=== PATIENT | male | born 1960 | race Caucasian/White ===

== ENCOUNTER 2020-05-20 05:29 | Emergency (ER) | payer BC ==
--- OUTSIDE RECORDS SUMMARY | 2020-05-20 05:31 | XMS REPORT | Continuity of Care Document ---
:1960 Author Organization [facility] t Address [address] [place] [address] Care Team Providers Name Role Phone Rolando HIGH Attending Clinician Fredy Nunez MD Attending Clinician Doctor Unassigned, Name Attending Clinician Unavailable Problems This patient has no known problems. Allergies, Adverse Reactions, Alerts This patient has no known allergies or adverse reactions. Medications This patient has no known medications. Procedures This patient has no known procedures. Encounters Start End Encounter Admission Attending Care Care Encounter Source Date/Time Date/Time Type Type Clinicians Facility Department ID 2020-05-04 2020-05-04 Refill MALIHA Marshall [id number] 00:00:00 00:00:00 Shauna Brunson [id number] [place] [id number] [place] [phone] nal 059 [facility] 2019-11-30 2019-11-30 Telephone MALIHA Nunez [id number] 00:00:00 00:00:00 Dharmesh Brunson [id number] [place] [id number] [place] [phone] nal 044 [facility] 2019-11-25 2019-11-25 Orders Doctor GUY [id number] 00:00:00 00:00:00 Only Unassigned, CHELLY [id number] [place] [address]686 [id number] 009 2019-11-03 2019-11-03 [facility] [id number] 00:00:00 00:00:00 Shauna Brunson [id number] [place] [id number] [place] [phone] [address] 2019-09-22 2019-09-22 [facility] [id number] 00:00:00 00:00:00 Shauna Brunson [id number] [place] [id number] [facility] [phone] [address] 2019-09-02 2019-09-[address] [facility] [id number] 00:00:00 00:00:00 Shauna Brunson [id number] [place] [id number] [facility] [phone] [address] 2019-08-25 2019-08-[address] [facility] [id number] 08:57:19 09:17:19 ne Visit Shauna Brunson [id number] [place] [id number] [facility] [phone] [address] 2019-08-12 2019-08-12 [facility] [id number] 00:00:00 00:00:00 [facility] [id number] [place] [id number] Profess[facility] [phone] [place] [address] [address] One Results This patient has no known results.
--- OUTSIDE RECORDS SUMMARY | 2020-05-20 05:31 | XMS REPORT | Summary of Care ---
:1960 Author Organization [facility] Address [address] [place] [id number] Care Team Providers Name Role Phone Fredy Nunez MD Primary Care Provider Reason for Visit Reason Comments Refill Request Encounter Details Date Type Department Care Team Description 05/04/2020 Refill [facility]- Abilio Marshall MD Refill Request [address] [facility], [address] [place] [address] [place] [address] [phone] Allergies Active Allergy Reactions Severity Noted Date Comments Codeine Nausea and/or Vomiting 04/11/2016 Liraglutide Nausea and/or Vomiting 07/11/2017 documented as of this encounter (statuses as of 05/04/2020) Medications Medication Sig Dispensed Refills Start End Date Status Date aspirin 81 mg Take 81 mg 0 Activ e chewable tablet by mouth daily. MULTIVITAMIN ORAL Take by 0 Ac tive mouth daily. CALCIUM Take by 0 Active CARBONATE/VITAMIN D3 mouth daily. (VITAMIN D-3 ORAL) FLAXSEED ORAL Take by 0 Active mouth daily. econazole nitrate 1 % Apply to 45 g 0 Active creamIndications: area(s) 9 Atypical rash daily. insulin degludec inject 15 15 mL 5 Act darshan (TRESIBA FLEXTOUCH Units under 0 U-100) 100 unit/mL (3 the skin mL) InPnIndications: daily. Type 2 diabetes mellitus without complication, with long-term current use of insulin SITagliptin 100 mg Take 1 30 tablet 11 A ctive tabletIndications: tablet by 0 Type 2 diabetes mouth daily. mellitus without complication, with long-term current use of insulin pantoprazole 40 mg EC Take 1 30 tablet Active tabletIndications: tablet by 0 Gastroesophageal mouth daily. reflux disease, esophagitis presence not specified metFORMIN 1,000 mg TAKE ONE 60 tablet 11 A ctive tabletIndications: TABLET BY 0 Type 2 diabetes MOUTH TWICE mellitus without A DAY WITYH complication, with MEALS long-term current use of insulin empagliflozin Take 1 30 tablet 11 Active (JARDIANCE) 10 mg tablet by 0 TabIndications: Type mouth daily. 2 diabetes mellitus without complication, with long-term current use of insulin Insulin [place], Inject 100 Each 3 Act dasrhan Disposable, (CECILIA PEN Tresiba 0 NEEDLE) 32 gauge x daily as " directed NdleIndications: Type 2 diabetes mellitus without complication, with long-term current use of insulin lisinopril-hydrochlor Take 2 180 tablet 3 Active othiazide 20-12.5 mg tablets by 0 per tablet mouth daily. rosuvastatin Take 1 90 tablet 3 Active (CRESTOR) 40 mg tablet by 0 tablet mouth daily. clopidogreL 75 mg Take 1 90 tablet 3 Ac tive tablet tablet by 0 mouth daily. metoprolol succinate Take 1 90 tablet 1 Active XL 50 mg 24 hr tablet tablet by 0 mouth daily. metoprolol succinate Take 1 90 tablet 1 05/04/20 Discontinued XL 50 mg 24 hr tablet tablet by 0 20 (Reorder) mouth daily. documented as of this encounter (statuses as of 05/04/2020) Active Problems Problem Noted Date Screening for colorectal cancer 08/07/2017 Overview: Added automatically from request for devin jyoti [id number] Umbilical hernia without obstruction and without gangr abigail 08/07/2017 Overview: Added automatically from request for devin jyoti [id number] Fatty liver 07/26/2017 Ingrown toenail without infection 07/07/2017 HTN (hypertension) DM (diabetes mellitus) Overview: diagnosed around age 34yo CAD (coronary artery disease) HLD (hyperlipidemia) Umbilical hernia documented as of this encounter (statuses as of 05/04/2020) Immunizations Name Administration Dates Next Due Influenza Virus Vaccine Quad IM 3+ YRS 02/11/2018 Pneumococcal Polysaccharide, PPSV23 (PNEUMOVAX) 06/28/2017 documented as of this encounter Social History Tobacco Use Types Packs/Day Years Used Date Never Smoker Smokeless Tobacco: Current User Chew Alcohol Use Drinks/Week oz/Week Comments No occasional Sex Assigned at Date Recorded Not on file documented as of this encounter Last Filed Vital Signs Not on filedocumented in this encounter Plan of Treatment Date Type Specialty Care Team Description 08/29/2020 Office Visit Cardiology Shauna Marshall M D [address] [facility] [address] [place] [address] 15 [phone] Health Maintenance Due Date Last Done Comments DTaP,Tdap,and Td Vaccines (1 1981 - Tdap) COLON CANCER SCREENING 2012 ANNUAL FIT/FOBT COLON CANCER SCREENING FIT 2012 DNA EVERY 3 YEARS COLON CANCER SCREENING 2012 SIGMOIDOSCOPY EVERY 5 YEARS COLONOSCOPY 2012 Colorectal Cancer Screening 2012 Zoster Recombinant Vaccine 2012 (SHINGRIX) (1 of 2) FOOT EXAM 06/28/2018 06/28/2017, 06/28/2017, 11/02/2016, Additional history exists HgA1C 02/18/2019 08/19/2018, 02/11/2018, 06/28/2017 CREATININE (SERUM) 08/20/2019 08/19/2018, 02/11/2018, 06/28/2017 LDL-C 08/20/2019 08/19/2018, 02/11/2018, 06/28/2017 URINE MICROALBUMIN 08/20/2019 08/19/2018, 06/28/2017 INFLUENZA VACCINE (#1) 2020 02/11/2018 EYE EXAM 03/13/2020 03/13/2019, 01/04/2017 Depression Screening 07/12/2020 07/13/2019 HEPATITIS C (HCV) SCREEN Completed 06/28/2017 PNEUMOCOCCAL 0-64 YEARS Aged Out 06/28/2017 No longe r eligible COMBINED SERIES based on patient 's age to complete this topic documented as of this encounter Results Not on filedocumented in this encounter Insurance Payer Benefit Plan Subscriber ID Effective Dates Phone Address Type / Group [facility] [id number] 2016-Yuliet [phone] [address] [place] PPO/POS [place] - OUT OF t 7 [id number] [place] [address] documented as of this encounter
[2020-05-20 06:09] LABS: Absolute Lymphocytes (CBC) 1.8 K/uL (0.7-4.9); Basophils % 0.6 % (0-1.3); Hematocrit 42.9 % (39.6-49.0); Lymphocytes % 38.8 % (15.3-44.8); MPV 8.3 fL (7.6-11.3)
--- NOTE | 2020-05-20 06:09 | ER ---
Nurse's Notes [facility] Name: Brice Noe Age: 59 yrs Sex: Male : 1960 Arrival Date: 05/20/2020 Time: 05:35 Bed 2 Private MD: Diagnosis: Cerebral infarction-left sided weakness, dense;Hypokalemia Presentation: 05/20 05:50 Risk Assessment: Do you want to hurt yourself or someone else? Patient reports no ea desire to harm self or others. Onset of symptoms was May 20, 2020 at 05:00. 05:50 Acuity: TARA 3 ea 05:50 Chief complaint: Patient states: I woke up around 0445 and felt fine, I brushed my sg teeth and got dressed for work. Then I started having my left arm go numb and not feeling normal, then I could barely walk. Onset of symptoms is 0500 per the pt and pt family. Coronavirus screen: Client denies travel out of the [place] in the last 14 days. At this time, the client does not indicate any symptoms associated with coronavirus-19. Ebola Screen: Patient negative for fever greater than or equal to 101.5 degrees Fahrenheit, and additional compatible Ebola Virus Disease symptoms Patient denies exposure to infectious person. Patient denies travel to an Ebola-affected area in the 21 days before illness onset. No symptoms or risks identified at this time. An acute neurological deficit is present. The patient has been moved to a treatment area. The patients blood glucose was checked prior to arriving to the hospital and was found to be hyperglycemic. The patient has been moved to a treatment room. Initial Sepsis Screen: Does the patient meet any 2 criteria? No. Patient's initial sepsis screen is negative. Does the patient have a suspected source of infection? No. Patient's initial sepsis screen is negative. Risk Assessment: Do you want to hurt yourself or someone else? Patient reports no desire to harm self or others. Onset of symptoms was May 20, 2020 at 05:00. Care prior to arrival: None. Transition of care: patient was not received from another setting of care. 05:50 Acuity: TARA 2 sg 05:50 Method Of Arrival: Wheelchair sg 05:51 Ebola Screen: No symptoms or risks identified at this time. ea 05:51 An acute neurological deficit is present. Pre-hospital glucose is not applicable to ea this patient. 05:54 Note pt reports had a fall x1 week ago, with LOC per the pt and pt family. sg Triage Assessment: 05:50 General: Appears in no apparent distress. Behavior is cooperative. ea 07:03 The onset of the patients symptoms was May 20, 2020 at 05:00. sv Stroke Activation: Symptom onset < 3 hours Physician: Stroke Attending; Name: ; Notified At: ; Arrived At: Physician: Chief Stroke Resident; Name: ; Notified At: ; Arrived At: Physician: Stroke Resident; Name: ; Notified At: ; Arrived At: Physician: ED Attending; Name: ; Notified At: ; Arrived At: Physician: ED Resident; Name: ; Notified At: ; Arrived At: Stroke Activation: Symptom onset < 3 hours Physician: Stroke Attending; Name: ; Notified At: ; Arrived At: Physician: Chief Stroke Resident; Name: ; Notified At: ; Arrived At: Physician: Stroke Resident; Name: ; Notified At: ; Arrived At: Physician: ED Attending; Name: ; Notified At: ; Arrived At: Physician: ED Resident; Name: ; Notified At: ; Arrived At: Historical: - Allergies: 05:54 Codeine; sg 05:55 Codeine; ea - Home Meds: 05:55 pantoprazole 40 mg Oral TbEC 1 tab once daily [Active]; metoprolol tartrate 50 mg Oral ea tab 1 tab 2 times per day [Active]; metformin 1,000 mg Oral tab 1 tab 2 times per day [Active]; lisinopril 2.5 mg Oral tab 1 tab once daily [Active]; Jardiance 10 mg Oral tab 1 tab once daily [Active]; Effient 10 mg Oral tab 1 tab once daily [Active]; Crestor 40 mg Oral tab 1 tab once daily [Active]; - PMHx: 05:54 Diabetes - NIDDM; GERD; High Cholesterol; Hypertension; Myocardial infarction; sg 05:55 Myocardial infarction; Hypertension; High Cholesterol; Diabetes - NIDDM; GERD; ea - PSHx: 05:54 Knee surgery; sg 05:55 Knee surgery; ea - Immunization history:: Adult Immunizations up to date, Adult Immunizations up to date. - Social history:: Smoking status: Patient denies any tobacco usage or history of. Smoking status: Patient denies any tobacco usage or history of. - Family history:: not pertinent. Screenin:50 Abuse screen: Denies threats or abuse. Nutritional screening: No deficits noted. ea Tuberculosis screening: No symptoms or risk factors identified. Fall Risk IV access (20 points). Assessment: 05:49 The patient has not been NPO before screening. The patient is alert, and able to follow ea commands. The patient does not exhibit slurred or garbled speech. The patient is not exhibiting difficulty speaking. The patient does not exhibit difficulty understanding words. The patient is able to swallow own secretions with no drooling or need for suction. Patient tolerated one teaspoon of water. No drooling, immediate coughing, gurgling, or clearing of the throat was noted. The patient tolerated 90mL of water. No drooling, immediate coughing, gurgling, or clearing of the throat was noted. The patient passed the bedside swallow screening. Oral medications may be given as ordered. Contact Physician for further diet orders. Provider notified of bedside swallow screening results: Roberto Carlos Garg MD. Pain: Denies pain. Neuro: Level of Consciousness is awake, alert, obeys commands, Oriented to person, place, time, situation, Dip Tanker are weak on left in left hand(s) leg(s) Facial droop on left. Respiratory: Airway is patent Respiratory effort is even, unlabored, Respiratory pattern is regular, symmetrical. Derm: Skin is pink, warm \T\ dry. 06:14 T-PA (Activase) Screening: Indications: Definite evidence of stroke, ischemic, embolic, ea or hypertensive: Yes. Treatment will start within 4.5 hours onset of symptoms: Yes. No evidence of intracranial hemorrhage or CT of head and no evidence of peripheral hemorrhage or recent CVA: Yes. Consent for thrombolytic therapy: Yes. 06:48 Reassessment: Patient and/or family updated on plan of care and expected duration. Pain ea level reassessed. Patient is alert, oriented x 3, equal unlabored respirations, skin warm/dry/pink. Pt taken to CT accompanied by wood technologist and ED nurse. 07:01 Reassessment: Patient and/or family updated on plan of care and expected duration. Pain ea level reassessed. Patient is alert, oriented x 3, equal unlabored respirations, skin warm/dry/pink. Returned from CT. 07:03 VAN Scoring: Arm Drift: Flaccid/no antigravity Visual Disturbance: No visual sv disturbance noted. Aphasia: No aphasia noted. Neglect: No neglect noted. 07:03 General: Appears in no apparent distress. comfortable, well groomed, well developed, sv Behavior is calm, cooperative, appropriate for age. Pain: Denies pain. Neuro: Level of Consciousness is awake, alert, obeys commands, Oriented to person, place, time, situation, Dip Tanker are weak on left Weakness in left hand(s) arm(s) leg(s) Speech is normal, Facial symmetry appears normal, Facial symmetry: tongue is midline, Reports numbness in left hand and left leg weakness in left arm and left leg. Cardiovascular: Patient's skin is warm and dry. Pulses are palpable in right radial artery and left radial artery. Respiratory: Airway is patent Respiratory effort is even, unlabored, Respiratory pattern is regular, symmetrical. Derm: Skin is pink, warm \T\ dry. 08:30 Reassessment: Patient appears in no apparent distress at this time. No changes from sv previously documented assessment. Patient and/or family updated on plan of care and expected duration. Pain level reassessed. Patient is alert, oriented x 3, equal unlabored respirations, skin warm/dry/pink. 10:00 Reassessment: Patient appears in no apparent distress at this time. No changes from sv previously documented assessment. Patient and/or family updated on plan of care and expected duration. Pain level reassessed. Patient is alert, oriented x 3, equal unlabored respirations, skin warm/dry/pink. 11:59 Reassessment: Patient appears in no apparent distress at this time. No changes from sv previously documented assessment. Patient and/or family updated on plan of care and expected duration. Pain level reassessed. Patient is alert, oriented x 3, equal unlabored respirations, skin warm/dry/pink. 12:44 Reassessment: Patient appears in no apparent distress at this time. No changes from sv previously documented assessment. Patient and/or family updated on plan of care and expected duration. Pain level reassessed. Patient is alert, oriented x 3, equal unlabored respirations, skin warm/dry/pink. 13:47 Reassessment: Bedside report given to Boris from [facility]. Vital Signs: 05:50 BP 150 / 77; Pulse 88; Resp 18; Temp 97.7; Pulse Ox 100% on R/A; Pain 3/10; sg 06:30 BP 128 / 70; Pulse 59; Resp 19; Pulse Ox 97% on R/A; ea 07:03 BP 138 / 71; Pulse 68; Resp 16; Temp 98; Pulse Ox 99% ; sv 07:48 BP 134 / 81; Pulse 67; Resp 14; Pulse Ox 100% ; sv 08:03 BP 152 / 82; Pulse 64; Resp 16; Pulse Ox 97% on R/A; sv 08:48 BP 146 / 83; Pulse 67; Resp 14; Pulse Ox 99% ; sv 09:48 BP 123 / 73; Pulse 64; Resp 14; Pulse Ox 100% ; sv 10:55 BP 128 / 84; Pulse 62; Resp 20; Temp 97.8(O); Pulse Ox 94% on R/A; mh5 11:48 BP 126 / 79; Pulse 58; Resp 16; Pulse Ox 99% ; sv 12:30 BP 132 / 79; Pulse 58; Resp 16; Temp 97.6(O); Pulse Ox 96% on R/A; mh5 13:30 BP 129 / 88; Pulse 59; Resp 16; Pulse Ox 99% ; sv NIH Stroke Scale Scores: 05:52 NIHSS Score: 6 ea 05:55 NIHSS Score: 10 daron 07:03 NIHSS Score: 10 sv ED Course: 05:35 Patient arrived in ED. ea 05:37 Roberto Carlos Garg MD is Attending Physician. daron 05:49 Inserted saline lock: 20 gauge in right antecubital area, using aseptic technique. ea Blood collected. 05:51 Triage completed. ea 05:51 CT Stroke Brain w/o Contrast In Process Unspecified. EDMS 05:51 Patient has correct armband on for positive identification. Placed in gown. Bed in low ea position. Call light in reach. Side rails up X2. Adult w/ patient. library monitor on. Pulse ox on. NIBP on. 05:52 Arm band placed on right wrist. Patient placed in an exam room, on a stretcher, on ea compliance monitor, on pulse oximetry. EKG completed in triage. Results shown to . 06:04 XRAY Chest (1 view) In Process Unspecified. EDMS 06:05 Dr. Garg initiated transfer at [facility] with Xuan Tellez. tt3 06:10 Dr. Garg was connected with Dr. Kuhn. tt3 06:[address] Garg with Adia Matute from the [facility] Transfer Center. eb 06:40 Benoit Calix, RN is Primary Nurse. sg 06:46 No provider procedures requiring assistance completed. Patient transferred, IV remains ea in place. 06:57 Sparkle Marks from the [facility] Transfer Center connected Dr. Garg with the neurologist ryley convenience recycle center tech Dr. Rodriguez from [facility]. 07:02 CT Head Angio In Process Unspecified. EDMS 07:02 Neck Angio In Process Unspecified. EDMS 07:35 called and spoke with Leticia from the [facility] Transfer Center to get Dr. Rodriguez for Dr. ryley Garg for CT Angio update. 07:50 Primary Nurse role handed off by Benoit Calix, RN sv 07:50 Laura Faulkner, EVELINA is Primary Nurse. sv 07:51 LFT's Sent. sv 07:51 CBC with Diff Sent. sv 07:51 Basic Metabolic Panel Sent. sv 10:03 transfer Awaiting: bed assignment from [facility]. sv 13:00 administrative approval given by Leticia Romo from the [facility] Transfer center. patient eb has been accepted to [facility] Shakira He [phone]/ Dr. Rose has accepted the patient in transfer/ report to be called to [phone]. Administered Medications: 06:03 Drug: foLIC Acid 1 mg Route: IVPB; Site: right antecubital; ea 06:03 Drug: NS 0.9% 1000 ml Route: IV; Rate: 1 bolus; Site: right antecubital; ea 06:18 Drug: ACTIvase {Co-Signature: misty (Urvashi Domínguez RN).} Route: IV Thrombolytics; Rate: sg calculated rate; Infused Over: 60 mins; 07:18 Follow up: Response: No adverse reaction sv 13:49 Follow up: Response: No adverse reaction sv 07:15 Drug: Potassium Effervescent Tablet 25 mEq Route: PO; ea 07:50 Follow up: Response: No adverse reaction sv 09:00 Drug: NS 0.9% 500 ml Route: IV; Rate: bolus; Site: right antecubital; sv 09:40 Follow up: Response: No adverse reaction; IV Status: Completed infusion; IV Intake: sv 500ml Point of Care Testing: Blood Glucose: 05:55 Blood Glucose: 296 mg/dL; ea Ranges: Intake: 09:40 IV: 500ml; Total: 500ml. sv Outcome: 06:08 ER care complete, transfer ordered by MD. neri 06:48 Instructed on the need for transfer. ea 13:13 [facility] Transfer form sv completed. X-rays sent w/ patient. Note: Report given to Nia HOYT 13:13 Condition: stable 13:48 Patient left the ED. sv NIH Stroke Scale - NIH Stroke Score Date: 05/20/2020 Time: 05:52 Total Score = 6 1a. Level of Consciousness (LOC) - 0(Alert) 1b. Level of Consciousness (LOC) (Year \T\ Age) - 0(Both) 1c. LOC Commands (Open \T\ Closes Eyes/Showroom Salesperson) - 0(Both) 2. Best Gaze (Lateral Gaze Paresis) - 0(Normal) 3. Visual Field Loss - 0(No visual loss) 4. Facial Palsy - 1(Minor Paralysis) 5a. Left Arm: Motor (10-second hold) - 2(Drift, some effort against gravity) 5b. Right Arm: Motor (10-second hold) - 0(No drift) 6a. Left Leg: Motor (5-second hold - always test supine) - 3(No effort against gravity) 6b. Right Leg: Motor (5-second hold - always test supine) - 0(No drift) 7. Limb Ataxia (finger/nose \T\ heel/izquierdo - test with eyes open) - 0(Absent) 8. Sensory Loss (pinprick arms/legs/face) - 0(Normal) 9. Best Language: Aphasia (description/naming/reading) - 0(No aphasia) 10. Dysarthria (speech clarity - read or repeat words) - 0(Normal) 11. Extinction and Inattention (visual/tactile/auditory/spatial/personal) - 0(No abnormality) Initials: misty NIH Stroke Scale - NIH Stroke Score Date: 05/20/2020 Time: 05:55 Total Score = 10 1a. Level of Consciousness (LOC) - 0(Alert) 1b. Level of Consciousness (LOC) (Year \T\ Age) - 0(Both) 1c. LOC Commands (Open \T\ Closes Eyes/Showroom Salesperson) - 0(Both) 2. Best Gaze (Lateral Gaze Paresis) - 0(Normal) 3. Visual Field Loss - 0(No visual loss) 4. Facial Palsy - 0(Normal) 5a. Left Arm: Motor (10-second hold) - 3(No effort against gravity) 5b. Right Arm: Motor (10-second hold) - 0(No drift) 6a. Left Leg: Motor (5-second hold - always test supine) - 2(Drift, some effort against gravity) 6b. Right Leg: Motor (5-second hold - always test supine) - 0(No drift) 7. Limb Ataxia (finger/nose \T\ heel/izquierdo - test with eyes open) - 2(Present in two limbs) 8. Sensory Loss (pinprick arms/legs/face) - 1(Mild to moderate loss) 9. Best Language: Aphasia (description/naming/reading) - 1(Mild to moderate aphasia) 10. Dysarthria (speech clarity - read or repeat words) - 1(Mild to Moderate) 11. Extinction and Inattention (visual/tactile/auditory/spatial/personal) - 0(No abnormality) Initials: [facility] NIH Stroke Scale - NIH Stroke Score Date: 05/20/2020 Time: 07:03 Total Score = 10 1a. Level of Consciousness (LOC) - 0(Alert) 1b. Level of Consciousness (LOC) (Year \T\ Age) - 0(Both) 1c. LOC Commands (Open \T\ Closes Eyes/Showroom Salesperson) - 0(Both) 2. Best Gaze (Lateral Gaze Paresis) - 0(Normal) 3. Visual Field Loss - 0(No visual loss) 4. Facial Palsy - 0(Normal) 5a. Left Arm: Motor (10-second hold) - 4(No movement) 5b. Right Arm: Motor (10-second hold) - 0(No drift) 6a. Left Leg: Motor (5-second hold - always test supine) - 4(No movement) 6b. Right Leg: Motor (5-second hold - always test supine) - 0(No drift) 7. Limb Ataxia (finger/nose \T\ heel/izquierdo - test with eyes open) - 2(Present in two limbs) 8. Sensory Loss (pinprick arms/legs/face) - 0(Normal) 9. Best Language: Aphasia (description/naming/reading) - 0(No aphasia) 10. Dysarthria (speech clarity - read or repeat words) - 0(Normal) 11. Extinction and Inattention (visual/tactile/auditory/spatial/personal) - 0(No abnormality) Initials: sv Signatures: Dispatcher [employer] Laura Craven RN RN sv Gay, Steven, RN RN sg Anderson, Corey, MD MD cha Martinez, Maria [facility] Urvashi Domínguez RN RN ea Botello, Elizabeth eb Trim, Tyler 3 Urvashi Domínguez RN, ea Corrections: (The following items were deleted from the chart) 12:59 12:30 BP 132 / 79; Pulse 58bpm; Resp 16bpm; Pulse Ox 96% RA; sv 5 13:49 07:18 Response: No adverse reaction sv sv
--- NOTE | 2020-05-20 06:09 | EDPHYS ---
Physician Documentation [facility] Name: Brice Noe Age: 59 yrs Sex: Male : 1960 Arrival Date: 05/20/2020 Time: 05:35 Bed 2 Private MD: ED Physician Roberto Carlos Garg HPI: 05/20 05:50 This 59 yrs old Male presents to ER via Unassigned with complaints of S/S of daron Possible Stroke. 05:50 The patient's problem is reported as paresthesias, in left upper extremity, in left daron lower extremity, weakness, in the left upper extremity, in the left lower extremity. Onset: The symptoms/episode began/occurred 1 hour(s) ago. Duration: The episode is continuous. Context: the episode(s) was witnessed, by family, . The symptoms are alleviated by nothing. The symptoms are aggravated by nothing. Associated signs and symptoms: Pertinent positives: gait abnormality, numbness, weakness. Severity of symptoms: At their worst the symptoms were moderate in the emergency department the symptoms are worse mildly. Patient's baseline: Neuro: alert and fully oriented. The patient has not experienced similar symptoms in the past. Historical: - Allergies: 05:54 Codeine; sg 05:55 Codeine; ea - Home Meds: 05:55 pantoprazole 40 mg Oral TbEC 1 tab once daily [Active]; metoprolol tartrate 50 mg Oral ea tab 1 tab 2 times per day [Active]; metformin 1,000 mg Oral tab 1 tab 2 times per day [Active]; lisinopril 2.5 mg Oral tab 1 tab once daily [Active]; Jardiance 10 mg Oral tab 1 tab once daily [Active]; Effient 10 mg Oral tab 1 tab once daily [Active]; Crestor 40 mg Oral tab 1 tab once daily [Active]; - PMHx: 05:54 Diabetes - NIDDM; GERD; High Cholesterol; Hypertension; Myocardial infarction; sg 05:55 Myocardial infarction; Hypertension; High Cholesterol; Diabetes - NIDDM; GERD; ea - PSHx: 05:54 Knee surgery; sg 05:55 Knee surgery; ea - Immunization history:: Adult Immunizations up to date, Adult Immunizations up to date. - Social history:: Smoking status: Patient denies any tobacco usage or history of. Smoking status: Patient denies any tobacco usage or history of. - Family history:: not pertinent. ROS: 05:50 Constitutional: Negative for fever, chills, and weight loss, Eyes: Negative for injury, daron pain, redness, and discharge, ENT: Negative for injury, pain, and discharge, Neck: Negative for injury, pain, and swelling, Cardiovascular: Negative for chest pain, palpitations, and edema, Respiratory: Negative for shortness of breath, cough, wheezing, and pleuritic chest pain, Abdomen/GI: Negative for abdominal pain, nausea, vomiting, diarrhea, and constipation, Back: Negative for injury and pain, : Negative for injury, bleeding, discharge, and swelling, Skin: Negative for injury, rash, and discoloration, Psych: Negative for depression, anxiety, suicide ideation, homicidal ideation, and hallucinations, Allergy/Immunology: Negative for hives, rash, and allergies, Endocrine: Negative for neck swelling, polydipsia, polyuria, polyphagia, and marked weight changes, Hematologic/Lymphatic: Negative for swollen nodes, abnormal bleeding, and unusual bruising. 05:50 MS/extremity: Positive for decreased range of motion, paresthesias, of the left arm and left leg. Exam: 05:50 Constitutional: This is a well developed, well nourished patient who is awake, alert, daron and in no acute distress. Head/Face: Normocephalic, atraumatic. Eyes: Pupils equal round and reactive to light, extra-ocular motions intact. Lids and lashes normal. Conjunctiva and sclera are non-icteric and not injected. Cornea within normal limits. Periorbital areas with no swelling, redness, or edema. ENT: Nares patent. No nasal discharge, no septal abnormalities noted. Tympanic membranes are normal and external auditory canals are clear. Oropharynx with no redness, swelling, or masses, exudates, or evidence of obstruction, uvula midline. Mucous membranes moist. Neck: Trachea midline, no thyromegaly or masses palpated, and no cervical lymphadenopathy. Supple, full range of motion without nuchal rigidity, or vertebral point tenderness. No Meningismus. Chest/axilla: Normal chest wall appearance and motion. Nontender with no deformity. No lesions are appreciated. Cardiovascular: Regular rate and rhythm with a normal S1 and S2. No gallops, murmurs, or rubs. Normal PMI, no JVD. No pulse deficits. Respiratory: Lungs have equal breath sounds bilaterally, clear to auscultation and percussion. No rales, rhonchi or wheezes noted. No increased work of breathing, no retractions or nasal flaring. Abdomen/GI: Soft, non-tender, with normal bowel sounds. No distension or tympany. No guarding or rebound. No evidence of tenderness throughout. Back: No spinal tenderness. No costovertebral tenderness. Full range of motion. Male : Normal genitalia with no discharge or lesions. Skin: Warm, dry with normal turgor. Normal color with no rashes, no lesions, and no evidence of cellulitis. Psych: Awake, alert, with orientation to person, place and time. Behavior, mood, and affect are within normal limits. 05:50 Musculoskeletal/extremity: ROM: full passive range of motion, limited active range of motion, in the left arm and left leg, Circulation is intact in all extremities. Sensation intact. Compartment Syndrome exam of affected extremity: is normal. DVT Exam: No signs of deep vein thrombosis. no pain, no swelling, no tenderness, negative Homans' sign noted on exam, no appreciated bluish discoloration, no erythema, no increased warmth. 05:50 Neuro: Orientation: is normal, appropriate for stated age, no acute changes, Mentation: is normal, appropriate for stated age, no acute changes, Memory: is normal, appropriate for stated age, no acute changes, Cranial nerves: grossly normal, is grossly normal based on the patient's age, no acute changes, Cerebellar function: unable to test, Motor: Strength is 2/5 in the left arm and left leg, Sensation: no obvious gross deficits, appropriate no acute changes, numbness, that is mild, of the left arm and left leg, Gait: not tested. Babinski testing is normal, seizure activity, is not displayed by the patient. 06:02 ECG was reviewed by the Attending Physician. daron 06:08 Radiologist reports: nad,no blood daron Vital Signs: 05:50 BP 150 / 77; Pulse 88; Resp 18; Temp 97.7; Pulse Ox 100% on R/A; Pain 3/10; sg 06:30 BP 128 / 70; Pulse 59; Resp 19; Pulse Ox 97% on R/A; ea 07:03 BP 138 / 71; Pulse 68; Resp 16; Temp 98; Pulse Ox 99% ; sv 07:48 BP 134 / 81; Pulse 67; Resp 14; Pulse Ox 100% ; sv 08:03 BP 152 / 82; Pulse 64; Resp 16; Pulse Ox 97% on R/A; sv 08:48 BP 146 / 83; Pulse 67; Resp 14; Pulse Ox 99% ; sv 09:48 BP 123 / 73; Pulse 64; Resp 14; Pulse Ox 100% ; sv 10:55 BP 128 / 84; Pulse 62; Resp 20; Temp 97.8(O); Pulse Ox 94% on R/A; mh5 11:48 BP 126 / 79; Pulse 58; Resp 16; Pulse Ox 99% ; sv 12:30 BP 132 / 79; Pulse 58; Resp 16; Temp 97.6(O); Pulse Ox 96% on R/A; mh5 13:30 BP 129 / 88; Pulse 59; Resp 16; Pulse Ox 99% ; sv NIH Stroke Scale Scores: 05:52 NIHSS Score: 6 ea 05:55 NIHSS Score: 10 daron 07:03 NIHSS Score: 10 sv MDM: 05:37 Patient medically screened. daron 06:09 Differential diagnosis: CVA, paralysis, metabolic disorder, drug effects. Data daron reviewed: vital signs, nurses notes, lab test result(s), EKG, radiologic studies, CT scan, plain films. Data interpreted: lunchroom monitor: rate is 88 beats/min, rhythm is regular. Test interpretation: by ED physician or midlevel provider: ECG, plain radiologic studies. Counseling: I had a detailed discussion with the patient and/or guardian regarding: the historical points, exam findings, and any diagnostic results supporting the discharge/admit diagnosis, lab results. 07:41 Other consultation: dr lyles explained ct angio findings, slow to little flow in right daron vertebral artery, give 500 cc ns bolus , no meds to drop blood pressure. ED course: . 05/20 05:38 Order name: Basic Metabolic Panel [facility] 05/20 05:38 Order name: CBC with Diff daron 05/20 05:38 Order name: LFT's [facility] 05/20 05:38 Order name: Magnesium; Complete Time: 06:57 daron 05/20 05:38 Order name: NT PRO-BNP; Complete Time: 06:57 [facility] 05/20 05:38 Order name: PT-INR 05/20 05:36 Order name: CT Stroke Brain w/o Contrast 05/20 05:38 Order name: Troponin (emerg Dept Use Only); Complete Time: 06:57 [facility] 05/20 05:39 Order name: Basic Metabolic Panel; Complete Time: 06:57 EDMS 05/20 05:39 Order name: CBC with Automated Diff; Complete Time: 06:36 EDMS 05/20 05:39 Order name: Liver (Hepatic) Function; Complete Time: 06:57 EDMS 05/20 06:00 Order name: Glucose, Ancillary Testing; Complete Time: 06:10 EDMS 05/20 08:33 Order name: SARS-COV-2 RT PCR EDKS 05/20 05:38 Order name: XRAY Chest (1 view) [facility] 05/20 05:38 Order name: EKG; Complete Time: 05:39 [facility] 05/20 05:38 Order name: Cardiac monitoring; Complete Time: 05:49 [facility] 05/20 05:38 Order name: EKG - Nurse/Tech; Complete Time: 05:48 [facility] 05/20 05:38 Order name: IV Saline Lock; Complete Time: 05:49 [facility] 05/20 05:38 Order name: Labs collected and sent; Complete Time: 05:49 daron 05/20 05:38 Order name: O2 Per Protocol; Complete Time: 06:02 [facility] 05/20 05:38 Order name: O2 Sat Monitoring; Complete Time: 05:49 [facility] 05/20 05:38 Order name: CT Head Angio [facility] 05/20 05:41 Order name: Neck Angio EDMS EC:02 Rate is 65 beats/min. Rhythm is regular. QRS [place] is Normal. TN interval is normal. QRS daron interval is normal. QT interval is normal. No Q waves. T waves are Normal. No ST changes noted. Clinical impression: Normal ECG and No evidence of ischemia. Interpreted by me. Reviewed by me. Administered Medications: 06:03 Drug: foLIC Acid 1 mg Route: IVPB; Site: right antecubital; ea 06:03 Drug: NS 0.9% 1000 ml Route: IV; Rate: 1 bolus; Site: right antecubital; ea 06:18 Drug: ACTIvase {Co-Signature: misty (Urvashi Domínguez RN).} Route: IV Thrombolytics; Rate: sg calculated rate; Infused Over: 60 mins; 07:18 Follow up: Response: No adverse reaction sv 13:49 Follow up: Response: No adverse reaction sv 07:15 Drug: Potassium Effervescent Tablet 25 mEq Route: PO; ea 07:50 Follow up: Response: No adverse reaction sv 09:00 Drug: NS 0.9% 500 ml Route: IV; Rate: bolus; Site: right antecubital; sv 09:40 Follow up: Response: No adverse reaction; IV Status: Completed infusion; IV Intake: sv 500ml Point of Care Testing: Blood Glucose: 05:55 Blood Glucose: 296 mg/dL; ea Ranges: Critical Glucose Levels:Adult <50 mg/dl or >400 mg/dl <40 mg/dl or >180 mg/dl Disposition: 05/20/20 06:08 Transfer ordered to [facility]. Diagnosis are Cerebral infarction - left sided weakness, dense, Hypokalemia. - Reason for transfer: Higher level of care. - Accepting physician is to [facility] stroke center. - Condition is Serious. - Problem is new. - Symptoms are unchanged. NIH Stroke Scale - NIH Stroke Score Date: 05/20/2020 Time: 05:52 Total Score = 6 1a. Level of Consciousness (LOC) - 0(Alert) 1b. Level of Consciousness (LOC) (Year \T\ Age) - 0(Both) 1c. LOC Commands (Open \T\ Closes Eyes/Orange Picking Supervisor) - 0(Both) 2. Best Gaze (Lateral Gaze Paresis) - 0(Normal) 3. Visual Field Loss - 0(No visual loss) 4. Facial Palsy - 1(Minor Paralysis) 5a. Left Arm: Motor (10-second hold) - 2(Drift, some effort against gravity) 5b. Right Arm: Motor (10-second hold) - 0(No drift) 6a. Left Leg: Motor (5-second hold - always test supine) - 3(No effort against gravity) 6b. Right Leg: Motor (5-second hold - always test supine) - 0(No drift) 7. Limb Ataxia (finger/nose \T\ heel/izquierdo - test with eyes open) - 0(Absent) 8. Sensory Loss (pinprick arms/legs/face) - 0(Normal) 9. Best Language: Aphasia (description/naming/reading) - 0(No aphasia) 10. Dysarthria (speech clarity - read or repeat words) - 0(Normal) 11. Extinction and Inattention (visual/tactile/auditory/spatial/personal) - 0(No abnormality) Initials: misty NIH Stroke Scale - NIH Stroke Score Date: 05/20/2020 Time: 05:55 Total Score = 10 1a. Level of Consciousness (LOC) - 0(Alert) 1b. Level of Consciousness (LOC) (Year \T\ Age) - 0(Both) 1c. LOC Commands (Open \T\ Closes Eyes/Orange Picking Supervisor) - 0(Both) 2. Best Gaze (Lateral Gaze Paresis) - 0(Normal) 3. Visual Field Loss - 0(No visual loss) 4. Facial Palsy - 0(Normal) 5a. Left Arm: Motor (10-second hold) - 3(No effort against gravity) 5b. Right Arm: Motor (10-second hold) - 0(No drift) 6a. Left Leg: Motor (5-second hold - always test supine) - 2(Drift, some effort against gravity) 6b. Right Leg: Motor (5-second hold - always test supine) - 0(No drift) 7. Limb Ataxia (finger/nose \T\ heel/izquierdo - test with eyes open) - 2(Present in two limbs) 8. Sensory Loss (pinprick arms/legs/face) - 1(Mild to moderate loss) 9. Best Language: Aphasia (description/naming/reading) - 1(Mild to moderate aphasia) 10. Dysarthria (speech clarity - read or repeat words) - 1(Mild to Moderate) 11. Extinction and Inattention (visual/tactile/auditory/spatial/personal) - 0(No abnormality) Initials: [facility] NIH Stroke Scale - NIH Stroke Score Date: 05/20/2020 Time: 07:03 Total Score = 10 1a. Level of Consciousness (LOC) - 0(Alert) 1b. Level of Consciousness (LOC) (Year \T\ Age) - 0(Both) 1c. LOC Commands (Open \T\ Closes Eyes/Orange Picking Supervisor) - 0(Both) 2. Best Gaze (Lateral Gaze Paresis) - 0(Normal) 3. Visual Field Loss - 0(No visual loss) 4. Facial Palsy - 0(Normal) 5a. Left Arm: Motor (10-second hold) - 4(No movement) 5b. Right Arm: Motor (10-second hold) - 0(No drift) 6a. Left Leg: Motor (5-second hold - always test supine) - 4(No movement) 6b. Right Leg: Motor (5-second hold - always test supine) - 0(No drift) 7. Limb Ataxia (finger/nose \T\ heel/izquierdo - test with eyes open) - 2(Present in two limbs) 8. Sensory Loss (pinprick arms/legs/face) - 0(Normal) 9. Best Language: Aphasia (description/naming/reading) - 0(No aphasia) 10. Dysarthria (speech clarity - read or repeat words) - 0(Normal) 11. Extinction and Inattention (visual/tactile/auditory/spatial/personal) - 0(No abnormality) Initials: sv Signatures: Dispatcher [employer] EDLaura Beyer RN Benoit Cortés RN RN sg Anderson, Corey, MD MD cha Antunez, Elena, RN RN ea Elena Antunez RN ea Corrections: (The following items were deleted from the chart) 07:01 06:08 05/20/2020 06:[address] [facility]. Diagnosis is Cerebral infarction - left sided weakness, dense. Reason for transfer: Higher level of care. Accepting physician is to [facility] stroke [place]. Condition is Serious. Problem is new. Symptoms are unchanged. daron 07:04 07:01 05/20/2020 06:08 Transfer ordered to [facility]. Diagnosis is Cerebral daron infarction - left sided weakness, dense. Reason for transfer: Higher level of care. Accepting physician is to [facility] stroke [place]. Condition is Serious. Problem is new. Symptoms are unchanged. daron 07:41 06:10 CORONAVIRUS+MR.LAB.BRZ ordered. EDKS EDMS 13:48 07:04 05/20/2020 06:08 Transfer ordered to [facility]. Diagnosis is Cerebral sv infarction - left sided weakness, dense; Hypokalemia. Reason for transfer: Higher level of care. Accepting physician is to [facility] stroke [place]. Condition is Serious. Problem is new. Symptoms are unchanged. daron
[2020-05-20] MEDS ORDERED: NA CHLORIDE 0.9% 1,000 ML ONE (06:15)
[2020-05-20] MEDS ORDERED: ALTEPLASE 100 ML IV ONE (06:20)
[2020-05-20 06:36] LABS: ALT/SGPT 42 U/L (12-78); AST/SGOT 19 U/L (15-37); Alkaline Phosphatase 77 U/L (45-117); BUN Blood Urea Nitrogen 19 mg/dL (7-18); Bicarbonate 27 mmol/L (21-32); Bilirubin Direct 0.1 mg/dL (0-0.2); Bilirubin Total 0.5 mg/dL (0.2-1.0); Glucose Level 284 mg/dL (74-106); Magnesium 2.1 mg/dL (1.8-2.4); NT PRO-BNP 21 pg/mL (<125); Potassium 3.4 mmol/L (3.5-5.1); Protein, Total 7.5 g/dL (6.4-8.2); Sodium Level 138 mmol/L (136-145); Troponin (Emerg Dept Use Only) < 0.02 ng/mL (0.0-0.045)
[2020-05-20 06:38] LABS: Protime INR 0.92
[2020-05-20] MEDS ORDERED: POTASSIUM 25 MEQ EFFERV TAB ONE (07:26)
--- NOTE | 2020-05-20 07:39 | RAD REPORT ---
EXAM DESCRIPTION: Luias Angio05/20/2020 7:02 am CLINICAL HISTORY: Numbness COMPARISON: None TECHNIQUE: 50 cc Isovue 370 was administered intravenously. 3D MIP reconstruction performed All CT scans are performed using dose optimization technique as appropriate and may include automated exposure control or mA/KV adjustment according to patient size. FINDINGS: There is very little flow throughout the right vertebral artery. Intimal calcifications a re seen. The left vertebral artery appears normal. Mild calcified plaque within the right and left common, carotid internal carotid and external carotid arteries. IMPRESSION: Little flow throughout the right vertebral artery. Most likely this is secondary to a di ssection. This could be acute or chronic. Mild plaque within the carotid arteries Exam was discussed with Doctor Garg Emergency Room NASCET criteria used. Mild 0-49% stenosis Moderate 50-69% stenosis Severe 70-99% stenosis
--- NOTE | 2020-05-20 07:43 | RAD REPORT ---
EXAM DESCRIPTION: CTHead angio05/20/2020 7:02 am CLINICAL HISTORY: Numbness COMPARISON: None TECHNIQUE: CT angiogram of the head was obtained. 3D MIPS reconstruction performed. All CT scans are performed using dose optimization technique as appropriate and may include automated exposure control or mA/KV adjustment according to patient size. FINDINGS: The basilar, anterior cerebral, middle cerebral and posterior cerebral arteries are normal caliber. An aneurysm is not seen. Mild to moderate calcified plaque within the internal carotid belia arnulfo. A significant stenosis is not noted. IMPRESSION: No acute abnormality is displayed
--- NOTE | 2020-05-20 07:44 | RAD REPORT ---
EXAM DESCRIPTION: Alexandra Single View05/20/2020 6:04 am CLINICAL HISTORY: Cough COMPARISON: 2015 FINDINGS: The lungs appear clear of acute infiltrate. The heart is normal size IMPRESSION: No acute abnormalities displayed
[2020-05-20 14:28] VITALS: TEMP 97.6
[2020-05-20 14:29] VITALS: BP 129/88; O2SAT 99
--- NOTE | 2020-05-20 18:41 | RAD REPORT ---
EXAM DESCRIPTION: CT - Ct Stroke Brain Wo Cont - 05/20/2020 7:07 am CLINICAL HISTORY: The patient is 59 years old and is Male; NUMBNESS TECHNIQUE: Axial computed tomography images of the head/brain without intravenous contrast. Sagitt al and coronal reformatted images were created and reviewed. This CT exam was performed using one o r more of the following dose reduction techniques: automated exposure control, adjustment of the mA and/or kV according to patient size, and/or use of iterative reconstruction technique. COMPARISON: No relevant prior studies available. FINDINGS: BRAIN: Unremarkable. The ahn-white matter differentiation is preserved . No hemorrhag e. No significant white matter disease. No edema. No extra-axial fluid collections. VENTRICLES: Unremarkable. No ventriculomegaly. BONES/JOINTS: No acute fracture. SOFT TISSUES: Unremarkable. SINUSES: Unremarkable as visualized. No acute sinusitis. MASTOID AIR CELLS: Unremarkable as visualized. No mastoid effusion. ORBITS: Unremarkable as visualized. IMPRESSION: No acute intracranial findings. 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 The interpreting radiologist is fully responsible for the content of the report.
--- NOTE | 2020-05-21 13:31 | EKG ---
Test Date: 2020-05-20 Test Time: 05:47:01 Produce Assistant: JUAN JOSE MEASUREMENT RESULTS: Intervals: Rate: 65 WA: 168 QRSD: 88 QT: 410 QTc: 426 [place]: P: 36 WA: 168 QRS: 60 T: 3 INTERPRETIVE STATEMENTS: Normal sinus rhythm Normal ECG Compared to ECG 03/22/2016 01:42:17 No significant changes Electronically Signed On 05-21-20 13:28:27 GAS PIT WORKER by Ilya Mills
== END 2020-05-20 13:48 | disposition short-term general hospital (02) ==
LOC: ER 05:29
DX: I63.9 Cerebral infarction, unspecified (principal); G81.94 Hemiplegia, unspecified affecting left nondominant side; R29.710 NIHSS score 10; I10 Essential (primary) hypertension; E87.6 Hypokalemia; Z20.822 Contact with and (suspected) exposure to COVID-19; E11.9 Type 2 diabetes mellitus without complications; E78.00 Pure hypercholesterolemia, unspecified; I25.2 Old myocardial infarction; Z88.5 Allergy status to narcotic agent
CPT/HCPCS: 96361; 92977; 93005; 85025; 80048; 36415; 83735; 85610; 82947; 80076; 84484; 83880; 70496; 70498; 70450; 71045; 96374; 99285; U0003; Q9967; J2997; J7030

== ENCOUNTER 2020-05-26 10:04 | Inpatient (IN) | payer BC ==
--- NOTE | 2020-05-26 12:29 | R.PREADM ---
PRE-ADMISSION SCREENING FORM SCREENING DATE AND TIME 05/24/2020 14:07 (BASEBALL PLAYER) ANTICIPATED REHAB ADMISSION DATE 05/26/2020 REFERRING FACILITY [facility] REFERRAL DATE AND TIME 05/24/2020 14:07 (BASEBALL PLAYER) REFERRAL ROOM# [id number] ACUTE ADMIT DATE 05/26/2020 Previous Rehabilitation(s): No. ACUTE GOVERNMENT MINISTER/DC HAT SIZER ZAHEER HUNG ATTENDING PHYSICIAN MP CEDENO MD REFERRING PHYSICIAN MP CEDENO MD REHAB FACILITY [facility] CLINICAL LIAISON Eric Zavala PHYSICIAN REVIEWER Dr. Cortez Berkowitz M.D. MR# [id number] NAME LAMBERT MARQUIS ADDRESS [address] [place] [address] PHONE [facility] [id number] DATE OF 1960 AGE 59 SSN# [id number] GENDER male MARITAL STATUS RACE unknown race PREF. LANGUAGE (IF NON-GUAMANIAN) Uzbek ADMIT FROM 02 - [facility] PRE-HOSPITAL LIVING SETTING 01 - Home (private home/apt. board/care, assisted living, correction, transitional living) HOME TYPE AND DETAILS Type of home: single family house # of levels in the residence: 1 # of steps within the residence: 0 PRE-HOSPITAL LIVING WITH Family/Relatives FAMILY SUPPORT Yes PRIMARY FAMILY CONTACT NAME VIVIAN CHAUDHRY PRIMARY FAMILY CONTACT PHONE PRIMARY FAMILY CONTACT RELATIONSHIP Girlfriend PHONE PRIMARY FAMILY CONTACT ON ADM.? no IS PRIMARY FAMILY CONTACT AUTH. REP.? no 1ST EMERGENCY CONTACT VIVIAN CHAUDHRY 1ST CONTACT PHONE 1ST CONTACT RELATIONSHIP Girlfriend PHONE 1ST CONTACT ON ADM. no IS 1ST CONTACT AUTH. REP.? no PHONE 2ND CONTACT ON ADM.? 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 No ANOTHER CONSTITUTION PARTY RESPONSIBLE? No PRIMARY REHAB/ACUTE DIAGNOSIS: ACUTE STROKE ONSET DATE 05/20/2020 REHAB IMPAIRMENT CATEGORY (PASTORA): 01 Stroke (STR) MEETS 60% rule AFFECTED EXTREMITIES: LLE, and LUE PRIMARY DIAGNOSIS-RELATED SURGERIES: N/A SUMMARY OF ACUTE HOSPITALIZATION: Pt. is a 59 yo Right-handed male of unknown race. On 05/20/2020 Pt. presented to [facility] with sudden onset of left-side weakness. On 05/20/2020 he was admitted to [facility] with diagnosis ACUTE STROKE. His impairment category is Stroke 01 - Left Body (Right Brain) (01.1). Pre-morbidly, Pt. was independent/mod-I in Locomotion, Balance, Transfers Control, Endurance, Self-Ca re, and Sphincter Control; and he had good Communication. Currently, he has deficits of Safety Awareness, Balance, Endurance, Sphincter Control, and Locomotion . Pt. is now referred to [facility] for acute in-patient rehabilitation in order to maximize patient's functional independence in activities of daily living, strength, ROM, and mobi lity. Patient has realistic goal of being discharged at assistance level 7-Ind to reside at Home with Fami ly/Relatives. PAST MEDICAL HISTORY CAD DM DX AT AGE 34 FATTY LIVER H/O HAND SURGERY HYPERLIPIDEMIA HYPERTENSION UMBILICAL HERNIA OBESITY PAST SURGICAL HISTORY: KNEE ARTHROSCOPY PTCA W / POSSIBLE STENT MEDICATION ALLERGIES: No Known Drug Allergies (NKDA) ENVIRONMENTAL ALLERGIES: - Substance Allergies None Known - Other Allergies None Known CODE STATUS: Full code WEIGHT/HEIGHT/BMI: WEIGHT 241 lbs HEIGHT 5' 10" BMI 34.6 DIET: - Diet Type Regular - Diet - Solid Texture Regular - Diet - Liquid Texture Regular - Tube Feed N/A REVIEW OF SYSTEMS: - Gen Alert and awake Lying in bed No apparent distress Oriented to: person, time, and place - Vital Signs Temperature: 97.9 F SBP/DBP: 136/85 Pulse: 60 Resp: 18 Vital signs stable, afebrile - CVS RRR VITAL SIGNS Temperature: 97.9 F SBP/DBP: 136/85 Pulse: 60 Resp: 18 Vital signs stable, afebrile MEDICATIONS/TREATMENT: Other- See attached MAR (Medication Administration Record). CURRENT SPHINCTER CONTROL: Pre-hospital bladder status: unspecified # of bladder accidents in the last 7 days prior to screenin Pre-hospital bowel status: unspecified # of bowel accidents in the last 7 days prior to screenin Last Bowel Movement Date: 05/24/2020 CURRENT LOCOMOTION STATUS: distance walked 5 steps with rolling walker DETAILED CURRENT FUNCTIONAL STATUS: - Bladder accident frequency: Ind - No accidents in the past 7 days - Bowel accident frequency: Ind - No accidents in the past 7 days - Walking score based on distance walked: 0(N/A) score based on distance walked: 1(<=50ft) - Wheelchair score based on distance traveled: 0(N/A) QI SCORES: - Self-Care A. Eating 03-Partial/moderate assistance B. Oral hygiene 03-Partial/moderate assistance C. Toileting hygiene 03-Partial/moderate assistance E. Shower/bathe self 03-Partial/moderate assistance F. Upper body dressing 03-Partial/moderate assistance G. Lower body dressing 03-Partial/moderate assistance H. Putting on/taking off footwear 88-Not attempted due to medical condition or safety concerns - Mobility A. Roll left and right 03-Partial/moderate assistance B. Sit to lying 03-Partial/moderate assistance C. Lying to sitting on side of bed 03-Partial/moderate assistance D. Sit to stand 03-Partial/moderate assistance E. Chair/rzq-jd-[id number] transfer 03-Partial/moderate assistance F. Toilet transfer 03-Partial/moderate assistance G. Car transfer 88-Not attempted due to medical condition or safety concerns I. Walk 10 feet 88-Not attempted due to medical condition or safety concerns J. Walk 50 feet with two turns 88-Not attempted due to medical condition or safety concerns K. Walk 150 feet 88-Not attempted due to medical condition or safety concerns L. Walking 10 feet on uneven surfaces 88-Not attempted due to medical condition or safety concerns M. 1 step (curb) 88-Not attempted due to medical condition or safety concerns N. 4 steps 88-Not attempted due to medical condition or safety concerns O. 12 steps 88-Not attempted due to medical condition or safety concerns P. Picking up object 88-Not attempted due to medical condition or safety concerns R. Wheel 50 feet with two turns 88-Not attempted due to medical condition or safety concerns S. Wheel 150 feet 88-Not attempted due to medical condition or safety concerns - Bladder and Bowel Bladder continence Bowel continence - Endurance Poor - Balance Poor - Safety Awareness Poor CURRENT FUNC. DEFICITS: Self-Care, Mobility, Endurance, Balance, and Safety Awareness CURRENT / PREVIOUS ASSISTIVE DEVICES: Rolling Walker HISTORY OF FALLS. HAS THE PATIENT HAD TWO OR MORE FALLS IN THE PAST YEAR OR ANY FALL WITH INJURY IN T HE PAST YEAR?: Yes PRIOR SURGERY. DID THE PATIENT HAVE MAJOR SURGERY DURING THE 100 DAYS PRIOR TO ADMISSION?: Yes THERAPY NOTES FROM ACUTE CARE: Attached. SPECIAL NEEDS: - Safety Concerns Skin breakdown precautions needed due to skin breakdown risk PRECAUTIONS: - Weight Bearing Precaution WBAT left LE PATIENT NEEDS ACTIVE AND ONGOING THERAPEUTIC INTERVENTION OF MULTIPLE THERAPY DISCIPLINES, INCLUDING: - Occupational Therapy Cognitive Retraining. Visual Perceptual Training. - Dietary and Nutrition Adequate Nutrition. Nutritional Education. Nutritional Supplements. - Speech Therapy Cognitive Training. Expressive Language Skills. Memory Strategies. Receptive Language Skills. Speech Intelligibility Training. PATIENT NEEDS CLOSE MEDICAL SUPERVISION BY A REHABILITATION PHYSICIAN FOR: Coordination of Treatment Team PATIENT REQUIRES 24X7 REHAB NURSING FOR MEDICAL AND FUNCTIONAL MGT. OF THE FOLLOWING DEFICITS: Disease Management Medication Management Patient/Family Education Providing Safe Environment PATIENT REQUIRES INTENSIVE, COORDINATED INTERDISCIPLINARY APPROACH TO REHAB: Arranging Home Equipment/Services Discharge Planning Family Intervention/Training Sand Mill Operator Core Sand/Case Management PATIENT REHAB POTENTIAL: Cheng MARQUIS is able and expected to receive 3 hours of individualized therapy daily on at least 5 of ev drew 7 days Cheng MARQUIS's prognosis for significant practical improvement within a reasonable period of time appear s Good Expected level of measurable improvement will be of a practical value to Cheng MARQUIS's functional capac ity or adaptations to impairments Has a viable Discharge Plan Medically appropriate; condition is sufficiently stable to participate in intensive rehab program DISCHARGE PLAN: - Estimated Length of Stay (days) 17. - Consensus on plan Discharge plan has been discussed with primary caregiver. Patient/Family is in agreement with the lele n. Primary caregiver is in agreement with the plan. - Patient/Family Goals Return home independently. - Planned Living Setting Upon Discharge Home, to live with Family/Relatives. Transitional Living. RECOMMENDED CARE LEVEL: IRF RECOMMENDATION DETAILS: Recommended Admission to Comprehensive Rehabilitation Program to Increase Functional [place] SCREENER'S COMPLETENESS CONFIRMATION: - Screening Confirmation The patient data collection on this preadmission screening form is finished PHYSICIANS REVIEW AND ADMISSION DETERMINATION Admit - Based on my review of the Pre-Admission Screening results, in my medical judgment and experie nce, I concur with the findings and recommend admission to [facility], as this patient requires an IRF level of care. SIGNATURE PANEL: Circuit Board Assembler - [electronically] signed by Eric Zavala on 05/26/2020 at 10:51 (BASEBALL PLAYER) Circuit Board Assembler - [electronically] signed by Bhanu Arora PT on 05/26/2020 at 11:03 (BASEBALL PLAYER) Physician Reviewer - [electronically] signed by Dr. Cortez Berkowitz M.D. on 05/26/2020 at 12:28 (BASEBALL PLAYER )
--- OUTSIDE RECORDS SUMMARY | 2020-05-26 17:58 | XMS REPORT | Continuity of Care Document ---
:1960 Author Organization [facility] t Address [address] [place] [address] Care Team Providers Name Role Phone Milton HIGH Attending Clinician Rolando HIGH Attending Clinician Fredy Nunez MD Attending Clinician Doctor Unassigned, Name Attending Clinician Unavailable Milton HIGH Admitting Clinician Problems This patient has no known problems. Allergies, Adverse Reactions, Alerts This patient has no known allergies or adverse reactions. Medications This patient has no known medications. Procedures This patient has no known procedures. Encounters Start End Encounter Admission Attending Care Care Encounter Source Date/Time Date/Time Type Type Clinicians Facility Department ID 2020-05-20 2020-05-26 [facility] Miguel Rose [id number] 15:00:00 15:40:00 Encounter Chelly [id number] [facility] 4.2.7.2.686 [id number] 2020-05-04 2020-05-04 Refill MALIHA Marshall [id number] 00:00:00 00:00:00 Shauna Brunson [id number] [place] 4.2.7.2.686 [place] [id number] [address] 2019-11-30 2019-11-30 Telephone MALIHA Nunez [id number] 00:00:00 00:00:00 [facility] [employer] [id number] [place] 4.2.7.2.686 [facility] [id number] nal 044 [facility] 2019-11-25 2019-11-25 Orders Doctor BROOKS 1.2.840.114 [id number] 00:00:00 00:00:00 Only Unassigned, CHELLY [id number] [facility] 4.2.7.2.686 [id number] 2019-11-03 2019-11-03 Refill [facility] [place] [id number] 00:00:00 00:00:00 Shauna Brunson [id number] [place] 4.2.7.2.686 [facility] [id number] [address] 2019-09-22 2019-09-22 Refill [facility] [place] [id number] 00:00:00 00:00:00 Shauna Brunson [id number] [place] 4.2.7.2.686 [facility] [id number] [address] 2019-09-02 2019-09-02 Telephone [facility] [place] [id number] 00:00:00 00:00:00 Shauna Brunson [id number] [place] 4.2.7.2.686 [facility] [id number] [address] 2019-08-25 2019-08-25 [facility] 1.2.840.114 [id number] 08:57:19 09:17:19 ne Visit Shauna Brunson 350.1.13.10 [place] 4.2.7.2.686 [facility] [id number] [address] 2019-08-12 2019-08-12 [facility] 1.2.840.114 [id number] 00:00:00 00:00:00 [facility] [id number] [employer] 4.2.7.2.686 [facility] [phone] nal 0[address] One Results This patient has no known results.
--- OUTSIDE RECORDS SUMMARY | 2020-05-26 18:00 | XMS REPORT | Summary of Care ---
:1960 Author Organization [facility] Address [address] [place] [id number] Care Team Providers Name Role Phone Fredy Rosario MD Primary Care Provider Reason for Referral (Routine) Status Reason Specialty Diagnoses / Referred By Referred To Procedures Contact Contact New Request IM-ENDOCRINOLOGY,D Diagnoses Left-sided weakness BAL Frazier & Procedures Discharge Follow-Up: Specialty Service IM-ENDOCRINOLOGY,DIABETES & METABOLISM; 4-6 Weeks Discharge Follow-Up: Specialty Service IM-ENDOCRINOLOGY,DIABETES & METABOLISM; 4-6 Weeks MD Rudy METABOLISM [address] [place] [address] Other (Routine) Status Reason Specialty Diagnoses / Referred By Referred To Procedures Contact Contact New Request Family Medicine Diagnoses Left-sided weakness Karin Frazier, Procedures Discharge Follow-up: Specialty Provider RUDY FRAZIER; 2 Weeks MD Rudy Grant MD [address] [place] [id number] Phone: Fax: (Routine) Status Reason Specialty Diagnoses / Referred By Referred To Procedures Contact Contact New Request Family Medicine Diagnoses Left-sided weakness Enrique Frazier, Procedures Discharge Follow-up: PCP ZULMA ROSARIO; 3-5 Days MD Zulma Grant MD [address] [place], [place] [phone] Phone: Fax: (Routine) Status Reason Specialty Diagnoses / Referred By Referred To Procedures Contact Contact New Request Physical Therapy Diagnoses Left-sided weakness Karin, Procedures CONSULT/REFERRAL PHYSICAL THERAPY MD Rudy [address] [place] [address] (Routine) Status Reason Specialty Diagnoses / Referred By Referred To Procedures Contact Contact New Request Occupational Diagnoses Left-sided weakness Karin, Therapy Procedures CONSULT/REFERRAL OCCUPATIONAL THERAPY MD Rudy [address] [place] [address] MRI/CAT Scan (Routine) Status Reason Specialty Diagnoses / Referred By Referred To Procedures Contact Contact New Request Diagnostic Diagnoses Left-sided weakness Mp Rose MD Radiology Procedures MR STROKE BRAIN WO CONTRAST [address] [place] [address] (Routine) Status Reason Specialty Diagnoses / Procedures Referred By Ventura schroeder To Contact Contact New Request Cardiology Diagnoses Left-sided weakness Mp Rose MD Procedures STROKE Protocol - Echocardiogram Routine with Doppler Color [address] [place] [address] Reason for Visit Auth/Cert Status Reason Specialty Diagnoses / Referred By Referred To Procedures Contact Contact Neurological Surgery Diagnoses ACUTE STROKE [address] [place] [address] Encounter Details Date Type Department Care Team Description 05/20/2020 - Hospital Encounter Neurology/Neurologi Mp Rose Le ft-sided weakness 05/26/2020 s[facility] Surgery (NIDA HIGH 11B) [address] [phone] Allergies Active Allergy Reactions Severity Noted Date Comments Codeine Nausea and/or Vomiting 04/11/2016 Liraglutide Nausea and/or Vomiting 07/11/2017 documented as of this encounter (statuses as of 05/26/2020) Medications Medication Sig Dispensed Refills Start Date End Date Status aspirin 81 mg Take 81 mg by 0 Ac tive chewable tablet mouth daily. MULTIVITAMIN ORAL Take by 0 Ac tive mouth daily. CALCIUM Take by 0 Active CARBONATE/VITAMIN D3 mouth daily. (VITAMIN D-3 ORAL) FLAXSEED ORAL Take by 0 Active mouth daily. econazole nitrate 1 % Apply to 45 g 0 12/02/2018 Active creamIndications: area(s) Atypical rash daily. SITagliptin 100 mg Take 1 tablet 30 tablet 11 08/06/2019 Active tabletIndications: by mouth Type 2 diabetes daily. mellitus without complication, with long-term current use of insulin pantoprazole 40 mg EC Take 1 tablet 30 tablet 11 08/06/2019 Active tabletIndications: by mouth Gastroesophageal daily. reflux disease, esophagitis presence not specified empagliflozin Take 1 tablet 30 tablet 11 08/06/2019 A ctive (JARDIANCE) 10 mg by mouth TabIndications: Type daily. 2 diabetes mellitus without complication, with long-term current use of insulin Insulin [place], Inject 100 Each 3 08/12/2019 Ac tive Disposable, (CECILIA PEN Tresiba daily NEEDLE) 32 gauge x as directed " NdleIndications: Type 2 diabetes mellitus without complication, with long-term current use of insulin rosuvastatin Take 1 tablet 90 tablet 3 09/22/2019 Ac tive (CRESTOR) 40 mg by mouth tablet daily. metoprolol succinate Take 1 tablet 90 tablet 1 05/04/2020 Active XL 50 mg 24 hr tablet by mouth daily. ticagrelor 90 mg Take 1 tablet 60 tablet 1 05/26/2020 07/26/19 2 Active tabletIndications: by mouth 2 1 Left-sided weakness (two) times daily for 60 days. lisinopriL 20 mg Take 1 tablet 30 tablet 1 05/27/2020 07/27/19 2 Active tabletIndications: by mouth 1 Left-sided weakness daily for 60 days. metFORMIN 500 mg Take 2 60 tablet 1 05/26/2020 Ac tive tabletIndications: tablets by Left-sided weakness mouth daily. insulin degludec inject 25 60 Syringe 3 05/26/2020 A ctive (TRESIBA FLEXTOUCH Units under U-100) 100 unit/mL (3 the skin mL) InPnIndications: daily. Left-sided weakness insulin degludec inject 15 15 mL 5 08/06/2019 Di scontinued (TRESIBA FLEXTOUCH Units under 1 U-100) 100 unit/mL (3 the skin mL) InPnIndications: daily. Type 2 diabetes mellitus without complication, with long-term current use of insulin metFORMIN 1,000 mg TAKE ONE 60 tablet 11 08/06/2019 Discontinued tabletIndications: TABLET BY 1 Type 2 diabetes MOUTH TWICE A mellitus without DAY WITYH complication, with MEALS long-term current use of insulin lisinopril-hydrochlor Take 2 180 tablet 3 09/02/2019 Discontinued othiazide 20-12.5 mg tablets by 1 per tablet mouth daily. clopidogreL 75 mg Take 1 tablet 90 tablet 3 10/23/2019 02 Discontinued tablet by mouth 1 daily. metFORMIN 500 mg Take 1 tablet 60 tablet 1 05/26/2020 05/26/19 2 Discontinued tabletIndications: by mouth 2 1 Left-sided weakness (two) times daily with meals for 60 days. insulin glargine 100 inject 19 5.7 mL 0 05/27/2020 05/26/19 2 Discontinued unit/mL Units under 1 injectionIndications: the skin Left-sided weakness daily for 30 days. 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 Screening for colorectal cancer 08/07/2017 Overview: Added automatically from request for devin jyoti [id number] Umbilical hernia without obstruction and without gangr abigail 08/07/2017 Overview: Added automatically from request for devin jyoti [id number] Fatty liver 07/26/2017 Ingrown toenail without infection 07/07/2017 HTN (hypertension) Type 2 diabetes mellitus with complications Overview: diagnosed around age 34yo CAD (coronary artery disease) HLD (hyperlipidemia) Umbilical hernia documented as of this encounter (statuses as of 05/26/2020) Immunizations Name Administration Dates Next Due Influenza Virus Vaccine Quad IM 3+ YRS 02/11/2018 Pneumococcal Polysaccharide, PPSV23 (PNEUMOVAX) 06/28/2017 documented as of this encounter Social History Tobacco Use Types Packs/Day Years Used Date Never Smoker Smokeless Tobacco: Current User Chew Comments: 5 cans in 1 week Alcohol Use Drinks/Week oz/Week Comments Yes occasional Alcohol Habits Answer Date Recorded How often do you have a drink containing alcohol? Monthly or less 05/23/2020 How many drinks containing alcohol do you have on a Not aske d 05/23/2020 typical day when you are drinking? How often do you have six or more drinks on one Not asked 05/23/2020 occasion? Sex Assigned at Date Recorded Not on file COVID-19 Exposure Response Date Recorded In the last month, have you been in contact with No / Unsure 05/20/2020 1:23 PM INDUSTRIAL SALES REPRESENTATIVE someone who was confirmed or suspected to have Coronavirus / COVID-19? documented as of this encounter Last Filed Vital Signs Vital Sign Reading Time Taken Comments Blood Pressure 129/81 05/26/2020 11:09 AM INDUSTRIAL SALES REPRESENTATIVE Pulse 72 05/26/2020 11:09 AM INDUSTRIAL SALES REPRESENTATIVE Temperature 36.5 C (97.7 F) 05/26/2020 11:09 AM INDUSTRIAL SALES REPRESENTATIVE Respiratory Rate 18 05/26/2020 11:09 AM INDUSTRIAL SALES REPRESENTATIVE Oxygen Saturation 99% 05/26/2020 11:09 AM INDUSTRIAL SALES REPRESENTATIVE Inhaled Oxygen Concentration - - Weight 109.5 kg (241 lb 6.5 oz) 05/20/2020 3:06 PM INDUSTRIAL SALES REPRESENTATIVE Height 177.8 cm (5' 10") 05/20/2020 3:06 PM INDUSTRIAL SALES REPRESENTATIVE Body Mass Index 34.64 05/20/2020 3:06 PM INDUSTRIAL SALES REPRESENTATIVE documented in this encounter Discharge Instructions AttachmentsThe following attachments cannot be sent through Care Everywhere. Blood Sugar Log, Using a (Turkmen)Blood Sugar, Exercise to Manage Your (Turkmen) Brain, Anatomy of the (Turkmen)Good Positioning After a Stroke (Turkmen)High Blood Pressure and Diabetes (Turkmen)Smoking and Diabetes (Turkmen)Stroke and Heart Disease (Turkmen)Stroke and High Blood Pressure, Understanding the Link Between (Turkmen)Stroke, Completed (Turkmen)Stroke, Discharge Instructions for (Turkmen)Stroke, Effects on the Brain and Body (Turkmen)Stroke, Risk Factors for (Turkmen)Stroke, Self-Care After: For Caregivers (Turkmen)Stroke, Symptoms (Turkmen)Stroke, What is Ischemic (Turkmen)Stroke: Taking Medicines (Turkmen) Treatment of Diabetes (Turkmen)documented in this encounter Progress Notes Edna Corrales, HIGH SCHOOL MUSIC DIRECTOR - 05/26/2020 2:34 PM INDUSTRIAL SALES REPRESENTATIVE Physical Therapy Progress Note: Discharge Recommendations: Therapy Needs and Potential: Patient would benefit from continued physical therapy services to address: decline in bed mobility decline in transfers decline in gait and/or balance decreased strength decreased range of motion decreased motor planning Patient demonstrates good potential to improve and meet therapy goals with further physical therapy services. Patient appears motivated to improve their functional mobility and return to their previous levelof function. Patient demonstrates ability to tolerate atleast 30-60 minutes of physical therapy with active participation. Challenges to Home Transition: increased risk of falls decreased caregiver availability decreased safety awareness environmental barriers Equipment recommendations: rolling walker PAIN: denies pain PRECAUTIONS: Weight Bearing Precaution: WBAT General Precautions: PPE used:Gloves and Surgical mask, Fall Bracing/Cast present or required:N/A S: Patient agreeable to working with PT. O: Patient met Sitting edge of bed. Patient seen for the following: Bed mobility: Rolling: SBA/Setup Bridging: CGA, for LLE only Sitting balance Good Supine to sit: SBA/Setup Scooting to edge of bed: Modified independent Sit to supine: SBA/Setup Repositioned patient to head of bed: Modified independent analyzed pt to roll onto side and push with UE to right trunk to midline Transfers: Sit to stand: SBA/Setup using Rolling Walker Stand to sit: SBA/Setup using Rolling Walker Stand pivot transfer: SBA/Setup Static/dynamic standing balance: Fair+ Verbal cueing provided for correct hand placement and correct use of AD analyzed L knee flexion, forward flexed trunk cued pt on L TKE however intermittent hyperextension Gait: Assisted patient with ambulation as follows: 75 feet using Rolling Walker and SBA/Setup Patient presenting with uneven step through gait pattern. analyzed intermittent L foot drag cued pt on body mechanics Therapeutic exercise: patient educated in Adaptive equipment , Compensatory techniques/adaptive strategies, Deep breathing, Energy conservation, Fall prevention, General strengthening, Positioning, Relaxation/breathing techniques and Safety awareness., instructed patient in the following: ankle pumps, quad sets, glut sets, heel slides, hip abduction/adduction, hip internal/external rotation, straight leg raises, bilateral LE bridging, long arc quads, seated marching analyzed pt with slight active L DF compensatory training via use of towel for L AP and L calf stretch educated pt on the importance of compliance with BLE exercises and preventing heel cord tightness incorporated assistance as needed After session, patient Sitting edge of bed and call centeno provided. A: Patient tolerated session well. Patient progressing toward goals #1, #2, #3. P: PT will - progress functional mobility, strength and endurance. Total Timed Tx Codes in Minutes: 45 Min Total Treatment Time in Minutes: 45 Min Edna Corrales PTA Supervising PT Bernabe Restrepo STRIAL SALES REPRESENTATIVE Laury Kulkarni MD - 05/26/2020 2:13 PM CSTInsulin Instructions - After leaving the hospital (A) GENERAL INSTRUCTIONS Your glucose (sugar) goals are:120-150 mg/dL range for now Check blood sugar twice daily (fasting and and bedtime) OR if you have symptoms of low sugar (weakness, fatigue, sweats, dizziness) - please write these down to show your Computer Systems Engineer and bring your glucometer with you to your visit Please take: 1) Tresiba 25 units once daily If not eating or if blood sugar is between 80 and 120 give HALF the dose. If blood sugar less than 80: Eat a meal and recheck. Give half dose of insulin once blood sugar [id number]. 2) Oral medications: Restart your Jardiance 10 mg once daily, Januvia 100 mg once daily, and your metformin 1000 mg once daily. 3) Please follow up with Endocrinology in [place] in 4 weeks. CALL the access center at ([phone]) if you have any urgent questions regarding your insulin instructions. If you are vomiting and your sugar is in 300s, go to the ER. STRIAL SALES REPRESENTATIVE Yusuf Greenwood RN - 05/26/2020 9:48 AM INDUSTRIAL SALES REPRESENTATIVE Care Management Discharge Disposition Note (DCDN) 5-2-1 Interventions: Disease specific education;Intensive medication reconciliation/management;Teachback;Clear discharge plan;Follow-up appointments;Follow-up phone calls Providers: Physician;Groutman/Technical Applications Scientist;Nurse Patient Capacity Improvements: Avoidance of adverse events/readmission Discharge Plan for ongoing care and services: Rehabilitation Patient Choice completed for referred services: Yes Discussed with patient/patients family involved in decision making: Patient or family caregiver understands, and agrees with discharge plan Patient's family or support contact: Joaquina Marquez S/O [phone] Discharge Plan: Rehabilitation Receiving facility was provided the following clinical documentation at discharge- CM Facesheet, Consult notes, Labs, Progress Notes, MAR: Yes Discharge location(s): Rehabilitation location: [facility], [facility] [address], [place], [place] () [phone] (F) [phone] Community resources/referrals made or provided to patient: No Mental Status: Alert & Oriented to Person,Place & Time Psychosocial issues and/or concerns resulting in patient being a high risk for re-admission: Manage ADL indepentdly: Yes Living Arrangement: Home Other living arrangement: Address of living arrangement: [address] [place] [address] Funding Resources: Commercial Has patient been referred to RAYMOND/Dariana? Nursing informed of discharge plan: No CHP referral sent? No CM medication request completed (if appropriate): N/A PCP: Yes Zulma Rosario Transportation: Wheelchair Van- [facility] transport Discharge Medications Will the patient be able to obtain his medications? Yes Does the patient have transportation to to obtain the prescription medications? Yes CM Medication Request completed (if appropriate): Yes Expected discharge date: 05/26/20 Time: 1500 Name of RN informed: EVELINA Reis Additional Information: DC packet with signed PAC and MOT form given to Smiley HOYT. [facility] Wheel[facility] Van [phone] is scheduled to pick patient up at [phone]. Please contact CC/SW or designated mode of transportation if arrival time is delayed greater than 1 hour of the scheduled orange picker time. CM/SW Name & Contact number: Yusuf Greenwood RN Ph. [phone] The following information has been provided to the facility noted above: reason for the patient discharge or transfer; patients physical and psychosocial status; summary of care, treatment, servicesprovided to patient; and the patient progress toward goals. Yusuf Norton RN - 05/26/2020 8:40 AM CSTCare Management Note: 9:50 AM Patient has been accepted and insurance auth has been obtained. Pending MOT at this time. 0622 MAC [place] [address] , who stated patient is pending insurance. PT/OT notes refaxed. CM will follow up Patient pending auth at this time. Bennett Greenwood Jr., RN, BSN. Groutman [phone] [email or web address] STRIAL SALES REPRESENTATIVE Azalea Bashir MD - 05/25/2020 4:53 PM CST Endocrinology - Progress Note Hospital Day: 5 Reason for consult: BG mgmt Date of Service: 05/25/2020 Subjective/24 hours: The patient reports feeling well today. No n/v. Eating well. Objective: BP (!) 141/91 (BP Location: Right arm, Patient Position: Supine) | Pulse 68 | Temp 37 C (98.6 F) (Oral) | Resp 17 | Ht 1.778 m (5' 10") | Wt 109.5 kg (241 lb 6.5 oz) | SpO2 98% | BMI 34.64 kg/m Physical Examination: Vitals: 05/25/20 0418 05/25/20 0731 05/25/20 1127 05/25/20 1544 BP: (!) 141/81 (!) 145/82 (!) 137/92 (!) 141/91 BP Location: Right arm Right arm Right arm Patient Position: Supine Supine Supine Pulse: 58 61 66 68 Resp: 16 18 18 17 Temp: 36.3 C (97.3 F) 36.5 C (97.7 F) 36.3 C (97.4 F) 37 C (98.6 F) TempSrc: Oral Oral Oral Oral SpO2: 94% 94% 97% 98% Weight: Height: General: Patient appears in no apparent distress HEENT: moist mucosa Lungs: clear to auscultation, no accessory muscle use Cardiovascular: RRR Abdomen: soft, nontender Musculoskeletal: no tenderness or deformities Integumentary: warm, dry, (-) cervical acanthosis Neuro: AAOx4, no tremors, LUE weakness and LLE weakness, tongue deviates to the right Psych: Cooperative Current Hospital Medications: Scheduled meds:aspirin, 81 mg, DAILY [START ON 05/26/2020] insulin glargine, 19 Units, DAILY insulin lispro (human), 4 Units, TID MEALS lisinopriL, 10 mg, DAILY metFORMIN, 500 mg, BID MEALS [START ON 05/26/2020] SITagliptin, 100 mg, DAILY Sodium Chloride 0.9 % Injection (Bubble Study), 6 mL, SEE-INSTRUCTIONS Sodium Chloride 0.9 % Injection (Bubble Study), 6 mL, SEE-INSTRUCTIONS heparin (porcine) 5,000 units subcutaneous injection, 5,000 Units, BID ticagrelor, 90 mg, BID famotidine, 20 mg, BID rosuvastatin, 40 mg, DAILY insulin lispro (human), , TID MEALS+HS IV meds:Na CL 0.9% + KCL 20 mEq RTU, Last Rate: 100 mL/hr at 05/21/20 0724 niCARdipine infusion PRN meds:acetaminophen, 325 mg, Q6HPRN dextrose 50 % in water (D50W), 25 mL, PRN glucagon, 1 mg, PRN niCARdipine infusion, 2.5-15 mg/hr, TITRATE ondansetron, 4 mg, Q6HPRN Pertinent Labs: Recent Labs 05/22/20 0319 HGBA1C 10.9* CREATININE (mg/dL) Date Value 05/25/2020 0.89 05/24/2020 0.79 05/23/2020 0.91 05/22/2020 0.86 05/21/2020 0.78 BMP: Results for LAMBERT MARQUIS ( ) as of 05/25/2020 17:36 Ref. Range 05/25/2020 04:29 NA Latest Ref Range: 135 - 145 mmol/L 135 K Latest Ref Range: 3.5 - 5.0 mmol/L 4.0 CL Latest Ref Range: 98 - 108 mmol/L 104 CO2 TOTAL Latest Ref Range: 23 - 31 mmol/L 22 (L) AGAP Latest Ref Range: 2 - 16 9 BUN Latest Ref Range: 7 - 23 mg/dL 17 GLUCOSE Latest Ref Range: 70 - 110 mg/dL 231 (H) CREATININE Latest Ref Range: 0.60 - 1.25 mg/dL 0.89 eGFR CALCULATION (non ) Latest Units: mL/min/1.73m2 88.1 eGFR CALCULATION () Latest Units: mL/min/1.73m2 106.8 CALCIUM Latest Ref Range: 8.6 - 10.6 mg/dL 8.9 MAGNESIUM Latest Ref Range: 1.7 - 2.4 mg/dL 2.1 BG Trend: Results for LAMBERT MARQUIS ( ) as of 05/25/2020 17:36 Ref. Range 05/24/2020 08:29 05/24/2020 12:36 05/24/2020 16:11 05/24/2020 19:22 05/24/2020 23:50 05/25/2020 08:40 05/25/2020 11:39 POCT Blood Glucose No Range Found 185 213 219 246 234 195 222 Assessment and Plan: Problem List: T2DM, poorly controlled (HbA1c 10.9%) , on insulin Stress hyperglycemia Non-compliance with low carb diet Acute Infarct of the Right Anterior and Medial Medulla S/p tPA on 05/20/20 Obesity BMI 36 Comments: Lambert Marquis is a 59 year old male w/ a PMH of [place] in 2017, T2DM (A1C 10.9%), HTN, HLD, fatty liver presents with acute stroke. Pt is s/p tPA on 05/20 and is showing improvement in his neurological function. He reports that he hasn't been taking his diabetes seriously and he wishes to make changes now in light of what happened with the stroke. Pt will likely go to rehab first per neuro team. Jniwvcw-[id number]-[id number] BG range: 195-246 TDD = 32 (noon to noon) Diet: PO, diabetic Since all glucose levels above inpatient target range are high but awaiting discharge, we plan to restart oral meds, and match to 32 units today and not increase insulin dose. Will split his basal/prandial 60/40. Recommendations: 1) - 4 units of lantus once now to catch up to this basal regimen 2) Change insulin to (This regimen may be used for discharge tomorrow in the event that we do not have time to review the patient before his departure and BG within range):. - Glargine 19 u QAM - Give half dose if patient NPO or if blood glucose 80 - 120 mg/dL. - Hold dose if blood glucose <80 mg/dL. < Prandial > Lispro 4 units TID meals - Please give half dose if patient eats less than half meal OR if blood glucose 80 - 120 mg/dL. - HOLD DOSE if NPO or BG <80 mg/dL. Please give at end of meal if not sure if patient will eat. < Sliding Scale > Sliding scale SSI 1:40 - Please give lispro sliding scale TID meals + HS; may give even if NPO. BG 160 to 200, give 1 unit. BG 201 to 240, give 2 units. BG 241 to 280, give 3 units. BG 281 to 300, give 4 units. BG > 300, give 5 units, NHO, recheck in 3 hours and cover again with sliding scale. If BG < 80, NHO and use hypoglycemia protocol. - will restart Januvia 100 mg Qdaily - will restart metformin 500 mg BID meals - restart jardiance when outpatient - have patient f/u with Endocrinology in 1-2 weeks post discharge He would like to f/u with [place] [facility]. Anticipated Discharge: 1-2 days pending placement Pt was seen and discussed with Dr. Bashir. Laury Kulkarni MD Endocrinology Fellow, PGY4 --- Endocrinology Faculty Attestation: I personally examined this patient on 05/25 and agree with 's fellow note as written and revised. I actively participated in the decision-making process. Please see the resident's note for additional details. Scar Bashir MD Division of Endocrinology and Metabolism STRIAL SALES REPRESENTATIVE Edna Corrales PTA - 05/25/2020 3:43 PM CSTPTA NOTE: Attempted to see pt in AM. Pt just finishing with OT. Attempted to see pt in PM. Pt speaking with CM. Will check back later for PT session time permitting. Edna Corrales PTA Supervising PT Bernabe Restrepo STRIAL SALES REPRESENTATIVE Yusuf Greenwood RN - 05/25/2020 2:12 PM CSTCare Management Note: CM spoke to raquel with [address], [place] [address] , CM faxed updated clinicals including PT/OT notes. Per Raquel, patient auth at this time. Bennett Greenwood Jr. RN, BSN. Groutman [phone] [email or web address] Flores OT - 05/25/2020 10:42 AM CSTOCCUPATIONAL THERAPY NOTE: Discharge Recommendations: Therapy Needs and Potential:- Patient would benefit from continued skilled occupational therapy services to address:Decline in basic activities of daily living, Decline in instrumental activities of daily living, Decreased strength, Decreased range of motion, Decreased endurance and Decreased coordination - Patient demonstrates good potential to improve and meet therapy goals with further skilled occupational therapy services. - Patient appears motivated to improve their B/IADLs and return to their previous level of function. - Patient demonstrates ability to tolerate at least 30-60 minutes of active participation in occupational therapy. - Patient able to follow commands: 1-stepYes, Multi-stepYes, InconsistenciesNo Challenges to Home Transition:- Requires physical assistance for BADLS - Requires physical assistance for IADLS - Requires supervision or verbal cues for BADLS - Requires supervision or verbal cues for IADLS - Increased risk of falls - Environmental barriers Equipment Recommendations:Bedside commode, Tub transfer bench, Grab bars and Hand held shower Precautions: Weight bearing status: NA General: PPE Utilized: Gloves and Surgical mask, Droplet and Fall Bracing: N/A S: Patient agreeable to participate in occupational therapy. Patient requesting to continue to use the standard commode rather than the BSC with nursing supervision. PAIN Pre-treatment: 0/10 pain. Post-treatment: 0/10 pain. Patient c/o of "soreness" on L lower back. O: Patient found semireclining in bed. Patient seen this date for the following: Therapeutic Exercise/Procedure & Neuromuscular Re-Education HOB elevated, patient sup -> sit EOB with modified independence and extra time. Encouraged WB via L UE during transition of trunk. Patient weight shifts toward EOB with SBA following verbal cues for improved RYAN Patient sustains static and dynamic sitting balance with momdified independence throughout. Educated Patient about scapular stabilization for L UE to improve distal control/coordination: scapular retraction, scapular elevation, and scapular depression. Patient/caregiver instructed to perform HEP 2 times per day, 10 repetitions. Patient/caregiver returns demonstration x 5 repetitions as follows: Tactile and verbal cues provided for correct technique. Assisted with L scapular gliding as noted with weakness at rhomboids. Weakness observed with upper traps as well as lower traps but able to target muscle with scapulardepression following additional cues for body mechanics Provided patient/caregiver with comprehensive HEP along with detailed instructions (visual/verbaldemonstration) on how to correctly perform each exercise. Educated about the importance of complying with all exercises to help increase overall strength, endurance, flexibility, and ROM for self-care independence. Patient/caregiver verbalized understanding to all discussed. Upon return to EOB after ADL training, patient engaged in the following left UE dynamic activities to improve functional performance: Left UE ipsilateral and contralateral reaching, grasp/release x 10 trials, 2 sets from low to high surfaces. Verbal cues provided for correct technique including sequencing for proper motor pattern and quality of movement, variety of grasping patterns, grading of forces, and breathing. Education provided to avoid compensatory strategies with L shoulder. ADL Training Patient sit <->stand with SBA using RW. Educated about L UE WB during transitional movements. Patient amb to/from bathroom using RW. Toilet Transfer: Modified independent for safety considerations Educated about transfer technique, use of grab bar, and safety. Discussed commode options for home including 3 in 1 BSC, installing handicap commode with grab bar, or raised commode seat with rails vs rails alone Grooming: SBA/Setup Patient amb to sink to brush teeth following verbal cues for positioning body at sink for safety,use of L hand to squeeze tooth paste, and WB via L UE while brushing with R hand. Patient returns to EOB using RW as described above. Bathing: NT but educated about seated showers using tub transfer bench vs shower chair. Discussed use and acquisition. Feeding: SBA/Setup. Patient eating breakfast with first attempt; encouraged functional use of L hand during self-caretasks. Patient stabilizing condiment with L hand while opening with R hand Patient left semireclining in bed with call centeno in reach. L UE elevated and SCDs donned and engaged. A: Patient exhibited Good participation in therapy and responded well to treatment this session. Patient is progressing toward goal(s) 5. Patient met goal(s) 1. Patient with greatly improved L UE strength: 2-/5 deltoids and wrist extensors, at least 3/5 biceps and triceps, and at least 3/5 finger flexi on/extensors. Patient demonstrates increasing self-care independence and excellent potential with continue rehab services. P: Daily living activities, Therapeutic exercises vs Neuromuscular Re-Education GLORIA Tanner, LUIS ALBERTO, C/NDT Pager [phone] Total Timed Treatment Codes: 39 Min Total Treatment Time: 39 Min Jaki Sorenson OT - 05/25/2020 8:46 AM CST05/25/2020 0846 OCCUPATIONAL THERAPY NOTE: Attempt follow-up however patient currently eating breakfast. Will follow-up this morning. GLORIA Tanner OTD, Charley/NDTaylor Pager [phone] STRIAL SALES REPRESENTATIVE Azalea Bashir MD - 05/24/2020 3:57 PM CST Endocrinology - Progress Note Hospital Day: 4 Reason for consult: BG mgmt Date of Service: 05/24/2020 Subjective/24 hours: The patient reports feeling well today. He has no complaints. He's eating well and denies n/v. Objective: BP (!) 144/87 (BP Location: Left arm, Patient Position: Supine) | Pulse 71 | Temp 36.3 C (97.4 F) (Oral) | Resp 17 | Ht 1.778 m (5' 10") | Wt 109.5 kg (241 lb 6.5 oz) | SpO2 99% | BMI 34.64 kg/m Physical Examination: Vitals: 05/24/20 0418 05/24/20 0736 05/24/20 1110 05/24/20 1518 BP: 123/85 (!) 136/95 135/85 (!) 144/87 BP Location: Left arm Left arm Left arm Patient Position: Supine Supine Supine Pulse: 60 60 98 71 Resp: 18 17 16 17 Temp: 36.2 C (97.2 F) 36.4 C (97.5 F) 36.4 C (97.5 F) 36.3 C (97.4 F) TempSrc: Oral Oral Oral Oral SpO2: 94% 99% 99% 99% Weight: Height: General: Patient appears well in no apparent distress HEENT: moist mucosa Lungs: clear to auscultation, no accessory muscle use Cardiovascular: RRR Abdomen: soft, nontender Musculoskeletal: no tenderness or deformities Integumentary: warm, dry, (-) cervical acanthosis Neuro: AAOx4, no tremors, LUE weakness and LLE weakness, tongue deviates to the right Psych: Cooperative Current Hospital Medications: Scheduled meds:Sodium Chloride 0.9 % Injection (Bubble Study), 6 mL, SEE-INSTRUCTIONS Sodium Chloride 0.9 % Injection (Bubble Study), 6 mL, SEE-INSTRUCTIONS insulin glargine, 10 Units, DAILY insulin lispro (human), 3 Units, TID MEALS lisinopriL, 5 mg, DAILY aspirin, 325 mg, DAILY heparin (porcine) 5,000 units subcutaneous injection, 5,000 Units, BID ticagrelor, 90 mg, BID famotidine, 20 mg, BID rosuvastatin, 40 mg, DAILY insulin lispro (human), , TID MEALS+HS IV meds:Na CL 0.9% + KCL 20 mEq RTU, Last Rate: 100 mL/hr at 05/21/20 0724 niCARdipine infusion PRN meds:acetaminophen, 325 mg, Q6HPRN dextrose 50 % in water (D50W), 25 mL, PRN glucagon, 1 mg, PRN niCARdipine infusion, 2.5-15 mg/hr, TITRATE ondansetron, 4 mg, Q6HPRN Pertinent Labs: Recent Labs 05/22/20 0319 HGBA1C 10.9* CREATININE (mg/dL) Date Value 05/24/2020 0.79 05/23/2020 0.91 05/22/2020 0.86 05/21/2020 0.78 08/19/2018 1.10 BMP: Results for LAMBERT MARQUIS ( ) as of 05/24/2020 15:58 Ref. Range 05/24/2020 04:26 NA Latest Ref Range: 135 - 145 mmol/L 135 K Latest Ref Range: 3.5 - 5.0 mmol/L 4.3 CL Latest Ref Range: 98 - 108 mmol/L 104 CO2 TOTAL Latest Ref Range: 23 - 31 mmol/L 22 (L) AGAP Latest Ref Range: 2 - 16 9 BUN Latest Ref Range: 7 - 23 mg/dL 16 GLUCOSE Latest Ref Range: 70 - 110 mg/dL 210 (H) CREATININE Latest Ref Range: 0.60 - 1.25 mg/dL 0.79 eGFR CALCULATION (non ) Latest Units: mL/min/1.73m2 101.1 eGFR CALCULATION () Latest Units: mL/min/1.73m2 122.5 CALCIUM Latest Ref Range: 8.6 - 10.6 mg/dL 9.0 MAGNESIUM Latest Ref Range: 1.7 - 2.4 mg/dL 2.1 BG Trend: Results for LAMBERT MARQUIS ( ) as of 05/24/2020 15:58 Ref. Range 05/23/2020 10:20 05/23/2020 15:16 05/23/2020 20:49 05/24/2020 08:29 POCT Blood Glucose No Range Found 184 179 174 185 Assessment and Plan: Problem List: T2DM, poorly controlled, on insulin Stress hyperglycemia Non-compliance with low carb diet Acute Infarct of the Right Anterior and Medial Medulla S/p tPA on 05/20/20 Obesity BMI 36 Comments: Lambert Marquis is a 59 year old male w/ a PMH of [place] in 2017, T2DM (A1C 10.9%), HTN, HLD, fatty liver presents with acute stroke. Pt is s/p tPA on 05/20 and is showing improvement in his neurological function. He reports that he hasn't been taking his diabetes seriously and he wishes to make changes now in light of what happened with the stroke. He would like to f/u with [facility]. Pt will likely go to rehab first per neuro team. BG range: 174-219 TDD = 20 u Scheduled insulin: 19 u Diet: PO, diabetic Patient's 24 hour TDD requirements were 20 units with BG readings remaining above the target range of 140 - 180 mg/dL. We will therefore increase TDD by 20%. New TDD = 24 u Will split his basal/prandial 60/40. Recommendations: Change insulin to: < Basal > - Glargine 14 u Qdaily - Give half dose if patient NPO or if blood glucose 80 - 120 mg/dL. - Hold dose if blood glucose <80 mg/dL. - will give 4 units of lantus once now to catch up to this basal regimen < Prandial > Lispro 3 units TID meals - Please give half dose if patient eats less than half meal OR if blood glucose 80 - 120 mg/dL. - HOLD DOSE if NPO or BG <80 mg/dL. Please give at end of meal if not sure if patient will eat. < Sliding Scale > Sliding scale,SSI 1:50 - Please give lispro sliding scale TID meals + HS; may give even if NPO. BG 170 to 220, give 1 unit. BG 221 to 270, give 2 units. BG 271 to 300, give 3 units. BG > 300, give 4 units, NHO, recheck in 3 hours and cover again with sliding scale. If BG < 80, NHO and use hypoglycemia protocol. - have patient f/u with Endocrinology in 1-2 weeks post discharge Anticipated Discharge: 1-2 days pending placement Pt was seen and discussed with Dr. Bashir. Laury Kulkarni MD Endocrinology Fellow, PGY4 ------ Endocrinology Faculty Attestation: I personally examined this patient on 05/24 and agree with 's fellow note as written and revised. I actively participated in the decision-making process. Please see the resident's note foradditional details. Scar Bashir MD Division of Endocrinology and Metabolism STRIAL SALES REPRESENTATIVE Edna Corrales, HIGH SCHOOL MUSIC DIRECTOR - 05/24/2020 3:12 PM INDUSTRIAL SALES REPRESENTATIVE Physical Therapy Progress Note: Discharge Recommendations: Therapy Needs and Potential: Patient would benefit from continued physical therapy services to address: decline in bed mobility decline in transfers decline in gait and/or balance decreased strength decreased range of motion decreased motor planning Patient demonstrates good potential to improve and meet therapy goals with further physical therapy services. Patient appears motivated to improve their functional mobility and return to their previous levelof function. Patient demonstrates ability to tolerate atleast 30-60 minutes of physical therapy with active participation. Challenges to Home Transition: increased risk of falls decreased caregiver availability decreased safety awareness environmental barriers Equipment recommendations: Patient is not safe to go home at this time due to increased fall risk and inability to ascend/descend stairs into/out of house. If patient had to go home today would recommend rolling walker and wheelchair with / supervision and physical assist PAIN: denies pain PRECAUTIONS: Weight Bearing Precaution: WBAT General Precautions: PPE used:Gloves and Surgical mask, Fall Bracing/Cast present or required:N/A S: Patient agreeable to working with PT. O: Patient met Semi reclined in bed. Patient seen for the following: Bed mobility: Rolling: SBA/Setup Sitting balance Good Supine to sit: SBA/Setup Scooting to edge of bed: SBA/Setup Sit to supine: SBA/Setup Repositioned patient to head of bed: SBA/Setup adjusted bed to flat position to simulate home setting educated pt on logroll technique and pushing with BUE to right trunk to midline incorporated trunk control activities and WB through LUE Transfers: Sit to stand: CGA using Rolling Walker Stand to sit: CGA using Rolling Walker Stand pivot transfer: CGA Static/dynamic standing balance: Fair Verbal cueing provided for correct hand placement and correct use of AD analyzed L knee flexion cued pt on L TKE, pt able to return correct demo however noted hyperextension Educated patient on controlling TKE and strengthening L quad to assist with preventing hyperextension Gait: Assisted patient with ambulation as follows: 15', 15 feet using Rolling Walker and CGA Patient presenting with uneven step through gait pattern. analyzed slight intermittent L foot drag cued pt on body mechanics Therapeutic exercise: patient educated in Adaptive equipment , Compensatory techniques/adaptive strategies, Deep breathing, Energy conservation, Fall prevention, General strengthening, Positioning, Relaxation/breathing techniques and Safety awareness., instructed patient in the following: ankle pumps, quad sets, glut sets, heel slides, hip abduction/adduction, hip internal/external rotation, long arc quads, seated marching analyzed pt with no active L DF, minimal toe flex compensatory training via use of towel for L AP and L calf stretch educated pt on the importance of compliance with BLE exercises and preventing heel cord tightness incorporated assistance as needed After session, patient Semi reclined in bed, SCD sleeves on and machine turned on and call centeno provided. A: Patient tolerated session well. Patient progressing toward goals #1, #2, #3. P: PT will - progress functional mobility, strength and endurance. Total Timed Tx Codes in Minutes: 56 Min Total Treatment Time in Minutes: 56 Min Edna Corrales PTA Supervising PT Bernabe Restrepo STRIAL SALES REPRESENTATIVE Jaik Flores OT - 05/24/2020 11:07 AM CST05/24/2020 1107 OCCUPATIONAL THERAPY NOTE: Attempt to follow-up with patient this am however currently working with PT and requests OT return later. Will return later as time permits. GLORIA Tanner, DEEPAD, C/NDT Pager [phone] Maritza Peters SW - 05/24/2020 8:22 AM CSTSocial Work note: MARY JO faxed patient's updated medical records & today's COVID (-) test result to ([facility] [address] [address] for their review and possible acceptance Josie Anand, [facility] [phone] [address] [id number] Care Mgmt Dept Mike Richardson PTA - 05/23/2020 3:11 PM CSTPhysical Therapy Progress Note Discharge Recommendations: Therapy Needs and Potential: Patient would benefit from continued physical therapy services to address: decline in bed mobility decline in transfers decline in gait and/or balance decreased strength decreased range of motion decreased motor planning Patient demonstrates good potential to improve and meet therapy goals with further physical therapy services. Patient appears motivated to improve their functional mobility and return to their previous levelof function. Patient demonstrates ability to tolerate atleast 30-60 minutes of physical therapy with active participation. Challenges to Home Transition: increased risk of falls decreased caregiver availability decreased safety awareness environmental barriers Equipment recommendations: Patient is not safe to go home at this time due to increased fall risk and inability to ascend/descend stairs into/out of house. If patient had to go home today would recommend rolling walker and wheelchair with / supervision and physical assist PAIN none PRECAUTIONS Weight Bearing Precaution: WBAT General Precautions: Fall, mask Bracing/Cast present or required: none Oxygen: none S: Patient found in bed and agreeable to working with PT. O: Patient seen and instruction provided for correct and safe performance of all the following functional tasks: Bed Mobility supine <-> sit: SBA verbal/visual cueing provided for correct and safe performance patient able to return demo correctly with cueing and time task performed with HOB slightly elevated sitting static/dynamic balance: Fair Patient today able to perform the following sitting Neurodevelopmental treatment (NDT) techniques: LUE ipsilateral/contralateral reaching performed x multiple reps Reciprocal L hand flexion/extension performed x multiple reps using fabricated rolled up wash cloth [place] eliminated L shoulder activities performed x multiple reps in all planes via use of wash cloth and bed tray L [id number] drinking simulation performed x multiple reps with forearm placed in neutral viause of mouth wash bottle Transfers sit <-> stand: CGA using RW patient able to present full LLE WB with slight knee instability as evidenced by slight buckle Min A provided at L knee to help facilitate full knee extension task performed from/onto bed standing static/dynamic balance: Fair Gait RW x 5 steps fwd/bwd performed with Min A for safety patient presenting slow steppage step-to gait pattern with mild instability Min A provided at L knee during midstance of gait to help facilitate full knee extension Therapeutic Exercise supine and sitting LLE AAROM x 10 reps: AP, HS, QS, SLR, ABD/ADD/IR/ER, GS, LAQ, knee raises patient presenting very minimal L ankle DF provided patient with verbal and tactile cueing for correct technique to help focus on displayinggood control per rep provided patient with verbal HEP along with detailed instructions (visual/verbal/tactile) on how to correctly perform all exercise reps stressed the importance of compliance with performance of all exercises throughout day to help with increasing overall strength, endurance, flexibility, and ROM Patient Teaching -- provided to both patient and girlfriend Functional Mobility and the importance/benefits of active and safe performance with OOB activities to help prevent BLE DVT's, PNA, overall decrease in mobility, strength, and endurance BLE Strengthening Exercises -- Verbal and visual comprehensive HEP program(s) provided along withdetailed instructions on how to safely perform all reps stressing the importance of establishing a consistent schedule to help with increasing overall strength and endurance Safety and Transfer training with use of appropriate AD Positive benefits of sitting upright at EOB or recliner throughout the day to help increase sitting tolerance and help reduce negative effects of immobility Functional mobility and rehab related questions answered for both patient and girlfriend Provided patient and girlfriend with preferred teaching of verbal and visual information on above instructions. Patient and girlfriend presenting readiness to learn. Patient and girlfriend verbalizing understanding to all discussed. Patient left in bed and call centeno provided. A: Patient progressing towards goals as expected. P: PT will progress with mobility and gait. Mike Pichardo PTA Supervising PT Gay Dickens, PT, DPT, CWS Total Timed Tx Codes in Minutes: 65 min Total Treatment Time in Minutes: 65 min Yusuf Norton RN - 05/23/2020 11:40 AM CSTCare Management Social Functional Assessment Patient Name: Lambert Marquis Age: [age] year old Sex: male Previous admit date: N/A Current diagnosis and co-morbidities: ACUTE STROKE Readmission Questions: Was patient discharged from any acute care hospital within the last 30 days: No Social Functional Assessment: Primary language spoken/preferred: Turkmen Mental Status: Alert & Oriented to Person,Place & Time Information given by: Self Patient's support system: Other Name and number of support system: Joaquina Marquez S/O [phone] Primary Rn Licensed Practical: Self MPOA: No Living Arrangement: Home Address of living arrangement : [address] [place] [address] Persons living in home: Self Barriers to returning home: Declining function Baseline functional status- ambulation: Independent Functional status-baseline personal care: Independent Baseline functional status- driving: Independent Baseline functional status- grocery shopping: Independent Functional status-baseline housekeeping: Independent Functional status-baseline meal prep: Independent Current functional status same as prior: No Current functional status- ambulation: Requires minimal to moderate assistance Current functional status- personal care: Requires minimal to moderate assistance Current functional status- grocery shopping: Dependent Current functional status-house keeping: Dependent Current functional status- meal preparation: Dependent Do you have a PCP?: Yes Name of PCP: Enrique Barroso MD Home Health Care Agency: No Provider Services: No DME Company: No Equipment: Crutches;Cane Hemodialysis: No Community resources utilized: None Funding Resources: Commercial Prescription coverage plan: [facility] Pharmacy where meds are filled: Other Other pharmacy: [facility] Anticipated services prior to disharge: Continue Medical Eval Expected mode of discharge transportation: Wheelchair van Additional info required for discharge planning: Pending medical evaluation;Pending P/T O/T recommendation Recommended discharge plan: New placement SFA Complete: Social Functional Assessment complete: Yes Alcohol Use Screening (AUDIT-C) How often do you have a drink containing alcohol?: Never SCORE: 0 Did patient elect to have resources provided: No Any issues or concerns with obtaining/affording your medications at home: no. Are you or your support system able to orange picker medications at discharge: yes. Describe: self or Joaquina Marquez S/O [phone] Role of Care Management explained. CM met with patient at bedside. Patient states he lives alone andis independent with all ADLs prior to admission. Patient states he want to go to inpatient rehab once medically cleared. CM/MARY JO will follow up with primary team and PT/OT recs. Bennett Greenwood Jr., RN, BSN. [place] [phone] [email or web address] Juan Antonio Siegel MD - 05/22/2020 6:44 PM CSTNeuro Brief: - HGBA1c 10.9%, will consult endocrinology in the morning. Juan Antonio Valerio MD Neurology, PGY-4 Juan Antonio Siegel MD - 05/22/2020 9:47 AM CST STROKE PROGRESS NOTE DATE OF SERVICE: 05/22/2020 09:47 Day of Hospitalization: 2 CHIEF COMPLAINT: Left arm weakness 24-HOUR EVENTS: - Transferred to the floor - AF, VSS SUBJECTIVE: Reports improving strength. STROKE DOCUMENTATION NIH STROKE SCALE LOC: 0 Alert: Keenly Responsive LOC QUESTIONS: 0 Answers Both Questions Correctly LOC COMMANDS: 0 Performs Both Tasks Correctly BEST GAZE: 0 Normal VISUAL: 0 No Visual Loss FACIAL PALSY: 0 Normal MOTOR ARM-LEFT: 3 No Effort Against [place] MOTOR ARM-RIGHT: 0 No Drift MOTOR LEG-LEFT: 3 No Effort Against [place] MOTOR LEG-RIGHT: 0 No Drift LIMB ATAXIA: 0 Absent SENSORY: 0 Normal BEST LANGUAGE: 0 No Aphasia DYSARTHRIA: 1 [id number] Dysarthria EXTINCTION AND INATTENTION (FORMERLY NEGLECT): 0 No Abnormalty STROKE SCALE INTERVAL: Baseline STROKE SCALE TOTAL SCORE: 7 OBJECTIVE: PHYSICAL EXAM Vitals: 05/21/20 2039 05/21/20 2327 05/22/20 0314 05/22/20 0719 BP: 136/81 (!) 146/87 (!) 145/80 (!) 144/85 BP Location: Left arm Left arm Pulse: 80 57 58 66 Resp: Temp: 36.8 C (98.2 F) 36.6 C (97.9 F) 35.8 C (96.5 F) 36.4 C (97.5 F) TempSrc: Oral Oral Oral Oral SpO2: 99% 96% 96% 96% Weight: Height: General: Alert and oriented x 4 (time, person, place and situation); no apparent distress. Mental Status: Consciousness, attention, concentration: normal, Stays focused and on task while being questioned. Speech/ Language: intact to comprehension, fluency, repetition and naming. Cranial Nerves: I. Not tested. II. PERRL. FOV full to confrontation. III. IV., . Extraocular movements intact with no nystagmus. V. Normal sensation in V1-3 distributions. VII. Right UMN facial droop noted. VIII. Hearing intact. IX., X. Palatal elevation present symmetrically. XI. Normal Strength of sternocleidomastoid and trapezius muscles bilaterally. XII. Tongue deviation to the right. Motor: Tone: decreased in LUE Bulk: normal STRENGTH Right Left Deltoid 5 2 Biceps 5 up to 2 Triceps 5 2 Wrist extensors 5 1 Interossei 5 1 Hip flexors 5 2 Knee flexors (hamstring) 5 up to 3 Knee extensors(quadriceps) 5 up to 3 Ankle dorsiflexors 5 3 Ankle plantarflexors 5 3 DTR's: Right Left Bicep 2 3 Triceps 2 3 Brachioradialis 2 3 Patella 2 1 Achilles 0 0 Pathologic reflexes and signs: [place]: absent Babinski: present on L Cerebellar: Nystagmus: none, FTN: nl, HTS:nl Sensory: LT: intact, no extinction Gait: MANASA MEDICATIONS Current Facility-Administered Medications Medication Dose Route Frequency Last Rate Last Admin aspirin chewable tablet 81 mg 81 mg Oral QAM WITH BREAKFAST 81 mg at 05/22/20 0800 heparin (porcine) injection 5,000 Units 5,000 Units Subcutaneous BID 5,000 Units at 05/22/20 0815 ticagrelor (BRILINTA) tablet 90 mg 90 mg Oral BID 90 mg at 05/22/20 0800 acetaminophen (TYLENOL) tablet 325 mg 325 mg Oral Q6HPRN dextrose 50 % in water (D50W) injection 25 mL 25 mL Slow IV Push PRN famotidine (PEPCID AC) tablet 20 mg 20 mg Oral BID 20 mg at 05/22/20 0814 glucagon (GLUCAGEN DIAGNOSTIC KIT) injection 1 mg 1 mg Intramuscular PRN NaCl 0.9% (NS) 1000 mL + KCL 20 mEq IV Infusion CONTINUOUS 100 mL/hr at 05/21/20 0724 New Bag at 05/21/20 0724 niCARdipine (CARDENE I.V.) 40 mg in 200 mL 0.83% Sodium Chloride (RTU) infusion 2.5-15 mg/hr IVInfusion TITRATE ondansetron (ZOFRAN (PF)) injection 4 mg 4 mg Slow IV Push Q6HPRN 4 mg at 05/20/20 1829 rosuvastatin (CRESTOR) tablet 40 mg 40 mg Oral DAILY 40 mg at 05/22/20 0814 Sliding Scale Insulin - Lispro (HumaLOG) + Fsbg Testing Subcutaneous TID MEALS+HS 1 Units at05/22/20 0800 LABS Recent Results (from the past 24 hour(s)) POCT GLUCOSE (AUTOMATED) Collection Time: 05/21/20 12:17 PM Result Value Ref Range POCT GLU 241 (H) 70 - 110 mg/dL POCT GLUCOSE (AUTOMATED) Collection Time: 05/21/20 5:09 PM Result Value Ref Range POCT GLU 223 (H) 70 - 110 mg/dL POCT GLUCOSE (AUTOMATED) Collection Time: 05/21/20 8:46 PM Result Value Ref Range POCT GLU 196 (H) 70 - 110 mg/dL CBC with Differential Collection Time: 05/22/20 3:19 AM Result Value Ref Range WBC 5.18 4.20 - 10.70 10*3/L RBC 4.41 4.26 - 5.52 10*6/L HGB 13.3 12.2 - 16.4 g/dL HCT 37.6 (L) 38.4 - 49.3 % MCV 85.3 81.7 - 95.6 fL MCH 30.2 26.1 - 32.7 pg MCHC 35.4 (H) 31.2 - 35.0 g/dL RDW-SD 35.0 (L) 38.5 - 51.6 fL RDW-CV 11.4 (L) 12.1 - 15.4 % PLT 228 150 - 328 10*3/L MPV 9.6 (L) 9.8 - 13.0 fL NRBC/100 WBC 0.0 0.0 - 10.0 /100 WBCs NRBC x10^3 <0.01 10*3/L GRAN MAT (NEUT) % 62.0 % IMM GRAN % 0.40 % LYMPH % 27.6 % MONO % 7.7 % EOS % 2.1 % BASO % 0.2 % GRAN MAT x10^3(ANC) 3.21 1.99 - 6.95 10*3/uL IMM GRAN x10^3 <0.03 0.00 - 0.06 10*3/uL LYMPH x10^3 1.43 1.09 - 3.23 10*3/uL MONO x10^3 0.40 0.36 - 1.02 10*3/uL EOS x10^3 0.11 0.06 - 0.53 10*3/uL BASO x10^3 <0.03 0.01 - 0.09 10*3/uL Basic Metabolic Panel (Na, K, Cl, CO2, Glucose, BUN, Creatinine, Ca) Collection Time: 05/22/20 3:19 AM Result Value Ref Range NA 133 (L) 135 - 145 mmol/L K 4.0 3.5 - 5.0 mmol/L CL 103 98 - 108 mmol/L CO2 TOTAL 23 23 - 31 mmol/L AGAP 7 2 - 16 BUN 14 7 - 23 mg/dL GLUCOSE 200 (H) 70 - 110 mg/dL CREATININE 0.86 0.60 - 1.25 mg/dL CALCIUM 8.9 8.6 - 10.6 mg/dL eGFR Calculation (Non-) 91.7 mL/min/1.73m2 eGFR Calculation () 111.1 mL/min/1.73m2 [place], Serum Collection Time: 05/22/20 3:19 AM Result Value Ref Range MAGNESIUM 2.0 1.7 - 2.4 mg/dL STROKE LABS HGB A1C (% NGSP) Date Value 08/19/2018 7.6 (H) LDL CHOL (mg/dL) Date Value 05/20/2020 49 CHOL (mg/dL) Date Value 05/20/2020 114 (L) TSH (mIU/L) Date Value 05/20/2020 0.36 (L) There are no current results on file for these tests and/or test for 1 year. RADIOLOGY Mr Stroke Brain Wo Contrast Result Date: 05/21/2020 Focal restricted diffusion in the right anterior medulla, with accompanying hypointensity on the ADCmap, consistent with a small acute or subacute infarct. Mild atrophy and chronic small vessel ischemic disease of the white matter. RL: [id number] AFC: [id number] SSMENT AND PLAN 59 year old male right handed with PMHX of CAD s/p stenting in 2016, DM, HTN, HLD who presented withCC of L sided weakness and numbness. CTA head and neck chronic looking R vert occlusion. MRI brain wo showed acute R medullary stroke. Acute ischemic stroke in Right anterior medulla L sided hemiplegia s/p tPA 6:30 05/20/20 Hx of CAD s/p stenting in 2016 on DAPT (ASA 81 mg daily and Brilinta) LDL < 70, HGBA1c: pending PLAN: - neurochecks - Telemetry - Increase ASA to 325 mg daily - Check ARU (verify now asprin) - Continue Brilinta 90 mg BID for now (home dose) - TTE with bubble study - Crestor 40 mg Qhs - Recheck HGBa1c - GI Prophylaxis: famotidine - DVT Prophylaxis: heparin - Code status: Full Code The case was discussed with Dr. Leon Neurology Faculty. Juan Antonio Valerio MD Neurology, PGY-4 Pager No. [phone] HOSPITAL COURSE: Lambert Marquis is a 59 year old male right handed with PMHX of CAD s/p stenting in 2016, DM, HTN, HLDwho presented with CC of L sided weakness and numbness. [facility] [place] wo contrast was unremarkable. CTA showed R vert occlusion ( origin not visualized) with distal reconstitution, most likely chronic. Patient transferred to [place] for further care. NIHSS on admission to us was 7. MRI brain showed an acute stroke in R anterior and medial medulla. STRIAL SALES REPRESENTATIVE Associated attestation - Chente Leon MD - 05/26/2020 3:45 PM CSTI saw and evaluated this patient with Dr. Valerio on 05/22/2020. I personally participated in the evaluation of the patient and agree with the plan as written . Please see the Resident's note for additional details. MD Milton Arrington Rai, Alok, MD - 05/21/2020 10:03 AM CST Neurocritical Care Attending Note I have been directly involved in the care of this patient including decision- making with house staffand nursing teams at the bedside. Mr Lambert Marquis is critically ill, 59 year old years old male with a PMH of Past Medical History: Diagnosis Date CAD (coronary artery disease) DM (diabetes mellitus) diagnosed around age 34yo Fatty liver 07/26/2017 H/O hand surgery left Dr. Baez HLD (hyperlipidemia) HTN (hypertension) Umbilical hernia now admitted on 05/20/2020 with history per the Neurology resident admission note as mentioned below- 59 year old male right handed with PMHX of CAD s/p stenting in 2016, DM, HTN, HLD who presented withCC of L sided weakness and numbness. Patient woke up at 400 in his usual state health and started noticing some weakness in his L side around 430. Went to rest in the couch and noted some worsening of his weakness to the point he could not lift his LUE. He was also complaining of numbness of his L hemibody at that time. Patient's called EMS and went to the ER. In [place], he received tPA around 630 on 05/20/2020. CTA showed R vert occlusion ( origin not visualized) with distal reconstitution, most likely chronic. Patient takesoral DM meds, BP meds and DAPT (aspirin and ticagrelor). Patient transferred to for further care. NIHSS on admission to us was 7. Exam on arrival to [facility]U from OSH- Awake, alert, oriented 4, normal language, gixgjt-pjxk-bqvvqwom dysarthria, pupils-3 mm, equal, reactive and symmetric, bilateral gaze evoked nystagmus (left > right), with torsional component andskew deviation (left eye > right eye); left facial UMN pattern weakness; tongue- deviation to right; left shoulder-1/5, left elbow-2/5; left wrist and hand-0/5; left hip & knee-at least 2/5; left ankle- 4-/5; sensory grossly intact to crude touch in all 4 limbs (though patient reported having tingling sensation in left UE and LE); no nuchal rigidity Interval history: Improving neurologically- with absent nystagmus early this AM; no skew deviation present now; Early this AM- Oriented x4; Speech - dysarthria improving; normal language; pupils-3 blueness, equaland reactive; almost normal extraocular movements with minimal nystagmus-delivered, left facial UMN pattern weakness, flmhzo-qvwuh-eyphc deviation-improving, left shoulder-1/5, left elbow-2/5, left wrist and hand highway engineer 0/5; Right UE and LE-5/5; sensation grossly intact to crude touch in all 4 limbs *MRI brain-05/21/2020-focal right anterior medial medullary infarction, mild chronic small vessel ischemic disease Active problem list- 1. Acute posterior circulation ischemic stroke (right medulla) 2. 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 At risk for stroke-due to #1 and #2 4. History multiple medical comorbidities-as mentioned above Temp: [36.3 C (97.3 F)-36.6 C (97.9 F)] Heart Rate (monitor): [52-68] Pulse: [53-67] Resp: [10-15] BP: (119-151)/(72-96) MAP (mmHg): [86-113] ; Lab Results Component Value Date NA 133 (L) 05/21/2020 NA 140 08/19/2018 NA 140 02/11/2018 BUN (mg/dL) Date Value 05/21/2020 14 Recent Labs 05/21/20 0308 WBC 6.05 Intake/Output Summary (Last 24 hours) at 05/20/2020 1633 Last data filed at 05/20/2020 1600 Gross per 24 hour Intake 150 ml Output Net 150 ml Plan: 1) Continue neurochecks; aspirin, Ticagrelor, rosuvastatin; * Complete acute ischemic post alteplase stroke protocol 2) cardiopulmonary monitoring- SBP xppm-761-066 mmHg 3) nothing by mouth except medications - aim for euvolemia; euthermia and euglycemia 4) DVT/GI prophylaxis- SCD's; SC heparin, bowel regimen 5) Out of bed to chair; PT/OT/speech if feasible Disposition: Stable for transfer to floor I have spent a total of 45 min of critical care time at the bedside, formulation and implementation of the management plan. Mp Rose M.D. Neurocritical Care Unit Attending Gene Gregory MD - 05/21/2020 10:01 AM CST NEUROSCIENCES CRITICAL CARE UNIT PROGRESS NOTE DATE OF SERVICE: 05/21/2020 13:01 Day of Hospitalization: 1 CHIEF COMPLAINT: Left arm weakness Code status: addressed: Full 24-HOUR EVENTS: Transferred from outside ED MRI - acute stroke in R anterior and medial medulla. ASA, Brilinta from today SUBJECTIVE: Patient was nauseous once yesterday, did well overnight and slept. STROKE DOCUMENTATION NIH STROKE SCALE NIH STROKE SCALE LOC: 0 Alert: Keenly Responsive LOC QUESTIONS: 0 Answers Both Questions Correctly LOC COMMANDS: 0 Performs Both Tasks Correctly BEST GAZE: 0 Normal VISUAL: 0 No Visual Loss FACIAL PALSY: 0 Normal MOTOR ARM-LEFT: 3 No Effort Against [place] MOTOR ARM-RIGHT: 0 No Drift MOTOR LEG-LEFT: 3 No Effort Against [place] MOTOR LEG-RIGHT: 0 No Drift LIMB ATAXIA: 0 Absent SENSORY: 0 Normal BEST LANGUAGE: 0 No Aphasia DYSARTHRIA: 1 Blvu-hv-Smmpldeg Dysarthria EXTINCTION AND INATTENTION (FORMERLY NEGLECT): 0 No Abnormalty STROKE SCALE INTERVAL: Baseline STROKE SCALE TOTAL SCORE: 7 HOSPITAL MEDICATIONS Current Facility-Administered Medications Medication Dose Route Frequency Last Rate Last Admin aspirin chewable tablet 81 mg 81 mg Oral QAM WITH BREAKFAST 81 mg at 05/21/20 0930 ticagrelor (BRILINTA) tablet 90 mg 90 mg Oral BID 90 mg at 05/21/20 0930 acetaminophen (TYLENOL) tablet 325 mg 325 mg Oral Q6HPRN dextrose 50 % in water (D50W) injection 25 mL 25 mL Slow IV Push PRN famotidine (PEPCID AC) tablet 20 mg 20 mg Oral BID 20 mg at 05/21/20 0759 glucagon (GLUCAGEN DIAGNOSTIC KIT) injection 1 mg 1 mg Intramuscular PRN NaCl 0.9% (NS) 1000 mL + KCL 20 mEq IV Infusion CONTINUOUS 100 mL/hr at 05/21/20 0724 New Bag at 05/21/20 0724 niCARdipine (CARDENE I.V.) 40 mg in 200 mL 0.83% Sodium Chloride (RTU) infusion 2.5-15 mg/hr IVInfusion TITRATE ondansetron (ZOFRAN (PF)) injection 4 mg 4 mg Slow IV Push Q6HPRN 4 mg at 05/20/20 1829 rosuvastatin (CRESTOR) tablet 40 mg 40 mg Oral DAILY 40 mg at 05/21/20 0759 Sliding Scale Insulin - Lispro (HumaLOG) + Fsbg Testing Subcutaneous TID MEALS+HS 1 Units at05/21/20 0800 PHYSICAL EXAM BP: (111-151)/(72-96) Temp: [36.3 C (97.3 F)-36.9 C (98.4 F)] Temp source: Bladder (05/21 08) Pulse: [53-67] Resp: [10-16] SpO2: [92 %-98 %] Height: [177.8 cm (5' 10")] Weight: [109.5 kg (241 lb 6.5 oz)] BMI (calculated): [34.64] Vitals: 05/21/20 0800 05/21/20 0900 05/21/20 1000 05/21/20 1100 BP: 125/78 122/75 117/76 111/81 Pulse: 59 58 58 61 Resp: 14 13 16 15 Temp: 36.6 C (97.9 F) 36.7 C (98.1 F) 36.8 C (98.2 F) 36.9 C (98.4 F) TempSrc: Bladder SpO2: 97% 97% 95% 96% Weight: Height: General: Alert and oriented x 4 (time, person, place and situation); no apparent distress. Mental Status: Consciousness, attention, concentration: normal, Stays focused and on task while being questioned. Speech/ Language: intact to comprehension, fluency, repetition and naming. Cranial Nerves: I. Not tested. II. PERRL. FOV full to confrontation. III. IV., . Extraocular movements intact with no nystagmus. V. Normal sensation in V1-3 distributions. VII. Right UMN facial droop noted. VIII. Hearing intact. IX., X. Palatal elevation present symmetrically. XI. Normal Strength of sternocleidomastoid and trapezius muscles bilaterally. XII. Tongue deviation to the right. Motor: Tone: decreased in LUE Bulk: normal STRENGTH Right Left Deltoid 5 2 Biceps 5 up to 2 Triceps 5 2 Wrist extensors 5 1 Interossei 5 1 Hip flexors 5 2 Knee flexors (hamstring) 5 up to 3 Knee extensors (quadriceps) 5 up to 3 Ankle dorsiflexors 5 3 Ankle plantar flexors 5 3 DTR's: Right Left Bicep 2 3 Triceps 2 3 Brachioradialis 2 3 Patella 2 1 Achilles 0 0 Pathologic reflexes and signs: [place]: absent Babinski: present on L Cerebellar: Nystagmus: none, FTN: nl, HTS:nl Sensory: LT: intact, no extinction Gait: MANASA HEENT: pupils equal, round, reactive to light; extraocular movements intact; oropharynx clear; moistmucous membranes Lungs: clear to auscultation bilaterally Cardio: RRR Extremities:no cyanosis,clubbing or edema Neck:supple,no carotid bruit,no JVD Abdomen: soft; non-tender; non-distended LABS STROKE LABS HGB A1C (% NGSP) Date Value 08/19/2018 7.6 (H) LDL CHOL (mg/dL) Date Value 05/20/2020 49 CHOL (mg/dL) Date Value 05/20/2020 114 (L) TSH (mIU/L) Date Value 05/20/2020 0.36 (L) RADIOLOGY Reviewed personally ASSESSMENT AND PLAN Lambert Marquis is a 59 year old male with PMHx of the following stroke risk factors: CAD, HTN, HLD, DM, who presented with L sided weakness, LSN: 400 on 05/20/2020 , NIHSS 7. CTA head and neck chronic looking R vert occlusion. MRI brain wo showed acute R medullary stroke. 1. Neuro Acute ischemic stroke in Right anterior medulla L sided hemiplegia s/p tPA 6:30 05/20/20 Stroke etiology: Atherosclerosis Plan: Admission to [facility] Neurochecks Q1H Telemetry SBP 140-180 Aspirin 81 daily Resumed Ticagrelor 90mg BID Rosuvastatin 40mg daily Fall precautions Consult PT/OT/ Speech pathology/Primary swallowing screen 2. Cardiac Hx of CAD s/p stenting in 2015 on DAPT SBP goal: 140-180 Pending Echo 3. Pulmonary No acute issues 4. GI No acute issues 5. Renal No issues 6. ID No issues 7. Endo DM Monitor BG Check HbA1C Insulin Sliding Scale - GI Prophylaxis: famotidine - DVT Prophylaxis: annette Sanchez MD PhD Neurocritical care fellow STRIAL SALES REPRESENTATIVE Associated attestation - Mp Rose MD - 05/22/2020 6:28 AM CSTNeurocritical Care Attending Note I have been directly involved in the care of this patient including decision- making with house staffand nursing teams at the bedside. I personally examined this patient named Mr Lambert Marquis with Dr Sanchez on 05/21/2020 and was directly involved in the clinical care of this patient including clinical decision making with the resident,nursing staff and other ancillary teams. I corroborate the attested note with additional informationin my note, written separately. Mp Rose MD Attending Neurocritical Care UnitEdwin Perez MD - 05/21/2020 7:50 AM INDUSTRIAL SALES REPRESENTATIVE NEUROSCIENCES CRITICAL CARE UNIT PROGRESS NOTE DATE OF SERVICE: 05/21/2020 07:50 Day of Hospitalization: 1 CHIEF COMPLAINT: Left arm weakness Code status: addressed: Full 24-HOUR EVENTS: Transferred from outside ED S/p tpa ~6:30am 05/20/20 Resumed on Aspirin 81mg and Ticagrelor 90 BID today MRI - acute stroke in R anterior and medial medulla. SUBJECTIVE: Patient was nauseous once yesterday, did well overnight and slept. No new complaints today. Still has about 1-2/5 LUE strength and 2-3/5 LLE. STROKE DOCUMENTATION NIH STROKE SCALE NIH STROKE SCALE LOC: 0 Alert: Keenly Responsive LOC QUESTIONS: 0 Answers Both Questions Correctly LOC COMMANDS: 0 Performs Both Tasks Correctly BEST GAZE: 0 Normal VISUAL: 0 No Visual Loss FACIAL PALSY: 0 Normal MOTOR ARM-LEFT: 3 No Effort Against [place] MOTOR ARM-RIGHT: 0 No Drift MOTOR LEG-LEFT: 3 No Effort Against [place] MOTOR LEG-RIGHT: 0 No Drift LIMB ATAXIA: 0 Absent SENSORY: 0 Normal BEST LANGUAGE: 0 No Aphasia DYSARTHRIA: 1 [id number]-Ywpzcsvx Dysarthria EXTINCTION AND INATTENTION (FORMERLY NEGLECT): 0 No Abnormalty STROKE SCALE INTERVAL: Baseline STROKE SCALE TOTAL SCORE: 7 HOSPITAL MEDICATIONS Current Facility-Administered Medications Medication Dose Route Frequency Last Rate Last Admin aspirin chewable tablet 81 mg 81 mg Oral QAM WITH BREAKFAST ticagrelor (BRILINTA) tablet 90 mg 90 mg Oral BID acetaminophen (TYLENOL) tablet 325 mg 325 mg Oral Q6HPRN dextrose 50 % in water (D50W) injection 25 mL 25 mL Slow IV Push PRN famotidine (PEPCID AC) tablet 20 mg 20 mg Oral BID 20 mg at 05/20/202013 glucagon (GLUCAGEN DIAGNOSTIC KIT) injection 1 mg 1 mg Intramuscular PRN NaCl 0.9% (NS) 1000 mL + KCL 20 mEq IV Infusion CONTINUOUS 100 mL/hr at 05/21/20 0724 New Bag at 05/21/20 0724 niCARdipine (CARDENE I.V.) 40 mg in 200 mL 0.83% Sodium Chloride (RTU) infusion 2.5-15 mg/hr IVInfusion TITRATE ondansetron (ZOFRAN (PF)) injection 4 mg 4 mg Slow IV Push Q6HPRN 4 mg at 05/20/20 1829 rosuvastatin (CRESTOR) tablet 40 mg 40 mg Oral DAILY Sliding Scale Insulin - Lispro (HumaLOG) + Fsbg Testing Subcutaneous TID MEALS+HS Stopped at05/20/20 1700 PHYSICAL EXAM BP: (119-151)/(72-96) Temp: [36.3 C (97.3 F)-36.6 C (97.9 F)] Temp source: Axillary (05/20 1506) Pulse: [53-67] Resp: [10-15] SpO2: [92 %-98 %] Height: [177.8 cm (5' 10")] Weight: [109.5 kg (241 lb 6.5 oz)] BMI (calculated): [34.64] Vitals: 05/21/20 0300 05/21/20 0400 05/21/20 0500 05/21/20 0600 BP: 127/78 125/75 127/76 123/80 Pulse: 53 65 56 56 Resp: 13 14 15 15 Temp: 36.5 C (97.7 F) 36.6 C (97.9 F) 36.6 C (97.9 F) TempSrc: SpO2: 95% 95% 95% 95% Weight: Height: General: Alert and oriented x 4 (time, person, place and situation); no apparent distress. Mental Status: Consciousness, attention, concentration: normal, Stays focused and on task while being questioned. Speech/ Language: intact to comprehension, fluency, repetition and naming. Cranial Nerves: I. Not tested. II. PERRL. FOV full to confrontation. III. IV., . Extraocular movements intact with no nystagmus. V. Normal sensation in V1-3 distributions. VII. Right UMN facial droop noted. VIII. Hearing intact. IX., X. Palatal elevation present symmetrically. XI. Normal Strength of sternocleidomastoid and trapezius muscles bilaterally. XII. Tongue deviation to the right. Motor: Tone: decreased in LUE Bulk: normal STRENGTH Right Left Deltoid 5 2 Biceps 5 up to 2 Triceps 5 2 Wrist extensors 5 1 Interossei 5 1 Hip flexors 5 2 Knee flexors (hamstring) 5 up to 3 Knee extensors (quadriceps) 5 up to 3 Ankle dorsiflexors 5 3 Ankle plantar flexors 5 3 DTR's: Right Left Bicep 2 3 Triceps 2 3 Brachioradialis 2 3 Patella 2 1 Achilles 0 0 Pathologic reflexes and signs: [place]: absent Babinski: present on L Cerebellar: Nystagmus: none, FTN: nl, HTS:nl Sensory: LT: intact, no extinction Gait: MANASA HEENT: pupils equal, round, reactive to light; extraocular movements intact; oropharynx clear; moistmucous membranes Lungs: clear to auscultation bilaterally Cardio: RRR Extremities:no cyanosis,clubbing or edema Neck:supple,no carotid bruit,no JVD Abdomen: soft; non-tender; non-distended LABS STROKE LABS HGB A1C (% NGSP) Date Value 08/19/2018 7.6 (H) LDL CHOL (mg/dL) Date Value 05/20/2020 49 CHOL (mg/dL) Date Value 05/20/2020 114 (L) TSH (mIU/L) Date Value 05/20/2020 0.36 (L) RADIOLOGY Reviewed personally ASSESSMENT AND PLAN Lambert Marquis is a 59 year old male with PMHx of the following stroke risk factors: CAD, HTN, HLD, DM, who presented with L sided weakness, LSN: 400 on 05/20/2020 , NIHSS 7. CTA head and neck chronic looking R vert occlusion. MRI brain wo showed acute R medullary stroke. 1. Neuro Acute ischemic stroke in Right anterior medulla L sided hemiplegia s/p tPA 6:30 05/20/20 Stroke etiology: Atherosclerosis Plan: Admission to [facility] Neurochecks Q1H Telemetry SBP 140-180 Aspirin 81 daily Resumed Ticagrelor 90mg BID Rosuvastatin 40mg daily Fall precautions Consult PT/OT/ Speech pathology/Primary swallowing screen 2. Cardiac Hx of CAD s/p stenting in 2016 on DAPT SBP goal: 140-180 Pending Echo 3. Pulmonary No acute issues 4. GI No acute issues 5. Renal No issues 6. ID No issues 7. Endo DM Monitor BG Check HbA1C Insulin Sliding Scale - GI Prophylaxis: famotidine - DVT Prophylaxis: scd Edwin Perez MD Neurology PGY-3 Pager [phone] STRIAL SALES REPRESENTATIVE Associated attestation - Mp Rose MD - 05/22/2020 6:29 AM CSTNeurocritical Care Attending Note I have been directly involved in the care of this patient including decision- making with house staffand nursing teams at the bedside. I personally examined this patient named Mr Lambert Marquis with Dr Perez on 05/21/2020 and was directly involved in the clinical care of this patient including clinical decision making with the resident, nursing staff and other ancillary teams. I corroborate the attested note with additional information in my note, written separately. Mp Rose MD Attending Neurocritical Care UnitDaMp downey MD - 05/20/2020 4:33 PM INDUSTRIAL SALES REPRESENTATIVE Neurocritical Care Attending Note I have been directly involved in the care of this patient including decision- making with house staffand nursing teams at the bedside. Mr Lambert Marquis is critically ill, 59 year old years old male with a PMH of Past Medical History: Diagnosis Date CAD (coronary artery disease) DM (diabetes mellitus) diagnosed around age 34yo Fatty liver 07/26/2017 H/O hand surgery left Dr. aBez HLD (hyperlipidemia) HTN (hypertension) Umbilical hernia now admitted on 05/20/2020 with history per the Neurology resident admission note as mentioned below- 59 year old male right handed with PMHX of CAD s/p stenting in 2016, DM, HTN, HLD who presented withCC of L sided weakness and numbness. Patient woke up at 400 in his usual state health and started noticing some weakness in his L side around 430. Went to rest in the couch and noted some worsening of his weakness to the point he could not lift his LUE. He was also complaining of numbness of his L hemibody at that time. Patient's called EMS and went to the ER. In [place], he received tPA around 630 on 05/20/2020. CTA showed R vert occlusion ( origin not visualized) with distal reconstitution, most likely chronic. Patient takesoral DM meds, BP meds and DAPT (aspirin and ticagrelor). Patient transferred to for further care. NIHSS on admission to us was 7. Exam on arrival to [facility] from OSH- Awake, alert, oriented 4, normal language, emnmlu-lyoa-ldgrtail dysarthria, pupils-3 mm, equal, reactive and symmetric, bilateral gaze evoked nystagmus (left > right), with torsional component andskew deviation (left eye > right eye); left facial UMN pattern weakness; tongue- deviation to right; left shoulder-3/5, left elbow-2/5; left wrist and hand-0/5; left hip & knee-at least 3/5; left ankle- 4-/5; sensory grossly intact to crude touch in all 4 limbs (though patient reported having tingling sensation in left UE and LE); no nuchal rigidity Active problem list- 1. Acute posterior circulation ischemic stroke (likely right midbrain-bob) 2. 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 At risk for stroke-due to #1 and #2 4. History multiple medical comorbidities-as mentioned above Temp: [36.5 C (97.7 F)] Heart Rate (monitor): [60-67] Pulse: [60-67] Resp: [14] BP: (129-144)/(85-96) MAP (mmHg): [99-113] ; Lab Results Component Value Date NA 140 08/19/2018 NA 140 02/11/2018 NA 141 06/28/2017 BUN (mg/dL) Date Value 08/19/2018 20 There are no current results on file for these tests and/or test for 1 year. Intake/Output Summary (Last 24 hours) at 05/20/2020 1633 Last data filed at 05/20/2020 1600 Gross per 24 hour Intake 150 ml Output Net 150 ml Plan: 1) Continue neurochecks; aspirin, Ticagrelor, atorvastatin; * Complete acute ischemic post alteplase stroke protocol 2) cardiopulmonary monitoring- SBP [id number] mmHg 3) nothing by mouth except medications - aim for euvolemia; euthermia and euglycemia 4) DVT/GI prophylaxis- SCD's; SC heparin, bowel regimen 5) Out of bed to chair; PT/OT/speech if feasible *Discussed in detail with endovascular faculty-Dr. Frazier, about the imaging, that revealed chronically appearing right vertebral occlusion with patent basilar artery with dominant left vertebral artery. Given the improvement post alteplase, risk of embolic shower on attempted opening of right vertebral occlusion, the patient was continued on medical management with permissive hypertension, dual antiplatelet medications (aspirin and Ticagrelor). Disposition: awaiting stable neurologic, cardiac-pulmonary and hemodynamic status I have spent a total of 45 min of critical care time at the bedside, formulation and implementation of the management plan. Mp Rose M.D. Neurocritical Care Unit Attending avisJaki OT - 05/20/2020 4:13 PM CST OT GENERAL EVALUATION Consult received via [place], EMR reviewed and evaluation completed 05/20/20. Patient referred to occupational therapy for evaluation and treatment per stroke protocol s/p tPA and COVID (-) from OSH per nursing. Patient agreeable to participate in occupational therapy. Discharge Recommendations: Therapy Needs and Potential:- Patient would benefit from continued skilled occupational therapy services to address: Decline in basic activities of daily living, Decline in instrumental activities of daily living, Decreased strength, Decreased range of motion, Decreased endurance and Decreased coordination - Patient demonstrates good potential to improve and meet therapy goals with further skilled occupational therapy services. - Patient appears motivated to improve their B/IADLs and return to their previous level of function. - Patient demonstrates ability to tolerate at least 30-60 minutes of active participation in occupational therapy. - Patient able to follow commands: 1-step Yes, Multi-step Yes, Inconsistencies No Challenges to Home Transition:- Requires physical assistance for BADLS - Requires physical assistance for IADLS - Requires supervision or verbal cues for BADLS - Requires supervision or verbal cues for IADLS - Increased risk of falls - Environmental barriers Equipment Recommendations:Bedside commode, Tub transfer bench, Grab bars and Hand held shower PLAN OF CARE: At least 2x/week Precautions: Weight bearing status: NA General: PPE Utilized: Gloves and Surgical mask and Fall Bracing: N/A Current Occupational Performance and/or Treatment: Feeding: NT due to NPO Grooming: Minimal assist, wipes face with R hand but requires assist to positioning L UE for hand washing at bed level LB Dressing: Maximal assist, elevates ELENITA LE for application of socks at bed level Functional Mobility: HOB elevated, sup -> sit EOB with CGA, sit <-> stand CGA, lateral scoot with CGA. Sit -> sup with min assist for L LE, moves up toward HOB with min assist while bed in trendelenburg. Verbal cues provided throughout for safety. BP monitored: headache unchanged throughout 155/101 (118) at EOB, patient c/o mild dizziness 146/99 (114) Patient/caregiver educated on: Role of OT, Safety awareness and L UE elevation for edema control andsensory stimulation as well as visual feedback when attempting L hand movement Patient left semireclining in bed with call centeno in reach. L UE elevated. SCDs donned and engaged. Please, see full evaluation below for more detail. OT EVALUATION: 59 year old male Admit date: 05/20/2020 Date of onset: 05/20/20 Admit Diagnosis: ACUTE STROKE OT Diagnosis: Impaired BADL independence, Impaired IADL independence, Weakness, Decreased endurance,Impaired self-care mobility, Decreased UE Function Non- Dominant and Limited joint ROM PMH: Past Medical History: Diagnosis Date CAD (coronary artery disease) DM (diabetes mellitus) diagnosed around age 34yo Fatty liver 07/26/2017 H/O hand surgery left Dr. Baez HLD (hyperlipidemia) HTN (hypertension) Umbilical hernia PSH: Past Surgical History: Procedure Laterality Date KNEE ARTHROSCOPY Right for torn meniscus, Dr. Rome PTCA W/POSSIBLE STENT 01/2016 2 stents RCA for [place] PAIN: Before assessment: 07/13 After assessment: 07/13 Location: head, patient reports team aware Pain Management: Repositioning Provided OCCUPATIONAL ROLES/HOME ENVIRONMENT: Home environment: Single story home with son, girlfriend and her daughter. 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 [employer] Function prior to admission: Household ambulation, Community ambulation, Independent with BADLs and Independent with IADLs Equipment prior to admission: SPC, Crutches, hand held shower head PERFORMANCE SKILLS/FACTORS: UE Muscle Tone: right WNL and left Hypotonicity UE ROM: right AROM WFL and left PROM WFL although shoulder flexion NT beyond 90 degrees due to weakness UE Strength: R UE 5/5 and L UE 0/5 Hand dominance: right Dexterity/Coordination: left Impaired and right Intact Endurance - Sitting: Fair Standing: Poor Sitting Balance - Static: Good Dynamic: Fair Standing: Balance - Static Fair Dynamic: NT Dizziness: Yes Skin Integrity: No breakdown noted and High risk for breakdown Sensation: ELENITA Intact to light touch, patient c/o "prickly" feeling over L UE Oral Motor: WFL Communication: Able to verbalize needs Yes Other: N/A Vision: WFL Yes Other: glasses or contacts Hearing: good; no issues reported COGNITION: Orientation: NT Follows Commands: 1-step Yes Multi-step Yes Inconsistencies No Safety Awareness/Judgment: Good PROBLEM LIST: Decreased independence with ADL, Impaired postural control, Decreased functional ROM and Decreased strength/endurance for functional activity REHAB POTENTIAL/PROGNOSIS: good PATIENT/FAMILY GOALS: to improve L side TREATMENT/INTERVENTION PLAN: Functional motor treatment, Patient/Caregivier Education, Equipment recommendations, Daily living activities, Therapeutic exercises and Neuromuscular Re-Education GOAL(S): By discharge, patient will increase independence in daily living skills as follows: 1 Patient will perform 3 in 1 BSC transfer with minimal assistance. 2 Patient will don pullover shirt with moderate assistance. 3 Patient will don/doff pants with moderate assistance. 4 Patient will complete toileting hygiene, including clothing management, with moderate assistance. 5 Patient/caregiver will verbalize/demonstrate understanding/proficiency in the following home programs: Adaptive equipment , 6. Fall prevention and 7. L UE self-ROM PATIENT-FAMILY TEACHING Patient provided with preferred teaching of verbal information on Role of OT, Safety awareness and LUE elevation for edema control and sensory stimulation as well as visual feedback when attempting L hand movement. Shows readiness to learn. Verbal instruction teaching provided. Individual is able to read and verbalizes understanding of teaching provided and needs reinforcement of teaching. Lexx Flores OTR, OTD, C/NDT Pager [phone] Total Timed Treatment Codes: 6 Min Total Treatment Time: 30 Min Patient Complexity Level Moderate - An occupational therapy evaluation of moderate complexity was completed using the above tests and measures. The following information was obtained: An occupational profile and medical and therapy history, including an expanded review of medical and/or therapy records and additional review of physical, cognitive, or psychosocial history related to current functional performance, Various standardized and non-standardized assessments were used to identify at least 3-5 performance deficits related to physical, cognitive, or psychosocial skills that result in activity limitations and/or participation restrictions and Clinical decision making of moderate analytic complexity, which includes an analysis of the occupational profile, analysis of data from detailed assessment(s), and consideration of several treatment options. Patient may present with comorbidities thataffect occupational performance. Minimal to moderate modification of tasks or assistance (e.g., physical or verbal) with assessment(s) is necessary to enable patient to complete evaluation component. STRIAL SALES REPRESENTATIVE documented in this encounter H&P Notes Gene Sanchez MD - 05/20/2020 3:49 PM CST [facility]UROSCIENCES CRITICAL CARE UNIT PROGRESS NOTE DATE OF SERVICE: 05/20/2020 16:50 Day of Hospitalization: 0 CHIEF COMPLAINT: Left arm weakness Code status: addressed: Full 24-HOUR EVENTS: Transferred from outside ED Received tpa CTA reviewed SUBJECTIVE: Lambert Marquis is a 59 year old male right handed with PMHX of CAD s/p stenting in 2016, DM, HTN, HLDwho presented with CC of L sided weakness and numbness. Patient woke up at 400 in his usual state health and started noticing some weakness in his L side around 430. Went to rest in the couch and noted some worsening of his weakness to the point he could not lift his LUE. He was also complaining of numbness of his L hemibody at that time. Patient's called EMS and went to the ER. In [place], he received tPA around 630 on 05/20/2020. CTA showed R vert occlusion ( origin not visualized) with distal reconstitution, most likely chronic. Patient transferred to for further care. NIHSS on admission to us was 7. Patient takes oral DM meds, BP meds and DAPT. STROKE DOCUMENTATION NIH STROKE SCALE NIH STROKE SCALE LOC: 0 Alert: Keenly Responsive LOC QUESTIONS: 0 Answers Both Questions Correctly LOC COMMANDS: 0 Performs Both Tasks Correctly BEST GAZE: 0 Normal VISUAL: 0 No Visual Loss FACIAL PALSY: 0 Normal MOTOR ARM-LEFT: 3 No Effort Against [place] MOTOR ARM-RIGHT: 0 No Drift MOTOR LEG-LEFT: 3 No Effort Against [place] MOTOR LEG-RIGHT: 0 No Drift LIMB ATAXIA: 0 Absent SENSORY: 0 Normal BEST LANGUAGE: 0 No Aphasia DYSARTHRIA: 1 [id number] Dysarthria EXTINCTION AND INATTENTION (FORMERLY NEGLECT): 0 No Abnormalty STROKE SCALE INTERVAL: Baseline STROKE SCALE TOTAL SCORE: 7 HOSPITAL MEDICATIONS Current Facility-Administered Medications Medication Dose Route Frequency Last Rate Last Admin acetaminophen (TYLENOL) tablet 325 mg 325 mg Oral Q6HPRN dextrose 50 % in water (D50W) injection 25 mL 25 mL Slow IV Push PRN famotidine (PEPCID AC) tablet 20 mg 20 mg Oral BID glucagon (GLUCAGEN DIAGNOSTIC KIT) injection 1 mg 1 mg Intramuscular PRN NaCl 0.9% (NS) 1000 mL + KCL 20 mEq IV Infusion CONTINUOUS niCARdipine (CARDENE I.V.) 40 mg in 200 mL 0.83% Sodium Chloride (RTU) infusion 2.5-15 mg/hr IVInfusion TITRATE [START ON 05/21/2020] rosuvastatin (CRESTOR) tablet 40 mg 40 mg Oral DAILY Sliding Scale Insulin - Lispro (HumaLOG) + Fsbg Testing Subcutaneous TID MEALS+HS PHYSICAL EXAM BP: (129-144)/(85-96) Temp: [36.5 C (97.7 F)] Temp source: Axillary (05/20 1506) Pulse: [60-67] Resp: [14] SpO2: [94 %-96 %] Height: [177.8 cm (5' 10")] Weight: [109.5 kg (241 lb 6.5 oz)] BMI (calculated): [34.64] Vitals: 05/20/20 1515 05/20/20 1530 05/20/20 1545 01/15/21 1600 BP: (!) 144/91 135/88 (!) 144/96 136/85 BP Location: Pulse: 65 67 64 60 Resp: Temp: TempSrc: SpO2: 96% 94% 94% 94% Weight: Height: General: Alert and oriented x 4 (time, person, place and situation); no apparent distress. Mental Status: Consciousness, attention, concentration: normal, Stays focused and on task while being questioned. Speech/ Language: intact to comprehension, fluency, repetition and naming. Fund of knowledge: is congruent with level of education. Remote and recent memory: normal, can recall recent and distant memories Cranial Nerves: I. Not tested. II. PERRL. FOV full to confrontation. Reports blurry vision III. IV., . Extraocular movements intact with torsional nystagmus worse on L gaze. V. Normal sensation in V1-3 distributions. VII. No facial droop noted. VIII. Hearing intact. IX., X. Palatal elevation and gag response present symmetrically. XI. Normal Strength of sternocleidomastoid and trapezius muscles bilaterally. XII. Tongue in midline. Motor: Tone: normal Bulk: normal STRENGTH Right Left Deltoid 5 2 Biceps 5 2 Triceps 5 2 Wrist extensors 5 2 Interossei 5 2 Hip flexors 5 2 Knee flexors (hamstring) 5 2 Knee extensors (quadriceps) 5 2 Ankle dorsiflexors 5 2 Ankle plantar flexors 5 2 DTR's: Right Left Bicep 1+ 3+ Triceps 1+ 3+ Brachioradialis 1+ 3+ Patella 1+ 1+ Achilles 1+ 1+ Pathologic reflexes and signs: [place]: absent Babinski: present on L Cerebellar: Nystagmus: torsional as above, FTN: nl, HTS:nl, Tremors: neg Sensory: LT: intact, no extinction Gait: MANASA HEENT: pupils equal, round, reactive to light; extraocular movements intact; oropharynx clear; moistmucous membranes Lungs: clear to auscultation bilaterally Cardio: S1, S2 normal Extremities:no cyanosis,clubbing or edema Neck:supple,no carotid bruit,no JVD Abdomen: soft; non-tender; non-distended; normoactive bowel sounds heard LABS No results found for this or any previous visit (from the past 24 hour(s)). STROKE LABS HGB A1C (% NGSP) Date Value 08/19/2018 7.6 (H) LDL CHOL (mg/dL) Date Value 08/19/2018 52 CHOL (mg/dL) Date Value 08/19/2018 129 TSH (mIU/L) Date Value 08/19/2018 0.60 RADIOLOGY Reviewed personally ASSESSMENT AND PLAN Lambert Marquis is a 59 year old male with PMHx of the following stroke risk factors: CAD, HTN, HLD, DM, who presented with L sided weakness, LSN: 400 on 05/20/2020 , NIHSS 7. CTA head and neck chronic looking R vert occlusion. Pending MRI brain wo 1. Neuro L sided hemiplegia s/p tPA Stroke etiology: Atherosclerosis Plan: Admission to [facility] Neurochecks Q1H Telemetry SBP 140-180 Check CBC, BMP, Pt, PTT, cardiac enzymes x 1, EKG Avoid hyperthermia, pain and constipation Aspirin 81 daily from tomorrow Statin 20mg daily if LDL>70, will adjust according to fasting lipid panel Fall precautions Consult PT/OT/ Speech pathology/Primary swallowing screen 2. Cardiac Hx of CAD s/p stenting in 2016 on DAPT SBP goal: 140 180 Pending Echo 3. Pulmonary No acute issues 4. GI No acute issues 5. Renal No issues 6. ID No issues 7. Endo DM Monitor BG Check HbA1C Insulin Sliding Scale - GI Prophylaxis: famotidine - DVT Prophylaxis: annette Sanchez MD PhD Neurocritical Care Fellow STRIAL SALES REPRESENTATIVE Associated attestation - Mp Rose MD - 05/21/2020 9:18 AM CSTNeurocritical Care Attending Note I have been directly involved in the care of this patient including decision- making with house staffand nursing teams at the bedside. I personally examined this patient named Mr Lambert Marquis with Dr Sanchez on 05/20/2020 and was directly involved in the clinical care of this patient including clinical decision making with the resident,nursing staff and other ancillary teams. I corroborate the attested note with additional informationin my note, written separately. Mp Rose MD Attending Neurocritical Care Unit Carlos Suazo MD - 05/20/2020 3:26 PM CST [facility]ES [facility]ARE UN[facility] HISTORY AND PHYSICAL DATE OF SERVICE: 05/20/2020 15:26 CHIEF COMPLAINT: L sided weakness Code status: addressed: Full HISTORY OF PRESENT ILLNESS Lambert Marquis is a 59 year old male right handed with PMHX of CAD s/p stenting in 2016, DM, HTN, HLDwho presented with CC of L sided weakness and numbness. Patient woke up at 400 in his usual state health and started noticing some weakness in his L side around 430. Went to rest in the couch and noted some worsening of his weakness to the point he could not lift his LUE. He was also complaining of numbness of his L hemibody at that time. Patient's called EMS and went to the ER. In [place], he received tPA around 630 on 05/20/2020. CTA showed R vert occlusion ( origin not visualized) with distal reconstitution, most likely chronic. Patient transferred to for further care. NIHSS on admission to us was 7. Patient takes oral DM meds, BP meds and DAPT. Body mass index is 34.64 kg/m. STROKE DOCUMENTATION Stroke Activation - Date: (not recorded) Stroke Activation - Time: (not recorded) Physician arrival at bedside - Date: (not recorded) Physician arrival at bedside - Time: (not recorded) CT-Head without contrast read by Neurology: (not recorded) Last seen normal: Last known well - Date: 05/20/19 Last known well - Time: (not recorded) Wake up stroke: No NIH STROKE SCALE NIHSS TOTAL: 7 NIHSS Interval: Baseline LOC: 0 Alert: Keenly Responsive LOC QUESTIONS: 0 Answers Both Questions Correctly LOC COMMANDS: 0 Performs Both Tasks Correctly BEST GAZE: 0 Normal VISUAL: 0 No Visual Loss FACIAL PALSY: 0 Normal MOTOR ARM-LEFT: 3 No Effort Against [place] MOTOR ARM-RIGHT: 0 No Drift MOTOR LEG-LEFT: 3 No Effort Against [place] MOTOR LEG-RIGHT: 0 No Drift LIMB ATAXIA: 0 Absent SENSORY: 0 Normal BEST LANGUAGE: 0 No Aphasia DYSARTHRIA: 1 [id number] Dysarthria EXTINCTION AND INATTENTION (FORMERLY NEGLECT): 0 No Abnormalty Dysphagia Screen: IV Alteplase: Was Alteplase/IV thrombolytic therapy given?: Yes Did patient and/or family agree to IV Alteplase? Yes If IV Alteplase therapy was indicated and given as a standard of care was the patient/family informed of benefits of treatment and risk such as hemorrhage and/or angioedema?: Yes Was there a delay greater than 45 minutes: No Reason (s): (not recorded) ICH/SAH ICH/SAH: No Endovascular Intervention: Was Endovascular Intervention Performed?: No Reason patient is not a candidate for endovascular intervention: Clinical history, past imaging, or clinical judgement suggests acutely discovered intracranial occlusion is chronic PRE- ADMISSION MODIFIED [place] SCORE 4 - Moderately severe disability; unable to walk without assistance and unable to attend to own bodily needs without assistance PAST MEDICAL HISTORY Past Medical History: Diagnosis Date CAD (coronary artery disease) DM (diabetes mellitus) diagnosed around age 34yo Fatty liver 07/26/2017 H/O hand surgery left Dr. Baez HLBilly (hyperlipidemia) HTN (hypertension) Umbilical hernia PAST SURGICAL HISTORY Past Surgical History: Procedure Laterality Date KNEE ARTHROSCOPY Right for torn meniscus, Dr. Rome PTCA W/POSSIBLE STENT 01/2016 2 stents RCA for [place] FAMILY HISTORY Family History Problem Relation Age of Onset Hypertension Father Diabetes Mother SOCIAL HISTORY Social History Socioeconomic History Marital status: Spouse name: Not on file Number of children: Not on file Years of education: Not on file Highest education level: Not on file Occupational History Not on file Social Needs Financial resource strain: Not on file Food insecurity Worry: Not on file Inability: Not on file Transportation needs Medical: Not on file Non-medical: Not on file Tobacco Use Smoking status: Never Smoker Smokeless tobacco: Current User Types: Chew Substance and Sexual Activity Alcohol use: No Comment: occasional Drug use: Not on file Sexual activity: Not on file Lifestyle Physical activity Days per week: Not on file Minutes per session: Not on file Stress: Not on file Relationships Social connections Talks on phone: Not on file Gets together: Not on file Attends tenriism service: Not on file Active member of club or organization: Not on file Attends meetings of clubs or organizations: Not on file Relationship status: Not on file Intimate partner violence Fear of current or ex partner: Not on file Emotionally abused: Not on file Physically abused: Not on file Forced sexual activity: Not on file Other Topics Concern Not on file Social History Narrative Not on file Reviewed patient's family, surgical and social hx. HOME MEDICATIONS Medications Prior to Admission Medication Sig Dispense Refill Last Dose metoprolol succinate XL 50 mg 24 hr tablet Take 1 tablet by mouth daily. 90 tablet 1 clopidogreL 75 mg tablet Take 1 tablet by mouth daily. 90 tablet 3 rosuvastatin (CRESTOR) 40 mg tablet Take 1 tablet by mouth daily. 90 tablet 3 lisinopril-hydrochlorothiazide 20-12.5 mg per tablet Take 2 tablets by mouth daily. 180 tablet 3 Insulin [place], Disposable, (CECILIA PEN NEEDLE) 32 gauge x 5/32" Ndle Inject Tresiba daily as directed 100 Each 3 empagliflozin (JARDIANCE) 10 mg Tab Take 1 tablet by mouth daily. 30 tablet 11 insulin degludec (TRESIBA FLEXTOUCH U-100) 100 unit/mL (3 mL) InPn inject 15 Units under the skin daily. 15 mL 5 metFORMIN 1,000 mg tablet TAKE ONE TABLET BY MOUTH TWICE A DAY WITYH MEALS 60 tablet 11 pantoprazole 40 mg EC tablet Take 1 tablet by mouth daily. 30 tablet 11 SITagliptin 100 mg tablet Take 1 tablet by mouth daily. 30 tablet 11 econazole nitrate 1 % cream Apply to area(s) daily. 45 g 0 Taking aspirin 81 mg chewable tablet Take 81 mg by mouth daily. Taking CALCIUM CARBONATE/VITAMIN D3 (VITAMIN D-3 ORAL) Take by mouth daily. Taking FLAXSEED ORAL Take by mouth daily. Taking MULTIVITAMIN ORAL Take by mouth daily. Taking HOSPITAL MEDICATIONS Current Facility-Administered Medications Medication Dose Route Frequency Last Rate Last Admin acetaminophen (TYLENOL) tablet 325 mg 325 mg Oral Q6HPRN famotidine (PEPCID AC) tablet 20 mg 20 mg Oral BID NaCl 0.9% (NS) 1000 mL + KCL 20 mEq IV Infusion CONTINUOUS niCARdipine (CARDENE I.V.) 40 mg in 200 mL 0.83% Sodium Chloride (RTU) infusion 2.5-15 mg/hr IVInfusion TITRATE [START ON 05/21/2020] rosuvastatin (CRESTOR) tablet 40 mg 40 mg Oral DAILY ALLERGY Allergies Allergen Reactions Codeine Nausea and/or Vomiting Victoza [Liraglutide] Nausea and/or Vomiting REVIEW OF SYSTEMS See HPI PHYSICAL EXAM BP: (131)/(89) Temp: -- Temp source: -- Pulse: [67] Resp: [14] SpO2: [96 %] Height: [177.8 cm (5' 10")] Weight: [109.5 kg (241 lb 6.5 oz)] BMI (calculated): [34.64] Vitals: 05/20/20 1506 BP: 131/89 BP Location: Left arm Pulse: 67 Resp: 14 SpO2: 96% Weight: 109.5 kg (241 lb 6.5 oz) Height: 1.778 m (5' 10") General: Alert and oriented x 4 (time, person, place and situation); no apparent distress. Mental Status: Consciousness, attention, concentration: normal, Stays focused and on task while being questioned. Speech/ Language: intact to comprehension, fluency, repetition and naming. Fund of knowledge: is congruent with level of education. Remote and recent memory: normal, can recall recent and distant memories Cranial Nerves: I. Not tested. II. PERRL. FOV full to confrontation. Reports blurry vision III. IV., . Extraocular movements intact with torsional nystagmus worse on L gaze. V. Normal sensation in V1-3 distributions. VII. No facial droop noted. VIII. Hearing intact. IX., X. Palatal elevation and gag response present symmetrically. XI. Normal Strength of sternocleidomastoid and trapezius muscles bilaterally. XII. Tongue in midline. Motor: Tone: normal Bulk: normal STRENGTH Right Left Deltoid 5 2 Biceps 5 2 Triceps 5 2 Wrist extensors 5 2 Interossei 5 2 Hip flexors 5 2 Knee flexors (hamstring) 5 2 Knee extensors (quadriceps) 5 2 Ankle dorsiflexors 5 2 Ankle plantar flexors 5 2 DTR's: Right Left Bicep 1+ 3+ Triceps 1+ 3+ Brachioradialis 1+ 3+ Patella 1+ 1+ Achilles 1+ 1+ Pathologic reflexes and signs: [place]: absent Babinski: present on L Cerebellar: Nystagmus: torsional as above, FTN: nl, HTS:nl, Tremors: neg Sensory: LT: intact, no extinction Gait: MANASA HEENT: pupils equal, round, reactive to light; extraocular movements intact; oropharynx clear; moistmucous membranes Lungs: clear to auscultation bilaterally Cardio: S1, S2 normal Extremities:no cyanosis,clubbing or edema Neck:supple,no carotid bruit,no JVD Abdomen: soft; non-tender; non-distended; normoactive bowel sounds heard LABS No results found for this or any previous visit (from the past 24 hour(s)). STROKE LABS HGB A1C (% NGSP) Date Value 08/19/2018 7.6 (H) LDL CHOL (mg/dL) Date Value 08/19/2018 52 CHOL (mg/dL) Date Value 08/19/2018 129 TSH (mIU/L) Date Value 08/19/2018 0.60 There are no current results on file for these tests and/or test for 1 year. RADIOLOGY No final results containing an impression from the past 48 hours were found. ASSESSMENT AND PLAN Lambert Marquis is a 59 year old male with PMHx of the following stroke risk factors: CAD, HTN, HLD, DM, who presented with L sided weakness, LSN: 400 on 05/20/2020 , NIHSS 7. CTA head and neck chronic looking R vert occlusion. Pending MRI brain wo 1. Neuro L sided weakness s/p tPA Stroke etiology: Lipohyalinosis Plan: Admission to [facility] Neurochecks Q1H Telemetry SBP 140-180 Check CBC, BMP, Pt, PTT, cardiac enzymes x 1, EKG Avoid hyperthermia, pain and constipation Aspirin 325 mg now and Aspirin 81 daily from tomorrow Statin 20mg daily if LDL>70, will adjust according to fasting lipid panel Fall precautions Consult PT/OT/ Speech pathology/Primary swallowing screen 2. Cardiac Hx of CAD s/p stenting in 2016 on DAPT SBP goal: 140 180 Pending Echo 3. Pulmonary No acute issues 4. GI No acute issues 5. Renal No issues 6. ID No issues 7. Endo DM Monitor BG Check HbA1C Insulin Sliding Scale - GI Prophylaxis: famotidine - DVT Prophylaxis: scd Discussed with Dr. Rose, neurology faculty. Carlos Suazo MD PGY-2 Neurology Pager number [phone] [employer]IAL SALES REPRESENTATIVE Associated attestation - Mp Rose MD - 05/20/2020 4:49 PM CSTNeurocritical Care Attending Note I have been directly involved in the care of this patient including decision- making with house staffand nursing teams at the bedside. I personally examined this patient named Mr Lambert Marquis with Dr Suazo on 05/20/2020 and was directly involved in the clinical care of this patient including clinical decision making with the resident, nursing staff and other ancillary teams. Mp Rose MD Attending Neurocritical Care Unit documented in this encounter Consult Notes Laury Kulkarni MD - 05/23/2020 8:51 AM CSTAssociated Order(s): CONSULT ENDOCRINOLOGY Endocrinology Consult Note Consultation requested by: Service: neuro Reason for Consultation: Lambert Marquis is a 59 year old male with history of HTN, DMII, CAD admittedfor left sided weakness and numbness. Received IV tPA, Mri brain showed acute infarct in right anterior and medial medulla. A1c : 10.9%, please assist with DM management Date of Service: 05/23/2020 HPI Patient is a 59 year old /White male with a PMH of CAD, HTN, HLD, fatty liver, and R7PLesk initially presented on 05/20/2020 with cc of L sided weakness and numbness. The patient went to the ED in [place], received tPA and was transferred to [facility]. His MRI found acute strokeof R anterior and medial medulla. Pt went to neuro ICU for monitoring but was transferred to the floor on 05/22. Today we're being consulted for finding of A1C being 10.9%. Today patient is feeling well and is happy he's made progress with his neurologic deficits. He can now lift up his left leg and can use his left hand more. Diabetes Hx: T2DM, diagnosed around age 37 Diabetes complications: CVA this admission, [place] in 2017 Hx of DM regimen: Tresiba 18u Qdaily, Jardiance 10 mg Qdaily, Metformin 1000 mg once daily, Januvia 100 mg Qdaily. Good compliance w/ meds. No dieting or carb counting. Pt and girlfriend eat out a lot. They eat sweets. Hypoglycemia hx: denies Hypoglycemia unawareness? denies Symptoms of hyperglycemia: denies BG monitoring? Doesn't check it ever. Says he's interested in CGM. 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 Rosario in [place] PCP, no Endo doctor. Family hx of diabetes: mom T1DM HX of glucocorticoid use: denies HX of transfusions or EPO in last 6 months: denies PAST MEDICAL HISTORY Past Medical History: Diagnosis Date CAD (coronary artery disease) DM (diabetes mellitus) diagnosed around age 34yo Fatty liver 07/26/2017 H/O hand surgery left Dr. Baez HLD (hyperlipidemia) HTN (hypertension) Umbilical hernia Past Surgical History: Procedure Laterality Date KNEE ARTHROSCOPY Right for torn meniscus, Dr. Rome PTCA W/POSSIBLE STENT 01/2016 2 stents RCA for [place] Family History Problem Relation Age of Onset Hypertension Father Diabetes Mother Social History Tobacco Use Smoking status: Never Smoker Smokeless tobacco: Current User Types: Chew Substance Use Topics Alcohol use: No Comment: occasional Drug use: Not on file ALLERGIES Codeine and Victoza [liraglutide] REVIEW OF SYSTEMS Constitutional: Negative for appetite change, fatigue and unexpected weight change. HENT: Negative for trouble swallowing. Eyes: Negative for visual disturbance. Respiratory: Negative for chest tightness and shortness of breath. Cardiovascular: Negative for CP, palpitations and leg swelling. Gastrointestinal: Negative for abd pain, constipation, diarrhea, nausea and vomiting. Genitourinary: Negative for difficulty urinating. Musculoskeletal: Negative. Skin: Negative for rash. Neurological: Negative for tremors. + numbness tingling in his LUE and LLE, improving s/p tPA. Psychiatric/Behavioral: Negative for sleep disturbance. Endocrine: Negative for polydipsia, polyphagia and polyuria. Negative for heat/cold intolerance. PHYSICALEXAM BP (!) 156/101 | Pulse 67 | Temp 36.4 C (97.6 F) (Oral) | Resp 18 | Ht 1.778 m (5' 10") | Wt 109.5 kg (241 lb 6.5 oz) | SpO2 97% | BMI 34.64 kg/m General: Patient appears well in no apparent distress HEENT: normal conjunctiva & lids, throat clear, normal lips, gums and teeth Neck: Supple, thyroid normal to inspection and palpation Lungs: clear to auscultation, no accessory muscle use Cardiovascular: RRR, no MGR Abdomen: soft, nontender Musculoskeletal: no tenderness or deformities Integumentary: warm, dry, (-) cervical acanthosis Neuro: AAOx4, no tremors, LUE weakness and LLE weakness, tongue deviates to the right Psych: Cooperative Foot exam: Sensation in feet grossly intact, DP pulses are 2+ bilaterally, no lesions, no ulcers, skin is normal, no onychomycosis. LABORATORY Recent Labs 05/22/20 0319 HGBA1C 10.9* 05/20/2020 17:56 05/23/2020 03:49 TSH 0.36 (L) FREE T4 1.31 CREATININE (mg/dL) Date Value 05/23/2020 0.91 05/22/2020 0.86 05/21/2020 0.78 08/19/2018 1.10 02/11/2018 1.10 IMAGING MRI Brain 05/20/2020: IMPRESSION Focal restricted diffusion in the right anterior medulla, with accompanying hypointensity on the ADCmap, consistent with a small acute or subacute infarct. Mild atrophy and chronic small vessel ischemic disease of the white matter. HOSPITAL MEDICATIONS Scheduled meds:aspirin, 325 mg, DAILY heparin (porcine) 5,000 units subcutaneous injection, 5,000 Units, BID ticagrelor, 90 mg, BID famotidine, 20 mg, BID rosuvastatin, 40 mg, DAILY insulin lispro (human), , TID MEALS+HS IV meds:Na CL 0.9% + KCL 20 mEq RTU, Last Rate: 100 mL/hr at 05/21/20 0724 niCARdipine infusion PRN meds:acetaminophen, 325 mg, Q6HPRN dextrose 50 % in water (D50W), 25 mL, PRN glucagon, 1 mg, PRN niCARdipine infusion, 2.5-15 mg/hr, TITRATE ondansetron, 4 mg, Q6HPRN ASSESSMENT and PLAN Problem List: T2DM, poorly controlled, on insulin Stress hyperglycemia Non-compliance with low carb diet Acute Infarct of the Right Anterior and Medial Medulla S/p tPA on 05/20/20 Comments: Lambert Marquis is a 59 year old male w/ a PMH of [place] in 2017, T2DM (A1C 10.9%), HTN, HLD, fatty liver presents with acute stroke. Pt is s/p tPA on 05/20 and is showing improvement in his neurological function. He reports that he hasn't been taking his diabetes seriously and he wishes to make changes now in light of what happened with the stroke. He would like to f/u with [facility]. Pt will likely go to rehab first per neuro team. Recommendations: - agree with holding PO DM meds - since patient eating well but doesn't like the food too much here, will do basal only for now and SSI until we can see a little more data Change insulin to: < Basal > - Glargine 10 u Qdaily - Give half dose if patient NPO or if blood glucose 80 - 120 mg/dL. - Hold dose if blood glucose <80 mg/dL. < Prandial > Lispro 3 units TID meals - Please give half dose if patient eats less than half meal OR if blood glucose 80 - 120 mg/dL. - HOLD DOSE if NPO or BG < 80 mg/dL. Please give at end of meal if not sure if patient will eat. < Sliding Scale > Sliding scale ,SSI 1:50 - Please give lispro sliding scale TID meals + HS; may give even if NPO. BG 170 to 220, give 1 unit. BG 221 to 270, give 2 units. BG 271 to 300, give 3 units. BG > 300, give 4 units, NHO, recheck in 3 hours and cover again with sliding scale. If BG < 80, NHO and use hypoglycemia protocol. - have patient f/u with Endocrinology in 1-2 weeks post discharge Case discussed with Dr. Carlton. Laury Kulkarni MD Endocrinology Fellow, PGY4 [employer] SAL[employer] REPRESENTATIVE Associated attestation - Jamey Carlton MD - 05/23/2020 10:43 PM CSTI personally examined the patient on 05/23/[address] Kulkarni's fellow note with the following addition(s): Despite the fact that he has excellent lipid panel control with max-dose rosuvastatin, he is admitted with another atherosclerotic complication and has had a myocardial infarction in the past. 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 Unfortunately,only a diet change, not medications to decrease cholesterol can decrease the circulating level of TMAO, and therefore its atherogenic effect. Therefore, he also needs to slowly change his diet to decrease eating these problem foods, which are also high in cholesterol, and progressively change to eating a low fat, plant based diet as much as possible. He says that he is increasingly concerned about his health and will try to do this. I actively participated in the decision-making process. Please see the resident's note for additional details. Ellen Ta, OXYACETYLENE WELDER - 05/21/2020 2:48 PM CSTAssociated Order(s): CONSULT SPEECH Speech-Language Pathology Clinical Swallow Evaluation 05/21/2020 Lambert Marquis : 1960 Age: [age] year old Sex: male Referring Physician: Lakeisha Date of Referral: 05/20/20 Reason for Referral: stroke activation (dysphagia, speech-language/cognitive-linguistic) Date of Admission/Onset: 05/20/20 Time IN/OUT: [id number] SUBJECTIVE: Patient alert/awake eating lunch upon arrival with and RN present at bedside. Agreeable to evaluation with OXYACETYLENE WELDER. Pt/family report that his speech was slurred initially but now is almost back to baseline. OBJECTIVE: is being seen for a clinical swallow evaluation. Lambert Marquis is a 59 year old male admitted for L-sided weakness and found to have a R medullary stroke with PMH significant for CAD, DM, HTN, HLD. Patient s/p tPA on 05/20. Pertinent Imaging: Mr Stroke Brain Wo Contrast Result Date: 05/21/2020 Focal restricted diffusion in the right anterior medulla, with accompanying hypointensity on the ADCmap, consistent with a small acute or subacute infarct. Mild atrophy and chronic small vessel ischemic disease of the white matter. RL: [id number] AFC: [id number] Previous OXYACETYLENE WELDER Services/Swallow History: None documented on chart or reported by patient. Past Medical History: Diagnosis Date CAD (coronary artery disease) DM (diabetes mellitus) diagnosed around age 34yo Fatty liver 07/26/2017 H/O hand surgery left Dr. Baez HLD (hyperlipidemia) HTN (hypertension) Umbilical hernia Past Surgical History: Procedure Laterality Date KNEE ARTHROSCOPY Right for torn meniscus, Dr. Rome PTCA W/POSSIBLE STENT 01/2016 2 stents RCA for [place] General Behavior: Alert and Cooperative Hearing: Within Functional Limits for speech Oral Mechanism: Structure: natural dentition and moist oral mucosa Function: Unremarkable - no facial droop/weakness, no subjective trismus, symmetric labial spread and pucker, lingual protrusion midline with equal lateralization, symmetrical palatal retraction, no dysphonia, no dysarthria, no apraxia Respiratory Status: room air Orientation/Cognition: - Patient oriented to: person, place, time and situation - Response type: verbal - If verbal, describe speech: clear - Follows 1-step commands: Yes CLINICAL SWALLOW EVALUATION Current Diet Texture/Means of Nutrition: regular-textured diet Swallows on command: Yes Handles Secretions: Yes Volitional Cough: Yes Spontaneous Cough: No PO trials were administered by patient. Patient was provided with multiple bites/sips of thin liquids and chewable solid consistencies with the following observations: Oral Stage: Anterior leakage of bolus (left or right) not observed Pocketing of bolus (left or right) not observed Subjectively Prolonged oral phase not observed Oral residue (left/right/diffuse) not observed Pharyngeal Stage: Subjectively reduced laryngeal elevation not observed Coughing or throat clearing not observed Change in voice quality not observed Multiple swallows subjectively not observed Respiratory sufficiency and coordination: WFL - no increased work of breathing and/or oxygen sats and respiratory rate remained stable Report of globus sensation: No 3 oz water challenge: passed Patient/Family/Staff education: Provided verbally. Patient/Family goal: safe po intake ASSESSMENT/IMPRESSIONS: Lambert Marquis appears to present with a safe, functional swallow despite acute- subacute R medullary stroke. He demonstrated an efficient oral phase, subjectively adequate hyolaryngeal elevation, and noovert s/sx of aspiration (note: aspiration cannot be ruled out nor confirmed without objective assess ment/imaging). He appears safe to continue a po diet with universal swallow precautions. Patient/family report that his speech has returned to baseline and no aphasia or cognitive-linguistic disturbances observed. No further acute OXYACETYLENE WELDER services appear indicated at this time. Prognosis appears good for safe po intake and meeting nutrition/hydration needs by mouth with universal swallow precautions due to above findings. RECOMMENDATIONS/GOALS: 1. Recommend patient continue a regular-textured diet with thin liquids and swallow precautions: sitfully upright/chair and remain upright for 30 minutes after meals 2. No further acute OXYACETYLENE WELDER services indicated at this time, so service is signing off. Please re-consult if indicated. Thank you. Ellen Ta M.S. [facility] Speech-Language Pathologist Office: [phone] Pager: [phone] Joy Melendez, PT - 05/21/2020 12:40 PM CSTAssociated Order(s): CONSULT ADULT PHYSICAL THERAPY Patient agreeable to working with physical therapy. Patient met Supine with significant other and RN present. RN okayed PT evaluation and treatment. PHYSICAL THERAPY EVALUATION Consult received, chart reviewed and evaluation complete this date. Patient is referred to PT for evaluation and treatment. Patient is a 59 year old male who presents to hospital for ACUTE STROKE. PMH:CAD s/p stenting (2016), DM, HTN, HLF Discharge Recommendations: Therapy Needs and Potential: Patient would benefit from continued physical therapy services to address: decline in bed mobility decline in transfers decline in gait and/or balance decreased strength decreased range of motion decreased motor planning Patient demonstrates good potential to improve and meet therapy goals with further physical therapy services. Patient appears motivated to improve their functional mobility and return to their previous levelof function. Patient demonstrates ability to tolerate atleast 30-60 minutes of physical therapy with active participation. Challenges to Home Transition: increased risk of falls decreased caregiver availability decreased safety awareness environmental barriers Equipment recommendations: Patient is not safe to go home at this time due to increased fall risk and inability to ascend/descend stairs into/out of house. If patient had to go home today would recommend rolling walker and wheelchair with 24/ supervision and physical assist Current Functional Status and/or Treatment:Functional mobility training, Transfer training, Gait training, Patient/Family/Caregiver education and Therapeutic exercise Bed Mobility: Supine to sit: Minimal assist with HOB elevated and use of R UE on bed rail Scooting to edge of bed: SBA/Setup Sit to supine: Minimal assist to L LE elevation back onto bed Increased time to perform tranfer Transfers: sit-stand: CGA x 2 Static/dynamic standing balance: Poor+ Verbal cueing provided for correct hand placement and correct use of AD Patient shifts all weight onto R UE and LE to perform transfer and maintain standing position. Patients L knee eugenio when shifting weight onto L LE. Verbal cueing to correct posterior leaning of LE on EOB. Ambulation: Pre-gait activities: weight shifting bilaterally x 5 reps, patient with L knee buckling with minimal L weight shifting 3 side steps to R towards HOB, patient with difficulty lifting L foot off floor Therapeutic exercise: patient educated in Adaptive equipment , Compensatory techniques/adaptive strategies, Fall prevention, General strengthening and Joint protection., instructed patient in the following: ankle pumps, heel slides, short arc quads, patient/caregiver instructed to perform HEP 3 times per day, 10-15 repetitions., patient/caregiver verbalizes understanding of instructions. After session, patient Supine. Call button provided. Significant other present. RN notified of patient status and participation with PT. PLAN OF CARE: At least 3 times per week, once or twice a day (while in hospital) per patient's tolerance and medical needs. See below for complete details. Admit Date: 05/20/2020 Hospital Diagnosis:ACUTE STROKE PT Diagnosis: Difficulty walking, Weakness, Hemiplegia and Abnormality of gait and balance Weight Bearing Precaution: WBAT General Precautions: PPE used:Gloves and Surgical mask, General, Fall,Steele catheter, IV Bracing/Cast present or required:N/A PMH: Past Medical History: Diagnosis Date CAD (coronary artery disease) DM (diabetes mellitus) diagnosed around age 34yo Fatty liver 07/26/2017 H/O hand surgery left Dr. Baez HLD (hyperlipidemia) HTN (hypertension) Umbilical hernia PSH: Past Surgical History: Procedure Laterality Date KNEE ARTHROSCOPY Right for torn meniscus, Dr. Rome PTCA W/POSSIBLE STENT 01/2016 2 stents RCA for [place] Prior Living Situation: lives in a single story home with son, significant other and her daughter DME: No device Prior level of Mobility: community ambulation, house hold ambulation Subjective: Patient reports prior he was completely independent and worked at a [employer]. Patient/Family Goals: To get better Patient/Family verbalizes understanding of condition: Yes PAIN: denies pain COMMUNICATION Primary Language: Turkmen Able to Verbalize needs: Yes Vision:glasses Hearing:good; no issues reported ORIENTATION/COGNITION: Oriented to: person, place, date/time and situation Awake: Yes Alert: Yes Dizzy: No Follows Commands: Yes 1-Step Yes Multi-Step Yes Inconsistent: No NEUROLOGICAL Light Touch: intact to light touch, diminished sensation L LE, more significant at ankle/foot region Heel to izquierdo: WNL R LE, unable L LE due to decreased stength Tone: L LE hypotonic BALANCE: Sitting: Static: Fair+ Dynamic: Fair Standing: Static: Fair Dynamic: Poor+ RANGE OF MOTION: within functional limits R LE and L LE in supine except no movement of L ankle. L LE ROM limited in seated position STRENGTH: 4/5 (Good) R LE, 2-/5 L LE hip flexion and knee extension, 1/5 ankle ENDURANCE: NT, Room air SKIN INTEGRITY: intact at observable areas PROBLEM LIST: Decline in bed mobility, Decline in gait, Decline in transfers, Difficulty with stairs, Decreased strength, Decreased endurance, Decreased balance, ROM deficits, altered sensation and Decreased Motor Planning ASSESSMENT: Patient is a 59 year old male seen secondary to the above listed diagnosis. Patient would benefit from continued PT to address the above listed deficits to maximize independence and safety with functional mobility. Rehabilitation Potential: good Goals: The following goals are to maximize independence and safety with functional mobility to eventually return to prior living situation and prior functional status. Upon discharge, patient and/or family will demonstrate the followin. Supine-sit: Modified independent 2. sit-stand: Modified independent 3. Modified independent with ambulation, Feet: 150 using least assistive device. 4. Modified independent up/down 1 stairs using the wall. Treatment Plan: Gait training, Gait training on stairs, Therapeutic exercise, Transfer training, Balance training, Bed mobility training, Equipment needs assessment, Safety education, patient/caregivereducation, Wheelchair mobility training, Neuromuscular Re-Education and Functional Motor Training PATIENT EDUCATION: Patient provided with preferred teaching of verbal information on role of PT, plan of care, and above information. Shows readiness to learn. Verbal instruction teaching provided. Individual is able to read and verbalizes understanding of teaching provided. Total Time Tx Codes in Minutes: 28 min Total Treatment Time in Minutes: 38 min Joy Guzman PT, DPT Pt will be followed by physical therapy, however, this therapist may not be primary therapist. [place] [phone] for questions or concerns. Ysabel Morales RD - 05/21/2020 8:34 AM CSTAssociated Order(s): CONSULT FOOD AND NUTRITION Medical Nutrition Therapy- Consult Note: Reason For Consultation: Physician consult: Stroke Protocol Malnutrition Assessment: Admission Chief Complaint: The pts chief complaint(s) documented on 05/20/[address] Suazo were L sided weakness. Present on Admission: Obesity (BMI 30-39.9) Left-sided weakness Acute ischemic multifocal right-sided posterior circulation stroke Received tissue plasminogen activator (t-PA) less than 24 hours prior to arrival Vertebral artery occlusion, right HLD (hyperlipidemia) HTN (hypertension) DM (diabetes mellitus) CAD (coronary artery disease) PMH/PSH: Past Medical History: Diagnosis Date CAD (coronary artery disease) DM (diabetes mellitus) diagnosed around age 34yo Fatty liver 07/26/2017 H/O hand surgery left Dr. Baez HLD (hyperlipidemia) HTN (hypertension) Umbilical hernia Past Surgical History: Procedure Laterality Date KNEE ARTHROSCOPY Right for torn meniscus, Dr. Rome PTCA W/POSSIBLE STENT 01/2016 2 stents RCA for [place] Current Medical Status: I have reviewed Dr. Sanchez's progress note dated 05/21/2020 and additional EPIC documentation for an understanding of the patient's current medical condition and plan of care. GI and Nutrition Related Findings: Symptoms: N/A Difficulty: N/A GI tract alteration: N/A Alternative means of nutrition: N/A General: N/A Medications: I have reviewed the medications currently ordered in the EMR located under the medications andMAR tabs. Current medications include: Current Facility-Administered Medications: aspirin chewable tablet 81 mg, 81 mg, Oral, QAM WITH BREAKFAST, Edwin Perez MD ticagrelor (BRILINTA) tablet 90 mg, 90 mg, Oral, BID, Edwin Perez MD acetaminophen (TYLENOL) tablet 325 mg, 325 mg, Oral, Q6HPRN, Carlos Suazo MD dextrose 50 % in water (D50W) injection 25 mL, 25 mL, Slow IV Push, PRN, Carlos Suazo MD famotidine (PEPCID AC) tablet 20 mg, 20 mg, Oral, BID, Carlos Suazo MD, 20 mg at 05/21/20 0759 glucagon (GLUCAGEN DIAGNOSTIC KIT) injection 1 mg, 1 mg, Intramuscular, PRN, Carlos Suazo MD NaCl 0.9% (NS) 1000 mL + KCL 20 mEq, , IV Infusion, CONTINUOUS, Edwin Perez MD, Last Rate:100 mL/hr at 05/21/20 0724, New Bag at 05/21/20 0724 niCARdipine (CARDENE I.V.) 40 mg in 200 mL 0.83% Sodium Chloride (RTU) infusion, 2.5-15 mg/hr, IV Infusion, TITRATE, Carlos Suazo MD ondansetron (ZOFRAN (PF)) injection 4 mg, 4 mg, Slow IV Push, Q6HPRN, Edwin Perez MD, 4 mgat 05/20/20 1829 rosuvastatin (CRESTOR) tablet 40 mg, 40 mg, Oral, DAILY, Carlos Suazo MD, 40 mg at 05/21/20 0759 Sliding Scale Insulin - Lispro (HumaLOG) + Fsbg Testing, , Subcutaneous, TID MEALS+HS, Carlos Suazo MD, Stopped at 05/20/20 1700 Lab and Medical Test Results: CMP NA (mmol/L) Date Value 05/21/2020 133 (L) K (mmol/L) Date Value 05/21/2020 3.9 CALCIUM (mg/dL) Date Value 05/21/2020 9.0 CL (mmol/L) Date Value 05/21/2020 100 BUN (mg/dL) Date Value 05/21/2020 14 CREATININE (mg/dL) Date Value 05/21/2020 0.78 GLUCOSE (mg/dL) Date Value 05/21/2020 174 (H) CO2 TOTAL (mmol/L) Date Value 05/21/2020 26 ALBUMIN (g/dL) Date Value 08/19/2018 4.8 T PROTEIN (g/dL) Date Value 08/19/2018 7.4 TOTAL BILI (mg/dL) Date Value 08/19/2018 0.7 BILI UNCON (mg/dL) Date Value 07/11/2017 0.2 BILI CONJ (mg/dL) Date Value 07/11/2017 0.0 ALT(SGPT) (U/L) Date Value 08/19/2018 42 AST(SGOT) (U/L) Date Value 08/19/2018 24 ALK PHOS (U/L) Date Value 08/19/2018 61 CBC WBC (10*3/L) Date Value 05/21/2020 6.05 RBC (10*6/L) Date Value 05/21/2020 4.42 PLT (10*3/L) Date Value 05/21/2020 243 HGB (g/dL) Date Value 05/21/2020 13.3 HCT (%) Date Value 05/21/2020 37.8 (L) HGB A1C (% NGSP) Date Value 08/19/2018 7.6 (H) Results for LAMBERT MARQUIS Billy ( ) as of 05/21/2020 16:23 Ref. Range 05/20/2020 20:20 05/21/2020 08:03 05/21/2020 12:17 POCT Blood Glucose No Range Found 201 179 241 Recent Labs 05/20/20 1756 CHOL 114* LDL 49 HDL 33* TRIG 162 Intake/Output Summary (Last 24 hours) at 05/21/2020 0834 Last data filed at 05/21/2020 0600 Gross per 24 hour Intake 1235 ml Output 2260 ml Net -1025 ml Nutrition Assessment: Age: [age] year old Sex: male Ht: 1.778m / 5'10" Ht Readings from Last 3 Encounters: 05/20/20 1.778 m (5' 10") 12/02/18 1.778 m (5' 10") 08/19/18 1.778 m (5' 10") Current Wt: 109.5 kg/ 241.4 lb BMI: Body mass index is 34.64 kg/m. (Obesity (BMI 30-39.9)) IBW for Ht: 75.45 kg +/- 7.5 kg %IBW: 145% Weight History: Wt Readings from Last 10 Encounters: 05/20/20 109.5 kg (241 lb 6.5 oz) 07/13/19 110.2 kg (243 lb) 12/02/18 110.7 kg (244 lb) 08/19/18 109.3 kg (241 lb) 08/19/18 109.3 kg (241 lb) 02/11/18 111.1 kg (245 lb) 02/11/18 110.2 kg (243 lb) 08/07/17 103.4 kg (228 lb) 08/06/17 110.3 kg (243 lb 3.2 oz) 07/11/17 112.5 kg (248 lb) Inflammatory Markers: Hyperglycemia Current Dietary Order(s): Cardiac (2 gm Sodium, Low Fat, Low Cholesterol) Diet; Texture: Regular EMR documented food allergies/intolerance/cultural preferences: [facility] Nutrition & Diet History: Spoke with patient who reports normal appetite with no changes in eating. PO intake 75-100% per flowsheet. Denies N/V/D/C. Reports no issues with chewing or swallowing and was cleared by OXYACETYLENE WELDER to continue regular textures with thin liquids today. Denies weight changes with UBW of 235 lbs. Reports he wants to changes his eating habits after this event. Estimated Daily Nutritional Needs: Calories: 1344-8606 kcal/day = 14-18 kcal/kg current wt = 20-26 kcal/kg IBW Protein: 91-113 g/day = 0.8-1 g/kg current wt = 1.2-1.5 g/kg IBW Carbohydrate: 50 % of kcal need/day = 192-246 g/day = 13-16 choices Fluid: 8462-2123 mL/day or per MD; adjust per acute needs Nutrition Diagnosis: 1. Food and nutrition related knowledge deficit related to no prior nutrition education as evidencedby patient wanting nutrition education to help change eating habits Nutrition Plan of Care: Intervention(s): 1. Recommend cardiac + 2000 CC diet 2. Provided Stroke MNT education with handouts from [email or web address] 3. Monitor PO intake, weight, GI function, labs Goal(s): 1. Patient will maintain adequate oral intake of at least 75% of meals 2. Patient to verbalize understanding of nutrition education D/C Planning: Cardiac + 2000 CC diet Nutrition Monitoring and Evaluation: A registered dietitian will f/u as indicated to report nutrition related information and to revise the recommended nutrition intervention(s); please call with questions or concerns, thank-you. RANDY REYNOSO RDN, LD Clinical Dietitian [place] Office: [phone] Lj Chavis RN - 05/20/2020 4:32 PM CSTAssociated Order(s): CONSULT CLOAK ROOM ATTENDANT-ADULT Weekend Cartographic Engineer's note: 05/20/2020 4:32 PM Comments Reason for Consult - Please give recommendations and opinions on family primary decision maker and appropriate options for discharge destination. Consult received to assess for discharge needs. Chart reviewed, will f/u at earliest convenience for CM screening/SFA. Per H&P "Alert and oriented x 4 (time, person, place and situation); no apparent distress." REY Kinney, RN Weekend Cartographic Engineer [facility] Care Management [email or web address] peralta OT - 05/20/2020 4:13 PM CSTAssociated Order(s): CONSULT ADULT OCCUPATIONAL THERAPYOT GENERAL EVALUATION Consult received via [place], EMR reviewed and evaluation completed 05/20/20. Patient referred to occupational therapy for evaluation and treatment per stroke protocol s/p tPA and COVID (-) from OSH per nursing. Patient agreeable to participate in occupational therapy. Discharge Recommendations: Therapy Needs and Potential:- Patient would benefit from continued skilled occupational therapy services to address: Decline in basic activities of daily living, Decline in instrumental activities of daily living, Decreased strength, Decreased range of motion, Decreased endurance and Decreased coordination - Patient demonstrates good potential to improve and meet therapy goals with further skilled occupational therapy services. - Patient appears motivated to improve their B/IADLs and return to their previous level of function. - Patient demonstrates ability to tolerate at least 30-60 minutes of active participation in occupational therapy. - Patient able to follow commands: 1-step Yes, Multi-step Yes, Inconsistencies No Challenges to Home Transition:- Requires physical assistance for BADLS - Requires physical assistance for IADLS - Requires supervision or verbal cues for BADLS - Requires supervision or verbal cues for IADLS - Increased risk of falls - Environmental barriers Equipment Recommendations:Bedside commode, Tub transfer bench, Grab bars and Hand held shower PLAN OF CARE: At least 2x/week See full report in progress note section for details. Lexx Flores OTR, OTD, C/NDT Pager [phone] STRIAL SALES REPRESENTATIVE documented in this encounter Miscellaneous Notes Care Plan - Smiley Story RN - 05/26/2020 3:24 PM INDUSTRIAL SALES REPRESENTATIVE Problem: Discharge Planning Goal: Absence of venous thromboembolism Outcome: Adequate for discharge Goal: Adequate for discharge Outcome: Adequate for discharge Problem: Falls, Risk of Goal: Absence of falls Outcome: Adequate for discharge Problem: Pain Goal: Control of pain at or below patient's documented comfort goal Outcome: Adequate for discharge Goal: Reduction in pain sensation Outcome: Adequate for discharge Problem: Discharge Planning Goal: Able to perform ADL Outcome: Adequate for discharge Goal: Absence of venous thromboembolism Outcome: Adequate for discharge Goal: Knowledge of medication management Outcome: Adequate for discharge Goal: Knowledge of need for follow-up care Outcome: Adequate for discharge Goal: Knowledge of personal stroke risk factors Outcome: Adequate for discharge Goal: Knowledge of stroke warning signs Outcome: Adequate for discharge Problem: Complications of alteplase administration (risk or actual) Goal: Absence of impaired coagulation signs and symptoms Outcome: Adequate for discharge Goal: Absence of active bleeding Outcome: Adequate for discharge Goal: Absence of angioedema signs & symptoms Outcome: Adequate for discharge STRIAL SALES REPRESENTATIVE Nursing Note - Lilia Ross RN - 05/26/2020 3:11 PM CSTMet with patient to review discharge diabetes education. Provided patient with printed copy of instructions from endocrinology physicians. Reviewed information thoroughly with patient. Patient able to teach back information and answer multiple scenario questions correctly. Patient has been given my contact information, as well as the number to the access center and encouraged to call if any new questions or concerns arise. Lilia Kennedy RN MSN CNL CDE Vice President Quality Improvement and Care Boat Engines Installer Inpatient Diabetes Team Office: [phone] are Plan - Yosef Morillo RN - 05/26/2020 12:34 AM INDUSTRIAL SALES REPRESENTATIVE Problem: Discharge Planning Goal: Absence of venous thromboembolism Outcome: Progressing as expected Goal: Adequate for discharge Outcome: Progressing as expected Problem: Falls, Risk of Goal: Absence of falls Outcome: Progressing as expected Problem: Pain Goal: Control of pain at or below patient's documented comfort goal Outcome: Progressing as expected Goal: Reduction in pain sensation Outcome: Progressing as expected Problem: Discharge Planning Goal: Able to perform ADL Outcome: Progressing as expected Goal: Absence of venous thromboembolism Outcome: Progressing as expected Goal: Knowledge of medication management Outcome: Progressing as expected Goal: Knowledge of need for follow-up care Outcome: Progressing as expected Goal: Knowledge of personal stroke risk factors Outcome: Progressing as expected Goal: Knowledge of stroke warning signs Outcome: Progressing as expected Problem: Complications of alteplase administration (risk or actual) Goal: Absence of impaired coagulation signs and symptoms Outcome: Progressing as expected Goal: Absence of active bleeding Outcome: Progressing as expected Goal: Absence of angioedema signs & symptoms Outcome: Progressing as expected are [place] - Smiley Story RN - 05/25/2020 11:08 AM INDUSTRIAL SALES REPRESENTATIVE Problem: Discharge Planning Goal: Absence of venous thromboembolism Outcome: Progressing as expected Goal: Adequate for discharge Outcome: Progressing as expected Problem: Falls, Risk of Goal: Absence of falls Outcome: Progressing as expected Problem: Pain Goal: Control of pain at or below patient's documented comfort goal Outcome: Progressing as expected Goal: Reduction in pain sensation Outcome: Progressing as expected Problem: Discharge Planning Goal: Able to perform ADL Outcome: Progressing as expected Goal: Absence of venous thromboembolism Outcome: Progressing as expected Goal: Knowledge of medication management Outcome: Progressing as expected Goal: Knowledge of need for follow-up care Outcome: Progressing as expected Goal: Knowledge of personal stroke risk factors Outcome: Progressing as expected Goal: Knowledge of stroke warning signs Outcome: Progressing as expected Problem: Complications of alteplase administration (risk or actual) Goal: Absence of impaired coagulation signs and symptoms Outcome: Progressing as expected Goal: Absence of active bleeding Outcome: Progressing as expected Goal: Absence of angioedema signs & symptoms Outcome: Progressing as expected are Plan - Nuria King RN - 05/25/2020 5:34 AM INDUSTRIAL SALES REPRESENTATIVE Problem: Discharge Planning Goal: Absence of venous thromboembolism Outcome: Progressing as expected Goal: Adequate for discharge Outcome: Progressing as expected Problem: Falls, Risk of Goal: Absence of falls Outcome: Progressing as expected Problem: Pain Goal: Control of pain at or below patient's documented comfort goal Outcome: Progressing as expected Goal: Reduction in pain sensation Outcome: Progressing as expected Problem: Discharge Planning Goal: Able to perform ADL Outcome: Progressing as expected Goal: Absence of venous thromboembolism Outcome: Progressing as expected Goal: Knowledge of medication management Outcome: Progressing as expected Goal: Knowledge of need for follow-up care Outcome: Progressing as expected Goal: Knowledge of personal stroke risk factors Outcome: Progressing as expected Goal: Knowledge of stroke warning signs Outcome: Progressing as expected Problem: Complications of alteplase administration (risk or actual) Goal: Absence of impaired coagulation signs and symptoms Outcome: Progressing as expected Goal: Absence of active bleeding Outcome: Progressing as expected Goal: Absence of angioedema signs & symptoms Outcome: Progressing as expected are Plan - Smiley Story RN - 05/24/2020 7:17 PM INDUSTRIAL SALES REPRESENTATIVE Problem: Discharge Planning Goal: Absence of venous thromboembolism Outcome: Progressing as expected Goal: Adequate for discharge Outcome: Progressing as expected Problem: Falls, Risk of Goal: Absence of falls Outcome: Progressing as expected Problem: Pain Goal: Control of pain at or below patient's documented comfort goal Outcome: Progressing as expected Goal: Reduction in pain sensation Outcome: Progressing as expected Problem: Discharge Planning Goal: Able to perform ADL Outcome: Progressing as expected Goal: Absence of venous thromboembolism Outcome: Progressing as expected Goal: Knowledge of medication management Outcome: Progressing as expected Goal: Knowledge of need for follow-up care Outcome: Progressing as expected Goal: Knowledge of personal stroke risk factors Outcome: Progressing as expected Goal: Knowledge of stroke warning signs Outcome: Progressing as expected Problem: Complications of alteplase administration (risk or actual) Goal: Absence of impaired coagulation signs and symptoms Outcome: Progressing as expected Goal: Absence of active bleeding Outcome: Progressing as expected Goal: Absence of angioedema signs & symptoms Outcome: Progressing as expected STRIAL SALES REPRESENTATIVE Nursing Note - Lilia Ross RN - 05/24/2020 2:36 PM CST Met with patient to provide diabetes education and assess discharge needs. Patient resting on bed and was engaged in learning. General Information Age 59 [facility] Does patient live alone? [] Yes [x] No and kids Does patient have someone who will assist them after discharge? [x] Yes [] No Where does patient plan to go after discharge? [] Home [x] Facility [] Unknown [] Custody [] Other Reports he was accepted to a rehab Does patient work? [x] Yes [] No Does patient work nights? [] Yes [x] No [] N/A How will patient follow up? [x] PCP [] Unknown [] Endocrinology [] [facility] PCP- Dr. Rosario What type of medical coverage does patient have? Commercial Does patient have Rx drug coverage? [x] Yes [] No Does patient have any learning barriers or barriers to managing diabetes? [] Language [] Visual [] Literacy [] Cognitive [] Hearing [] Financial [] Dexterity [] Transportation [] Other [x] None Diabetes History A1c Value and Date Last Two A1C Results ([facility], [place], [place]) Recent Labs 05/22/20 0319 HGBA1C 10.9* Duration of Diagnosis 22 years Diagnosed at 37 History of hospitalizations due to glucose control problems? [] Yes [x] No Family History [x] Yes [] No Mom Home Diabetes Medication Regimen Medication Dose Frequency Tresiba 18u QAM Jardiance 10mg QAM Metformin 1000mg QAM Januvia 100mg QAM Comments: Uses insulin pens. Denies missing doses. Takes all meds at 0430 every morning. Glucose Monitoring Device used to test glucose? [] CGM [] None [x] Glucometer Unsure of brand- hasn't used gus while. Did not get it through insurnace Frequency of glucose checks? Does not check Reports it hurts to check and because he did not see thevalue in checking, quit doing it. Discussed alternate testing sites and techniques to reduce pain. Discussed CGMs. Pt plans to talk with his PCP about this, but is willing to check more frequently until then Lifestyle Patient usually consumes: [x] Breakfast [x] Lunch [x] Dinner [x] Snacks Does not follow specific diet; although reports a desire to make a change. Does patient have difficulty affording food? [] Yes [x] No Does patient drink: [] Reg. Soda [] Juice [] Other drinks w/ carbs Water and coke zero Teaching Points Reviewed Info Teaches Back Verbalized understanding Needs Reinforce-ment N/A Carbohydrates vs. fat vs. protein [x] [x] [] [] [] Patient can give examples of each type of food. Plate method/portion sizes/moderation [x] [x] [] [] [] Patient able to describe the plate method. Nutrition Label [x] [x] [] [] [] Patient can correctly find the grams of carbs and fiber, the serving size and the servings per container. Exercise and Weight Loss BMI? [] < 19 [x] 30 - 35 [] 19 25 [] 36 - 40 [] 26 29 [] > 40 How many hours/week does patient exercise? none Type of exercise? none Teaching Points Reviewed Info Teaches Back Verbalized understanding Needs Reinforce- ment N/A Benefits of weight loss. [x] [] [x] [] [] Benefits of exercise. [x] [x] [] [] [] Patient identified one exercise they can perform. Smoking and ETOH Use Does patient smoke/vape? [] Yes [x] No If former, quit date? Does patient drink ETOH? [x] Yes [] No Amount and frequency? 20 beers once per week Pt used to drink daily until he had a heart attack Teaching Points Reviewed Info Teaches Back Verbalized understanding Needs Reinforce- ment N/A Hypoglycemia + ETOH use [x] [] [x] [] [] Should eat with ETOH use. [x] [] [x] [] [] Skills Reviewed Info Teaches Back Verbalized understanding Needs Reinforce- ment N/A Injecting Insulin w/ Pen Included in teaching: checking label for type of insulin and expiration date; rolling insulin between hands if applicable; inserting needle on pen; priming pen; dialing correct dose; selecting appropriate injection site; determining when to avoid certain areas; rotating injection sites; prepping skin before injection; injecting insulin; counting to 5 before removing needle; storage of insulin and needle disposal [x] [x] [] [] [] Able to demonstrate use Glucometer Use Included in teaching: preparing lancet device; washing hands before using sticking self; preparing glucometer; placing blood on testing strip; when to retest; alternate testing sites [x] [x] [] [] [] Insulin Adjustment Insulin dose depends on glucose and if patient eating. [x] [x] [] [x] [] Provided patient with hand out. He was able to teach back, but information should be reinforced Holding parameters [x] [x] [] [x] [] Sliding scale [x] [x] [] [] [] Hypoglycemia Management Does patient get s/s of hypoglycemia? [] Yes [] No [x] N/A Frequency of hypoglycemia? never Teaching Points Reviewed Info Teaches Back Verbalized understanding Needs Reinforce- ment N/A S/S of hypoglycemia. [x] [x] [] [] [] Hypoglycemia treatment. [x] [x] [] [] [] Discharge Planning Needs Please provide patient with an Rx for insulin pens, pen needles, glucometer, lancing device, lancets and testing strips. Patient would like a follow up with [facility] endocrinology Handouts Provided ? Survival Skills ? Glucose Log Sheets ? Bravot Chen List Lilia Kennedy RN MSN CNL CDE Vice President Quality Improvement and Care Boat Engines Installer Inpatient Diabetes Team Office: [phone] are Plan - Nuria King RN - 05/24/2020 5:16 AM INDUSTRIAL SALES REPRESENTATIVE Problem: Discharge Planning Goal: Absence of venous thromboembolism Outcome: Progressing as expected Goal: Adequate for discharge Outcome: Progressing as expected Problem: Falls, Risk of Goal: Absence of falls Outcome: Progressing as expected Problem: Pain Goal: Control of pain at or below patient's documented comfort goal Outcome: Progressing as expected Goal: Reduction in pain sensation Outcome: Progressing as expected Problem: Discharge Planning Goal: Able to perform ADL Outcome: Progressing as expected Goal: Absence of venous thromboembolism Outcome: Progressing as expected Goal: Knowledge of medication management Outcome: Progressing as expected Goal: Knowledge of need for follow-up care Outcome: Progressing as expected Goal: Knowledge of personal stroke risk factors Outcome: Progressing as expected Goal: Knowledge of stroke warning signs Outcome: Progressing as expected Problem: Complications of alteplase administration (risk or actual) Goal: Absence of impaired coagulation signs and symptoms Outcome: Progressing as expected Goal: Absence of active bleeding Outcome: Progressing as expected Goal: Absence of angioedema signs & symptoms Outcome: Progressing as expected are Plan - Aneudy Boss RN - 05/23/2020 8:32 AM INDUSTRIAL SALES REPRESENTATIVE Problem: Discharge Planning Goal: Absence of venous thromboembolism Outcome: Progressing as expected Goal: Adequate for discharge Outcome: Progressing as expected Problem: Falls, Risk of Goal: Absence of falls Outcome: Progressing as expected Problem: Pain Goal: Control of pain at or below patient's documented comfort goal Outcome: Progressing as expected Goal: Reduction in pain sensation Outcome: Progressing as expected Problem: Discharge Planning Goal: Able to perform ADL Outcome: Progressing as expected Goal: Absence of venous thromboembolism Outcome: Progressing as expected Goal: Knowledge of medication management Outcome: Progressing as expected Goal: Knowledge of need for follow-up care Outcome: Progressing as expected Goal: Knowledge of personal stroke risk factors Outcome: Progressing as expected Goal: Knowledge of stroke warning signs Outcome: Progressing as expected Problem: Complications of alteplase administration (risk or actual) Goal: Absence of impaired coagulation signs and symptoms Outcome: Progressing as expected Goal: Absence of active bleeding Outcome: Progressing as expected Goal: Absence of angioedema signs & symptoms Outcome: Progressing as expected are [place] - Mckenna Guevara RN - 05/23/2020 6:19 AM INDUSTRIAL SALES REPRESENTATIVE Problem: Discharge Planning Goal: Absence of venous thromboembolism Outcome: Progressing as expected Goal: Adequate for discharge Outcome: Progressing as expected Problem: Falls, Risk of Goal: Absence of falls Outcome: Progressing as expected Problem: Pain Goal: Control of pain at or below patient's documented comfort goal Outcome: Progressing as expected Goal: Reduction in pain sensation Outcome: Progressing as expected Problem: Discharge Planning Goal: Able to perform ADL Outcome: Progressing as expected Goal: Absence of venous thromboembolism Outcome: Progressing as expected Goal: Knowledge of medication management Outcome: Progressing as expected Goal: Knowledge of need for follow-up care Outcome: Progressing as expected Goal: Knowledge of personal stroke risk factors Outcome: Progressing as expected Goal: Knowledge of stroke warning signs Outcome: Progressing as expected Problem: Complications of alteplase administration (risk or actual) Goal: Absence of impaired coagulation signs and symptoms Outcome: Progressing as expected Goal: Absence of active bleeding Outcome: Progressing as expected Goal: Absence of angioedema signs & symptoms Outcome: Progressing as expected are Plan - Ben Love RN - 05/22/2020 10:11 AM INDUSTRIAL SALES REPRESENTATIVE Problem: Discharge Planning Goal: Absence of venous thromboembolism Outcome: Progressing as expected Goal: Adequate for discharge Outcome: Progressing as expected Problem: Falls, Risk of Goal: Absence of falls Outcome: Progressing as expected Problem: Pain Goal: Control of pain at or below patient's documented comfort goal Outcome: Progressing as expected Goal: Reduction in pain sensation Outcome: Progressing as expected Problem: Discharge Planning Goal: Able to perform ADL Outcome: Progressing as expected Goal: Absence of venous thromboembolism Outcome: Progressing as expected Goal: Knowledge of medication management Outcome: Progressing as expected Goal: Knowledge of need for follow-up care Outcome: Progressing as expected Goal: Knowledge of personal stroke risk factors Outcome: Progressing as expected Goal: Knowledge of stroke warning signs Outcome: Progressing as expected Problem: Complications of alteplase administration (risk or actual) Goal: Absence of impaired coagulation signs and symptoms Outcome: Progressing as expected Goal: Absence of active bleeding Outcome: Progressing as expected Goal: Absence of angioedema signs & symptoms Outcome: Progressing as expected are [place] - Mckenna Guevara RN - 05/22/2020 3:48 AM INDUSTRIAL SALES REPRESENTATIVE Problem: Discharge Planning Goal: Absence of venous thromboembolism Outcome: Progressing as expected Goal: Adequate for discharge Outcome: Progressing as expected Problem: Falls, Risk of Goal: Absence of falls Outcome: Progressing as expected Problem: Pain Goal: Control of pain at or below patient's documented comfort goal Outcome: Progressing as expected Goal: Reduction in pain sensation Outcome: Progressing as expected Problem: Discharge Planning Goal: Able to perform ADL Outcome: Progressing as expected Goal: Absence of venous thromboembolism Outcome: Progressing as expected Goal: Knowledge of medication management Outcome: Progressing as expected Goal: Knowledge of need for follow-up care Outcome: Progressing as expected Goal: Knowledge of personal stroke risk factors Outcome: Progressing as expected Goal: Knowledge of stroke warning signs Outcome: Progressing as expected Problem: Complications of alteplase administration (risk or actual) Goal: Absence of impaired coagulation signs and symptoms Outcome: Progressing as expected Goal: Absence of active bleeding Outcome: Progressing as expected Goal: Absence of angioedema signs & symptoms Outcome: Progressing as expected STRIAL SALES REPRESENTATIVE documented in this encounter Plan of Treatment Date Type Specialty Care Team Description 06/02/2020 Office Visit Family Medicine Lizabeth Rosario MD [address] [id number] [phone] 08/29/2020 Office Visit Cardiology Shauna Marshall M D [address] [place] [address] [place] [place] [address] 15 Name Type Priority Associated Diagnoses Order S chedule CBC with Differential LAB GABRIELLA EVERY MORNING AT 0400 for 1 Weeks sta rting 05/21/2020 unti l 05/27/2020, 6 c ompleted Basic Metabolic Panel (Na, LAB GABRIELLA E VERY MORNING AT 0400 K, Cl, CO2, Glucose, BUN, fo r 1 Weeks starting Creatinine, Ca) 05/21/2020 u ntil 05/27/2020, 6 c ompleted Magensium, Serum LAB GABRIELLA EVERY MORNI NG AT 0400 for 1 Weeks sta rting 05/21/2020 unti l 05/27/2020, 6 c ompleted Health Maintenance Due Date Last Done Comments DTaP,Tdap,and Td Vaccines (1 1981 - Tdap) COLON CANCER SCREENING 2012 ANNUAL FIT/FOBT COLON CANCER SCREENING FIT 2012 DNA EVERY 3 YEARS COLON CANCER SCREENING 2012 SIGMOIDOSCOPY EVERY 5 YEARS COLONOSCOPY 2012 Colorectal Cancer Screening 2012 Zoster Recombinant Vaccine 2012 (SHINGRIX) (1 of 2) FOOT EXAM 06/28/2018 06/28/2017, 06/28/2017, 11/02/2016, Additional history exists URINE MICROALBUMIN 08/20/2019 08/19/2018, 06/28/2017 INFLUENZA VACCINE (#1) 2020 02/11/2018 EYE EXAM 03/13/2020 03/13/2019, 01/04/2017 Depression Screening 07/12/2020 07/13/2019 HgA1C 11/19/2020 05/22/2020, 08/19/2018, 02/11/2018, Additional history exists LDL-C 05/20/2021 05/20/2020, 08/19/2018, 02/11/2018, Additional history exists CREATININE (SERUM) 05/25/2021 05/25/2020, 05/24/2020, 05/23/2020, Additional history exists HEPATITIS C (HCV) SCREEN Completed 06/28/2017 PNEUMOCOCCAL 0-64 YEARS Aged Out 06/28/2017 No longe r eligible COMBINED SERIES based on patient 's age to complete this topic documented as of this encounter Implants Implanted Type Area Proposal Editor Device Identifier Shelf Exp iration Model / Serial Date / Lot Stent STENT documented as of this encounter Procedures Procedure Name Priority Date/Time Associated Comments Diagnosis POCT GLUCOSE Routine 05/26/2020 11:28 Results for this (AUTOMATED) AM INDUSTRIAL SALES REPRESENTATIVE procedure are i n the results section. POCT GLUCOSE Routine 05/26/2020 8:06 Results for this (AUTOMATED) AM INDUSTRIAL SALES REPRESENTATIVE procedure are i n the results section. CBC WITH DIFF Routine 05/26/2020 4:04 Results fo r this AM INDUSTRIAL SALES REPRESENTATIVE procedure are i n the results section. BASIC METABOLIC PANEL Routine 05/26/2020 4:04 Re sults for this (NA, K, CL, CO2, AM INDUSTRIAL SALES REPRESENTATIVE procedure a re in GLUCOSE, BUN, the results CREATININE, CA) section. MAGNESIUM Routine 05/26/2020 4:04 Results for this AM INDUSTRIAL SALES REPRESENTATIVE procedure are i n the results section. POCT GLUCOSE Routine 05/25/2020 7:12 Results for this (AUTOMATED) PM INDUSTRIAL SALES REPRESENTATIVE procedure are i n the results section. POCT GLUCOSE Routine 05/25/2020 4:56 Results for this (AUTOMATED) PM INDUSTRIAL SALES REPRESENTATIVE procedure are i n the results section. POCT GLUCOSE Routine 05/25/2020 11:39 Results for this (AUTOMATED) AM INDUSTRIAL SALES REPRESENTATIVE procedure are i n the results section. POCT GLUCOSE Routine 05/25/2020 8:40 Results for this (AUTOMATED) AM INDUSTRIAL SALES REPRESENTATIVE procedure are i n the results section. CBC WITH DIFF Routine 05/25/2020 4:29 Results fo r this AM INDUSTRIAL SALES REPRESENTATIVE procedure are i n the results section. BASIC METABOLIC PANEL Routine 05/25/2020 4:29 Re sults for this (NA, K, CL, CO2, AM INDUSTRIAL SALES REPRESENTATIVE procedure a re in GLUCOSE, BUN, the results CREATININE, CA) section. MAGNESIUM Routine 05/25/2020 4:29 Results for this AM INDUSTRIAL SALES REPRESENTATIVE procedure are i n the results section. POCT GLUCOSE Routine 05/24/2020 11:50 Results for this (AUTOMATED) PM INDUSTRIAL SALES REPRESENTATIVE procedure are i n the results section. POCT GLUCOSE Routine 05/24/2020 7:22 Results for this (AUTOMATED) PM INDUSTRIAL SALES REPRESENTATIVE procedure are i n the results section. POCT GLUCOSE Routine 05/24/2020 4:11 Results for this (AUTOMATED) PM INDUSTRIAL SALES REPRESENTATIVE procedure are i n the results section. POCT GLUCOSE Routine 05/24/2020 12:36 Results for this (AUTOMATED) PM INDUSTRIAL SALES REPRESENTATIVE procedure are i n the results section. LAB ONLY COVID Routine 05/24/2020 12:06 Results f or this INTERPRETATION PM INDUSTRIAL SALES REPRESENTATIVE procedure are in the results section. COVID-19 (ID NOW RAPID Routine 05/24/2020 12:06 R esults for this TESTING) PM INDUSTRIAL SALES REPRESENTATIVE procedure are i n the results section. ECHO ROUTINE W/DOPPLER Routine 05/24/2020 9:54 Left-sided COLOR AM INDUSTRIAL SALES REPRESENTATIVE weakness POCT GLUCOSE Routine 05/24/2020 8:29 Results for this (AUTOMATED) AM INDUSTRIAL SALES REPRESENTATIVE procedure are i n the results section. VERIFYNOW PRUTEST Routine 05/24/2020 4:26 Result s for this (P2Y12) AM INDUSTRIAL SALES REPRESENTATIVE procedure are i n the results section. CBC WITH DIFF Routine 05/24/2020 4:26 Results fo r this AM INDUSTRIAL SALES REPRESENTATIVE procedure are i n the results section. BASIC METABOLIC PANEL Routine 05/24/2020 4:26 Re sults for this (NA, K, CL, CO2, AM INDUSTRIAL SALES REPRESENTATIVE procedure a re in GLUCOSE, BUN, the results CREATININE, CA) section. MAGNESIUM Routine 05/24/2020 4:26 Results for this AM INDUSTRIAL SALES REPRESENTATIVE procedure are i n the results section. POCT GLUCOSE Routine 05/23/2020 8:49 Results for this (AUTOMATED) PM INDUSTRIAL SALES REPRESENTATIVE procedure are i n the results section. POCT GLUCOSE Routine 05/23/2020 3:16 Results for this (AUTOMATED) PM INDUSTRIAL SALES REPRESENTATIVE procedure are i n the results section. POCT GLUCOSE Routine 05/23/2020 10:20 Results for this (AUTOMATED) AM INDUSTRIAL SALES REPRESENTATIVE procedure are i n the results section. VERIFYNOW ASPIRIN TEST Routine 05/23/2020 3:49 R esults for this AM INDUSTRIAL SALES REPRESENTATIVE procedure are i n the results section. CBC WITH DIFF Routine 05/23/2020 3:49 Results fo r this AM INDUSTRIAL SALES REPRESENTATIVE procedure are i n the results section. BASIC METABOLIC PANEL Routine 05/23/2020 3:49 Re sults for this (NA, K, CL, CO2, AM INDUSTRIAL SALES REPRESENTATIVE procedure a re in GLUCOSE, BUN, the results CREATININE, CA) section. FREE T4 Routine 05/23/2020 3:49 Results for this AM INDUSTRIAL SALES REPRESENTATIVE procedure are i n the results section. MAGNESIUM Routine 05/23/2020 3:49 Results for this AM INDUSTRIAL SALES REPRESENTATIVE procedure are i n the results section. POCT GLUCOSE Routine 05/22/2020 7:33 Results for this (AUTOMATED) PM INDUSTRIAL SALES REPRESENTATIVE procedure are i n the results section. POCT GLUCOSE Routine 05/22/2020 12:03 Results for this (AUTOMATED) PM INDUSTRIAL SALES REPRESENTATIVE procedure are i n the results section. POCT GLUCOSE Routine 05/22/2020 8:50 Results for this (AUTOMATED) AM INDUSTRIAL SALES REPRESENTATIVE procedure are i n the results section. GLYCOSYLATED HEMOGLOBIN Add-on 05/22/2020 3:19 Results for this (A1C) AM INDUSTRIAL SALES REPRESENTATIVE procedure are i n the results section. CBC WITH DIFF Routine 05/22/2020 3:19 Results fo r this AM INDUSTRIAL SALES REPRESENTATIVE procedure are i n the results section. BASIC METABOLIC PANEL Routine 05/22/2020 3:19 Re sults for this (NA, K, CL, CO2, AM INDUSTRIAL SALES REPRESENTATIVE procedure a re in GLUCOSE, BUN, the results CREATININE, CA) section. MAGNESIUM Routine 05/22/2020 3:19 Results for this AM INDUSTRIAL SALES REPRESENTATIVE procedure are i n the results section. POCT GLUCOSE Routine 05/21/2020 8:46 Results for this (AUTOMATED) PM INDUSTRIAL SALES REPRESENTATIVE procedure are i n the results section. POCT GLUCOSE Routine 05/21/2020 5:09 Results for this (AUTOMATED) PM INDUSTRIAL SALES REPRESENTATIVE procedure are i n the results section. POCT GLUCOSE Routine 05/21/2020 12:17 Results for this (AUTOMATED) PM INDUSTRIAL SALES REPRESENTATIVE procedure are i n the results section. POCT GLUCOSE Routine 05/21/2020 8:03 Results for this (AUTOMATED) AM INDUSTRIAL SALES REPRESENTATIVE procedure are i n the results section. CBC WITH DIFF GABRIELLA 05/21/2020 3:08 Results fo r this AM INDUSTRIAL SALES REPRESENTATIVE procedure are i n the results section. BASIC METABOLIC PANEL [facility] 05/21/2020 3:07 Re sults for this (NA, K, CL, CO2, AM INDUSTRIAL SALES REPRESENTATIVE procedure a re in GLUCOSE, BUN, the results CREATININE, CA) section. MAGNESIUM [facility] 05/21/2020 3:07 Results for this AM INDUSTRIAL SALES REPRESENTATIVE procedure are i n the results section. MR STROKE BRAIN WO Routine 05/20/2020 9:05 Left-sided Resul ts for this CONTRAST PM INDUSTRIAL SALES REPRESENTATIVE weakness procedure are i n the results section. POCT GLUCOSE Routine 05/20/2020 8:20 Results for this (AUTOMATED) PM INDUSTRIAL SALES REPRESENTATIVE procedure are i n the results section. MRSA / MSSA SCREEN BY [facility] 05/20/2020 5:56 Re sults for this PCR, NARES PM INDUSTRIAL SALES REPRESENTATIVE procedure are i n the results section. LIPID PANEL [facility] 05/20/2020 5:56 Results for this ([id number])(TOTAL PM INDUSTRIAL SALES REPRESENTATIVE procedure are in CHOLESTEROL, the results TRIGLYCERIDES, HDL) section. THYROID STIMULATING [facility] 05/20/2020 5:56 Resu lts for this HORMONE PM INDUSTRIAL SALES REPRESENTATIVE procedure are i n the results section. HOSPITAL ADMISSION Routine 05/20/2020 12:01 AM INDUSTRIAL SALES REPRESENTATIVE documented in this encounter Results POCT GLUCOSE (AUTOMATED) (05/26/2020 11:28 AM INDUSTRIAL SALES REPRESENTATIVE) Pathologist Sig Apsalar POCT GLU 187 (H) 70 - 110 mg/dL [facility] Specimen Blood Performing Organization Address City/[facility]/Zipcode Phone Number [facility] CLIA: [id number] [place], [place] [phone] [facility] POCT GLUCOSE (AUTOMATED) (05/26/2020 8:06 AM INDUSTRIAL SALES REPRESENTATIVE) Pathologist Sig Apsalar POCT GLU 190 (H) 70 - 110 mg/dL [facility] Specimen Blood Performing Organization Address City/[facility] Phone Number [facility] CLIA: [id number] [place], [place] [address] 301 [facility], Serum (05/26/2020 4:04 AM INDUSTRIAL SALES REPRESENTATIVE) Pathologist Sig nature MAGNESIUM 2.0 1.7 - 2.4 mg/dL [facility] Specimen Blood - ARM, LEFT Performing Organization Address City/State/Zipcode Phone Number [facility] CLIA: [id number] [facility] [place] [address] [place] [address] Basic Metabolic Panel (Na, K, Cl, CO2, Glucose, BUN, Creatinine, Ca) (05/26/2020 4:04 AM INDUSTRIAL SALES REPRESENTATIVE) Pathologist Sig nature NA 131 (L) 135 - 145 [facility] mmol/L SERVICES K 3.9 3.5 - 5.0 [facility] mmol/L SERVICES CL 100 98 - 108 mmol/L [facility] CO2 TOTAL 21 (L) 23 - 31 mmol/L [facility] AGAP 10 2 - 16 [facility] BUN 17 7 - 23 mg/dL [facility] GLUCOSE 210 (H) 70 - 110 mg/dL [facility] CREATININE 0.86 0.60 - 1.25 [facility] mg/dL SERVICES CALCIUM 9.0 8.6 - 10.6 [facility] mg/dL SERVICES eGFR Calculation 91.7 mL/min/1.73m2 [facility] (Non- SERVICES [place]ian) eGFR Calculation 111.1 mL/min/1.73m2 [facility] () SERVICES Specimen Blood - ARM, LEFT Narrative Performed At Association of Glomerular Filtration Rate (GFR) and St aging [facility] of Kidney Disease* + + +------- ------ + | GFR (mL/min/1.73 m2) | With Kidney Damage | Wi thout Kidney Damage + + +------- ------ + | >90 | Stage one | Normal + + +------- ------ + | 60-89 | Stage two | Decreased GFR + + +------- ------ + | 30-59 | Stage three | Stage three + + +------- ------ + | 15-29 | Stage four | Stage four + + +------- ------ + | <15 (or dialysis) | Stage five | Stage five + + +------- ------ + *Each stage assumes the associated GFR level has been in effect for at least three months. Stages 1 to 5, wit h or without kidney disease, indicate chronic kidney disease. Notes: Determination of stages one and two (with eGFR >59mL/min/1.73 m2) requires estimation of kidney damag e for at least three months as defined by structural or func tional abnormalities of the kidney, manifested by either: Pathological abnormalities or Markers of kidney damage (including abnormalities in the composition of the blo od or urine or abnormalities in imaging tests) . Performing Organization Address City/State/Zipcode Phone Number [facility] CLIA: [id number] [place] [address] [place] [address] CBC with Differential (05/26/2020 4:04 AM INDUSTRIAL SALES REPRESENTATIVE) Pathologist Sig nature WBC 4.96 4.20 - 10.70 [facility] 10*3/L SERVICES RBC 4.64 4.26 - 5.52 [facility] 10*6/L SERVICES HGB 13.7 12.2 - 16.4 [facility] g/dL SERVICES HCT 39.8 38.4 - 49.3 % [facility] MCV 85.8 81.7 - 95.6 fL [facility] MCH 29.5 26.1 - 32.7 pg [facility] MCHC 34.4 31.2 - 35.0 [facility] g/dL SERVICES RDW-SD 36.2 (L) 38.5 - 51.6 fL [facility] RDW-CV 11.9 (L) 12.1 - 15.4 % [facility] PLT 274 150 - 328 [facility] 10*3/L SERVICES MPV 9.3 (L) 9.8 - 13.0 fL [facility] NRBC/100 WBC 0.0 0.0 - 10.0 /100 [facility] WBCs SERVICES NRBC x10^3 <0.01 10*3/L [facility] GRAN MAT (NEUT) % 49.8 % [facility] IMM GRAN % 0.80 % [facility] LYMPH % 36.1 % [facility] MONO % 10.5 % [facility] EOS % 2.4 % [facility] BASO % 0.4 % [facility] GRAN MAT x10^3(ANC) 2.47 1.99 - 6.95 [facility] 10*3/uL SERVICES IMM GRAN x10^3 0.04 0.00 - 0.06 [facility] 10*3/uL SERVICES LYMPH x10^3 1.79 1.09 - 3.23 [facility] 10*3/uL SERVICES MONO x10^3 0.52 0.36 - 1.02 [facility] 10*3/uL SERVICES EOS x10^3 0.12 0.06 - 0.53 [facility] 10*3/uL SERVICES BASO x10^3 <0.03 0.01 - 0.09 [facility] 10*3/uL SERVICES Specimen Blood - ARM, LEFT Performing Organization Address City/[facility]/Zipcode Phone Number [facility] CLIA: [id number] [place] [address] [phone] [facility] POCT GLUCOSE (AUTOMATED) (05/25/2020 7:12 PM INDUSTRIAL SALES REPRESENTATIVE) Pathologist Sig nature POCT GLU 233 (H) 70 - 110 mg/dL [facility] Specimen Blood Performing Organization Address City/[facility] Phone Number [facility] CLIA: [id number] [place] [address] [phone] [facility] POCT GLUCOSE (AUTOMATED) (05/25/2020 4:56 PM INDUSTRIAL SALES REPRESENTATIVE) Pathologist Sig nature POCT GLU 157 (H) 70 - 110 mg/dL [facility] Specimen Blood Performing Organization Address [facility] Phone Number [facility] CLIA: [id number] [place] [address] [place] [address] POCT GLUCOSE (AUTOMATED) (05/25/2020 11:39 AM INDUSTRIAL SALES REPRESENTATIVE) Pathologist Sig nature POCT GLU 222 (H) 70 - 110 mg/dL [facility] Specimen Blood Performing Organization Address [facility] Phone Number [facility] CLIA: [id number] [place] [address] [phone] [facility] POCT GLUCOSE (AUTOMATED) (05/25/2020 8:40 AM INDUSTRIAL SALES REPRESENTATIVE) Pathologist Sig nature POCT GLU 195 (H) 70 - 110 mg/dL [facility] Specimen Blood Performing Organization Address [facility] Phone Number [facility] CLIA: [id number] [place], [place] [address] 301 [facility] [employer], Serum (05/25/2020 4:29 AM INDUSTRIAL SALES REPRESENTATIVE) Pathologist Sig nature MAGNESIUM 2.1 1.7 - 2.4 mg/dL [facility] Specimen Blood - ARM, LEFT Performing Organization Address City/State/Zipcode Phone Number [facility] CLIA: [id number] [facility] [place] [address] [place] [address] Basic Metabolic Panel (Na, K, Cl, CO2, Glucose, BUN, Creatinine, Ca) (05/25/2020 4:29 AM INDUSTRIAL SALES REPRESENTATIVE) Pathologist Sig nature NA 135 135 - 145 [facility] mmol/L SERVICES K 4.0 3.5 - 5.0 [facility] mmol/L SERVICES CL 104 98 - 108 mmol/L [facility] CO2 TOTAL 22 (L) 23 - 31 mmol/L [facility] AGAP 9 2 - 16 [facility] BUN 17 7 - 23 mg/dL [facility] GLUCOSE 231 (H) 70 - 110 mg/dL [facility] CREATININE 0.89 0.60 - 1.25 [facility] mg/dL SERVICES CALCIUM 8.9 8.6 - 10.6 [facility] mg/dL SERVICES eGFR Calculation 88.1 mL/min/1.73m2 [facility] (Non- SERVICES [place]ian) eGFR Calculation 106.8 mL/min/1.73m2 [facility] () SERVICES Specimen Blood - ARM, LEFT Narrative Performed At Association of Glomerular Filtration Rate (GFR) and St aging [facility] of Kidney Disease* + + +------- ------ + | GFR (mL/min/1.73 m2) | With Kidney Damage | Wi thout Kidney Damage + + +------- ------ + | >90 | Stage one | Normal + + +------- ------ + | 60-89 | Stage two | Decreased GFR + + +------- ------ + | 30-59 | Stage three | Stage three + + +------- ------ + | 15-29 | Stage four | Stage four + + +------- ------ + | <15 (or dialysis) | Stage five | Stage five + + +------- ------ + *Each stage assumes the associated GFR level has been in effect for at least three months. Stages 1 to 5, wit h or without kidney disease, indicate chronic kidney disease. Notes: Determination of stages one and two (with eGFR >59mL/min/1.73 m2) requires estimation of kidney damag e for at least three months as defined by structural or func tional abnormalities of the kidney, manifested by either: Pathological abnormalities or Markers of kidney damage (including abnormalities in the composition of the blo od or urine or abnormalities in imaging tests) . Performing Organization Address City/State/Zipcode Phone Number [facility] CLIA: [id number] [place] [address] [place] [address] CBC with Differential (05/25/2020 4:29 AM INDUSTRIAL SALES REPRESENTATIVE) Pathologist Sig nature WBC 4.66 4.20 - 10.70 [facility] 10*3/L SERVICES RBC 4.66 4.26 - 5.52 [facility] 10*6/L SERVICES HGB 13.8 12.2 - 16.4 [facility] g/dL SERVICES HCT 40.0 38.4 - 49.3 % [facility] MCV 85.8 81.7 - 95.6 fL [facility] MCH 29.6 26.1 - 32.7 pg [facility] MCHC 34.5 31.2 - 35.0 [facility] g/dL SERVICES RDW-SD 35.9 (L) 38.5 - 51.6 fL [facility] RDW-CV 11.7 (L) 12.1 - 15.4 % [facility] PLT 262 150 - 328 [facility] 10*3/L SERVICES MPV 9.1 (L) 9.8 - 13.0 fL [facility] NRBC/100 WBC 0.0 0.0 - 10.0 /100 [facility] WBCs SERVICES NRBC x10^3 <0.01 10*3/L [facility] GRAN MAT (NEUT) % 49.2 % [facility] IMM GRAN % 0.60 % [facility] LYMPH % 36.7 % [facility] MONO % 10.5 % [facility] EOS % 2.6 % [facility] BASO % 0.4 % [facility] GRAN MAT x10^3(ANC) 2.29 1.99 - 6.95 [facility] 10*3/uL SERVICES IMM GRAN x10^3 0.03 0.00 - 0.06 [facility] 10*3/uL SERVICES LYMPH x10^3 1.71 1.09 - 3.23 [facility] 10*3/uL SERVICES MONO x10^3 0.49 0.36 - 1.02 [facility] 10*3/uL SERVICES EOS x10^3 0.12 0.06 - 0.53 [facility] 10*3/uL SERVICES BASO x10^3 <0.03 0.01 - 0.09 [facility] 10*3/uL SERVICES Specimen Blood - ARM, LEFT Performing Organization Address City/[facility]/Zipcode Phone Number [facility] CLIA: [id number] [place], [place] [address] 301 [facility] POCT GLUCOSE (AUTOMATED) (05/24/2020 11:50 PM INDUSTRIAL SALES REPRESENTATIVE) Pathologist Sig nature POCT GLU 234 (H) 70 - 110 mg/dL [facility] Specimen Blood Performing Organization Address City/[facility] Phone Number [facility] CLIA: [id number] [place] [address] [phone] [facility] POCT GLUCOSE (AUTOMATED) (05/24/2020 7:22 PM INDUSTRIAL SALES REPRESENTATIVE) Pathologist Sig nature POCT GLU 246 (H) 70 - 110 mg/dL [facility] Specimen Blood Performing Organization Address [facility] Phone Number [facility] CLIA: [id number] [place] [address] [phone] [facility] POCT GLUCOSE (AUTOMATED) (05/24/2020 4:11 PM INDUSTRIAL SALES REPRESENTATIVE) Pathologist Sig nature POCT GLU 219 (H) 70 - 110 mg/dL [facility] Specimen Blood Performing Organization Address [facility] Phone Number [facility] CLIA: [id number] [place] [address] [phone] [facility] POCT GLUCOSE (AUTOMATED) (05/24/2020 12:36 PM INDUSTRIAL SALES REPRESENTATIVE) Pathologist Sig nature POCT GLU 213 (H) 70 - 110 mg/dL [facility] Specimen Blood Performing Organization Address [facility] Phone Number [facility] CLIA: [id number] [place], [place] [address] 301 [facility] LAB ONLY COVID INTERPRETATION (05/24/2020 12:06 PM INDUSTRIAL SALES REPRESENTATIVE) COVID DMT Interpretation/Recommendations: [facility] Interpretation SERVICES Molecular NAAT Tests for Active Infection with the BRIGIDA S-CoV-2 Virus: This result indicates that t he patient has tested negative on one occasion for the SARS-CoV-2 virus that causes COVID-19 illness. This most likely indicates that the patient does not have an active infe ction with the SARS-CoV-2 vi rome. However, infection is not completely ruled out as the false negative rate for molecular NAAT testing using a nasopharyngeal sample can be up to 30%, mostly dependent on the timing of sample collect ion in relation to illness onset and any deficiencies in sampling techniques. If the patient has symptoms concerning for COVID-19 illness, a repeat NAAT test (PCR, Rapid ID N ow, etc.) should be performe d, at which time the SARS-CoV-2 virus - if present - may have reached a detectable viral load (usually peaking by the end of the first week of symptoms). Tests for IgM and/or IgG Antibodies to SARS-CoV-2 Viru s: Testing for IgM and IgG anti bodies 1-3 weeks after illness onset will indicate whether the patient has produced antibodies to the virus. At this time, it is not known if the production of antibodies - s pecifically IgG antibodies - indicates whether the patient is immune to future infections with the SARS-CoV-2 virus. Interpretation Result Comments: These interpretation comment s are based upon all COVID-19 testing the patient has had at [facility], including molecular NAAT testing (more commonly known as PCR testing and Rapid ID Now testing) and antibody testing. It does not take i nto account any testing that a patient has had outside of the [facility] medical record. COVID Results SARS-CoV-2 Rapid ID NOW (no units) [facility] Date Value SERVICES 05/24/2020 Not Detected Specimen Swab - NASOPHARYNGEAL SWAB Performing Organization Address City/State/[facility] Phone Number [facility] CLIA: [id number] [place] [address] [place] [address] COVID-19 (ID NOW RAPID TESTING) (05/24/2020 12:06 PM INDUSTRIAL SALES REPRESENTATIVE) SARS-CoV-2 Rapid ID Not Detected Not Detected [facility] NOW SERVICES Specimen Swab - NASOPHARYNGEAL SWAB Narrative Performed At ID NOW COVID-19 Assay is an isothermal nucleic acid [facility] LABORATORY SERVICES amplification test intended for the qualitative detect ion of nucleic acid from SARS-CoV-2 viral RNA in nasopharynge al (OBSERVER ELECTRICAL PROSPECTING) specimens. It is used under Emergency Use Authori zation (EUA) by FDA. The limit of detection (LOD) of the assa y is 125 Genome Equivalents/mL. A positive result is indicative of the presence of SARS-CoV-2 RNA. Clinical correlation with patient hi story and other diagnostic information is necessary to deter mine patient infection status. A negative (Not Detected) result does not preclude SARS-CoV-2 infection. In patients with clinical sympto ms and other tests that are consistent with SARS-CoV-2 infect ion, negative results should be treated as presumptive nega tive and a new specimen should be tested with alternative P CR molecular test. Invalid: Please collect a new specimen for repeat janet ent testing if clinically indicated. Performing Organization Address [facility]/Zipcode Phone Number [facility] CLIA: [id number] [place] [address] [place] [address] POCT GLUCOSE (AUTOMATED) (05/24/2020 8:29 AM INDUSTRIAL SALES REPRESENTATIVE) Pathologist Sig [facility] POCT GLU 185 (H) 70 - 110 mg/dL [facility] Specimen Blood Performing Organization Address City/[facility]/Zipcode Phone Number [facility] CLIA: [id number] [place] [address] [place] [address] VERIFYNOW PRUTEST (P2Y12) (05/24/2020 4:26 AM INDUSTRIAL SALES REPRESENTATIVE) Pathologist Sig [facility] VerifyNow PRUTest 8 (L) 182 - 335 PRU [facility] (P2Y12) SERVICES Specimen Blood - ARM, RIGHT Narrative Performed At Off-drug PRU reference range is 180 - 376. Values less than [facility] 180 PRU suggest evidence of a P2Y12 inhibitor effect, which may be explained by P2Y12 receptor medic ations. P2Y12 Reaction Units (PRU) indicates the amount of ADP-mediated aggregation specific to the platelet P2Y1 2 receptor; a LOW PRU indicates a higher response to anti-platelet medication while a HIGH PRU indicates lo wer platelet inhibitive effect. Patients who have been treated with Glycoprotein IIb/I IIa inhibitor drugs should not be tested with the PRUtest until platelet function has recovered. The recovery period a fter drug administration is discontinued is approximately 1 4 days to abciximab (ReoPro) and up to 48 hours for eptifibat brandon (Integrilin) and tirofiban (Aggrastat). The time to re covery of platelet functions varies among individuals and is not affected by renal dysfunction. Patient with low platel et counts may not give consistent results. Results should be interpreted in conjunction with other laboratory and clinical data available to the clinician . Performing Organization Address City/[facility]/Zipcode Phone Number [facility] CLIA: [id number] [place] [address] [place] [address] Magensium, Serum (05/24/2020 4:26 AM INDUSTRIAL SALES REPRESENTATIVE) Pathologist Sig nature MAGNESIUM 2.1 1.7 - 2.4 mg/dL [facility] SERVICES Specimen Blood - ARM, RIGHT Performing Organization Address [facility]/Zipcode Phone Number [facility] CLIA: [id number] [place] [address] [place] [address] Basic Metabolic Panel (Na, K, Cl, CO2, Glucose, BUN, Creatinine, Ca) (05/24/2020 4:26 AM INDUSTRIAL SALES REPRESENTATIVE) NA 135 135 - 145 [facility] mmol/L SERVICES K 4.3Comment: 3.5 - 5.0 [facility] Slight hemolysis mmol/L SERVICES CL 104 98 - 108 [facility] mmol/L SERVICES CO2 TOTAL 22 (L) 23 - 31 [facility] mmol/L SERVICES AGAP 9 2 - 16 [facility] SERVICES BUN 16Comment: Slight 7 - 23 mg/dL [facility] hemolysis SERVICES GLUCOSE 210 (H) 70 - 110 [facility] mg/dL SERVICES CREATININE 0.79 0.60 - 1.25 [facility] mg/dL SERVICES CALCIUM 9.0 8.6 - 10.6 [facility] mg/dL SERVICES eGFR Calculation 101.1 mL/min/1.73m2 [facility] (Non- SERVICES Bel[place]ian) eGFR Calculation 122.5 mL/min/1.73m2 [facility] () SERVICES Specimen Blood - ARM, RIGHT Narrative Performed At Association of Glomerular Filtration Rate (GFR) and St aging [facility] SERVICES of Kidney Disease* + + +------- ------ + | GFR (mL/min/1.73 m2) | With Kidney Damage | Wi thout Kidney Damage + + +------- ------ + | >90 | Stage one | Normal + + +------- ------ + | 60-89 | Stage two | Decreased GFR + + +------- ------ + | 30-59 | Stage three | Stage three + + +------- ------ + | 15-29 | Stage four | Stage four + + +------- ------ + | <15 (or dialysis) | Stage five | Stage five + + +------- ------ + *Each stage assumes the associated GFR level has been in effect for at least three months. Stages 1 to 5, wit h or without kidney disease, indicate chronic kidney disease. Notes: Determination of stages one and two (with eGFR >59mL/min/1.73 m2) requires estimation of kidney damag e for at least three months as defined by structural or func tional abnormalities of the kidney, manifested by either: Pathological abnormalities or Markers of kidney damage (including abnormalities in the composition of the blo od or urine or abnormalities in imaging tests) . Performing Organization Address City/State/Zipcode Phone Number [facility] CLIA: [id number] [place], [place] [id number] [address] [place] [address] CBC with Differential (05/24/2020 4:26 AM INDUSTRIAL SALES REPRESENTATIVE) Pathologist Sig nature WBC 4.14 (L) 4.20 - 10.70 [facility] 10*3/L SERVICES RBC 4.59 4.26 - 5.52 [facility] 10*6/L SERVICES HGB 13.7 12.2 - 16.4 [facility] g/dL SERVICES HCT 39.5 38.4 - 49.3 % [facility] SERVICES MCV 86.1 81.7 - 95.6 fL [facility] SERVICES MCH 29.8 26.1 - 32.7 pg [facility] SERVICES MCHC 34.7 31.2 - 35.0 [facility] g/dL SERVICES RDW-SD 35.9 (L) 38.5 - 51.6 fL [facility] RDW-CV 11.5 (L) 12.1 - 15.4 % [facility] PLT 270 150 - 328 [facility] 10*3/L SERVICES MPV 9.6 (L) 9.8 - 13.0 fL [facility] NRBC/100 WBC 0.0 0.0 - 10.0 /100 [facility] WBCs SERVICES NRBC x10^3 <0.01 10*3/L [facility] GRAN MAT (NEUT) % 47.8 % [facility] IMM GRAN % 0.50 % [facility] LYMPH % 39.4 % [facility] MONO % 9.4 % [facility] EOS % 2.4 % [facility] BASO % 0.5 % [facility] GRAN MAT x10^3(ANC) 1.98 (L) 1.99 - 6.95 [facility] 10*3/uL SERVICES IMM GRAN x10^3 <0.03 0.00 - 0.06 [facility] 10*3/uL SERVICES LYMPH x10^3 1.63 1.09 - 3.23 [facility] 10*3/uL SERVICES MONO x10^3 0.39 0.36 - 1.02 [facility] 10*3/uL SERVICES EOS x10^3 0.10 0.06 - 0.53 [facility] 10*3/uL SERVICES BASO x10^3 <0.03 0.01 - 0.09 [facility] 10*3/uL SERVICES Specimen Blood - ARM, RIGHT Performing Organization Address City/[facility]/Zipcode Phone Number [facility] CLIA: [id number] [place], [place] [address] [address] [place] [address] POCT GLUCOSE (AUTOMATED) (05/23/2020 8:49 PM INDUSTRIAL SALES REPRESENTATIVE) [facility] POCT GLU 174 (H)Comment: 70 - 110 mg/dL [facility] RNNotified Provider HOSPITAL Specimen Blood Performing Organization Address City/[facility] Hospitalcode Phone Number [facility] CLIA: [id number] [place], [place] [id number] [address] [place] [address] POCT GLUCOSE (AUTOMATED) (05/23/2020 3:16 PM INDUSTRIAL SALES REPRESENTATIVE) Pathologist Sig [facility] POCT GLU 179 (H) 70 - 110 mg/dL [facility] Specimen Blood Performing Organization Address City/[facility] Hospital[facility] Phone Number [facility] CLIA: [id number] [place] [address] [phone] 301 [facility] POCT GLUCOSE (AUTOMATED) (05/23/2020 10:20 AM INDUSTRIAL SALES REPRESENTATIVE) Pathologist Sig [facility] POCT GLU 184 (H) 70 - 110 mg/dL [facility] Specimen Blood Performing Organization Address [facility] Phone Number [facility] CLIA: [id number] [place] [address] [phone] 301 [facility] FREE T4 (05/23/2020 3:49 AM INDUSTRIAL SALES REPRESENTATIVE) Pathologist Sig [facility] FREE T4 1.31 0.78 - 2.20 ng/dL: [facility] SERVIC ES Specimen Blood - ARM, RIGHT Performing Organization Address [facility] Hospital[facility] Phone Number [facility] CLIA: [id number] [place] [address] [phone] 301 [facility] VERIFYNOW ASPIRIN TEST (05/23/2020 3:49 AM INDUSTRIAL SALES REPRESENTATIVE) Pathologist Sig [facility] VerifyNow Aspirin 392 See Comment ARU [facility] Test SERVICES Specimen Blood - ARM, RIGHT Narrative Performed At < 550 ARU - Evidence of platelet dysfunc tion due to aspirin [facility] >= 550 ARU - No evidence of aspirin-induced platelet dysfunction The performance of VerifyNow Aspirin test on patients with acquired non-drug induced platelet abnormalities is no t known. Patients who have been treated with Glycoprotei n IIb/IIIa inhibitor drugs should not be tested until pl atelet function has recovered. The recovery period after drug administration is discontinued is approximately 14 day s for abciximab (ReoPro) and up to 48 hours for eptifibatide (Integrilin) and tirofiban (Aggrastat). The time to re covery of platelet functions varies among individuals and is longer for patients with renal dysfunction. Patient with low platelet counts may not give consistent results. Resul ts should be interpreted in conjunction with other labora tory and clinical data available to the clini hafsa. Performing Organization Address City/State/Zipcode Phone Number [facility] CLIA: [id number] [place] [address] [phone] 301 [facility] Magensium, Serum (05/23/2020 3:49 AM INDUSTRIAL SALES REPRESENTATIVE) Pathologist Sig nature MAGNESIUM 2.0 1.7 - 2.4 mg/dL [facility] SERVICES Specimen Blood - ARM, RIGHT Performing Organization Address [facility]/Zipcode Phone Number [facility] CLIA: [id number] [place] [address] [phone] 301 [facility] Basic Metabolic Panel (Na, K, Cl, CO2, Glucose, BUN, Creatinine, Ca) (05/23/2020 3:49 AM INDUSTRIAL SALES REPRESENTATIVE) Pathologist Sig nature NA 135 135 - 145 [facility] mmol/L SERVICES K 3.7 3.5 - 5.0 [facility] mmol/L SERVICES CL 104 98 - 108 mmol/L [facility] SERVICES CO2 TOTAL 23 23 - 31 mmol/L [facility] SERVICES AGAP 8 2 - 16 [facility] BUN 16 7 - 23 mg/dL [facility] SERVICES GLUCOSE 224 (H) 70 - 110 mg/dL [facility] SERVICES CREATININE 0.91 0.60 - 1.25 [facility] mg/dL SERVICES CALCIUM 9.0 8.6 - 10.6 [facility] mg/dL SERVICES eGFR Calculation 85.9 mL/min/1.73m2 [facility] (Non- SERVICES Bel[place]ian) eGFR Calculation 104.1 mL/min/1.73m2 [facility] () SERVICES Specimen Blood - ARM, RIGHT Narrative Performed At Association of Glomerular Filtration Rate (GFR) and St aging [facility] SERVICES of Kidney Disease* + + +------- ------ + | GFR (mL/min/1.73 m2) | With Kidney Damage | Wi thout Kidney Damage + + +------- ------ + | >90 | Stage one | Normal + + +------- ------ + | 60-89 | Stage two | Decreased GFR + + +------- ------ + | 30-59 | Stage three | Stage three + + +------- ------ + | 15-29 | Stage four | Stage four + + +------- ------ + | <15 (or dialysis) | Stage five | Stage five + + +------- ------ + *Each stage assumes the associated GFR level has been in effect for at least three months. Stages 1 to 5, wit h or without kidney disease, indicate chronic kidney disease. Notes: Determination of stages one and two (with eGFR >59mL/min/1.73 m2) requires estimation of kidney damag e for at least three months as defined by structural or func tional abnormalities of the kidney, manifested by either: Pathological abnormalities or Markers of kidney damage (including abnormalities in the composition of the blo od or urine or abnormalities in imaging tests) . Performing Organization Address City/State/Zipcode Phone Number [facility] CLIA: [id number] [place] [address] [place] [address] CBC with Differential (05/23/2020 3:49 AM INDUSTRIAL SALES REPRESENTATIVE) Pathologist Sig nature WBC 4.17 (L) 4.20 - 10.70 [facility] 10*3/L SERVICES RBC 4.55 4.26 - 5.52 [facility] 10*6/L SERVICES HGB 13.5 12.2 - 16.4 [facility] g/dL SERVICES HCT 39.4 38.4 - 49.3 % [facility] MCV 86.6 81.7 - 95.6 fL [facility] MCH 29.7 26.1 - 32.7 pg [facility] MCHC 34.3 31.2 - 35.0 [facility] g/dL SERVICES RDW-SD 35.9 (L) 38.5 - 51.6 fL [facility] RDW-CV 11.5 (L) 12.1 - 15.4 % [facility] PLT 240 150 - 328 [facility] 10*3/L SERVICES MPV 9.3 (L) 9.8 - 13.0 fL [facility] NRBC/100 WBC 0.0 0.0 - 10.0 /100 [facility] WBCs SERVICES NRBC x10^3 <0.01 10*3/L [facility] GRAN MAT (NEUT) % 51.2 % [facility] IMM GRAN % 0.20 % [facility] LYMPH % 34.3 % [facility] MONO % 12.2 % [facility] EOS % 1.9 % [facility] BASO % 0.2 % [facility] GRAN MAT x10^3(ANC) 2.13 1.99 - 6.95 [facility] 10*3/uL SERVICES IMM GRAN x10^3 <0.03 0.00 - 0.06 [facility] 10*3/uL SERVICES LYMPH x10^3 1.43 1.09 - 3.23 [facility] 10*3/uL SERVICES MONO x10^3 0.51 0.36 - 1.02 [facility] 10*3/uL SERVICES EOS x10^3 0.08 0.06 - 0.53 [facility] 10*3/uL SERVICES BASO x10^3 <0.03 0.01 - 0.09 [facility] 10*3/uL SERVICES Specimen Blood - ARM, RIGHT Performing Organization Address City/[facility] Phone Number [facility] CLIA: [id number] [place] [address] [place] [address] POCT GLUCOSE (AUTOMATED) (05/22/2020 7:33 PM INDUSTRIAL SALES REPRESENTATIVE) Pathologist Sig nature POCT GLU 252 (H) 70 - 110 mg/dL [facility] Specimen Blood Performing Organization Address [facility] Phone Number [facility] CLIA: [id number] [place] [address] [place] [address] POCT GLUCOSE (AUTOMATED) (05/22/2020 12:03 PM INDUSTRIAL SALES REPRESENTATIVE) Pathologist Sig nature POCT GLU 232 (H) 70 - 110 mg/dL [facility] Specimen Blood Performing Organization Address City/[facility] Phone Number [facility] CLIA: [id number] [place] [address] [place] [address] POCT GLUCOSE (AUTOMATED) (05/22/2020 8:50 AM INDUSTRIAL SALES REPRESENTATIVE) Pathologist Sig nature POCT GLU 196 (H) 70 - 110 mg/dL [facility] Specimen Blood Performing Organization Address [facility] Phone Number [facility] CLIA: [id number] [place] [address] [phone] [facility] GLYCOSYLATED HEMOGLOBIN (A1C) (05/22/2020 3:19 AM INDUSTRIAL SALES REPRESENTATIVE) Pathologist Sig nature HGB A1C 10.9 (H) 4.0 - 6.0 % [facility] Specimen Blood - ARM, RIGHT Performing Organization Address City/State/Zipcode Phone Number [facility] CLIA: [id number] [place] [address] [phone] 301 [facility] Magensium, Serum (05/22/2020 3:19 AM INDUSTRIAL SALES REPRESENTATIVE) Pathologist Sig gary MAGNESIUM 2.0 1.7 - 2.4 mg/dL [facility] Specimen Blood - ARM, RIGHT Performing Organization Address City/State/Zipcode Phone Number [facility] CLIA: [id number] [place] [address] [place] [address] Basic Metabolic Panel (Na, K, Cl, CO2, Glucose, BUN, Creatinine, Ca) (05/22/2020 3:19 AM INDUSTRIAL SALES REPRESENTATIVE) Pathologist Sig gary NA 133 (L) 135 - 145 [facility] mmol/L SERVICES K 4.0 3.5 - 5.0 [facility] mmol/L SERVICES CL 103 98 - 108 mmol/L [facility] SERVICES CO2 TOTAL 23 23 - 31 mmol/L [facility] AGAP 7 2 - 16 [facility] BUN 14 7 - 23 mg/dL [facility] SERVICES GLUCOSE 200 (H) 70 - 110 mg/dL [facility] CREATININE 0.86 0.60 - 1.25 [facility] mg/dL SERVICES CALCIUM 8.9 8.6 - 10.6 [facility] mg/dL SERVICES eGFR Calculation 91.7 mL/min/1.73m2 [facility] (Non- SERVICES [place]ian) eGFR Calculation 111.1 mL/min/1.73m2 [facility] () SERVICES Specimen Blood - ARM, RIGHT Narrative Performed At Association of Glomerular Filtration Rate (GFR) and St aging [facility] SERVICES of Kidney Disease* + + +------- ------ + | GFR (mL/min/1.73 m2) | With Kidney Damage | Wi thout Kidney Damage + + +------- ------ + | >90 | Stage one | Normal + + +------- ------ + | 60-89 | Stage two | Decreased GFR + + +------- ------ + | 30-59 | Stage three | Stage three + + +------- ------ + | 15-29 | Stage four | Stage four + + +------- ------ + | <15 (or dialysis) | Stage five | Stage five + + +------- ------ + *Each stage assumes the associated GFR level has been in effect for at least three months. Stages 1 to 5, wit h or without kidney disease, indicate chronic kidney disease. Notes: Determination of stages one and two (with eGFR >59mL/min/1.73 m2) requires estimation of kidney damag e for at least three months as defined by structural or func tional abnormalities of the kidney, manifested by either: Pathological abnormalities or Markers of kidney damage (including abnormalities in the composition of the blo od or urine or abnormalities in imaging tests) . Performing Organization Address City/State/Zipcode Phone Number [facility] CLIA: [id number] [place] [address] [place] [address] CBC with Differential (05/22/2020 3:19 AM INDUSTRIAL SALES REPRESENTATIVE) Pathologist Sig nature WBC 5.18 4.20 - 10.70 [facility] 10*3/L SERVICES RBC 4.41 4.26 - 5.52 [facility] 10*6/L SERVICES HGB 13.3 12.2 - 16.4 [facility] g/dL SERVICES HCT 37.6 (L) 38.4 - 49.3 % [facility] MCV 85.3 81.7 - 95.6 fL [facility] MCH 30.2 26.1 - 32.7 pg [facility] MCHC 35.4 (H) 31.2 - 35.0 [facility] g/dL SERVICES RDW-SD 35.0 (L) 38.5 - 51.6 fL [facility] RDW-CV 11.4 (L) 12.1 - 15.4 % [facility] PLT 228 150 - 328 [facility] 10*3/L SERVICES MPV 9.6 (L) 9.8 - 13.0 fL [facility] NRBC/100 WBC 0.0 0.0 - 10.0 /100 [facility] WBCs SERVICES NRBC x10^3 <0.01 10*3/L [facility] GRAN MAT (NEUT) % 62.0 % [facility] IMM GRAN % 0.40 % [facility] LYMPH % 27.6 % [facility] MONO % 7.7 % [facility] EOS % 2.1 % [facility] BASO % 0.2 % [facility] GRAN MAT x10^3(ANC) 3.21 1.99 - 6.95 [facility] 10*3/uL SERVICES IMM GRAN x10^3 <0.03 0.00 - 0.06 [facility] 10*3/uL SERVICES LYMPH x10^3 1.43 1.09 - 3.23 [facility] 10*3/uL SERVICES MONO x10^3 0.40 0.36 - 1.02 [facility] 10*3/uL SERVICES EOS x10^3 0.11 0.06 - 0.53 [facility] 10*3/uL SERVICES BASO x10^3 <0.03 0.01 - 0.09 [facility] 10*3/uL SERVICES Specimen Blood - ARM, RIGHT Performing Organization Address [facility] Phone Number [facility] CLIA: [id number] [place], [place] [address] 301 [facility] POCT GLUCOSE (AUTOMATED) (05/21/2020 8:46 PM INDUSTRIAL SALES REPRESENTATIVE) Pathologist Sig nature POCT GLU 196 (H)Comment: 70 - 110 mg/dL [facility] RNNotified [facility] Specimen Blood Performing Organization Address [facility] Phone Number [facility] CLIA: [id number] [place] [address] [phone] 301 [employer] POCT GLUCOSE (AUTOMATED) (05/21/2020 5:09 PM INDUSTRIAL SALES REPRESENTATIVE) Pathologist Sig nature POCT GLU 223 (H) 70 - 110 mg/dL [facility] Specimen Blood Performing Organization Address [facility] Phone Number [facility] CLIA: [id number] [place] [address] [phone] 301 [employer] POCT GLUCOSE (AUTOMATED) (05/21/2020 12:17 PM INDUSTRIAL SALES REPRESENTATIVE) Pathologist Sig nature POCT GLU 241 (H) 70 - 110 mg/dL [facility] Specimen Blood Performing Organization Address [facility] Phone Number [facility] CLIA: [id number] [place] [address] [phone] [address] [employer] POCT GLUCOSE (AUTOMATED) (05/21/2020 8:03 AM INDUSTRIAL SALES REPRESENTATIVE) Pathologist Sig gary POCT GLU 179 (H) 70 - 110 mg/dL [facility] Specimen Blood Performing Organization Address City/State/Zipcode Phone Number [facility] CLIA: [id number] [place] [address] [phone] [facility] CBC with Differential (05/21/2020 3:08 AM INDUSTRIAL SALES REPRESENTATIVE) Pathologist Sig gary WBC 6.05 4.20 - 10.70 [facility] 10*3/L SERVICES RBC 4.42 4.26 - 5.52 [facility] 10*6/L SERVICES HGB 13.3 12.2 - 16.4 [facility] g/dL SERVICES HCT 37.8 (L) 38.4 - 49.3 % [facility] MCV 85.5 81.7 - 95.6 fL [facility] MCH 30.1 26.1 - 32.7 pg [facility] MCHC 35.2 (H) 31.2 - 35.0 [facility] g/dL SERVICES RDW-SD 35.1 (L) 38.5 - 51.6 fL [facility] SERVICES RDW-CV 11.4 (L) 12.1 - 15.4 % [facility] PLT 243 150 - 328 [facility] 10*3/L SERVICES MPV 9.5 (L) 9.8 - 13.0 fL [facility] SERVICES NRBC/100 WBC 0.0 0.0 - 10.0 /100 [facility] WBCs SERVICES NRBC x10^3 <0.01 10*3/L [facility] SERVICES GRAN MAT (NEUT) % 54.6 % [facility] IMM GRAN % 0.20 % [facility] LYMPH % 33.9 % [facility] MONO % 9.3 % [facility] EOS % 1.7 % [facility] BASO % 0.3 % [facility] GRAN MAT x10^3(ANC) 3.31 1.99 - 6.95 [facility] 10*3/uL SERVICES IMM GRAN x10^3 <0.03 0.00 - 0.06 [facility] 10*3/uL SERVICES LYMPH x10^3 2.05 1.09 - 3.23 [facility] 10*3/uL SERVICES MONO x10^3 0.56 0.36 - 1.02 [facility] 10*3/uL SERVICES EOS x10^3 0.10 0.06 - 0.53 [facility] 10*3/uL SERVICES BASO x10^3 <0.03 0.01 - 0.09 [facility] 10*3/uL SERVICES Specimen Blood - ARM, RIGHT Performing Organization Address City/[facility]/Zipcode Phone Number [facility] CLIA: [id number] [place] [address] [place] [address] [place], Serum (05/21/2020 3:07 AM INDUSTRIAL SALES REPRESENTATIVE) Pathologist Sig nature MAGNESIUM 1.7 1.7 - 2.4 mg/dL [facility] Specimen Blood - ARM, RIGHT Performing Organization Address [facility] Phone Number [facility] CLIA: [id number] [place] [address] [place] [address] Basic Metabolic Panel (Na, K, Cl, CO2, Glucose, BUN, Creatinine, Ca) (05/21/2020 3:07 AM INDUSTRIAL SALES REPRESENTATIVE) Pathologist Sig nature NA 133 (L) 135 - 145 [facility] mmol/L SERVICES K 3.9 3.5 - 5.0 [facility] mmol/L SERVICES CL 100 98 - 108 mmol/L [facility] SERVICES CO2 TOTAL 26 23 - 31 mmol/L [facility] AGAP 7 2 - 16 [facility] BUN 14 7 - 23 mg/dL [facility] SERVICES GLUCOSE 174 (H) 70 - 110 mg/dL [facility] CREATININE 0.78 0.60 - 1.25 [facility] mg/dL SERVICES CALCIUM 9.0 8.6 - 10.6 [facility] mg/dL SERVICES eGFR Calculation 102.6 mL/min/1.73m2 [facility] (Non- SERVICES Bel[place]ian) eGFR Calculation 124.3 mL/min/1.73m2 [facility] () SERVICES Specimen Blood - ARM, RIGHT Narrative Performed At Association of Glomerular Filtration Rate (GFR) and St aging [facility] of Kidney Disease* + + +------- ------ + | GFR (mL/min/1.73 m2) | With Kidney Damage | Wi thout Kidney Damage + + +------- ------ + | >90 | Stage one | Normal + + +------- ------ + | 60-89 | Stage two | Decreased GFR + + +------- ------ + | 30-59 | Stage three | Stage three + + +------- ------ + | 15-29 | Stage four | Stage four + + +------- ------ + | <15 (or dialysis) | Stage five | Stage five + + +------- ------ + *Each stage assumes the associated GFR level has been in effect for at least three months. Stages 1 to 5, wit h or without kidney disease, indicate chronic kidney disease. Notes: Determination of stages one and two (with eGFR >59mL/min/1.73 m2) requires estimation of kidney damag e for at least three months as defined by structural or func tional abnormalities of the kidney, manifested by either: Pathological abnormalities or Markers of kidney damage (including abnormalities in the composition of the blo od or urine or abnormalities in imaging tests) . Performing Organization Address City/State/Zipcode Phone Number [facility] CLIA: [id number] [place] [address] [place] [address] MR STROKE BRAIN WO CONTRAST (05/20/2020 9:05 PM INDUSTRIAL SALES REPRESENTATIVE) Specimen Impressions Performed At PACS/VR/DOSE Focal restricted diffusion in the right anterior medul la, with accompanying hypointensity on the ADC map, consistent with a small acute or subacute infarct. Mild atrophy and chronic small vessel ischemic disease of the white matter. RL: [id number] AFC: [id number] Narrative Performed At Ordering physician: MP ROSE PACS/VR/DOSE INDICATION: Left-sided weakness COMPARISON: CTA of the head and neck aftab ed 05/20/2020 TECHNIQUE: MRI of the brain was performe d without the administration of intravenous contrast. FINDINGS: There is focal restricted diffusion in the r ight anterior medulla (series 4, image 8). No abnormal signal is appreciated in the gradient sequence to suggest acute hemorrhage. Th ere is mild global parenchymal volume loss. There is mild patchy T2 and FLAIR hyperintensity in the periventricular white matter. There is n o hydrocephalus or extra-axial fluid collection. There is no parafalcin e or transtentorial herniation. Procedure Note [facility], Radiant Results Inft User - 2020 12:40 AM INDUSTRIAL SALES REPRESENTATIVE Ordering physician: MP DABI INDICATION: Left-sided weakness COMPARISON: CTA of the head and neck aftab ed 05/20/2020 TECHNIQUE: MRI of the brain was performe d without the administration of intravenous contrast. FINDINGS: There is focal restricted diff usion in the right anterior medulla (series 4, image 8). No abnormal signal is appreciated in the gradient sequence to suggest acute hemorrhage. Th ere is mild global parenchymal volume loss. There is mild patchy T2 and FLAIR hyperintensity in the periventricular white matter. There is n o hydrocephalus or extra-axial fluid collection. There is no parafalcin e or transtentorial herniation. IMPRESSION Focal restricted diffusion in the right anterior medulla, with accompanying hypointensity on the ADC map, consistent with a small acute or subacute infarct. Mild atrophy and chronic small vessel is chemic disease of the white matter. RL: [id number] AFC: [id number] Performing Organization Address City/[facility]/Zipcode Phone Number PACS/VR/DOSE POCT GLUCOSE (AUTOMATED) (05/20/2020 8:20 PM INDUSTRIAL SALES REPRESENTATIVE) Pathologist Sig [facility] POCT GLU 201 (H) 70 - 110 mg/dL [facility] Specimen Blood Performing Organization Address [facility] Phone Number [facility] CLIA: [id number] [place] [address] [place] [address] Thyroid Stimulating Hormone (05/20/2020 5:56 PM INDUSTRIAL SALES REPRESENTATIVE) Pathologist Sig [facility] TSH 0.36 (L) 0.45 - 4.70 mIU/L [facility] Specimen Blood - ARM, LEFT Performing Organization Address [facility]/Zipcode Phone Number [facility] CLIA: [id number] [place] [address] [place] [address] FASTING LIPID PANEL ([id number])(TOTAL CHOLESTEROL, TRIGLYCERIDES, HDL) (05/20/2020 5:56 PM INDUSTRIAL SALES REPRESENTATIVE) Pathologist Sig [facility] CHOL 114 (L) 120 - 200 mg/dL [facility] HDL 33 (L) >40 mg/dL [facility] HDLC RATIO 3.5 <=5.0 [facility] TRIG 162 30 - 170 mg/dL [facility] LDL CHOL 49 <=160 mg/dL [facility] VLDL 32 5 - 60 mg/dL [facility] Specimen Blood - ARM, LEFT Performing Organization Address City/State/Zipcode Phone Number [facility] CLIA: [id number] [place] [address] [place] [address] MRSA / MSSA Screen by PCR, Nares (05/20/2020 5:56 PM INDUSTRIAL SALES REPRESENTATIVE) Pathologist Sig nature MRSA Screen by PCR, Negative Negative [facility] Nares SERVICES MSSA Screen by PCR, Negative Negative [facility] Nares SERVICES MRSA/MSSA Positive? No No [facility] Specimen Swab - NARES, BOTH SIDES Performing Organization Address City/[facility]/Zipcode Phone Number [facility] CLIA: [id number] [place] [address] [place] [address] documented in this encounter Visit Diagnoses Diagnosis Left-sided weakness - Primary Muscle weakness (generalized) Obesity (BMI 30-39.9) Obesity, unspecified Acute ischemic multifocal right-sided po sterior circulation stroke Received tissue plasminogen activator (t -PA) less than 24 hours prior to arrival Vertebral artery occlusion, right HLD (hyperlipidemia) Other and unspecified hyperlipidemia HTN (hypertension) Unspecified essential hypertension Type 2 diabetes mellitus with complicati ons Type II or unspecified type diabetes eric litus with unspecified complication, not stated as uncontrolled CAD (coronary artery disease) Coronary atherosclerosis of unspecified type of vessel, [place] or graft documented in this encounter Administered Medications Medication Order MAR Action Action Date Dose Rate Site aspirin chewable tablet 81 mg Given 05/26/2020 8:59 AM INDUSTRIAL SALES REPRESENTATIVE 81 mg 81 mg, Oral, DAILY, First dose on Sat05/25/20 at 0900, Until Discontinued, Routine Given 05/25/2020 8:15 AM INDUSTRIAL SALES REPRESENTATIVE 81 mg dextrose 50 % in water (D50W) injection 25 mL 25 mL, Slow IV Push, PRN, Starting Sat at 1549, Until Discontinued, GABRIELLA, Blood Glucose < or = 70 mg/dL and patien t is unable to swallow or has mental status changes. famotidine (PEPCID AC) tablet 20 mg Given 05/26/2020 8:59 AM INDUSTRIAL SALES REPRESENTATIVE 20 mg 20 mg, Oral, BID, First dose on Sat05/20/20 at 2000, Until Discontinued, Routine Given 05/25/2020 7:51 PM INDUSTRIAL SALES REPRESENTATIVE 20 mg Given 05/25/2020 8:15 AM INDUSTRIAL SALES REPRESENTATIVE 20 mg glucagon (GLUCAGEN DIAGNOSTIC KIT) injec tion 1 mg 1 mg, Intramuscular, PRN, Starting Sat at 1549, Until Discontinued, GABRIELLA, Blood Glucose < or = 70 mg/dL and patient is unable to swallow or has mental changes. heparin (porcine) injection Given 05/26/2020 9:00 AM INDUSTRIAL SALES REPRESENTATIVE 5,000 Units Abdomen-SC 5,000 Units 5,000 Units, Subcutaneous, BID, First dose on Sat05/21/20 at 2000, Until Discontinued, Routine Given 05/25/2020 7:51 PM INDUSTRIAL SALES REPRESENTATIVE 5,000 Units Abdo men-SC Given 05/25/2020 8:15 AM INDUSTRIAL SALES REPRESENTATIVE 5,000 Units Abdo men-SC insulin glargine (LANTUS Given 05/26/2020 9:00 AM INDUSTRIAL SALES REPRESENTATIVE 19 Units Left Upper Arm-SC U-100) injection 19 Units 19 Units, Subcutaneous, DAILY, First dose (after last modification) on Karissa 05/26/20 at 0900, Until Discontinued, Routine insulin lispro (human) Given 05/26/2020 11:56 AM INDUSTRIAL SALES REPRESENTATIVE 4 Units Left Upper Arm-SC (HumaLOG U-100) injection 4 Units 4 Units, Subcutaneous, TID MEALS, First dose (after last modification) on Sat05/25/20 at 1700, Until Discontinued, Routine Given 05/26/2020 9:04 AM INDUSTRIAL SALES REPRESENTATIVE 4 Units Left Upper Arm-SC Given 05/25/2020 5:11 PM INDUSTRIAL SALES REPRESENTATIVE 4 Units Left Upper Arm-SC lisinopriL (PRINIVIL,ZESTRIL) tablet 20 mg 20 mg, Oral, DAILY, First dose (after la st modification) on Sat05/27/20 at 0900, Until Discontinued, Routine metFORMIN (GLUCOPHAGE) tablet 500 mg Given 05/26/2020 8:59 AM INDUSTRIAL SALES REPRESENTATIVE 500 mg 500 mg, Oral, BID MEALS, First dose on Sat05/25/20 at 1700, Until Discontinued, Routine Given 05/25/2020 5:11 PM INDUSTRIAL SALES REPRESENTATIVE 500 mg ondansetron (ZOFRAN (PF)) injection 4 mg Given 05/20/2020 6:29 PM INDUSTRIAL SALES REPRESENTATIVE 4 mg 4 mg, Slow IV Push, Q6HPRN, 5 doses, Starting Sat05/20/20 at 1801, Until Discontinued, Routine, Nausea and Vomiting (N/V) rosuvastatin (CRESTOR) tablet 40 mg Given 05/26/2020 8:59 AM INDUSTRIAL SALES REPRESENTATIVE 40 mg 40 mg, Oral, DAILY, First dose on Sat05/21/20 at 0900, Until Discontinued, Routine Given 05/25/2020 8:15 AM INDUSTRIAL SALES REPRESENTATIVE 40 mg Given 05/24/2020 8:07 AM INDUSTRIAL SALES REPRESENTATIVE 40 mg Saline Bubble Study Given 05/24/2020 10:15 AM INDUSTRIAL SALES REPRESENTATIVE 6 mL 6 mL, Injection, SEE-INSTRUCTIONS, Starting Tu05/24/20 at 1028, Until Discontinued, Routine Saline Bubble Study Given 05/24/2020 10:15 AM INDUSTRIAL SALES REPRESENTATIVE 6 mL 6 mL, Injection, SEE-INSTRUCTIONS, Starting Sat05/24/20 at 1028, Until Discontinued, Routine SITagliptin (JANUVIA) tablet 100 mg Given 05/26/2020 8:59 AM INDUSTRIAL SALES REPRESENTATIVE 100 mg 100 mg, Oral, DAILY, First dose on Karissa 05/26/20 at 0900, Until Discontinued, Routine Sliding Scale Insulin - Lispro Given 05/26/2020 11:52 AM 1 Units Left Upper (HumaLOG) + Fsbg Testing INDUSTRIAL SALES REPRESENTATIVE Arm-SC Subcutaneous, TID MEALS+HS, First dose (after last modification) on Sat05/25/20 at 2100, Until Discontinued, Routine Given 05/26/2020 9:01 AM INDUSTRIAL SALES REPRESENTATIVE 1 Units Left Upper Arm-SC Given 05/25/2020 7:51 PM INDUSTRIAL SALES REPRESENTATIVE 2 Units Abdo men-SC ticagrelor (BRILINTA) tablet 90 mg Given 05/26/2020 8:59 AM INDUSTRIAL SALES REPRESENTATIVE 90 mg 90 mg, Oral, BID, First dose on Sat05/21/20 at 0800, Until Discontinued, Routine Given 05/25/2020 7:51 PM INDUSTRIAL SALES REPRESENTATIVE 90 mg Given 05/25/2020 10:57 AM INDUSTRIAL SALES REPRESENTATIVE 90 mg Medication Order MAR Action Action Date Dose Rate Site aspirin chewable tablet 81 mg Given 05/22/2020 8:00 AM INDUSTRIAL SALES REPRESENTATIVE 81 mg 81 mg, Oral, QAM WITH BREAKFAST, First dose on Sat05/21/20 at 0800, Until Discontinued, Routine Given 05/21/2020 9:30 AM INDUSTRIAL SALES REPRESENTATIVE 81 mg aspirin tablet 325 mg Given 05/24/2020 8:07 AM INDUSTRIAL SALES REPRESENTATIVE 325 mg 325 mg, Oral, DAILY, First dose on Sat05/23/20 at 0900, Until Discontinued, Routine Given 05/23/2020 7:39 AM INDUSTRIAL SALES REPRESENTATIVE 325 mg insulin glargine (LANTUS Given 05/24/2020 8:37 AM INDUSTRIAL SALES REPRESENTATIVE 10 Units Right Upper Arm-SC U-100) injection 10 Units 10 Units, Subcutaneous, DAILY, First dose on Sat05/23/20 at 0915, Until Discontinued, Routine Given 05/23/2020 10:23 AM INDUSTRIAL SALES REPRESENTATIVE 10 Units Abdo men-SC insulin glargine (LANTUS Given 05/25/2020 9:02 AM INDUSTRIAL SALES REPRESENTATIVE 14 Units Left Upper Arm-SC U-100) injection 14 Units 14 Units, Subcutaneous, DAILY, First dose (after last modification) on Sat05/25/20 at 0900, Until Discontinued, Routine insulin glargine (LANTUS Given 05/24/2020 7:29 PM INDUSTRIAL SALES REPRESENTATIVE 4 Units Left Upper Arm-SC U-100) injection 4 Units 4 Units, Subcutaneous, ONCE, 1 dose, Sat05/24/20 at 1815, GABRIELLA insulin lispro (human) Given 05/25/2020 11:50 AM INDUSTRIAL SALES REPRESENTATIVE 3 Units Left Upper Arm-SC (HumaLOG U-100) injection 3 Units 3 Units, Subcutaneous, TID MEALS, First dose on Sat05/23/20 at 1700, Until Discontinued, Routine Given 05/25/2020 8:15 AM INDUSTRIAL SALES REPRESENTATIVE 3 Units Left Upper Arm-SC Given 05/24/2020 4:31 PM INDUSTRIAL SALES REPRESENTATIVE 3 Units Left Upper Arm-SC lisinopriL (PRINIVIL,ZESTRIL) tablet 10 mg Given 05/26/2020 8:59 AM INDUSTRIAL SALES REPRESENTATIVE 10 mg 10 mg, Oral, DAILY, First dose (after last modification) on Sat05/25/20 at 0900, Until Discontinued, Routine Given 05/25/2020 8:15 AM INDUSTRIAL SALES REPRESENTATIVE 10 mg lisinopriL (PRINIVIL,ZESTRIL) tablet 5 m g Given 05/24/2020 8:07 AM INDUSTRIAL SALES REPRESENTATIVE 5 mg 5 mg, Oral, DAILY, First dose on Sat05/23/20 at 1045, Until Discontinued, Routine Given 05/23/2020 12:33 PM INDUSTRIAL SALES REPRESENTATIVE 5 mg NaCl 0.9% (NS) 1000 mL + KCL 20 mEq Rate Change 05/20/2020 9:46 PM INDUSTRIAL SALES REPRESENTATIVE 100 mL/hr IV Infusion, at 75 mL/hr, CONTINUOUS, Starting Sat05/20/20 at 1530, Until Sat05/20/20 at 2219, Routine New Bag 05/20/2020 6:29 PM INDUSTRIAL SALES REPRESENTATIVE 75 mL/hr NaCl 0.9% (NS) 1000 mL + KCL 20 mEq New Bag 05/21/2020 7:24 AM INDUSTRIAL SALES REPRESENTATIVE 100 mL/hr IV Infusion, at 100 mL/hr, CONTINUOUS, Starting Sat05/20/20 at 2230, Until Karissa 05/26/20 at 0657, Routine Dose/Rate Verify 05/20/2020 10:30 PM INDUSTRIAL SALES REPRESENTATIVE 100 mL/hr NaCl 0.9% (NS) IV infusion 250 mL New Bag 05/21/2020 12:40 AM INDUSTRIAL SALES REPRESENTATIVE 250 mL 999 mL/hr at 999 mL/hr, IV Infusion, ONCE, 1 dose, 05/21/20 at 0145, Routine perflutren protein-A microsphr (OPTISON) Given 05/24/2020 10:15 AM INDUSTRIAL SALES REPRESENTATIVE 3 mL injection 3 mL 3 mL, IV Push, ONCE, 1 dose, 05/24/20 at 1130, Routine Sliding Scale Insulin - Lispro Given 05/25/2020 11:49 AM 2 Units Left Upper (HumaLOG) + Fsbg Testing INDUSTRIAL SALES REPRESENTATIVE Arm-SC Subcutaneous, TID MEALS+HS, First dose on Sat05/20/20 at 1700, Until Discontinued, Routine Given 05/25/2020 9:02 AM INDUSTRIAL SALES REPRESENTATIVE 1 Units Left Upper Arm-SC Given 05/24/2020 8:04 PM INDUSTRIAL SALES REPRESENTATIVE 2 Units Righ t Upper Arm-SC documented in this encounter Additional Health Concerns Infection Onset Date Last Indicated Resolved Time COVID-19 Rule Out 05/24/2020 05/24/2020 05/24/2020 12: 32 PM INDUSTRIAL SALES REPRESENTATIVE documented as of this encounter Insurance Payer Benefit Plan Subscriber ID Effective Dates Phone Address Type / Group [facility] [id number] 2016-Yuliet [phone] [address] [place] [address] [place] P[place] - OUT OF t 7 [id number] [place] [address] documented as of this encounter
[2020-05-26 20:53] VITALS: BMI 42.0
[2020-05-26 21:31] LABS: Urine Appearance CLEAR; Urine Bilirubin NEGATIVE (NEG); Urine Blood NEGATIVE (NEG); Urine Color YELLOW; Urine Glucose 3+ (NEG); Urine Protein NEGATIVE (NEG); Urine Specific Gravity 1.025 (1.005-1.030); Urine Urobilinogen 0.2 mg/dL (0.2-1.0); Urine pH 5.5 (5.0-7.0)
[2020-05-26 21:43] LABS: Urine Bacteria <20 /HPF (NONE SEEN); Urine Mucus 1+ /HPF (NONE SEEN); Urine RBC <5 /HPF (NONE SEEN)
[2020-05-26] MEDS ORDERED: D50W 25 GM/50 ML SYRINGE IV PRN (22:34)
[2020-05-26] MEDS ORDERED: GLUCAGON 1 MG/VIAL IM PRN (22:34)
[2020-05-27] MEDS ORDERED: D50W 25 GM/50 ML SYRINGE IV PRN (03:58)
[2020-05-27] MEDS ORDERED: GLUCAGON 1 MG/VIAL IM PRN (03:58)
[2020-05-27 06:52] LABS: Absolute Lymphocytes (CBC) 1.8 K/uL (0.7-4.9); Basophils % 0.3 % (0-1.3); Hematocrit 40.3 % (39.6-49.0); Lymphocytes % 33.4 % (15.3-44.8); MPV 7.7 fL (7.6-11.3); RBC Red Blood Cell Count 4.61 M/uL (4.33-5.43)
[2020-05-27 07:16] LABS: Albumin 3.5 g/dL (3.4-5.0); Magnesium 2.2 mg/dL (1.8-2.4); Potassium 3.9 mmol/L (3.5-5.1); Prealbumin 23.2 mg/dL (20-40)
[2020-05-27] MEDS: INSULIN -REGULAR HUMAN 50 UNIT/0.5 ML ML SQ SCH ×4 (07:30→20:32)
[2020-05-27] MEDS: lisinopriL 20 MG TAB PO SCH (08:00)
[2020-05-27] MEDS: FAMOTIDINE 20 MG TAB PO SCH ×2 (08:00→20:32)
[2020-05-27] MEDS: INSULIN GLARGINE 100 UNITS/ML SQ SCH (08:00)
[2020-05-27] MEDS: ROSUVASTATIN 10 MG TAB PO SCH (08:00)
[2020-05-27] MEDS: TICAGRELOR 90 MG TABLET PO SCH ×2 (08:00→20:32)
--- NOTE | 2020-05-27 09:44 | P.RH.PN ---
Estimated Length of Stay: 14 Expected Discharge Date: 06/08/20 Discharge Disposition Plan: Home Family Support: Yes Senior Living Goal: Mobility, Transfers, Self Care Vital Signs: Last Vital Signs Temp 97.6 F 05/27/20 07:00 Pulse 69 05/27/20 08:00 Resp 16 05/27/20 07:00 BP 137/63 05/27/20 08:00 Pulse Ox 97 05/27/20 07:00 Laboratory: Laboratory Last Values WBC 5.5 K/uL (4.3-10.9) D 05/27/20 06:32 RBC 4.61 M/uL (4.33-5.43) 05/27/20 06:32 Hgb 13.6 g/dL (13.6-17.9) 05/27/20 06:32 Hct 40.3 % (39.6-49.0) 05/27/20 06:32 MCV 87.5 fL (80-100) 05/27/20 06:32 MCH 29.6 pg (27.0-35.0) 05/27/20 06:32 MCHC 33.8 g/dL (32.0-36.0) 05/27/20 06:32 RDW 12.7 % (12.1-15.2) 05/27/20 06:32 Plt Count 277 K/uL (152-406) 05/27/20 06:32 MPV 7.7 fL (7.6-11.3) 05/27/20 06:32 Neutrophils % 52.1 % (41.7-73.7) 05/27/20 06:32 Lymphocytes % 33.4 % (15.3-44.8) 05/27/20 06:32 Monocytes % 11.8 % (3.3-12.3) 05/27/20 06:32 Eosinophils % 2.4 % (0-4.4) 05/27/20 06:32 Basophils % 0.3 % (0-1.3) 05/27/20 06:32 Absolute Neutrophils 2.9 K/uL (1.8-8.0) 05/27/20 06:32 Absolute Lymphocytes 1.8 K/uL (0.7-4.9) 05/27/20 06:32 Absolute Monocytes 0.7 K/uL (0.1-1.3) 05/27/20 06:32 Absolute Eosinophils 0.1 K/uL (0-0.5) 05/27/20 06:32 Absolute Basophils 0.0 K/uL (0-0.5) 05/27/20 06:32 Sodium 135 mmol/L (136-145) L 05/27/20 06:32 Potassium 3.9 mmol/L (3.5-5.1) 05/27/20 06:32 Chloride 105 mmol/L (98-107) 05/27/20 06:32 Carbon Dioxide 24 mmol/L (21-32) 05/27/20 06:32 BUN 17 mg/dL (7-18) 05/27/20 06:32 Creatinine 0.98 mg/dL (0.55-1.3) 05/27/20 06:32 Estimated GFR 79 mL/min (=/>90) L 05/27/20 06:32 Glucose 209 mg/dL (74-106) H 05/27/20 06:32 POC Glucose 217 mg/dL (65-120) H 05/27/20 07:03 Calcium 9.1 mg/dL (8.5-10.1) 05/27/20 06:32 Magnesium 2.2 mg/dL (1.8-2.4) 05/27/20 06:32 Albumin 3.5 g/dL (3.4-5.0) 05/27/20 06:32 Prealbumin 23.2 mg/dL (20-40) 05/27/20 06:32 Urine Color Yellow 05/26/20 20:30 Urine Appearance Clear 05/26/20 20:30 Urine pH 5.5 (5.0-7.0) 05/26/20 20:30 Ur Specific [place] 1.025 (1.005-1.030) 05/26/20 20:30 Glucose (UA)(Auto) 3+ (NEG) H 05/26/20 20:30 Urine Ketones Negative (NEG) 05/26/20 20:30 Urine Blood Negative (NEG) 05/26/20 20:30 Urine Nitrite Negative (NEG) 05/26/20 20:30 Urine Bilirubin Negative (NEG) 05/26/20 20:30 Urine Urobilinogen 0.2 mg/dL (0.2-1.0) 05/26/20 20:30 Ur Leukocyte Esterase Negative (NEG) 05/26/20 20:30 Urine RBC <5 /HPF (NONE SEEN) 05/26/20 20:30 Urine WBC <5 /HPF (<5) 05/26/20 20:30 Ur Squamous Epith Cells 5-10 /HPF (NONE SEEN) H 05/26/20 20:30 Urine Bacteria <20 /HPF (NONE SEEN) 05/26/20 20:30 Urine Mucus 1+ /HPF (NONE SEEN) 05/26/20 20:30 Urine Culture Reflexed Not needed 05/26/20 20:30 Urine Total Protein Negative (NEG) 05/26/20 20:30 SARS-CoV-2 RNA (RT-PCR) Negative (NEGATIVE) 05/27/20 19:15 Weight: 289 lb 1.6 oz Physician Update: Walks 300' contact guard. Strength on the left is 3-4. He will benefit for the full 14 days. Labs reviewed and are stable. Functional Improvement: pt presents with severe strength deficits on the L side. pt demonstrates poor balance and stability during ambulation and functional transfers. pt exhibits reduced trunk strength. pt experiences poor tolerance to functional activity due to fatigue, weakness, and incoordination. Skilled PT services are necessary to address the above mentioned impairments and functional limitations. Summary: Patient's care plan and long term acute care registered nurse goals have been reviewed and revised as necessary. Please see the Rehabilitation Signature page for all necessary signatures.
[2020-05-27] MEDS ORDERED: D50W 25 GM/50 ML VIAL IV PRN (14:00)
--- NOTE | 2020-05-27 15:46 | PAPE ---
POST ADMISSION PHYSICIAN EVALUATION PATIENT: [facility] MR# [id number] REFERRING DOCTOR MP CEDENO MD EVALUATION DATE AND TIME 05/27/2020 15:44 (JOB PLACEMENT SPECIALIST) NAME LAMBERT MARQUIS DATE OF 1960 AGE 59 PHONE SSN# [id number] GENDER male EVALUATING PHYSICIAN Dr. Cortez Berkowitz M.D. ADMISSION DIAGNOSIS: ACUTE STROKE ONSET DATE 05/20/2020 POST-ADMISSION FUNCTIONAL/MEDICAL STATUS: - Bladder Same accident frequency: Ind - No accidents in the past 7 days - Bowel Same accident frequency: Ind - No accidents in the past 7 days - Walking Same score based on distance walked: 0(N/A) Same score based on distance walked: 1(<=50ft) - Wheelchair Same score based on distance traveled: 0(N/A) STATUS CHANGE EVALUATION: No change in Functional or Medical Status is identified compared with Pre-Admission screening. PATIENT NEEDS CLOSE MEDICAL SUPERVISION BY A REHABILITATION PHYSICIAN FOR: Coordination of Treatment Team PATIENT REQUIRES 24X7 REHAB NURSING FOR MEDICAL AND FUNCTIONAL MGT. OF THE FOLLOWING DEFICITS: Disease Management Medication Management Patient/Family Education Providing Safe Environment PATIENT REQUIRES INTENSIVE, COORDINATED INTERDISCIPLINARY APPROACH TO REHAB: Arranging Home Equipment/Services Discharge Planning Family Intervention/Training Elevator Examiner And Adjuster/Case Management LIST OF IDENTIFIED AND POTENTIAL PROBLEMS: Alteration in leisure activities Bladder, Incontinence Bowel, Incontinence Infection, Actual or Potential Mobility Impaired Pain, Alteration in Comfort Self Care Deficit Skin Integrity, Actual or Potential Urinary Tract Infection (UTI), Actual or Potential PATIENT COULD BE AT RISK FOR COMPLICATIONS FROM ADVERSE MEDICAL CONDITIONS DUE TO HIS/HER COMORBIDITI ES AND THE RIGORS OF THE INTENSIVE REHABILLITATION PROGRAM. METHODS OR INTERVENTIONS TO AVOID COMPLIC ATIONS INCLUDE: - Bleeding Stroke patients assessed for lethargy or change in status. - Infection Clinical staff to assess and manage the signs and symptoms of infection including fever, redness, war mth, etc. - Urinary Tract Infection - Aspiration Clinical staff will assess and manage coughing, drooling, congestion. - Falls Patient will be evaluated for Fall Precautions and will be placed on Fall Precautions as indicated pe r protocol. - Skin Breakdown Nursing will assess skin daily using assessment tool and will place on Skin Breakdown Precautions as indicated per protocol. - Pain Clinical staff may employ non-medication methods such as massage, distraction, decrease stimulus, etc . as needed. Clinical staff will assess patient's pain level every shift per protocol to assess and e nsure pain management effectiveness. Medications will be given and the pain level re-assessed. PRELIMINARY PLAN OF CARE: - Physical Therapy Patient needs Physical Therapy for a daily minimum of 1.5 hours at least 5 out of 7 days, to improve: Mobility, Strengthening, Transfers, Stretching, ROM, Endurance, Ability to manage stairs, Gait, and Balance. - Speech Therapy Patient needs Speech Therapy for a daily minimum of 0.5 hours at least 5 out of 7 days, to improve: S wallowing, Cognition, Language Skills, and Compensatory Strategies. - Rehabilitation Nursing Patient requires 24x7 Rehabilitation Nursing for: Pain Issues, Identifying and preventing risk factor s, Monitoring and reporting current medical conditions, Assisting with ambulation and transfer, Carolin ting with all ADL-s, Teaching patients about disease process and medications, Family teaching, Provid ing safe environment, Bowel and Bladder Issues, Skin Integrity, and Medication Management. Patient needs Elevator Examiner And Adjuster and/or Case Management for: Discharge Planning, Arranging Home Equipmen t or Services, and Family Interventions. - Dietary and Nutrition Services Patient needs Dietary and Nutrition Services for: Adequate Nutrition, Nutritional Supplements, and Nu tritional Education. - Occupational Therapy Patient needs Occupational Therapy for a daily minimum of 1.5 hours at least 5 out of 7 days, to impr ove Activities of Daily Living, including: Eating, Grooming, Bathing, Dressing, Toileting, Toilet Tra nsfers, Community Reintegration, Higher functional activities, Adaptive Equipment, Splinting, Househo ld Tasks, and Other activities as determined. QI SCORES: - Self-Care A. Eating 03-Partial/moderate assistance B. Oral hygiene 03-Partial/moderate assistance C. Toileting hygiene 03-Partial/moderate assistance E. Shower/bathe self 03-Partial/moderate assistance F. Upper body dressing 03-Partial/moderate assistance G. Lower body dressing 03-Partial/moderate assistance H. Putting on/taking off footwear 88-Not attempted due to medical condition or safety concerns - Mobility A. Roll left and right 03-Partial/moderate assistance B. Sit to lying 03-Partial/moderate assistance C. Lying to sitting on side of bed 03-Partial/moderate assistance D. Sit to stand 03-Partial/moderate assistance E. Chair/vnq-kq-mkwaf transfer 03-Partial/moderate assistance F. Toilet transfer 03-Partial/moderate assistance G. Car transfer 88-Not attempted due to medical condition or safety concerns I. Walk 10 feet 88-Not attempted due to medical condition or safety concerns J. Walk 50 feet with two turns 88-Not attempted due to medical condition or safety concerns K. Walk 150 feet 88-Not attempted due to medical condition or safety concerns L. Walking 10 feet on uneven surfaces 88-Not attempted due to medical condition or safety concerns M. 1 step (curb) 88-Not attempted due to medical condition or safety concerns N. 4 steps 88-Not attempted due to medical condition or safety concerns O. 12 steps 88-Not attempted due to medical condition or safety concerns P. Picking up object 88-Not attempted due to medical condition or safety concerns R. Wheel 50 feet with two turns 88-Not attempted due to medical condition or safety concerns S. Wheel 150 feet 88-Not attempted due to medical condition or safety concerns - Bladder and Bowel Bladder continence Bowel continence - Endurance Poor - Balance Poor - Safety Awareness Poor POTENTIAL FUNCTIONAL GOALS FOR PATIENT TO ACHIEVE BY DISCHARGE: - Safety Precaution Patient will remain free from falls or injury at time of discharge. - Bed Mobility Patient will perform bed mobility at 4-Brigid level of assistance. - Transfers Patient will complete transfers from bed to chair at 4-Brigid level of assistance. - Mobility Patient will ambulate 150 ft with 4-Brigid level of assistance with RW. PATIENT REHAB POTENTIAL Cheng MARQUIS is able and expected to receive 3 hours of individualized therapy daily on at least 5 of drew 7 days Cheng MARQUIS's prognosis for significant practical improvement within a reasonable period of time appear s Good Expected level of measurable improvement will be of a practical value to Cheng MARQUIS's functional capac ity or adaptations to impairments Has a viable Discharge Plan Medically appropriate; condition is sufficiently stable to participate in intensive rehab program DISCHARGE PLAN: - Estimated Length of Stay (days) 17. - Consensus on plan Discharge plan has been discussed with primary caregiver. Patient/Family is in agreement with the lele n. Primary caregiver is in agreement with the plan. - Patient/Family Goals Return home independently. - Planned Living Setting Upon Discharge Home, to live with Family/Relatives. Transitional Living. CONCLUSION ON REHABILITATION NECESSITY: I have evaluated patient's pre-admission functional status and, comparing it to the patient's post-ad mission functional status now, I conclude that the pre-admission assessment was accurate. Patient's c ondition on admission supports the medical necessity of admission to IRF. It is safe to proceed with patient's therapy program. SIGNATURE PANEL: (JOB PLACEMENT SPECIALIST)
[2020-05-27] MEDS: CRANBERRY FRUIT EXTRACT 200 MG CAP PO SCH (20:32)
[2020-05-27] MEDS: DOCUSATE NA/SENNA CONC 1 TAB PO PRN (20:33)
[2020-05-27] MEDS: MELATONIN 3 MG TABLET PO PRN (22:00)
[2020-05-28] MEDS: INSULIN -REGULAR HUMAN 50 UNIT/0.5 ML ML SQ SCH ×4 (07:30→19:44)
[2020-05-28] MEDS: ROSUVASTATIN 10 MG TAB PO SCH ×2 (08:00→19:43)
[2020-05-28] MEDS: lisinopriL 20 MG TAB PO SCH (09:20)
[2020-05-28] MEDS: FAMOTIDINE 20 MG TAB PO SCH ×2 (09:20→19:43)
[2020-05-28] MEDS: CRANBERRY FRUIT EXTRACT 200 MG CAP PO SCH ×2 (09:20→19:43)
[2020-05-28] MEDS: TICAGRELOR 90 MG TABLET PO SCH ×2 (09:22→19:45)
[2020-05-28] MEDS: INSULIN GLARGINE 100 UNITS/ML SQ SCH (09:24)
[2020-05-28] MEDS: METFORMIN HCL 500 MG TAB PO SCH (17:43)
[2020-05-28] MEDS: DOCUSATE NA/SENNA CONC 1 TAB PO PRN (19:43)
[2020-05-28] MEDS: MELATONIN 3 MG TABLET PO PRN (19:43)
[2020-05-29] MEDS: INSULIN -REGULAR HUMAN 50 UNIT/0.5 ML ML SQ SCH ×4 (07:30→21:00)
[2020-05-29] MEDS: METFORMIN HCL 500 MG TAB PO SCH ×2 (08:29→17:01)
[2020-05-29] MEDS: lisinopriL 20 MG TAB PO SCH (08:29)
[2020-05-29] MEDS: CRANBERRY FRUIT EXTRACT 200 MG CAP PO SCH ×2 (08:29→20:15)
[2020-05-29] MEDS: FAMOTIDINE 20 MG TAB PO SCH ×2 (08:29→20:15)
[2020-05-29] MEDS: TICAGRELOR 90 MG TABLET PO SCH ×2 (08:30→20:16)
[2020-05-29] MEDS: INSULIN GLARGINE 100 UNITS/ML SQ SCH (08:30)
[2020-05-29] MEDS: LIDOCAINE 4% PATCH TOP SCH (10:03)
[2020-05-29] MEDS: ACETAMINOPHEN 325 MG TABLET PO PRN (20:14)
[2020-05-29] MEDS: ROSUVASTATIN 10 MG TAB PO SCH (20:14)
[2020-05-29] MEDS: DOCUSATE NA/SENNA CONC 1 TAB PO PRN (20:15)
[2020-05-29] MEDS: MELATONIN 3 MG TABLET PO PRN (20:15)
[2020-05-30] MEDS: METOPROLOL XL 50 MG TAB PO SCH (05:08)
[2020-05-30] MEDS: PANTOPRAZOLE 40MG TABLET PO SCH (06:45)
[2020-05-30] MEDS: INSULIN -REGULAR HUMAN 50 UNIT/0.5 ML ML SQ SCH ×4 (07:30→20:36)
[2020-05-30] MEDS: INSULIN GLARGINE 100 UNITS/ML SQ SCH (08:10)
[2020-05-30] MEDS: ASPIRIN 81 MG CHEWABLE TABLET PO SCH (08:11)
[2020-05-30] MEDS: VITAMIN D 1000 UNIT TAB PO SCH (08:11)
[2020-05-30] MEDS: CRANBERRY FRUIT EXTRACT 200 MG CAP PO SCH ×2 (08:11→20:35)
[2020-05-30] MEDS: METFORMIN HCL 500 MG TAB PO SCH ×2 (08:11→17:13)
[2020-05-30] MEDS: MULTIVITAMIN TAB PO SCH (08:11)
[2020-05-30] MEDS: TICAGRELOR 90 MG TABLET PO SCH ×2 (08:11→20:35)
[2020-05-30] MEDS: FAMOTIDINE 20 MG TAB PO SCH ×2 (08:12→20:35)
[2020-05-30] MEDS: lisinopriL 20 MG TAB PO SCH (08:12)
[2020-05-30] MEDS: SITAGLIPTIN PHOS 100 MG TAB PO SCH (08:12)
[2020-05-30] MEDS: LIDOCAINE 4% PATCH TOP SCH (14:08)
--- NOTE | 2020-05-30 18:44 | R.PN ---
PROGRESS NOTES ENCOUNTER DATE AND TIME: 05/30/2020 18:39 (CASING OPERATOR) NAME LAMBERT MARQUIS DATE OF : 1960 DATE OF ADMISSION: 05/27/2020 12:37 (CASING OPERATOR) ACUTE STROKECHIEF COMPLAINT: Stroke with left sided weakness. SUBJECTIVE: Pt denied any Shortness of Breath. Pt denied any depression. CBC with differential is normal. Glucose 153 to 208. UA is negative. Ambulated 1000' with standby assistance using a rolling walker. Up and down 15 steps with standby ass istance. VITAL SIGNS Temperature: 97.4 F SBP/DBP: 130/85 Pulse: 60 Resp: 16 MEDICATION ALLERGIES: No Known Drug Allergies (NKDA) ENVIRONMENTAL ALLERGIES: - Substance Allergies None Known - Other Allergies None Known NURSING: - Shower allowing shower - Bladder care per protocol - Skin care per protocol PRECAUTIONS: - Weight Bearing Precaution WBAT left LE ACTIVITIES OOB only with supervision THERAPIES: - Occupational Therapy Cognitive Retraining. Visual Perceptual Training. - Dietary and Nutrition Adequate Nutrition. Nutritional Education. Nutritional Supplements. - Speech Therapy Cognitive Training. Expressive Language Skills. Memory Strategies. Receptive Language Skills. Speech Intelligibility Training. PHYSICAL EXAM - Gen Alert and awake Lying in bed No apparent distress Oriented to: person, time, and place - Skin No skin breakdown. Normacephalic - Eyes No abnormalities - ENMT No abnormalities - Neck No abnormalities No cervical adenopathy - CVS RRR - Chest No abnormalities - Resp Clear to auscultation - Abd + bowel sounds - GI Soft No abnormalities - No abnormalities - Ext No significant edema - MSK 4+/5 weakness in left upper and lower extremity - Neuro 4/5 strength left upper and lower extremities. - Psych No abnormalities ASSESSMENT: Pt. is a 59 yo Right-handed male of unknown race.On 05/20/2020 Pt. presented to [facility] with s udden onset of left-side weakness.On 05/20/2020 he was admitted to [facility] with diagnosis ACUT E STROKE.His impairment category is Stroke 01 - Left Body (Right Brain) (01.1).Pre-morbidly, Pt. was independent/mod-I in Locomotion, Balance, Transfers Control, Endurance, Self-Care, and Sphincter Con trol; and he had good Communication.Currently, he has deficits of Safety Awareness, Balance, Enduranc e, Sphincter Control, and Locomotion.Pt. is now referred to [facility] for acu te in-patient rehabilitation in order to maximize patient's functional independence in activities of daily living, strength, ROM, and mobility.- Rehab Goal Patient has realistic goal of being discharged at assistance level 7-Ind to reside at Home with Fami ly/Relatives. MDM/PLAN: - Physical Therapy Gait dysfunction - to improve, our physical therapists will perform initial evaluation of pt's statu s upon admission and devise an individualized program for Gait Training, and Wheel Chair mobility Need for home safety evaluation - to improve, our physical therapists will perform initial evaluatio n of pt's status upon admission and devise an individualized program for Home Evaluation Need in caregiver upon discharge - to improve, our physical therapists will perform initial evaluati on of pt's status upon admission and devise an individualized program for Caregiver Training New precaution - to improve, our physical therapists will perform initial evaluation of pt's status upon admission and devise an individualized program for Patient precaution education Edema - to improve, our physical therapists will perform initial evaluation of pt's status upon admis jey and devise an individualized program for Elevation Training, and Lymphedema Therapy Poor balance - to improve, our physical therapists will perform initial evaluation of pt's status up on admission and devise an individualized program for Balance Training Poor endurance - to improve, our physical therapists will perform initial evaluation of pt's status upon admission and devise an individualized program for Endurance Training Weakness - to improve, our physical therapists will perform initial evaluation of pt's status upon a dmission and devise an individualized program for Aquatic Therapy, Neuromuscular Reeducation, and Str engthening Achieving independence - to improve, our physical therapists will perform initial evaluation of pt's status upon admission and devise an individualized program for Community Reintegration Activities - Occupational Therapy Need for team primary care physician - to improve, our occupation therapists will perform initial evaluation of pt's status upon admission and devise an individualized program for Caregiver Training Weakness - to improve, our occupation therapists will perform initial evaluation of pt's status upon admission and devise an individualized program for Aquatic Therapy, Balance, Endurance, UE ROM, and UE strengthening - Other See attached MAR (Medication Administration Record) - Diet Type Continue Regular - Diet - Liquid Texture Continue Regular - Tube Feed Continue N/A - Bladder care per protocol - Weight Bearing Precaution WBAT left LE - Skin care per protocol - Diet - Solid Texture Continue Regular - Shower allowing shower for Dementia, TBI, Stroke, or others FUNCTIONAL STATUS: UPDATED AT WEEKLY TEAM CONFERENCE - Bladder Same accident frequency: 7-Ind - No accidents in the past 7 days - Bowel Same accident frequency: 7-Ind - No accidents in the past 7 days - Walking Same score based on distance walked: 0(N/A) Same score based on distance walked: 1(<=50ft) - Wheelchair Same score based on distance traveled: 0(N/A) FUNCTIONAL STATUS: - Self-Care A. Eating Ind B. Grooming Ind C. Bathing sup D. Dressing - Upper sup E. Dressing - Lower Brigid F. Toileting Jodi - Sphincter Control G. Bladder control Jodi H. Bowel control Jodi - Transfers Control I. Bed/Chair/Wheelchair sup J. Toilet sup K. Tub/Shower Brigid - Locomotion L. Walk/Wheelchair (B) sup M. Stairs sup - Communication N. Comprehension (B) Ind O. Expression (B) Ind - Social Cognition P. Social Interaction Ind Q. Problem Solving Jodi R. Memory Ind - Endurance Good - Balance Good - Safety Awareness Good QI SCORES: - Self-Care A. Eating 03-Partial/moderate assistance B. Oral hygiene 03-Partial/moderate assistance C. Toileting hygiene 03-Partial/moderate assistance E. Shower/bathe self 03-Partial/moderate assistance F. Upper body dressing 03-Partial/moderate assistance G. Lower body dressing 03-Partial/moderate assistance H. Putting on/taking off footwear 88-Not attempted due to medical condition or safety concerns - Mobility A. Roll left and right 03-Partial/moderate assistance B. Sit to lying 03-Partial/moderate assistance C. Lying to sitting on side of bed 03-Partial/moderate assistance D. Sit to stand 03-Partial/moderate assistance E. Chair/bbn-wr-hytqb transfer 03-Partial/moderate assistance F. Toilet transfer 03-Partial/moderate assistance G. Car transfer 88-Not attempted due to medical condition or safety concerns I. Walk 10 feet 88-Not attempted due to medical condition or safety concerns J. Walk 50 feet with two turns 88-Not attempted due to medical condition or safety concerns K. Walk 150 feet 88-Not attempted due to medical condition or safety concerns L. Walking 10 feet on uneven surfaces 88-Not attempted due to medical condition or safety concerns M. 1 step (curb) 88-Not attempted due to medical condition or safety concerns N. 4 steps 88-Not attempted due to medical condition or safety concerns O. 12 steps 88-Not attempted due to medical condition or safety concerns P. Picking up object 88-Not attempted due to medical condition or safety concerns R. Wheel 50 feet with two turns 88-Not attempted due to medical condition or safety concerns S. Wheel 150 feet 88-Not attempted due to medical condition or safety concerns - Bladder and Bowel Bladder continence Bowel continence - Endurance Poor - Balance Poor - Safety Awareness Poor CURRENT FUNC. DEFICITS: Self-Care, Mobility, Endurance, Balance, and Safety Awareness SIGNATURE PANEL: (CASING OPERATOR)
[2020-05-30] MEDS: BACLOFEN 10 MG TAB PO SCH (20:36)
[2020-05-30] MEDS: ROSUVASTATIN 10 MG TAB PO SCH (20:36)
[2020-05-30] MEDS: MELATONIN 3 MG TABLET PO PRN (22:45)
[2020-05-31] MEDS: METOPROLOL XL 50 MG TAB PO SCH (05:19)
[2020-05-31] MEDS: PANTOPRAZOLE 40MG TABLET PO SCH (06:37)
[2020-05-31] MEDS: LIDOCAINE 4% PATCH TOP SCH (06:37)
[2020-05-31] MEDS: INSULIN -REGULAR HUMAN 50 UNIT/0.5 ML ML SQ SCH ×4 (07:30→19:28)
[2020-05-31] MEDS: INSULIN GLARGINE 100 UNITS/ML SQ SCH (08:15)
[2020-05-31] MEDS: VITAMIN D 1000 UNIT TAB PO SCH (08:16)
[2020-05-31] MEDS: TICAGRELOR 90 MG TABLET PO SCH ×2 (08:16→19:17)
[2020-05-31] MEDS: MULTIVITAMIN TAB PO SCH (08:16)
[2020-05-31] MEDS: SITAGLIPTIN PHOS 100 MG TAB PO SCH (08:16)
[2020-05-31] MEDS: ASPIRIN 81 MG CHEWABLE TABLET PO SCH (08:17)
[2020-05-31] MEDS: lisinopriL 20 MG TAB PO SCH (08:17)
[2020-05-31] MEDS: FAMOTIDINE 20 MG TAB PO SCH ×2 (08:17→19:17)
[2020-05-31] MEDS: CRANBERRY FRUIT EXTRACT 200 MG CAP PO SCH ×2 (08:17→19:17)
[2020-05-31] MEDS: METFORMIN HCL 500 MG TAB PO SCH ×2 (08:17→17:23)
[2020-05-31] MEDS: ACETAMINOPHEN 325 MG TABLET PO PRN (08:52)
--- NOTE | 2020-05-31 17:16 | R.PN ---
PROGRESS NOTES ENCOUNTER DATE AND TIME: 05/31/2020 17:11 (COMPENSATION SPECIALIST) NAME LAMBERT MARQUIS DATE OF : 1960 DATE OF ADMISSION: 05/27/2020 12:37 (COMPENSATION SPECIALIST) ACUTE STROKECHIEF COMPLAINT: Stroke with left sided weakness. SUBJECTIVE: Pt denied any Shortness of Breath. Pt denied any depression. CBC with differential is normal. Glucose 112 to 149. UA is negative. Ambulated 730' with standby assistance using a rolling walker and quad cane. VITAL SIGNS Temperature: 98.7 F SBP/DBP: 149/93 Pulse: 60 Resp: 16 MEDICATION ALLERGIES: No Known Drug Allergies (NKDA) ENVIRONMENTAL ALLERGIES: - Substance Allergies None Known - Other Allergies None Known NURSING: - Shower allowing shower - Bladder care per protocol - Skin care per protocol PRECAUTIONS: - Weight Bearing Precaution WBAT left LE ACTIVITIES OOB only with supervision THERAPIES: - Occupational Therapy Cognitive Retraining. Visual Perceptual Training. - Dietary and Nutrition Adequate Nutrition. Nutritional Education. Nutritional Supplements. - Speech Therapy Cognitive Training. Expressive Language Skills. Memory Strategies. Receptive Language Skills. Speech Intelligibility Training. PHYSICAL EXAM - Gen Alert and awake Lying in bed No apparent distress Oriented to: person, time, and place - Skin No skin breakdown. Normacephalic - Eyes No abnormalities - ENMT No abnormalities - Neck No abnormalities No cervical adenopathy - CVS RRR - Chest No abnormalities - Resp Clear to auscultation - Abd + bowel sounds - GI Soft No abnormalities - No abnormalities - Ext No significant edema - MSK 4+/5 weakness in left upper and lower extremity - Neuro 4/5 strength left upper and lower extremities. - Psych No abnormalities ASSESSMENT: Pt. is a 59 yo Right-handed male of unknown race.On 05/20/2020 Pt. presented to [facility] with s udden onset of left-side weakness.On 05/20/2020 he was admitted to [facility] with diagnosis ACUT E STROKE.His impairment category is Stroke 01 - Left Body (Right Brain) (01.1).Pre-morbidly, Pt. was independent/mod-I in Locomotion, Balance, Transfers Control, Endurance, Self-Care, and Sphincter Con trol; and he had good Communication.Currently, he has deficits of Safety Awareness, Balance, Enduranc e, Sphincter Control, and Locomotion.Pt. is now referred to [facility] for acu te in-patient rehabilitation in order to maximize patient's functional independence in activities of daily living, strength, ROM, and mobility.- Rehab Goal Patient has realistic goal of being discharged at assistance level 7-Ind to reside at Home with Fami ly/Relatives. MDM/PLAN: - Physical Therapy Gait dysfunction - to improve, our physical therapists will perform initial evaluation of pt's statu s upon admission and devise an individualized program for Gait Training, and Wheel Chair mobility Need for home safety evaluation - to improve, our physical therapists will perform initial evaluatio n of pt's status upon admission and devise an individualized program for Home Evaluation Need in caregiver upon discharge - to improve, our physical therapists will perform initial evaluati on of pt's status upon admission and devise an individualized program for Caregiver Training New precaution - to improve, our physical therapists will perform initial evaluation of pt's status upon admission and devise an individualized program for Patient precaution education Edema - to improve, our physical therapists will perform initial evaluation of pt's status upon admi ssion and devise an individualized program for Elevation Training, and Lymphedema Therapy Poor balance - to improve, our physical therapists will perform initial evaluation of pt's status up on admission and devise an individualized program for Balance Training Poor endurance - to improve, our physical therapists will perform initial evaluation of pt's status upon admission and devise an individualized program for Endurance Training Weakness - to improve, our physical therapists will perform initial evaluation of pt's status upon a dmission and devise an individualized program for Aquatic Therapy, Neuromuscular Reeducation, and Str engthening Achieving independence - to improve, our physical therapists will perform initial evaluation of pt's status upon admission and devise an individualized program for Community Reintegration Activities - Occupational Therapy Need for lawn care worker - to improve, our occupation therapists will perform initial evaluation of pt's status upon admission and devise an individualized program for Caregiver Training Weakness - to improve, our occupation therapists will perform initial evaluation of pt's status upon admission and devise an individualized program for Aquatic Therapy, Balance, Endurance, UE ROM, and UE strengthening - Other See attached MAR (Medication Administration Record) - Diet Type Continue Regular - Diet - Liquid Texture Continue Regular - Tube Feed Continue N/A - Bladder care per protocol - Weight Bearing Precaution WBAT left LE - Skin care per protocol - Diet - Solid Texture Continue Regular - Shower allowing shower for Dementia, TBI, Stroke, or others FUNCTIONAL STATUS: UPDATED AT WEEKLY TEAM CONFERENCE - Bladder Same accident frequency: 7-Ind - No accidents in the past 7 days - Bowel Same accident frequency: 7-Ind - No accidents in the past 7 days - Walking Same score based on distance walked: 0(N/A) Same score based on distance walked: 1(<=50ft) - Wheelchair Same score based on distance traveled: 0(N/A) FUNCTIONAL STATUS: - Self-Care A. Eating Ind B. Grooming Ind C. Bathing sup D. Dressing - Upper sup E. Dressing - Lower Brigid F. Toileting Jodi - Sphincter Control G. Bladder control Jodi H. Bowel control Jodi - Transfers Control I. Bed/Chair/Wheelchair sup J. Toilet sup K. Tub/Shower Brigid - Locomotion L. Walk/Wheelchair (B) sup M. Stairs sup - Communication N. Comprehension (B) Ind O. Expression (B) Ind - Social Cognition P. Social Interaction Ind Q. Problem Solving Jodi R. Memory Ind - Endurance Good - Balance Good - Safety Awareness Good QI SCORES: - Self-Care A. Eating 03-Partial/moderate assistance B. Oral hygiene 03-Partial/moderate assistance C. Toileting hygiene 03-Partial/moderate assistance E. Shower/bathe self 03-Partial/moderate assistance F. Upper body dressing 03-Partial/moderate assistance G. Lower body dressing 03-Partial/moderate assistance H. Putting on/taking off footwear 88-Not attempted due to medical condition or safety concerns - Mobility A. Roll left and right 03-Partial/moderate assistance B. Sit to lying 03-Partial/moderate assistance C. Lying to sitting on side of bed 03-Partial/moderate assistance D. Sit to stand 03-Partial/moderate assistance E. Chair/mla-ap-eqfaq transfer 03-Partial/moderate assistance F. Toilet transfer 03-Partial/moderate assistance G. Car transfer 88-Not attempted due to medical condition or safety concerns I. Walk 10 feet 88-Not attempted due to medical condition or safety concerns J. Walk 50 feet with two turns 88-Not attempted due to medical condition or safety concerns K. Walk 150 feet 88-Not attempted due to medical condition or safety concerns L. Walking 10 feet on uneven surfaces 88-Not attempted due to medical condition or safety concerns M. 1 step (curb) 88-Not attempted due to medical condition or safety concerns N. 4 steps 88-Not attempted due to medical condition or safety concerns O. 12 steps 88-Not attempted due to medical condition or safety concerns P. Picking up object 88-Not attempted due to medical condition or safety concerns R. Wheel 50 feet with two turns 88-Not attempted due to medical condition or safety concerns S. Wheel 150 feet 88-Not attempted due to medical condition or safety concerns - Bladder and Bowel Bladder continence Bowel continence - Endurance Poor - Balance Poor - Safety Awareness Poor CURRENT FUNC. DEFICITS: Self-Care, Mobility, Endurance, Balance, and Safety Awareness SIGNATURE PANEL: (COMPENSATION SPECIALIST)
[2020-05-31] MEDS: BACLOFEN 10 MG TAB PO SCH (19:18)
[2020-05-31] MEDS: ROSUVASTATIN 10 MG TAB PO SCH (19:18)
[2020-05-31] MEDS: MELATONIN 3 MG TABLET PO PRN (19:25)
[2020-06-01] MEDS: METOPROLOL XL 50 MG TAB PO SCH (05:43)
[2020-06-01] MEDS: PANTOPRAZOLE 40MG TABLET PO SCH (07:00)
[2020-06-01] MEDS: INSULIN -REGULAR HUMAN 50 UNIT/0.5 ML ML SQ SCH ×4 (07:30→20:30)
[2020-06-01] MEDS: CRANBERRY FRUIT EXTRACT 200 MG CAP PO SCH ×2 (07:49→20:13)
[2020-06-01] MEDS: FAMOTIDINE 20 MG TAB PO SCH ×2 (07:49→20:12)
[2020-06-01] MEDS: LIDOCAINE 4% PATCH TOP SCH (07:49)
[2020-06-01] MEDS: VITAMIN D 1000 UNIT TAB PO SCH (07:50)
[2020-06-01] MEDS: ASPIRIN 81 MG CHEWABLE TABLET PO SCH (07:50)
[2020-06-01] MEDS: lisinopriL 20 MG TAB PO SCH (07:50)
[2020-06-01] MEDS: METFORMIN HCL 500 MG TAB PO SCH ×2 (07:51→17:04)
[2020-06-01] MEDS: MULTIVITAMIN TAB PO SCH (07:51)
[2020-06-01] MEDS: INSULIN GLARGINE 100 UNITS/ML SQ SCH (07:51)
[2020-06-01] MEDS: SITAGLIPTIN PHOS 100 MG TAB PO SCH (07:51)
[2020-06-01] MEDS: TICAGRELOR 90 MG TABLET PO SCH ×2 (07:53→20:12)
[2020-06-01] MEDS: ROSUVASTATIN 10 MG TAB PO SCH (20:12)
[2020-06-01] MEDS: BACLOFEN 10 MG TAB PO SCH (20:13)
[2020-06-01] MEDS: MELATONIN 3 MG TABLET PO PRN (20:29)
--- NOTE | 2020-06-02 02:39 | R.PN ---
PROGRESS NOTES ENCOUNTER DATE AND TIME: 06/01/2020 19:02 (HEADLIGHT ADJUSTER) NAME LAMBERT MARQUIS DATE OF : 1960 DATE OF ADMISSION: 05/27/2020 12:37 (HEADLIGHT ADJUSTER) ACUTE STROKECHIEF COMPLAINT: Stroke with left sided weakness. SUBJECTIVE: Pt denied any Shortness of Breath. Pt denied any depression. CBC with differential is normal. Glucose 141 - 202. UA is negative. Ambulated 500' with standby assistance using a rolling walker. Ambulated 250' without an assistive d evice and contact guard. VITAL SIGNS Temperature: 98.2 F SBP/DBP: 131/68 Pulse: 58 Resp: 16 MEDICATION ALLERGIES: No Known Drug Allergies (NKDA) ENVIRONMENTAL ALLERGIES: - Substance Allergies None Known - Other Allergies None Known NURSING: - Shower allowing shower - Bladder care per protocol - Skin care per protocol PRECAUTIONS: - Weight Bearing Precaution WBAT left LE ACTIVITIES OOB only with supervision THERAPIES: - Occupational Therapy Cognitive Retraining. Visual Perceptual Training. - Dietary and Nutrition Adequate Nutrition. Nutritional Education. Nutritional Supplements. - Speech Therapy Cognitive Training. Expressive Language Skills. Memory Strategies. Receptive Language Skills. Speech Intelligibility Training. PHYSICAL EXAM - Gen Alert and awake Lying in bed No apparent distress Oriented to: person, time, and place - Skin No skin breakdown. Normacephalic - Eyes No abnormalities - ENMT No abnormalities - Neck No abnormalities No cervical adenopathy - CVS RRR - Chest No abnormalities - Resp Clear to auscultation - Abd + bowel sounds - GI Soft No abnormalities - No abnormalities - Ext No significant edema - MSK 4+/5 weakness in left upper and lower extremity - Neuro 4/5 strength left upper and lower extremities. - Psych No abnormalities ASSESSMENT: Pt. is a 59 yo Right-handed male of unknown race.On 05/20/2020 Pt. presented to [facility] with s udden onset of left-side weakness.On 05/20/2020 he was admitted to [facility] with diagnosis ACUT E STROKE.His impairment category is Stroke 01 - Left Body (Right Brain) (01.1).Pre-morbidly, Pt. was independent/mod-I in Locomotion, Balance, Transfers Control, Endurance, Self-Care, and Sphincter Con trol; and he had good Communication.Currently, he has deficits of Safety Awareness, Balance, Enduranc e, Sphincter Control, and Locomotion.Pt. is now referred to [facility] for acu te in-patient rehabilitation in order to maximize patient's functional independence in activities of daily living, strength, ROM, and mobility.- Rehab Goal Patient has realistic goal of being discharged at assistance level 7-Ind to reside at Home with Fami ly/Relatives. MDM/PLAN: - Physical Therapy Gait dysfunction - to improve, our physical therapists will perform initial evaluation of pt's statu s upon admission and devise an individualized program for Gait Training, and Wheel Chair mobility Need for home safety evaluation - to improve, our physical therapists will perform initial evaluatio n of pt's status upon admission and devise an individualized program for Home Evaluation Need in caregiver upon discharge - to improve, our physical therapists will perform initial evaluati on of pt's status upon admission and devise an individualized program for Caregiver Training New precaution - to improve, our physical therapists will perform initial evaluation of pt's status upon admission and devise an individualized program for Patient precaution education Edema - to improve, our physical therapists will perform initial evaluation of pt's status upon admi ssion and devise an individualized program for Elevation Training, and Lymphedema Therapy Poor balance - to improve, our physical therapists will perform initial evaluation of pt's status up on admission and devise an individualized program for Balance Training Poor endurance - to improve, our physical therapists will perform initial evaluation of pt's status upon admission and devise an individualized program for Endurance Training Weakness - to improve, our physical therapists will perform initial evaluation of pt's status upon a dmission and devise an individualized program for Aquatic Therapy, Neuromuscular Reeducation, and Str engthening Achieving independence - to improve, our physical therapists will perform initial evaluation of pt's status upon admission and devise an individualized program for Community Reintegration Activities - Occupational Therapy Need for primary care nurse practitioner - to improve, our occupation therapists will perform initial evaluation of pt's status upon admission and devise an individualized program for Caregiver Training Weakness - to improve, our occupation therapists will perform initial evaluation of pt's status upon admission and devise an individualized program for Aquatic Therapy, Balance, Endurance, UE ROM, and UE strengthening - Other See attached MAR (Medication Administration Record) - Diet Type Continue Regular - Diet - Liquid Texture Continue Regular - Tube Feed Continue N/A - Bladder care per protocol - Weight Bearing Precaution WBAT left LE - Skin care per protocol - Diet - Solid Texture Continue Regular - Shower allowing shower for Dementia, TBI, Stroke, or others FUNCTIONAL STATUS: UPDATED AT WEEKLY TEAM CONFERENCE - Bladder Same accident frequency: 7-Ind - No accidents in the past 7 days - Bowel Same accident frequency: 7-Ind - No accidents in the past 7 days - Walking Same score based on distance walked: 0(N/A) Same score based on distance walked: 1(<=50ft) - Wheelchair Same score based on distance traveled: 0(N/A) FUNCTIONAL STATUS: - Self-Care A. Eating Ind B. Grooming Ind C. Bathing sup D. Dressing - Upper sup E. Dressing - Lower Brigid F. Toileting Jodi - Sphincter Control G. Bladder control Jodi H. Bowel control Jodi - Transfers Control I. Bed/Chair/Wheelchair sup J. Toilet sup K. Tub/Shower Brigid - Locomotion L. Walk/Wheelchair (B) sup M. Stairs sup - Communication N. Comprehension (B) Ind O. Expression (B) Ind - Social Cognition P. Social Interaction Ind Q. Problem Solving Jodi R. Memory Ind - Endurance Good - Balance Good - Safety Awareness Good QI SCORES: - Self-Care A. Eating 03-Partial/moderate assistance B. Oral hygiene 03-Partial/moderate assistance C. Toileting hygiene 03-Partial/moderate assistance E. Shower/bathe self 03-Partial/moderate assistance F. Upper body dressing 03-Partial/moderate assistance G. Lower body dressing 03-Partial/moderate assistance H. Putting on/taking off footwear 88-Not attempted due to medical condition or safety concerns - Mobility A. Roll left and right 03-Partial/moderate assistance B. Sit to lying 03-Partial/moderate assistance C. Lying to sitting on side of bed 03-Partial/moderate assistance D. Sit to stand 03-Partial/moderate assistance E. Chair/hlh-[id number]-[id number] transfer 03-Partial/moderate assistance F. Toilet transfer 03-Partial/moderate assistance G. Car transfer 88-Not attempted due to medical condition or safety concerns I. Walk 10 feet 88-Not attempted due to medical condition or safety concerns J. Walk 50 feet with two turns 88-Not attempted due to medical condition or safety concerns K. Walk 150 feet 88-Not attempted due to medical condition or safety concerns L. Walking 10 feet on uneven surfaces 88-Not attempted due to medical condition or safety concerns M. 1 step (curb) 88-Not attempted due to medical condition or safety concerns N. 4 steps 88-Not attempted due to medical condition or safety concerns O. 12 steps 88-Not attempted due to medical condition or safety concerns P. Picking up object 88-Not attempted due to medical condition or safety concerns R. Wheel 50 feet with two turns 88-Not attempted due to medical condition or safety concerns S. Wheel 150 feet 88-Not attempted due to medical condition or safety concerns - Bladder and Bowel Bladder continence Bowel continence - Endurance Poor - Balance Poor - Safety Awareness Poor CURRENT FUNC. DEFICITS: Self-Care, Mobility, Endurance, Balance, and Safety Awareness SIGNATURE PANEL: (HEADLIGHT ADJUSTER)
[2020-06-02] MEDS: METOPROLOL XL 50 MG TAB PO SCH (05:22)
[2020-06-02] MEDS: ACETAMINOPHEN 500 MG TAB PO PRN ×2 (05:26→12:43)
[2020-06-02 06:27] LABS: Absolute Lymphocytes (CBC) 1.5 K/uL (0.7-4.9); Basophils % 0.5 % (0-1.3); Hematocrit 42.7 % (39.6-49.0); Lymphocytes % 29.5 % (15.3-44.8); MPV 8.1 fL (7.6-11.3); RBC Red Blood Cell Count 4.83 M/uL (4.33-5.43)
[2020-06-02 06:47] LABS: Albumin 3.7 g/dL (3.4-5.0); Magnesium 1.9 mg/dL (1.8-2.4); Potassium 3.9 mmol/L (3.5-5.1); Prealbumin 30.6 mg/dL (20-40)
[2020-06-02] MEDS: INSULIN -REGULAR HUMAN 50 UNIT/0.5 ML ML SQ SCH ×4 (07:30→19:45)
[2020-06-02] MEDS: FAMOTIDINE 20 MG TAB PO SCH (08:00)
[2020-06-02] MEDS: LIDOCAINE 4% PATCH TOP SCH (08:00)
[2020-06-02] MEDS: PANTOPRAZOLE 40MG TABLET PO SCH (08:16)
[2020-06-02] MEDS: CRANBERRY FRUIT EXTRACT 200 MG CAP PO SCH ×2 (08:16→19:33)
[2020-06-02] MEDS: ASPIRIN 81 MG CHEWABLE TABLET PO SCH (08:17)
[2020-06-02] MEDS: INSULIN GLARGINE 100 UNITS/ML SQ SCH (08:18)
[2020-06-02] MEDS: METFORMIN HCL 500 MG TAB PO SCH ×2 (08:18→17:04)
[2020-06-02] MEDS: VITAMIN D 1000 UNIT TAB PO SCH (08:18)
[2020-06-02] MEDS: SITAGLIPTIN PHOS 100 MG TAB PO SCH (08:18)
[2020-06-02] MEDS: MULTIVITAMIN TAB PO SCH (08:18)
[2020-06-02] MEDS: TICAGRELOR 90 MG TABLET PO SCH ×2 (09:42→19:33)
[2020-06-02] MEDS: lisinopriL 20 MG TAB PO SCH (09:43)
--- NOTE | 2020-06-02 18:23 | R.PN ---
PROGRESS NOTES ENCOUNTER DATE AND TIME: 06/02/2020 18:18 (E COMMERCE MARKETING MANAGER) NAME LAMBERT MARQUIS DATE OF : 1960 DATE OF ADMISSION: 05/27/2020 12:37 (E COMMERCE MARKETING MANAGER) ACUTE STROKECHIEF COMPLAINT: Stroke with left sided weakness. SUBJECTIVE: Pt denied any Shortness of Breath. Pt denied any depression. CBC with differential is normal. Glucose 111 to 166, prealbumin 30.6. UA is negative. Up and down 15 steps with contact guard assistance. Self-propelled wheelchair 250' with supervision. VITAL SIGNS Temperature: 97.5 F SBP/DBP: 132/81 Pulse: 71 Resp: 16 MEDICATION ALLERGIES: No Known Drug Allergies (NKDA) ENVIRONMENTAL ALLERGIES: - Substance Allergies None Known - Other Allergies None Known NURSING: - Shower allowing shower - Bladder care per protocol - Skin care per protocol PRECAUTIONS: - Weight Bearing Precaution WBAT left LE ACTIVITIES OOB only with supervision THERAPIES: - Occupational Therapy Cognitive Retraining. Visual Perceptual Training. - Dietary and Nutrition Adequate Nutrition. Nutritional Education. Nutritional Supplements. - Speech Therapy Cognitive Training. Expressive Language Skills. Memory Strategies. Receptive Language Skills. Speech Intelligibility Training. PHYSICAL EXAM - Gen Alert and awake Lying in bed No apparent distress Oriented to: person, time, and place - Skin No skin breakdown. Normacephalic - Eyes No abnormalities - ENMT No abnormalities - Neck No abnormalities No cervical adenopathy - CVS RRR - Chest No abnormalities - Resp Clear to auscultation - Abd + bowel sounds - GI Soft No abnormalities - No abnormalities - Ext No significant edema - MSK 4+/5 weakness in left upper and lower extremity - Neuro 4/5 strength left upper and lower extremities. - Psych No abnormalities ASSESSMENT: Pt. is a 59 yo Right-handed male of unknown race.On 05/20/2020 Pt. presented to [facility] with s udden onset of left-side weakness.On 05/20/2020 he was admitted to [facility] with diagnosis ACUT E STROKE.His impairment category is Stroke 01 - Left Body (Right Brain) (01.1).Pre-morbidly, Pt. was independent/mod-I in Locomotion, Balance, Transfers Control, Endurance, Self-Care, and Sphincter Con trol; and he had good Communication.Currently, he has deficits of Safety Awareness, Balance, Enduranc e, Sphincter Control, and Locomotion.Pt. is now referred to [facility] for acu te in-patient rehabilitation in order to maximize patient's functional independence in activities of daily living, strength, ROM, and mobility.- Rehab Goal Patient has realistic goal of being discharged at assistance level 7-Ind to reside at Home with Fami ly/Relatives. MDM/PLAN: - Physical Therapy Gait dysfunction - to improve, our physical therapists will perform initial evaluation of pt's statu s upon admission and devise an individualized program for Gait Training, and Wheel Chair mobility Need for home safety evaluation - to improve, our physical therapists will perform initial evaluatio n of pt's status upon admission and devise an individualized program for Home Evaluation Need in caregiver upon discharge - to improve, our physical therapists will perform initial evaluati on of pt's status upon admission and devise an individualized program for Caregiver Training New precaution - to improve, our physical therapists will perform initial evaluation of pt's status upon admission and devise an individualized program for Patient precaution education Edema - to improve, our physical therapists will perform initial evaluation of pt's status upon admi ssion and devise an individualized program for Elevation Training, and Lymphedema Therapy Poor balance - to improve, our physical therapists will perform initial evaluation of pt's status up on admission and devise an individualized program for Balance Training Poor endurance - to improve, our physical therapists will perform initial evaluation of pt's status upon admission and devise an individualized program for Endurance Training Weakness - to improve, our physical therapists will perform initial evaluation of pt's status upon a dmission and devise an individualized program for Aquatic Therapy, Neuromuscular Reeducation, and Str engthening Achieving independence - to improve, our physical therapists will perform initial evaluation of pt's status upon admission and devise an individualized program for Community Reintegration Activities - Occupational Therapy Need for progressive care nurse - to improve, our occupation therapists will perform initial evaluation of pt's status upon admission and devise an individualized program for Caregiver Training Weakness - to improve, our occupation therapists will perform initial evaluation of pt's status upon admission and devise an individualized program for Aquatic Therapy, Balance, Endurance, UE ROM, and UE strengthening - Other See attached MAR (Medication Administration Record) - Diet Type Continue Regular - Diet - Liquid Texture Continue Regular - Tube Feed Continue N/A - Bladder care per protocol - Weight Bearing Precaution WBAT left LE - Skin care per protocol - Diet - Solid Texture Continue Regular - Shower allowing shower for Dementia, TBI, Stroke, or others FUNCTIONAL STATUS: UPDATED AT WEEKLY TEAM CONFERENCE - Bladder Same accident frequency: 7-Ind - No accidents in the past 7 days - Bowel Same accident frequency: 7-Ind - No accidents in the past 7 days - Walking Same score based on distance walked: 0(N/A) Same score based on distance walked: 1(<=50ft) - Wheelchair Same score based on distance traveled: 0(N/A) FUNCTIONAL STATUS: - Self-Care A. Eating Ind B. Grooming Ind C. Bathing sup D. Dressing - Upper sup E. Dressing - Lower Brigid F. Toileting Jodi - Sphincter Control G. Bladder control Jodi H. Bowel control Jodi - Transfers Control I. Bed/Chair/Wheelchair sup J. Toilet sup K. Tub/Shower Brigid - Locomotion L. Walk/Wheelchair (B) sup M. Stairs sup - Communication N. Comprehension (B) Ind O. Expression (B) Ind - Social Cognition P. Social Interaction Ind Q. Problem Solving Jodi R. Memory Ind - Endurance Good - Balance Good - Safety Awareness Good QI SCORES: - Self-Care A. Eating 03-Partial/moderate assistance B. Oral hygiene 03-Partial/moderate assistance C. Toileting hygiene 03-Partial/moderate assistance E. Shower/bathe self 03-Partial/moderate assistance F. Upper body dressing 03-Partial/moderate assistance G. Lower body dressing 03-Partial/moderate assistance H. Putting on/taking off footwear 88-Not attempted due to medical condition or safety concerns - Mobility A. Roll left and right 03-Partial/moderate assistance B. Sit to lying 03-Partial/moderate assistance C. Lying to sitting on side of bed 03-Partial/moderate assistance D. Sit to stand 03-Partial/moderate assistance E. Chair/jit-jc-hhaib transfer 03-Partial/moderate assistance F. Toilet transfer 03-Partial/moderate assistance G. Car transfer 88-Not attempted due to medical condition or safety concerns I. Walk 10 feet 88-Not attempted due to medical condition or safety concerns J. Walk 50 feet with two turns 88-Not attempted due to medical condition or safety concerns K. Walk 150 feet 88-Not attempted due to medical condition or safety concerns L. Walking 10 feet on uneven surfaces 88-Not attempted due to medical condition or safety concerns M. 1 step (curb) 88-Not attempted due to medical condition or safety concerns N. 4 steps 88-Not attempted due to medical condition or safety concerns O. 12 steps 88-Not attempted due to medical condition or safety concerns P. Picking up object 88-Not attempted due to medical condition or safety concerns R. Wheel 50 feet with two turns 88-Not attempted due to medical condition or safety concerns S. Wheel 150 feet 88-Not attempted due to medical condition or safety concerns - Bladder and Bowel Bladder continence Bowel continence - Endurance Poor - Balance Poor - Safety Awareness Poor CURRENT FUNC. DEFICITS: Self-Care, Mobility, Endurance, Balance, and Safety Awareness SIGNATURE PANEL: (E [employer]ER[employer] MARKETING MANAGER)
[2020-06-02] MEDS: BACLOFEN 10 MG TAB PO SCH (19:33)
[2020-06-02] MEDS: ROSUVASTATIN 10 MG TAB PO SCH (19:34)
[2020-06-03] MEDS: METOPROLOL XL 50 MG TAB PO SCH (06:22)
[2020-06-03] MEDS: PANTOPRAZOLE 40MG TABLET PO SCH (06:31)
[2020-06-03] MEDS: INSULIN -REGULAR HUMAN 50 UNIT/0.5 ML ML SQ SCH ×4 (07:30→19:33)
[2020-06-03] MEDS: LIDOCAINE 4% PATCH TOP SCH (08:00)
[2020-06-03] MEDS: INSULIN GLARGINE 100 UNITS/ML SQ SCH (08:07)
[2020-06-03] MEDS: SITAGLIPTIN PHOS 100 MG TAB PO SCH (08:08)
[2020-06-03] MEDS: CRANBERRY FRUIT EXTRACT 200 MG CAP PO SCH ×2 (08:08→19:30)
[2020-06-03] MEDS: TICAGRELOR 90 MG TABLET PO SCH ×2 (08:09→19:30)
[2020-06-03] MEDS: METFORMIN HCL 500 MG TAB PO SCH ×2 (08:09→17:08)
[2020-06-03] MEDS: lisinopriL 20 MG TAB PO SCH (08:09)
[2020-06-03] MEDS: ASPIRIN 81 MG CHEWABLE TABLET PO SCH (08:09)
[2020-06-03] MEDS: MULTIVITAMIN TAB PO SCH (08:09)
[2020-06-03] MEDS: VITAMIN D 1000 UNIT TAB PO SCH (08:10)
--- NOTE | 2020-06-03 09:38 | P.RH.PN ---
Estimated Length of Stay: 14 Expected Discharge Date: 06/08/20 Discharge Disposition Plan: Home Family Support: Yes Half-Way Goal: Mobility, Transfers, Self Care Vital Signs: Last Vital Signs Temp 98.6 F 06/03/20 08:53 Pulse 76 06/03/20 08:53 Resp 16 06/03/20 08:53 BP 150/73 H 06/03/20 08:53 Pulse Ox 96 06/03/20 08:53 Laboratory: Laboratory Last Values WBC 5.30 K/uL (4.3-10.9) 06/02/20 06:04 RBC 4.83 M/uL (4.33-5.43) 06/02/20 06:04 Hgb 14.2 g/dL (13.6-17.9) 06/02/20 06:04 Hct 42.7 % (39.6-49.0) 06/02/20 06:04 MCV 88.4 fL (80-100) 06/02/20 06:04 MCH 29.4 pg (27.0-35.0) 06/02/20 06:04 MCHC 33.3 g/dL (32.0-36.0) 06/02/20 06:04 RDW 12.9 % (12.1-15.2) 06/02/20 06:04 Plt Count 280 K/uL (152-406) 06/02/20 06:04 MPV 8.1 fL (7.6-11.3) 06/02/20 06:04 Neutrophils % 56.5 % (41.7-73.7) 06/02/20 06:04 Lymphocytes % 29.5 % (15.3-44.8) 06/02/20 06:04 Monocytes % 10.8 % (3.3-12.3) 06/02/20 06:04 Eosinophils % 2.7 % (0-4.4) 06/02/20 06:04 Basophils % 0.5 % (0-1.3) 06/02/20 06:04 Absolute Neutrophils 3.0 K/uL (1.8-8.0) 06/02/20 06:04 Absolute Lymphocytes 1.5 K/uL (0.7-4.9) 06/02/20 06:04 Absolute Monocytes 0.6 K/uL (0.1-1.3) 06/02/20 06:04 Absolute Eosinophils 0.1 K/uL (0-0.5) 06/02/20 06:04 Absolute Basophils 0.0 K/uL (0-0.5) 06/02/20 06:04 Sodium 141 mmol/L (136-145) 06/02/20 06:04 Potassium 3.9 mmol/L (3.5-5.1) 06/02/20 06:04 Chloride 110 mmol/L (98-107) H 06/02/20 06:04 Carbon Dioxide 26 mmol/L (21-32) 06/02/20 06:04 BUN 14 mg/dL (7-18) 06/02/20 06:04 Creatinine 0.98 mg/dL (0.55-1.3) 06/02/20 06:04 Estimated GFR 79 mL/min (=/>90) L 06/02/20 06:04 Glucose 151 mg/dL (74-106) H 06/02/20 06:04 POC Glucose 185 mg/dL (65-120) H 06/03/20 07:34 Calcium 8.9 mg/dL (8.5-10.1) 06/02/20 06:04 Magnesium 1.9 mg/dL (1.8-2.4) 06/02/20 06:04 Albumin 3.7 g/dL (3.4-5.0) 06/02/20 06:04 Prealbumin 30.6 mg/dL (20-40) 06/02/20 06:04 Vitamin B12 Cancelled 05/28/20 10:00 Urine Color Yellow 05/26/20 20:30 Urine Appearance Clear 05/26/20 20:30 Urine pH 5.5 (5.0-7.0) 05/26/20 20:30 Ur Specific [place] 1.025 (1.005-1.030) 05/26/20 20:30 Glucose (UA)(Auto) 3+ (NEG) H 05/26/20 20:30 Urine Ketones Negative (NEG) 05/26/20 20:30 Urine Blood Negative (NEG) 05/26/20 20:30 Urine Nitrite Negative (NEG) 05/26/20 20:30 Urine Bilirubin Negative (NEG) 05/26/20 20:30 Urine Urobilinogen 0.2 mg/dL (0.2-1.0) 05/26/20 20:30 Ur Leukocyte Esterase Negative (NEG) 05/26/20 20:30 Urine RBC <5 /HPF (NONE SEEN) 05/26/20 20:30 Urine WBC <5 /HPF (<5) 05/26/20 20:30 Ur Squamous Epith Cells 5-10 /HPF (NONE SEEN) H 05/26/20 20:30 Urine Bacteria <20 /HPF (NONE SEEN) 05/26/20 20:30 Urine Mucus 1+ /HPF (NONE SEEN) 05/26/20 20:30 Urine Culture Reflexed Not needed 05/26/20 20:30 Urine Total Protein Negative (NEG) 05/26/20 20:30 SARS-CoV-2 RNA (RT-PCR) Negative (NEGATIVE) 05/27/20 19:15 Weight: 289 lb 1.6 oz Wound Present: No Closed Surgical Incision Present: No Negative Pressure Wound Therapy Present: No Physician Update: He is doing very with all therapy. Walking with a cane and a walker. His labs are stable. Functional Improvement: Patient has been progressing well w/ gait tx., transfers, balance, and strengthening. Patient presents w/ good overall technique and safety awareness. Summary: Patient's care plan and intermediate goals have been reviewed and revised as necessary. Please see the Rehabilitation Signature page for all necessary signatures.
[2020-06-03] MEDS: ROSUVASTATIN 10 MG TAB PO SCH (19:31)
[2020-06-03] MEDS: BACLOFEN 10 MG TAB PO SCH (19:32)
[2020-06-03] MEDS: DOCUSATE NA/SENNA CONC 1 TAB PO PRN (19:34)
[2020-06-04] MEDS: METOPROLOL XL 50 MG TAB PO SCH (05:08)
[2020-06-04] MEDS: PANTOPRAZOLE 40MG TABLET PO SCH (06:56)
[2020-06-04] MEDS: INSULIN -REGULAR HUMAN 50 UNIT/0.5 ML ML SQ SCH ×4 (07:30→21:00)
[2020-06-04] MEDS: CRANBERRY FRUIT EXTRACT 200 MG CAP PO SCH ×2 (08:16→21:24)
[2020-06-04] MEDS: ASPIRIN 81 MG CHEWABLE TABLET PO SCH (08:17)
[2020-06-04] MEDS: lisinopriL 20 MG TAB PO SCH (08:17)
[2020-06-04] MEDS: SITAGLIPTIN PHOS 100 MG TAB PO SCH (08:18)
[2020-06-04] MEDS: VITAMIN D 1000 UNIT TAB PO SCH (08:18)
[2020-06-04] MEDS: METFORMIN HCL 500 MG TAB PO SCH ×2 (08:18→17:02)
[2020-06-04] MEDS: MULTIVITAMIN TAB PO SCH (08:18)
[2020-06-04] MEDS: ACETAMINOPHEN 500 MG TAB PO PRN (08:18)
[2020-06-04] MEDS: INSULIN GLARGINE 100 UNITS/ML SQ SCH (08:19)
[2020-06-04] MEDS: TICAGRELOR 90 MG TABLET PO SCH ×2 (08:20→21:25)
[2020-06-04] MEDS: BACLOFEN 10 MG TAB PO SCH (21:24)
[2020-06-04] MEDS: ROSUVASTATIN 10 MG TAB PO SCH (21:25)
[2020-06-05] MEDS: METOPROLOL XL 50 MG TAB PO SCH (05:36)
[2020-06-05] MEDS: INSULIN -REGULAR HUMAN 50 UNIT/0.5 ML ML SQ SCH ×4 (07:30→20:34)
[2020-06-05] MEDS: PANTOPRAZOLE 40MG TABLET PO SCH (07:31)
[2020-06-05] MEDS: SITAGLIPTIN PHOS 100 MG TAB PO SCH (09:36)
[2020-06-05] MEDS: METFORMIN HCL 500 MG TAB PO SCH ×2 (09:36→17:06)
[2020-06-05] MEDS: TICAGRELOR 90 MG TABLET PO SCH ×2 (09:36→20:28)
[2020-06-05] MEDS: MULTIVITAMIN TAB PO SCH (09:37)
[2020-06-05] MEDS: CRANBERRY FRUIT EXTRACT 200 MG CAP PO SCH ×2 (09:37→20:29)
[2020-06-05] MEDS: lisinopriL 20 MG TAB PO SCH (09:37)
[2020-06-05] MEDS: INSULIN GLARGINE 100 UNITS/ML SQ SCH (09:38)
[2020-06-05] MEDS: VITAMIN D 1000 UNIT TAB PO SCH (09:38)
[2020-06-05] MEDS: ASPIRIN 81 MG CHEWABLE TABLET PO SCH (09:38)
[2020-06-05] MEDS: ROSUVASTATIN 10 MG TAB PO SCH (20:28)
[2020-06-05] MEDS: BACLOFEN 10 MG TAB PO SCH (20:29)
[2020-06-06] MEDS: METOPROLOL XL 50 MG TAB PO SCH (05:38)
[2020-06-06] MEDS: PANTOPRAZOLE 40MG TABLET PO SCH (07:03)
[2020-06-06] MEDS: INSULIN -REGULAR HUMAN 50 UNIT/0.5 ML ML SQ SCH ×4 (07:30→20:29)
[2020-06-06] MEDS ORDERED: ARFORMOTEROL TARTRATE 15 MCG/2 ML VIAL.NEB NEB SCH (08:00)
[2020-06-06] MEDS: VITAMIN D 1000 UNIT TAB PO SCH (08:02)
[2020-06-06] MEDS: INSULIN GLARGINE 100 UNITS/ML SQ SCH (08:02)
[2020-06-06] MEDS: lisinopriL 20 MG TAB PO SCH (08:02)
[2020-06-06] MEDS: MULTIVITAMIN TAB PO SCH (08:02)
[2020-06-06] MEDS: SITAGLIPTIN PHOS 100 MG TAB PO SCH (08:03)
[2020-06-06] MEDS: TICAGRELOR 90 MG TABLET PO SCH ×2 (08:03→19:10)
[2020-06-06] MEDS: ASPIRIN 81 MG CHEWABLE TABLET PO SCH (08:03)
[2020-06-06] MEDS: METFORMIN HCL 500 MG TAB PO SCH ×2 (08:03→16:31)
[2020-06-06] MEDS: CRANBERRY FRUIT EXTRACT 200 MG CAP PO SCH ×2 (08:03→19:11)
--- NOTE | 2020-06-06 18:04 | R.PN ---
PROGRESS NOTES ENCOUNTER DATE AND TIME: 06/06/2020 17:57 (BIOMEDICAL ENGINEERING TECHNOLOGIST) NAME LAMBERT MARQUIS DATE OF : 1960 DATE OF ADMISSION: 05/27/2020 12:37 (BIOMEDICAL ENGINEERING TECHNOLOGIST) ACUTE STROKECHIEF COMPLAINT: Stroke with left sided weakness. SUBJECTIVE: Pt denied any Shortness of Breath. Pt denied any depression. CBC with differential is normal. Glucose 130 - 151, prealbumin 30.6. UA is negative. Ambulated 1250' with independence using a single prong cane. Up and down 20 steps with independence. VITAL SIGNS Temperature: 97.0 F SBP/DBP: 165/84 Pulse: 59 Resp: 16 MEDICATION ALLERGIES: No Known Drug Allergies (NKDA) ENVIRONMENTAL ALLERGIES: - Substance Allergies None Known - Other Allergies None Known NURSING: - Shower allowing shower - Bladder care per protocol - Skin care per protocol PRECAUTIONS: - Weight Bearing Precaution WBAT left LE ACTIVITIES OOB only with supervision THERAPIES: - Occupational Therapy Cognitive Retraining. Visual Perceptual Training. - Dietary and Nutrition Adequate Nutrition. Nutritional Education. Nutritional Supplements. - Speech Therapy Cognitive Training. Expressive Language Skills. Memory Strategies. Receptive Language Skills. Speech Intelligibility Training. PHYSICAL EXAM - Gen Alert and awake Lying in bed No apparent distress Oriented to: person, time, and place - Skin No skin breakdown. Normacephalic - Eyes No abnormalities - ENMT No abnormalities - Neck No abnormalities No cervical adenopathy - CVS RRR - Chest No abnormalities - Resp Clear to auscultation - Abd + bowel sounds - GI Soft No abnormalities - No abnormalities - Ext No significant edema - MSK 4+/5 weakness in left upper and lower extremity - Neuro 4/5 strength left upper and lower extremities. - Psych No abnormalities ASSESSMENT: Pt. is a 59 yo Right-handed male of unknown race.On 05/20/2020 Pt. presented to [facility] with s udden onset of left-side weakness.On 05/20/2020 he was admitted to [facility] with diagnosis ACUT E STROKE.His impairment category is Stroke 01 - Left Body (Right Brain) (01.1).Pre-morbidly, Pt. was independent/mod-I in Locomotion, Balance, Transfers Control, Endurance, Self-Care, and Sphincter Con trol; and he had good Communication.Currently, he has deficits of Safety Awareness, Balance, Enduranc e, Sphincter Control, and Locomotion.Pt. is now referred to [facility] for acu te in-patient rehabilitation in order to maximize patient's functional independence in activities of daily living, strength, ROM, and mobility.- Rehab Goal Patient has realistic goal of being discharged at assistance level 7-Ind to reside at Home with Fami ly/Relatives. MDM/PLAN: - Physical Therapy Gait dysfunction - to improve, our physical therapists will perform initial evaluation of pt's statu s upon admission and devise an individualized program for Gait Training, and Wheel Chair mobility Need for home safety evaluation - to improve, our physical therapists will perform initial evaluatio n of pt's status upon admission and devise an individualized program for Home Evaluation Need in caregiver upon discharge - to improve, our physical therapists will perform initial evaluati on of pt's status upon admission and devise an individualized program for Caregiver Training New precaution - to improve, our physical therapists will perform initial evaluation of pt's status upon admission and devise an individualized program for Patient precaution education Edema - to improve, our physical therapists will perform initial evaluation of pt's status upon admi ssion and devise an individualized program for Elevation Training, and Lymphedema Therapy Poor balance - to improve, our physical therapists will perform initial evaluation of pt's status up on admission and devise an individualized program for Balance Training Poor endurance - to improve, our physical therapists will perform initial evaluation of pt's status upon admission and devise an individualized program for Endurance Training Weakness - to improve, our physical therapists will perform initial evaluation of pt's status upon a dmission and devise an individualized program for Aquatic Therapy, Neuromuscular Reeducation, and Str engthening Achieving independence - to improve, our physical therapists will perform initial evaluation of pt's status upon admission and devise an individualized program for Community Reintegration Activities - Occupational Therapy Need for infant caregiver - to improve, our occupation therapists will perform initial evaluation of pt's status upon admission and devise an individualized program for Caregiver Training Weakness - to improve, our occupation therapists will perform initial evaluation of pt's status upon admission and devise an individualized program for Aquatic Therapy, Balance, Endurance, UE ROM, and UE strengthening - Other See attached MAR (Medication Administration Record) - Diet Type Continue Regular - Diet - Liquid Texture Continue Regular - Tube Feed Continue N/A - Bladder care per protocol - Weight Bearing Precaution WBAT left LE - Skin care per protocol - Diet - Solid Texture Continue Regular - Shower allowing shower for Dementia, TBI, Stroke, or others FUNCTIONAL STATUS: UPDATED AT WEEKLY TEAM CONFERENCE - Bladder Same accident frequency: 7-Ind - No accidents in the past 7 days - Bowel Same accident frequency: 7-Ind - No accidents in the past 7 days - Walking Same score based on distance walked: 0(N/A) Same score based on distance walked: 1(<=50ft) - Wheelchair Same score based on distance traveled: 0(N/A) FUNCTIONAL STATUS: - Self-Care A. Eating Ind B. Grooming Ind C. Bathing sup D. Dressing - Upper sup E. Dressing - Lower Brigid F. Toileting Jodi - Sphincter Control G. Bladder control Jodi H. Bowel control Jodi - Transfers Control I. Bed/Chair/Wheelchair sup J. Toilet sup K. Tub/Shower Brigid - Locomotion L. Walk/Wheelchair (B) sup M. Stairs sup - Communication N. Comprehension (B) Ind O. Expression (B) Ind - Social Cognition P. Social Interaction Ind Q. Problem Solving Jodi R. Memory Ind - Endurance Good - Balance Good - Safety Awareness Good QI SCORES: - Self-Care A. Eating 03-Partial/moderate assistance B. Oral hygiene 03-Partial/moderate assistance C. Toileting hygiene 03-Partial/moderate assistance E. Shower/bathe self 03-Partial/moderate assistance F. Upper body dressing 03-Partial/moderate assistance G. Lower body dressing 03-Partial/moderate assistance H. Putting on/taking off footwear 88-Not attempted due to medical condition or safety concerns - Mobility A. Roll left and right 03-Partial/moderate assistance B. Sit to lying 03-Partial/moderate assistance C. Lying to sitting on side of bed 03-Partial/moderate assistance D. Sit to stand 03-Partial/moderate assistance E. Chair/aai-kp-pkmpt transfer 03-Partial/moderate assistance F. Toilet transfer 03-Partial/moderate assistance G. Car transfer 88-Not attempted due to medical condition or safety concerns I. Walk 10 feet 88-Not attempted due to medical condition or safety concerns J. Walk 50 feet with two turns 88-Not attempted due to medical condition or safety concerns K. Walk 150 feet 88-Not attempted due to medical condition or safety concerns L. Walking 10 feet on uneven surfaces 88-Not attempted due to medical condition or safety concerns M. 1 step (curb) 88-Not attempted due to medical condition or safety concerns N. 4 steps 88-Not attempted due to medical condition or safety concerns O. 12 steps 88-Not attempted due to medical condition or safety concerns P. Picking up object 88-Not attempted due to medical condition or safety concerns R. Wheel 50 feet with two turns 88-Not attempted due to medical condition or safety concerns S. Wheel 150 feet 88-Not attempted due to medical condition or safety concerns - Bladder and Bowel Bladder continence Bowel continence - Endurance Poor - Balance Poor - Safety Awareness Poor CURRENT FUNC. DEFICITS: Self-Care, Mobility, Endurance, Balance, and Safety Awareness SIGNATURE PANEL: (BIOMEDICAL ENGINEERING TECHNOLOGIST)
[2020-06-06] MEDS: BACLOFEN 10 MG TAB PO SCH (19:10)
[2020-06-06] MEDS: ROSUVASTATIN 10 MG TAB PO SCH (19:10)
[2020-06-07] MEDS: METOPROLOL XL 50 MG TAB PO SCH (05:00)
[2020-06-07] MEDS: PANTOPRAZOLE 40MG TABLET PO SCH (06:42)
[2020-06-07] MEDS: INSULIN -REGULAR HUMAN 50 UNIT/0.5 ML ML SQ SCH ×4 (07:30→21:00)
[2020-06-07] MEDS: lisinopriL 20 MG TAB PO SCH ×2 (08:00→12:02)
[2020-06-07] MEDS: SITAGLIPTIN PHOS 100 MG TAB PO SCH (08:07)
[2020-06-07] MEDS: TICAGRELOR 90 MG TABLET PO SCH ×2 (08:08→19:01)
[2020-06-07] MEDS: MULTIVITAMIN TAB PO SCH (08:08)
[2020-06-07] MEDS: VITAMIN D 1000 UNIT TAB PO SCH (08:08)
[2020-06-07] MEDS: METFORMIN HCL 500 MG TAB PO SCH ×2 (08:08→16:50)
[2020-06-07] MEDS: ASPIRIN 81 MG CHEWABLE TABLET PO SCH (08:08)
[2020-06-07] MEDS: CRANBERRY FRUIT EXTRACT 200 MG CAP PO SCH ×2 (08:08→19:01)
[2020-06-07] MEDS: INSULIN GLARGINE 100 UNITS/ML SQ SCH (08:09)
--- NOTE | 2020-06-07 17:54 | R.PN ---
PROGRESS NOTES ENCOUNTER DATE AND TIME: 06/07/2020 17:49 (BARBERING INSTRUCTOR) NAME LAMBERT MARQUIS DATE OF : 1960 DATE OF ADMISSION: 05/27/2020 12:37 (BARBERING INSTRUCTOR) ACUTE STROKECHIEF COMPLAINT: Stroke with left sided weakness. SUBJECTIVE: Pt denied any Shortness of Breath. Pt denied any depression. CBC with differential is normal. Glucose 140 to 166, prealbumin 30.6. UA is negative. Ambulated 1000' with independence using a single prong cane. Up and down 20 steps with independence. VITAL SIGNS Temperature: 97.1 F SBP/DBP: 141/95 Pulse: 70 Resp: 16 MEDICATION ALLERGIES: No Known Drug Allergies (NKDA) ENVIRONMENTAL ALLERGIES: - Substance Allergies None Known - Other Allergies None Known NURSING: - Shower allowing shower - Bladder care per protocol - Skin care per protocol PRECAUTIONS: - Weight Bearing Precaution WBAT left LE ACTIVITIES OOB only with supervision THERAPIES: - Occupational Therapy Cognitive Retraining. Visual Perceptual Training. - Dietary and Nutrition Adequate Nutrition. Nutritional Education. Nutritional Supplements. - Speech Therapy Cognitive Training. Expressive Language Skills. Memory Strategies. Receptive Language Skills. Speech Intelligibility Training. PHYSICAL EXAM - Gen Alert and awake Lying in bed No apparent distress Oriented to: person, time, and place - Skin No skin breakdown. Normacephalic - Eyes No abnormalities - ENMT No abnormalities - Neck No abnormalities No cervical adenopathy - CVS RRR - Chest No abnormalities - Resp Clear to auscultation - Abd + bowel sounds - GI Soft No abnormalities - No abnormalities - Ext No significant edema - MSK 4+/5 weakness in left upper and lower extremity - Neuro 4/5 strength left upper and lower extremities. - Psych No abnormalities ASSESSMENT: Pt. is a 59 yo Right-handed male of unknown race.On 05/20/2020 Pt. presented to [facility] with s udden onset of left-side weakness.On 05/20/2020 he was admitted to [facility] with diagnosis ACUT E STROKE.His impairment category is Stroke 01 - Left Body (Right Brain) (01.1).Pre-morbidly, Pt. was independent/mod-I in Locomotion, Balance, Transfers Control, Endurance, Self-Care, and Sphincter Con trol; and he had good Communication.Currently, he has deficits of Safety Awareness, Balance, Enduranc e, Sphincter Control, and Locomotion.Pt. is now referred to [facility] for acu te in-patient rehabilitation in order to maximize patient's functional independence in activities of daily living, strength, ROM, and mobility.- Rehab Goal Patient has realistic goal of being discharged at assistance level 7-Ind to reside at Home with Fami ly/Relatives. MDM/PLAN: - Physical Therapy Gait dysfunction - to improve, our physical therapists will perform initial evaluation of pt's statu s upon admission and devise an individualized program for Gait Training, and Wheel Chair mobility Need for home safety evaluation - to improve, our physical therapists will perform initial evaluatio n of pt's status upon admission and devise an individualized program for Home Evaluation Need in caregiver upon discharge - to improve, our physical therapists will perform initial evaluati on of pt's status upon admission and devise an individualized program for Caregiver Training New precaution - to improve, our physical therapists will perform initial evaluation of pt's status upon admission and devise an individualized program for Patient precaution education Edema - to improve, our physical therapists will perform initial evaluation of pt's status upon admi ssion and devise an individualized program for Elevation Training, and Lymphedema Therapy Poor balance - to improve, our physical therapists will perform initial evaluation of pt's status up on admission and devise an individualized program for Balance Training Poor endurance - to improve, our physical therapists will perform initial evaluation of pt's status upon admission and devise an individualized program for Endurance Training Weakness - to improve, our physical therapists will perform initial evaluation of pt's status upon a dmission and devise an individualized program for Aquatic Therapy, Neuromuscular Reeducation, and Str engthening Achieving independence - to improve, our physical therapists will perform initial evaluation of pt's status upon admission and devise an individualized program for Community Reintegration Activities - Occupational Therapy Need for rental boats caretaker - to improve, our occupation therapists will perform initial evaluation of pt's status upon admission and devise an individualized program for Caregiver Training Weakness - to improve, our occupation therapists will perform initial evaluation of pt's status upon admission and devise an individualized program for Aquatic Therapy, Balance, Endurance, UE ROM, and UE strengthening - Other See attached MAR (Medication Administration Record) - Diet Type Continue Regular - Diet - Liquid Texture Continue Regular - Tube Feed Continue N/A - Bladder care per protocol - Weight Bearing Precaution WBAT left LE - Skin care per protocol - Diet - Solid Texture Continue Regular - Shower allowing shower for Dementia, TBI, Stroke, or others FUNCTIONAL STATUS: UPDATED AT WEEKLY TEAM CONFERENCE - Bladder Same accident frequency: 7-Ind - No accidents in the past 7 days - Bowel Same accident frequency: 7-Ind - No accidents in the past 7 days - Walking Same score based on distance walked: 0(N/A) Same score based on distance walked: 1(<=50ft) - Wheelchair Same score based on distance traveled: 0(N/A) FUNCTIONAL STATUS: - Self-Care A. Eating Ind B. Grooming Ind C. Bathing sup D. Dressing - Upper sup E. Dressing - Lower Brigid F. Toileting Jodi - Sphincter Control G. Bladder control Jodi H. Bowel control Jodi - Transfers Control I. Bed/Chair/Wheelchair sup J. Toilet sup K. Tub/Shower Brigid - Locomotion L. Walk/Wheelchair (B) sup M. Stairs sup - Communication N. Comprehension (B) Ind O. Expression (B) Ind - Social Cognition P. Social Interaction Ind Q. Problem Solving Jodi R. Memory Ind - Endurance Good - Balance Good - Safety Awareness Good QI SCORES: - Self-Care A. Eating 03-Partial/moderate assistance B. Oral hygiene 03-Partial/moderate assistance C. Toileting hygiene 03-Partial/moderate assistance E. Shower/bathe self 03-Partial/moderate assistance F. Upper body dressing 03-Partial/moderate assistance G. Lower body dressing 03-Partial/moderate assistance H. Putting on/taking off footwear 88-Not attempted due to medical condition or safety concerns - Mobility A. Roll left and right 03-Partial/moderate assistance B. Sit to lying 03-Partial/moderate assistance C. Lying to sitting on side of bed 03-Partial/moderate assistance D. Sit to stand 03-Partial/moderate assistance E. Chair/gua-dr-gwbbm transfer 03-Partial/moderate assistance F. Toilet transfer 03-Partial/moderate assistance G. Car transfer 88-Not attempted due to medical condition or safety concerns I. Walk 10 feet 88-Not attempted due to medical condition or safety concerns J. Walk 50 feet with two turns 88-Not attempted due to medical condition or safety concerns K. Walk 150 feet 88-Not attempted due to medical condition or safety concerns L. Walking 10 feet on uneven surfaces 88-Not attempted due to medical condition or safety concerns M. 1 step (curb) 88-Not attempted due to medical condition or safety concerns N. 4 steps 88-Not attempted due to medical condition or safety concerns O. 12 steps 88-Not attempted due to medical condition or safety concerns P. Picking up object 88-Not attempted due to medical condition or safety concerns R. Wheel 50 feet with two turns 88-Not attempted due to medical condition or safety concerns S. Wheel 150 feet 88-Not attempted due to medical condition or safety concerns - Bladder and Bowel Bladder continence Bowel continence - Endurance Poor - Balance Poor - Safety Awareness Poor CURRENT FUNC. 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
[2020-06-07] MEDS: BACLOFEN 10 MG TAB PO SCH (19:01)
[2020-06-07] MEDS: ROSUVASTATIN 10 MG TAB PO SCH (19:01)
[2020-06-08] MEDS: METOPROLOL XL 50 MG TAB PO SCH (05:00)
[2020-06-08] MEDS: PANTOPRAZOLE 40MG TABLET PO SCH (06:41)
[2020-06-08] MEDS: INSULIN -REGULAR HUMAN 50 UNIT/0.5 ML ML SQ SCH (07:30)
[2020-06-08 07:38] VITALS: BP 133/74; TEMP 98.3
[2020-06-08] MEDS: CRANBERRY FRUIT EXTRACT 200 MG CAP PO SCH (08:02)
[2020-06-08] MEDS: MULTIVITAMIN TAB PO SCH (08:05)
[2020-06-08] MEDS: lisinopriL 20 MG TAB PO SCH (08:05)
[2020-06-08] MEDS: SITAGLIPTIN PHOS 100 MG TAB PO SCH (08:06)
[2020-06-08] MEDS: VITAMIN D 1000 UNIT TAB PO SCH (08:06)
[2020-06-08] MEDS: METFORMIN HCL 500 MG TAB PO SCH (08:06)
[2020-06-08] MEDS: ASPIRIN 81 MG CHEWABLE TABLET PO SCH (08:06)
[2020-06-08] MEDS: TICAGRELOR 90 MG TABLET PO SCH (08:06)
[2020-06-08] MEDS: INSULIN GLARGINE 100 UNITS/ML SQ SCH (09:18)
--- NOTE | 2020-06-08 13:37 | FAST ---
[employer] FORM SHIFT START DATE/TIME: 06/08/2020 07:00 (ENVIRONMENTAL HEALTH TECHNICIAN) SHIFT END DATE/TIME: 06/08/2020 19:00 (ENVIRONMENTAL HEALTH TECHNICIAN) NAME LAMBERT MARQUIS DATE OF : 1960 DATE OF ADMISSION: 05/27/2020 12:37 (ENVIRONMENTAL HEALTH TECHNICIAN) PHONE: AGE: 59 SSN# [id number] GENDER: Male ENCOUNTER PHYSICIAN: Dr. Cortez Berkowitz M.D. ADMISSION DIAGNOSIS: - Stroke 01 - Left Body (Right Brain) (01.1) ACUTE STROKE. EATING: EATING - STEP 1: Does the patient complete the activity by him/herself with no assistance (physical, verbal/nonverbal cueing, setup/clean-up)? Yes. 1. [id number] ADMISSION PERFORMANCE: Independent CODE: 06 ORAL HYGIENE: ORAL HYGIENE - STEP 1: Does the patient complete the activity by him/herself with no assistance (physical, verbal/nonverbal cueing, setup/clean-up)? Yes. 1. [id number] ADMISSION PERFORMANCE: Independent CODE: 06 TOILETING HYGIENE: TOILETING HYGIENE - STEP 1: Does the patient complete the activity by him/herself with no assistance (physical, verbal/nonverbal cueing, setup/clean-up)? Yes. 1. [id number] ADMISSION PERFORMANCE: Independent CODE: 06 BATHING: Not assessed/no information CODE: - DRESSING - UPPER BODY: DRESSING - UPPER BODY - STEP 1: Does the patient complete the activity by him/herself with no assistance (physical, verbal/nonverbal cueing, setup/clean-up)? No. DRESSING - UPPER BODY - STEP 2: Does the patient need only setup/clean-up assistance from one helper? Yes. 1. [id number] ADMISSION PERFORMANCE: Setup or clean-up assistance CODE: 05 DRESSING - LOWER BODY: DRESSING - LOWER BODY - STEP 1: Does the patient complete the activity by him/herself with no assistance (physical, verbal/nonverbal cueing, setup/clean-up)? No. DRESSING - LOWER BODY - STEP 2: Does the patient need only setup/clean-up assistance from one helper? Yes. 1. [id number] ADMISSION PERFORMANCE: Setup or clean-up assistance CODE: 05 PUTTING ON/TAKING OFF FOOTWEAR: FOOTWEAR - STEP 1: Does the patient complete the activity by him/herself with no assistance (physical, verbal/nonverbal cueing, setup/clean-up)? No. FOOTWEAR - STEP 2: Does the patient need only setup/clean-up assistance from one helper? Yes. 1. [id number] ADMISSION PERFORMANCE: Setup or clean-up assistance CODE: 05 ROLL LEFT AND RIGHT: ROLL LEFT AND RIGHT - STEP 1: Does the patient complete the activity by him/herself with no assistance (physical, verbal/nonverbal cueing, setup/clean-up)? Yes. 1. [id number] ADMISSION PERFORMANCE: Independent CODE: 06 SIT TO LYING: SIT TO LYING - STEP 1: Does the patient complete the activity by him/herself with no assistance (physical, verbal/nonverbal cueing, setup/clean-up)? Yes. 1. [id number] ADMISSION PERFORMANCE: Independent CODE: 06 LYING TO SITTING: LYING TO SITTING ON SIDE OF BED - STEP 1: Does the patient complete the activity by him/herself with no assistance (physical, verbal/nonverbal cueing, setup/clean-up)? Yes. 1. [id number] ADMISSION PERFORMANCE: Independent CODE: 06 SIT TO STAND: SIT TO STAND - STEP 1: Does the patient complete the activity by him/herself with no assistance (physical, verbal/nonverbal cueing, setup/clean-up)? Yes. 1. [id number] ADMISSION PERFORMANCE: Independent CODE: 06 TRANSFERS: BED, CHAIR: CHAIR/[id number] TRANSFER - STEP 1: Does the patient complete the activity by him/herself with no assistance (physical, verbal/nonverbal cueing, setup/clean-up)? Yes. 1. [id number] ADMISSION PERFORMANCE: Independent CODE: 06 TRANSFER TOILET: TOILET TRANSFER - STEP 1: Does the patient complete the activity by him/herself with no assistance (physical, verbal/nonverbal cueing, setup/clean-up)? Yes. 1. [id number] ADMISSION PERFORMANCE: Independent CODE: 06 TRANSFERS: CAR: Not assessed/no information CODE: - WALK 10 FEET: Not assessed/no information CODE: - 1 STEP (CURB): Not assessed/no information CODE: - PICKING UP OBJECT: Not assessed/no information CODE: - DOES THE PATIENT USE A WHEELCHAIR/SCOOTER? Q1. DOES THE PATIENT USE A WHEELCHAIR/SCOOTER?: Yes CODE: 1 WHEEL 50 FEET WITH TWO TURNS: WHEEL 50 FEET WITH TWO TURNS - STEP 1: Does the patient complete the activity by him/herself with no assistance (physical, verbal/nonverbal cueing, setup/clean-up)? No. WHEEL 50 FEET WITH TWO TURNS - STEP 2: Does the patient need only setup/clean-up assistance from one helper? Yes. 1. [id number] ADMISSION PERFORMANCE: Setup or clean-up assistance CODE: 05 INDICATE THE TYPE OF WHEELCHAIR/SCOOTER USED: RR1. INDICATE THE TYPE OF WHEELCHAIR/SCOOTER USED.: Manual CODE: 1 WHEEL 150 FEET: WHEEL 150 FEET - STEP 1: Does the patient complete the activity by him/herself with no assistance (physical, verbal/nonverbal cueing, setup/clean-up)? No. WHEEL 150 FEET - STEP 2: Does the patient need only setup/clean-up assistance from one helper? Yes. 1. [id number] ADMISSION PERFORMANCE: Setup or clean-up assistance CODE: 05 INDICATE THE TYPE OF WHEELCHAIR/SCOOTER USED: SS1. INDICATE THE TYPE OF WHEELCHAIR/SCOOTER USED.: Manual CODE: 1 BLADDER AND BOWEL: H350. BLADDER CONTINENCE (3-DAY ASSESSMENT PERIOD): Always continent (no documented incontinence) CODE: 0 H400. BOWEL CONTINENCE (3-DAY ASSESSMENT PERIOD): Always continent CODE: 0 SIGNATURE PANEL: The following modified sections: 1. [id number] Admission Performance, 1. [id number] Admission Performance, 1. [id number] Admission Performance, 1. [id number] Admission Performance, 1. [id number] Admission Performance, 1. [id number] Admission Performance, 1. [id number] Admission Performance, 1. [id number] Admission Performance , 1. [id number] Admission Performance, 1. [id number] Admission Performance, 1. [id number] Admission Performanc e, 1. [id number] Admission Performance, 1. [id number] Admission Performance, Q1. Does the patient use a whe elchair/scooter?, RR1. Indicate the type of wheelchair/scooter used., 1. [id number] Admission Performanc e, 1. [id number] Admission Performance, Code, SS1. Indicate the type of wheelchair/scooter used., H350. Bladder Continence (3-day assessment period), H400. Bowel Continence (3-day assessment period) were [ electronically] signed by Chloe Cooper C.N.A. on SatJun 08 2020 13:37:25 GMT-0600 (Central Standard Time)
--- NOTE | 2020-06-10 15:51 | R.HP ---
HISTORY AND PHYSICAL FACILITY: [facility] ENCOUNTER DATE AND TIME: 05/27/2020 15:36 (CONTRACT GRAPHIC DESIGNER) MR#: [id number] NAME LAMBERT MARQUIS ADDRESS: [address] [place] [address]: [place] [address] [id number] PHONE: DATE OF : 1960 AGE: 59 SSN# [id number] GENDER: Male DEXTERITY Right-handed MARITAL STATUS RACE Unknown race PRE-HOSPITAL LIVING SETTING 01 - Home (private home/apt. board/care, assisted living, longterm, transitional living) PRE-HOSPITAL LIVING WITH Family/Relatives ENCOUNTER PHYSICIAN: Dr. Cortez Berkowitz M.D. REFERRING DOCTOR: MP CEDENO MD DATE OF ADMISSION: 05/27/2020 12:37 (CONTRACT GRAPHIC DESIGNER) REFERRING FACILITY [facility] HOME TYPE AND DETAILS: Type of home: single family house # of levels in the residence: 1 # of steps within the residence: 0 ONSET DATE: 05/20/2020 PRIMARY DIAGNOSIS-RELATED SURGERIES: N/A HISTORY OF PRESENT ILLNESS (HPI): Pt. is a 59 yo Right-handed male of unknown race. On 05/20/2020 Pt. presented to [facility] with sudden onset of left-side weakness. On 05/20/2020 he was admitted to [facility] with diagnosis ACUTE STROKE. His impairment category is Stroke 01 - Left Body (Right Brain) (01.1). Pre-morbidly, Pt. was independent/mod-I in Locomotion, Balance, Transfers Control, Endurance, Self-Ca re, and Sphincter Control; and he had good Communication. Currently, he has deficits of Safety Awareness, Balance, Endurance, Sphincter Control, and Locomotion . Pt. is now referred to [facility] for acute in-patient rehabilitation in order to maximize patient's functional independence in activities of daily living, strength, ROM, and mobi lity. Patient has realistic goal of being discharged at assistance level 7-Ind to reside at Home with Fami ly/Relatives. MEDICATION ALLERGIES: No Known Drug Allergies (NKDA) ENVIRONMENTAL ALLERGIES: - Substance Allergies None Known - Other Allergies None Known PAST MEDICAL HISTORY: CAD DM DX AT AGE 34 FATTY LIVER H/O HAND SURGERY HYPERLIPIDEMIA HYPERTENSION UMBILICAL HERNIA OBESITY PAST SURGICAL HISTORY: KNEE ARTHROSCOPY PTCA W / POSSIBLE STENT SOCIAL HISTORY: - Home Living Family/Relatives REVIEW OF SYSTEMS: - Gen No Chills Fatigue No Fever - Eyes No Double Vision No itchiness - ENMT No Difficulty Swallowing - CVS No Chest Discomfort No Chest Pain No Fatigue No Weight Gain - Resp No Cough No Shortness of Breath - GI Continent No Abdominal Pain No Constipation No Diarrhea - Continent No Kidney Pain No Painful Urination No Urinary Urgency - MSK No Joint Pain No Muscle Cramps Stiffness - Skin No Itching No Rash No Suspicious Lesions - Neuro Coordination Difficulty No Difficulty with Concentration No Memory Loss No Seizures Weakness - Psych No Anxiety No Depression No HIV Exposure No Persistent Infections No Seasonal Allergies - Endo No Cold/Heat Intolerance No Excessive Hunger No Excessive Thirst No Excessive Urination PHYSICAL EXAM - Gen Alert and awake Lying in bed No apparent distress Oriented to: person, time, and place - Skin No skin breakdown. Normacephalic - Eyes No abnormalities - ENMT No abnormalities - Neck No abnormalities No cervical adenopathy - CVS RRR - Chest No abnormalities - Resp Clear to auscultation - Abd + bowel sounds - GI Soft No abnormalities - No abnormalities - Ext No significant edema - MSK 4+/5 weakness in left upper and lower extremity - Neuro 4/5 strength left upper and lower extremities. - Psych No abnormalities VITAL SIGNS Temperature: 97.6 F SBP/DBP: 133/91 Pulse: 76 Resp: 16 NURSING: - Shower allowing shower - Bladder care per protocol - Skin care per protocol PRECAUTIONS: - Weight Bearing Precaution WBAT left LE ACTIVITIES OOB only with supervision QI SCORES: - Self-Care A. Eating 03-Partial/moderate assistance B. Oral hygiene 03-Partial/moderate assistance C. Toileting hygiene 03-Partial/moderate assistance E. Shower/bathe self 03-Partial/moderate assistance F. Upper body dressing 03-Partial/moderate assistance G. Lower body dressing 03-Partial/moderate assistance H. Putting on/taking off footwear 88-Not attempted due to medical condition or safety concerns - Mobility A. Roll left and right 03-Partial/moderate assistance B. Sit to lying 03-Partial/moderate assistance C. Lying to sitting on side of bed 03-Partial/moderate assistance D. Sit to stand 03-Partial/moderate assistance E. Chair/xqp-jw-xnzya transfer 03-Partial/moderate assistance F. Toilet transfer 03-Partial/moderate assistance G. Car transfer 88-Not attempted due to medical condition or safety concerns I. Walk 10 feet 88-Not attempted due to medical condition or safety concerns J. Walk 50 feet with two turns 88-Not attempted due to medical condition or safety concerns K. Walk 150 feet 88-Not attempted due to medical condition or safety concerns L. Walking 10 feet on uneven surfaces 88-Not attempted due to medical condition or safety concerns M. 1 step (curb) 88-Not attempted due to medical condition or safety concerns N. 4 steps 88-Not attempted due to medical condition or safety concerns O. 12 steps 88-Not attempted due to medical condition or safety concerns P. Picking up object 88-Not attempted due to medical condition or safety concerns R. Wheel 50 feet with two turns 88-Not attempted due to medical condition or safety concerns S. Wheel 150 feet 88-Not attempted due to medical condition or safety concerns - Bladder and Bowel Bladder continence Bowel continence - Endurance Poor - Balance Poor - Safety Awareness Poor CURRENT FUNC. DEFICITS: Self-Care, Mobility, Endurance, Balance, and Safety Awareness MEDICATIONS: - Other See attached MAR (Medication Administration Record) ASSESSMENT: Pt. is a 59 yo Right-handed male of unknown race.On 05/20/2020 Pt. presented to [facility] with s udden onset of left-side weakness.On 05/20/2020 he was admitted to [facility] with diagnosis ACUT E STROKE.His impairment category is Stroke 01 - Left Body (Right Brain) (01.1).Pre-morbidly, Pt. was independent/mod-I in Locomotion, Balance, Transfers Control, Endurance, Self-Care, and Sphincter Con trol; and he had good Communication.Currently, he has deficits of Safety Awareness, Balance, Enduranc e, Sphincter Control, and Locomotion.Pt. is now referred to [facility] for acu te in-patient rehabilitation in order to maximize patient's functional independence in activities of daily living, strength, ROM, and mobility.- Rehab Goal Patient has realistic goal of being discharged at assistance level 7-Ind to reside at Home with Fami ly/Relatives. for Dementia, TBI, Stroke, or others - Physical Therapy Gait dysfunction - to improve, our physical therapists will perform initial evaluation of pt's status upon admission and devise an individualized program for Gait Training, and Wheel Chair mobility Need for home safety evaluation - to improve, our physical therapists will perform initial evaluation of pt's status upon admission and devise an individualized program for Home Evaluation Need in caregiver upon discharge - to improve, our physical therapists will perform initial evaluatio n of pt's status upon admission and devise an individualized program for Caregiver Training New precaution - to improve, our physical therapists will perform initial evaluation of pt's status u franky admission and devise an individualized program for Patient precaution education Edema - to improve, our physical therapists will perform initial evaluation of pt's status upon admi ssion and devise an individualized program for Elevation Training, and Lymphedema Therapy Poor balance - to improve, our physical therapists will perform initial evaluation of pt's status upo n admission and devise an individualized program for Balance Training Poor endurance - to improve, our physical therapists will perform initial evaluation of pt's status u franky admission and devise an individualized program for Endurance Training Weakness - to improve, our physical therapists will perform initial evaluation of pt's status upon ad mission and devise an individualized program for Aquatic Therapy, Neuromuscular Reeducation, and Stre ngthening Achieving independence - to improve, our physical therapists will perform initial evaluation of pt's status upon admission and devise an individualized program for Community Reintegration Activities - Occupational Therapy Need for technical healthcare consultant - to improve, our occupation therapists will perform initial evaluation of pt's s tatus upon admission and devise an individualized program for Caregiver Training Weakness - to improve, our occupation therapists will perform initial evaluation of pt's status upon admission and devise an individualized program for Aquatic Therapy, Balance, Endurance, UE ROM, and U E strengthening MEDICAL PLAN: - Diet Type Start Regular - Diet - Liquid Texture Start Regular - Tube Feed Start N/A - Bladder care per protocol - Weight Bearing Precaution WBAT left LE - Skin care per protocol - Other See attached MAR (Medication Administration Record) - Diet - Solid Texture Regular - Shower shower DISCHARGE PLAN: - Estimated Length of Stay (days) 17. - Consensus on plan Discharge plan has been discussed with primary caregiver. Patient/Family is in agreement with the lele n. Primary caregiver is in agreement with the plan. - Patient/Family Goals Return home independently. - Planned Living Setting Upon Discharge Home, to live with Family/Relatives. Transitional Living. SIGNATURE PANEL: ([facility])
--- NOTE | 2020-06-10 15:53 | R.DS ---
DISCHARGE SUMMARY FACILITY [facility] MR# [id number] NAME LAMBERT MARQUIS ADDRESS [address] [place] [address] [address] [address] PHONE DATE OF 1960 AGE 59 SSN# [id number] GENDER Male DEXTERITY Right-handed MARITAL STATUS RACE Unknown race ENCOUNTER PHYSICIAN Dr. Cortez Berkowitz M.D. REFERRING DOCTOR MP CEDENO MD REFERRING FACILITY [facility] DISCHARGE DIAGNOSIS: - Stroke 01 - Left Body (Right Brain) (01.1) ACUTE STROKE. 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 NURSING: - Shower allowing shower - Bladder care per protocol - Skin care per protocol PRECAUTIONS: - Weight Bearing Precaution WBAT left LE ACTIVITIES OOB only with supervision THERAPIES: - Occupational Therapy Cognitive Retraining Visual Perceptual Training - Dietary and Nutrition Adequate Nutrition Nutritional Education Nutritional Supplements - Speech Therapy Cognitive Training Expressive Language Skills Memory Strategies Receptive Language Skills Speech Intelligibility Training HISTORY OF PRESENT ILLNESS: Pt. is a 59 yo Right-handed male of unknown race.On 05/20/2020 Pt. presented to [facility] with s udden onset of left-side weakness.On 05/20/2020 he was admitted to [facility] with diagnosis ACUT E STROKE.His impairment category is Stroke 01 - Left Body (Right Brain) (01.1).Pre-morbidly, Pt. was independent/mod-I in Locomotion, Balance, Transfers Control, Endurance, Self-Care, and Sphincter Con trol; and he had good Communication.Currently, he has deficits of Safety Awareness, Balance, Enduranc e, Sphincter Control, and Locomotion.Pt. is now referred to [facility] for acu te in-patient rehabilitation in order to maximize patient's functional independence in activities of daily living, strength, ROM, and mobility.- Rehab Goal Patient has realistic goal of being discharged at assistance level 7-Ind to reside at Home with Fami ly/Relatives. DIET - LIQUID TEXTURE: On 05/24/2020 Pt was upgraded to Regular Diet - Liquid Texture. DIET - SOLID TEXTURE: On 05/24/2020 Pt was upgraded to Regular Diet - Solid Texture. DIET TYPE: On 05/24/2020 Pt was upgraded to Regular Diet Type. TUBE FEED: On 05/24/2020 Pt was changed to N/A Tube Feed. WEIGHT BEARING PRECAUTION: On 05/24/2020 the following precautions were added for the patient: Weight Bearing Precaution - WBAT left LE. On 05/31/2020 the following precautions were added for the patient: Weight Bearing Precaution - WBAT left LE. DISCHARGE PHYSICAL EXAM - Gen Alert and awake Lying in bed No apparent distress Oriented to: person, time, and place - Skin No skin breakdown. Normacephalic - Eyes No abnormalities - ENMT No abnormalities - Neck No abnormalities No cervical adenopathy - CVS RRR - Chest No abnormalities - Resp Clear to auscultation - Abd + bowel sounds - GI Soft No abnormalities - No abnormalities - Ext No significant edema - MSK 4+/5 weakness in left upper and lower extremity - Neuro 4/5 strength left upper and lower extremities. - Psych No abnormalities FUNCTIONAL STATUS: - Self-Care A. Eating 7-Ind B. Grooming 7-Ind C. Bathing 6-Jodi D. Dressing - Upper 6-Jodi E. Dressing - Lower 6-Jodi F. Toileting 6-Jodi - Sphincter Control G. Bladder control 6-Jodi H. Bowel control 6-Jodi - Transfers Control I. Bed/Chair/Wheelchair 6-Jodi J. Toilet 6-Jodi K. Tub/Shower 6-Jodi - Locomotion L. Walk/Wheelchair (B) 6-Jodi M. Stairs 6-Jodi - Communication N. Comprehension (B) 7-Ind O. Expression (B) 7-Ind - Social Cognition P. Social Interaction 7-Ind Q. Problem Solving 6-Jodi R. Memory 7-Ind - Endurance Good - Balance Good - Safety Awareness Good QI SCORES: - Self-Care A. Eating 03-Partial/moderate assistance B. Oral hygiene 03-Partial/moderate assistance C. Toileting hygiene 03-Partial/moderate assistance E. Shower/bathe self 03-Partial/moderate assistance F. Upper body dressing 03-Partial/moderate assistance G. Lower body dressing 03-Partial/moderate assistance H. Putting on/taking off footwear 88-Not attempted due to medical condition or safety concerns - Mobility A. Roll left and right 03-Partial/moderate assistance B. Sit to lying 03-Partial/moderate assistance C. Lying to sitting on side of bed 03-Partial/moderate assistance D. Sit to stand 03-Partial/moderate assistance E. Chair/nat-lg-nquil transfer 03-Partial/moderate assistance F. Toilet transfer 03-Partial/moderate assistance G. Car transfer 88-Not attempted due to medical condition or safety concerns I. Walk 10 feet 88-Not attempted due to medical condition or safety concerns J. Walk 50 feet with two turns 88-Not attempted due to medical condition or safety concerns K. Walk 150 feet 88-Not attempted due to medical condition or safety concerns L. Walking 10 feet on uneven surfaces 88-Not attempted due to medical condition or safety concerns M. 1 step (curb) 88-Not attempted due to medical condition or safety concerns N. 4 steps 88-Not attempted due to medical condition or safety concerns O. 12 steps 88-Not attempted due to medical condition or safety concerns P. Picking up object 88-Not attempted due to medical condition or safety concerns R. Wheel 50 feet with two turns 88-Not attempted due to medical condition or safety concerns S. Wheel 150 feet 88-Not attempted due to medical condition or safety concerns - Bladder and Bowel Bladder continence Bowel continence - Endurance Poor - Balance Poor - Safety Awareness Poor DISCHARGE INSTRUCTIONS: - N/A Aspirin 81 mg daily, Brilinta 90 mg twice daily. DISCHARGE PLAN, FOLLOW UP CARE PROVISIONS: - Estimated Length of Stay (days) 17. - Consensus on plan Discharge plan has been discussed with primary caregiver. Patient/Family is in agreement with the lele n. Primary caregiver is in agreement with the plan. - Patient/Family Goals Return home independently. - Planned Living Setting Upon Discharge Home, to live with Family/Relatives. Transitional Living. 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
== END 2020-06-08 10:00 | disposition home or self-care (01) | DRG 57 ==
LOC: 5TH 17:57
PROVIDERS: ADMIT Psychiatry & Neurology Neurology with Special Qualifications in Child Neurology; ATTEND Psychiatry & Neurology Neurology with Special Qualifications in Child Neurology
DX: I69.354 Hemiplegia and hemiparesis following cerebral infarction affecting left non-dominant side (principal); Z20.822 Contact with and (suspected) exposure to COVID-19
CPT/HCPCS: 36415; 80048; 81001; 82040; 82947; 83735; 84134; 85025; 87086; 87088; 97110; 97112; 97116; 97124; 97161; 97530; 97542; J1815; U0002; U0003

== ENCOUNTER 2020-07-21 13:12 | Observation (INO) | payer BC ==
--- OUTSIDE RECORDS SUMMARY | 2020-07-21 13:14 | XMS REPORT | Continuity of Care Document ---
:1960 Author Organization [facility] t Address [address] [place] [address] Care Team Providers Name Role Phone Rolando HIGH Attending Clinician Ilya Copeland DO Attending Clinician Fredy Nunez MD Attending Clinician Doctor Unassigned, Name Attending Clinician Unavailable Tanja HOYT, L Attending Clinician Unavailable Milton HIGH Attending Clinician Milton HIGH Admitting Clinician Problems This patient has no known problems. Allergies, Adverse Reactions, Alerts This patient has no known allergies or adverse reactions. Medications This patient has no known medications. Procedures This patient has no known procedures. Encounters Start End Encounter Admission Attending Care Care Encounter Source Date/Time Date/Time Type Type Clinicians Facility Department ID 2020-07-18 2020-07-18 Telephone MALIHA Marshall [id number] 00:00[facility]00 [id number] [place] [id number] Professio [phone] [facility] 059 Building 2020-07-16 2020-07-16 Patient MALIHA Copeland [id number] 00:00:00 00:00:[address] [facility] [id number] Ilya [facility] [id number] PAVILLION [phone] [id number] 2020-07-12 2020-07-12 Telemedici Enrique [facility] [id number] 06:56:21 17:46:33 ne Visit [facility] [id number] [place] [id number] Professio [phone] [place] [address] Office [address] One 2020-07-12 2020-07-12 Orders Doctor BROOKS [id number] 00:00:00 00:00:00 Only Unassigned, CHELLY [id number] [facility] [id number] 2020-06-10 2020-06-10 Patient [facility] [id number] 00:00:00 00:00:00 Secure Msg Shauna Brunson [id number] [place] [id number] Professio [phone] [facility]9 Building 2020-05-31 2020-05-31 [facility] [id number] 00:00:00 00:00:00 [facility] [id number] [place] [id number] Professio [phone] [place] [address] Office [address] One 2020-05-27 2020-05-27 Transition Luis A Agrawal [id number] 00:00:00 00:00:00 of Care Dulcejuan pablo Bryanty [id number] [place] [id number] [id number] 2020-05-20 2020-05-26 Hospital Miguel Rose [id number] 15:00:00 15:40:00 Encounter Leopold [id number] [facility] 4.2.7.2.686 [id number] [id number] 2020-05-04 2020-05-04 [facility] [id number] 00:00:00 00:00:00 Shauna Brunson [id number] [place] [id number] Professio [phone] [facility] [address] [facility] 2019-11-30 2019-11-30 Telephone [place]more, [facility] [id number] 00:00:00 00:00:00 Wondiful A [place] [id number] [place] [id number] Professio [phone] [address] 2019-11-25 2019-11-25 Orders Doctor BROOKS [id number] 00:00:00 00:00:00 Only Unassigned, CHELLY [id number] [facility] 4.2.7.2.686 [id number] 2019-11-03 2019-11-03 Refill [facility] [id number] 00:00:00 00:00:00 Abilioteresaelva Boy [id number] [place] [id number] Professio [phone] [address] 2019-09-22 2019-09-22 Refill [facility] [id number] 00:00:00 00:00:00 Abilioteresaelva [place] [id number] [facility] [id number] Professio [phone] [address] 2019-09-02 2019-09-02 Telephone [facility] [id number] 00:00:00 00:00:00 Shauna Brunson [id number] [place] [id number] Professio [phone] [address] 2019-08-25 2019-08-25 Telemedici [facility] [id number] 08:57:19 09:17:19 ne Visit Shauna Brunson [id number] [place] [id number] Professio [phone] [address] 2019-08-12 2019-08-12 [facility] [id number] 00:00:00 00:00:00 [facility] [id number] [place] 4.2.7.2.686 [place] [phone] [facility] 044 Office Building One Results This patient has no known results.
--- NOTE | 2020-07-21 13:55 | RAD REPORT ---
EXAM DESCRIPTION: CT - Ct Stroke Brain Wo Cont - 07/21/2020 1:47 pm CLINICAL HISTORY: DIZZINESS, syncope, right-sided vision changes COMPARISON: Ct Stroke Brain Wo Cont dated 05/20/2020 TECHNIQUE: Axial 5 millimeter thick images of the head were obtained without IV contrast. All CT scans are performed using dose optimization technique as appropriate and may include automated exposure control or mA/KV adjustment according to patient size. FINDINGS: No intracranial hemorrhage, mass, or cerebral edema. No acute cortical based infarction id entified. No significant atrophy or significant chronic ischemic changes identifiable. No extra-axial fluid collections. Alston matter-white matter differentiation is preserved. Visualized portions of the mastoid air cells, paranasal sinuses, and orbits are unremarkable. Findings telephoned to Brooks Carroll in the emergency department 1:50 p.m. IMPRESSION: No hemorrhage is present. No acute stroke identifiable. No significant findings or changes from May 2020.
[2020-07-21 14:11] LABS: Absolute Lymphocytes (CBC) 1.5 K/uL (0.7-4.9); Basophils % 0.6 % (0-1.3); Hematocrit 45.4 % (39.6-49.0); Lymphocytes % 21.7 % (15.3-44.8); MPV 8.3 fL (7.6-11.3); RBC Red Blood Cell Count 5.16 M/uL (4.33-5.43)
[2020-07-21 14:46] LABS: Protime INR 0.93
[2020-07-21 15:04] LABS: Potassium 4.3 mmol/L (3.5-5.1)
--- NOTE | 2020-07-21 15:21 | RAD REPORT ---
EXAM DESCRIPTION: MRI - Brain Wo Cont - 07/21/2020 3:02 pm CLINICAL HISTORY: VISUAL DISTURBANCES COMPARISON: Ct Stroke Brain Wo Cont dated 07/21/2020 TECHNIQUE: Sagittal T1-weighted images were obtained along with axial PD, heavily T2-weighted and T2 -FLAIR images. Axial DWI and ADC mapping sequences were also obtained along with coronal heavily T2-w eighted images. FINDINGS: Diffusion-weighted imaging shows a 7 x 3 mm focus of restricted diffusion in the medial le ft occipital lobe. There is corresponding diminished signal on ADC mapping. Patient has extensive res tricted diffusion pattern 4-5 cm in size involving the inferior right cerebellum. There is correspond ing diminished signal on ADC mapping. There is a questionable punctate focus of restricted diffusion in the anterior right medulla no other brainstem abnormality. As a baseline patient has no atrophy. V entricles are normal. A few punctate T2/IR hyperintensities are seen in the subcortical white matter of the frontal lobes. There is no edema or shift of midline structures. No extra-axial fluid collecti ons. Alston-matter/white matter junction is preserved. Signal voids are seen as a normal finding in the major intracranial vessels. No globe or orbital content abnormality. Mastoid air cells and paranasal sinuses are clear. IMPRESSION: No intracranial hemorrhage present. Moderately large 4-5 cm area of nonhemorrhagic acute infarction in the inferior right cerebellum. Punctate focus of nonhemorrhagic infarction in the medial superior left occipital lobe as a potential source for a visual field deficit. As a baseline patient has a few punctate areas of subcortical white matter signal abnormality likely minimal chronic ischemic injury.
--- NOTE | 2020-07-21 16:01 | EDPHYS ---
Physician Documentation [facility] Name: Brice Noe Age: 59 yrs Sex: Male : 1960 Arrival Date: 07/21/2020 Time: 13:15 Bed 15 Private MD: ED Physician Kyle Inman HPI: 07/21 16:36 This 59 yrs old Male presents to ER via Ambulatory with complaints of Eye tw4 Problem - twitching, Dizziness. 16:33 The patient's problem is reported as difficulty walking, falling to right, off balance. tw4 16:36 Onset: The symptoms/episode began/occurred 1 hour(s) ago. Duration: This was a single tw4 incident. Context: the episode(s) was witnessed, by no one, symptoms became apparent at 11:00. occurred at home, occurred while the patient was standing, Possible contributing factors include:. The symptoms are alleviated by nothing. The symptoms are aggravated by moving head, changing position. Associated signs and symptoms: The patient has no apparent associated signs or symptoms. Severity of symptoms: At their worst the symptoms were moderate in the emergency department the symptoms are unchanged. The patient has not experienced similar symptoms in the past. Historical: - Allergies: 13:32 Codeine; ca1 - Home Meds: 13:32 BRILINTA oral oral [Active]; Crestor 40 mg Oral tab 1 tab once daily [Active]; Effient ca1 10 mg Oral tab 1 tab once daily [Active]; Jardiance 10 mg Oral tab 1 tab once daily [Active]; lisinopril 2.5 mg Oral tab 1 tab once daily [Active]; metformin 1,000 mg Oral tab 1 tab 2 times per day [Active]; metoprolol tartrate 50 mg Oral tab 1 tab 2 times per day [Active]; pantoprazole 40 mg Oral TbEC 1 tab once daily [Active]; gabapentin oral oral [Active]; - PMHx: 13:32 GERD; Diabetes - NIDDM; High Cholesterol; Hypertension; Myocardial infarction; CVA; ca1 - PSHx: 13:32 Knee surgery; ca1 - Immunization history:: Pneumococcal vaccine is not up to date, Flu vaccine is not up to date. - Social history:: Smoking status: Patient reports use of chewing tobacco. ROS: 16:36 Constitutional: Negative for fever, chills, and weight loss, Eyes: Negative for injury, tw4 pain, redness, and discharge, Cardiovascular: Negative for chest pain, palpitations, and edema, Respiratory: Negative for shortness of breath, cough, wheezing, and pleuritic chest pain, Abdomen/GI: Negative for abdominal pain, nausea, vomiting, diarrhea, and constipation, Back: Negative for injury and pain, MS/Extremity: Negative for injury and deformity. 16:36 Eyes: Positive for visual disturbance. 16:36 Neuro: Positive for dizziness, gait disturbance. Exam: 16:36 Radiologist reports: no acute findings tw4 16:36 Constitutional: This is a well developed, well nourished patient who is awake, alert, and in no acute distress. Head/Face: Normocephalic, atraumatic. 16:36 Neck: Trachea midline, no thyromegaly or masses palpated, and no cervical lymphadenopathy. Supple, full range of motion without nuchal rigidity, or vertebral point tenderness. No Meningismus. Chest/axilla: Normal chest wall appearance and motion. Nontender with no deformity. No lesions are appreciated. Cardiovascular: Regular rate and rhythm with a normal S1 and S2. No gallops, murmurs, or rubs. Normal PMI, no JVD. No pulse deficits. Respiratory: Lungs have equal breath sounds bilaterally, clear to auscultation and percussion. No rales, rhonchi or wheezes noted. No increased work of breathing, no retractions or nasal flaring. Abdomen/GI: Soft, non-tender, with normal bowel sounds. No distension or tympany. No guarding or rebound. No evidence of tenderness throughout. Back: No spinal tenderness. No costovertebral tenderness. Full range of motion. MS/ Extremity: Pulses equal, no cyanosis. Neurovascular intact. Full, normal range of motion. Neuro: Awake and alert, GCS 15, oriented to person, place, time, and situation. Cranial nerves II-XII grossly intact. Motor strength 5/5 in all extremities. Sensory grossly intact. Cerebellar exam normal. Normal gait. 16:36 Eyes: Nystagmus: vertical nystagmus noted, in right eye. Vital Signs: 13:26 BP 162 / 101; Pulse 66; Resp 16 S; Temp 97.6(TE); Pulse Ox 98% on R/A; Weight 106.59 kg ca1 (R); Height 5 ft. 10 in. (177.80 cm) (R); Pain 2/10; 14:00 BP 167 / 104; Pulse 72; Resp 15; Pulse Ox 98% ; jl7 14:22 BP 157 / 96; Pulse 70; Resp 20; Pulse Ox 98% ; jl7 15:30 BP 157 / 105; Pulse 66; Resp 17; Pulse Ox 98% ; jl7 16:00 BP 163 / 104; Pulse 65; Resp 17; Pulse Ox 97% ; jl7 16:45 BP 154 / 103; Pulse 63; Resp 17; Pulse Ox 96% ; jl7 17:30 BP 175 / 101; Pulse 62; Resp 16; Pulse Ox 100% ; Pain 2/10; jl7 18:59 BP 177 / 99; Pulse 58; Resp 15; Pulse Ox 97% ; Pain 2/10; jl7 13:26 Body Mass Index 33.72 (106.59 kg, 177.80 cm) ca1 NIH Stroke Scale Scores: 13:50 NIHSS Score: 0 jl7 MDM: 13:54 Patient medically screened. tw4 16:31 Data reviewed: vital signs, nurses notes. Data interpreted: Pulse oximetry: tw4 Interpretation: normal. Physician consultation: Jim Smith MD regarding admission, to the telemetry unit. patient's condition, and will see patient in ED, would like consultation with D/W Dr Berkowitz at 1555 concerning pts condtion. Pt is not a Tpa candidate secondary to previous Tpa adminstration. 16:36 Test interpretation: by ED physician or midlevel provider: ECG. Counseling: I had a tw4 detailed discussion with the patient and/or guardian regarding: the historical points, exam findings, and any diagnostic results supporting the discharge/admit diagnosis, lab results, radiology results. 07/21 13:55 Order name: Basic Metabolic Panel [facility] 07/21 13:55 Order name: CBC with Diff tw4 07/21 13:55 Order name: Protime (+inr) tw 07/21 13:55 Order name: Ptt, Activated tw 07/21 13:55 Order name: Basic Metabolic Panel [facility] 07/21 14:04 Order name: Glucose, Ancillary Testing [facility] 07/21 13:40 Order name: CT Stroke Brain w/o Contrast; Complete Time: 13:56 ca1 07/21 13:55 Order name: EKG; Complete Time: 13:56 tw4 07/21 14:13 Order name: MRI - Brain Wo Cont; Complete Time: 15:31 tw4 07/21 16:18 Order name: CONS Physician Consult [facility] 07/21 16:26 Order name: COVID-19 : Document "Date of Symptom Onset" if Symptomatic. ss 07/21 18:13 Order name: SARS-COV-2 RT PCR [facility] 07/21 13:55 Order name: Accucheck; Complete Time: 13:56 tw4 07/21 13:55 Order name: Cardiac monitoring; Complete Time: 13:56 tw4 07/21 13:55 Order name: EKG - Nurse/Tech; Complete Time: 13:56 tw4 07/21 13:55 Order name: IV Saline Lock; Complete Time: 13:56 tw4 07/21 13:55 Order name: Labs collected and sent; Complete Time: 13:56 tw4 07/21 13:55 Order name: NPO; Complete Time: 13:57 tw4 07/21 13:55 Order name: O2 Per Protocol; Complete Time: 13:57 tw4 07/21 13:55 Order name: O2 Sat Monitoring; Complete Time: 13:57 tw4 07/21 13:55 Order name: Stroke Swallow Screen; Complete Time: 14:14 tw4 EC:36 Rate is 68 beats/min. Rhythm is regular. QRS [place] is Normal. [place] interval is normal. QRS tw4 interval is normal. QT interval is normal. No Q waves. T waves are Normal. No ST changes noted. Clinical impression: Normal ECG. Interpreted by me. Reviewed by me. Administered Medications: 16:18 Drug: Aspirin 81 mg Route: PO; jl7 16:18 Drug: PlaVIX (clopidogrel) 300 mg Route: PO; jl7 Point of Care Testing: Blood Glucose: 14:02 Blood Glucose: 139 mg/dL; jl7 Ranges: Critical Glucose Levels:Adult <50 mg/dl or >400 mg/dl <40 mg/dl or >180 mg/dl Disposition: 07/21/20 16:00 Hospitalization ordered by Jim Smith for Inpatient Admission. Preliminary diagnosis are Cerebellar stroke syndrome, Cerebral infarction due to unspecified occlusion or stenosis of cerebellar artery, Ataxia, unspecified. - Bed requested for Telemetry/MedSurg (Inpatient). - Status is Inpatient Admission. mg2 - Condition is Stable. - Problem is new. - Symptoms have improved. NIH Stroke Scale - NIH Stroke Score Date: 07/21/2020 Time: 13:50 Total Score = 0 1a. Level of Consciousness (LOC) - 0(Alert) 1b. Level of Consciousness (LOC) (Year \\T\\ Age) - 0(Both) 1c. LOC Commands (Open \\T\\ Closes Eyes/Mri Technician) - 0(Both) 2. Best Gaze (Lateral Gaze Paresis) - 0(Normal) 3. Visual Field Loss - 0(No visual loss) 4. Facial Palsy - 0(Normal) 5a. Left Arm: Motor (10-second hold) - 0(No drift) 5b. Right Arm: Motor (10-second hold) - 0(No drift) 6a. Left Leg: Motor (5-second hold - always test supine) - 0(No drift) 6b. Right Leg: Motor (5-second hold - always test supine) - 0(No drift) 7. Limb Ataxia (finger/nose \\T\\ heel/izquierdo - test with eyes open) - 0(Absent) 8. Sensory Loss (pinprick arms/legs/face) - 0(Normal) 9. Best Language: Aphasia (description/naming/reading) - 0(No aphasia) 10. Dysarthria (speech clarity - read or repeat words) - 0(Normal) 11. Extinction and Inattention (visual/tactile/auditory/spatial/personal) - 0(No abnormality) Initials: jlJesus Signatures: Dispatcher [employer] EDMS Rajinder Zazueta RN RN jl7 Yusuf Marin RN RN ja1 Kyle Inman MD MD tw4 Alfie Avila RN RN mg2 Mona Rojas RN RN ca1 Corrections: (The following items were deleted from the chart) 18:33 16:00 Hospitalization Ordered by Jim Smith MD for Inpatient Admission. ja1 Preliminary diagnosis is Cerebellar stroke syndrome; Cerebral infarction due to unspecified occlusion or stenosis of cerebellar artery; Ataxia, unspecified. Bed requested for Telemetry/MedSurg (Inpatient). Status is Inpatient Admission. Condition is Stable. Problem is new. Symptoms have improved. tw4 19:47 18:33 07/21/2020 16:00 Hospitalization Ordered by Jim Smith MD for mg2 Inpatient Admission. Preliminary diagnosis is Cerebellar stroke syndrome; Cerebral infarction due to unspecified occlusion or stenosis of cerebellar artery; Ataxia, unspecified. Bed requested for Telemetry/MedSurg (Inpatient). Status is Inpatient Admission. Condition is Stable. Problem is new. Symptoms have improved. ja1
--- NOTE | 2020-07-21 16:01 | ER ---
Nurse's Notes [facility] Name: Brice Noe Age: 59 yrs Sex: Male : 1960 Arrival Date: 07/21/2020 Time: 13:15 Bed 15 Private MD: Diagnosis: Cerebellar stroke syndrome;Cerebral infarction due to unspecified occlusion or stenosis of cerebellar artery;Ataxia, unspecified Presentation: 07/21 13:26 Chief complaint: Patient states: Was bending, stood up then got very dizzy and ca1 lightheaded, more than usual, twitching on my R eye, blurry vision on the R eye, ringing in the L ear. It lasted around 5 minutes. 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 HX brainstem stroke on 05/20/2020. Reports slight headache on the R side of the head at this time. Coronavirus screen: Client denies travel out of the [place] in the last 14 days. At this time, the client does not indicate any symptoms associated with coronavirus-19. Ebola Screen: Patient negative for fever greater than or equal to 101.5 degrees Fahrenheit, and additional compatible Ebola Virus Disease symptoms Patient denies exposure to infectious person. Patient denies travel to an Ebola-affected area in the 21 days before illness onset. No symptoms or risks identified at this time. Initial Sepsis Screen: Does the patient meet any 2 criteria? No. Patient's initial sepsis screen is negative. Does the patient have a suspected source of infection? No. Patient's initial sepsis screen is negative. Risk Assessment: Do you want to hurt yourself or someone else? Patient reports no desire to harm self or others. Onset of symptoms was July 21, 2020 at 12:30. 13:26 Method Of Arrival: Ambulatory ca1 13:26 Acuity: TARA 3 ca1 13:40 Acuity: TARA 2 jl7 13:40 No acute neurological deficit is noted. Pre-hospital glucose is not applicable to this jl7 patient. 13:40 Care prior to arrival: None. jl7 Triage Assessment: 13:40 The onset of the patients symptoms was July 21, 2020 at 11:00. General: Appears in no jl7 apparent distress. Stroke Activation: Symptom onset < 3 hours Physician: Stroke Attending; Name: ; Notified At: ; Arrived At: Physician: Chief Stroke Resident; Name: ; Notified At: ; Arrived At: Physician: Stroke Resident; Name: ; Notified At: ; Arrived At: Physician: ED Attending; Name: Henny; Notified At: 13:26; Arrived At: 13:26 Physician: ED Resident; Name: ; Notified At: ; Arrived At: Historical: - Allergies: 13:32 Codeine; ca1 - Home Meds: 13:32 BRILINTA oral oral [Active]; Crestor 40 mg Oral tab 1 tab once daily [Active]; Effient ca1 10 mg Oral tab 1 tab once daily [Active]; Jardiance 10 mg Oral tab 1 tab once daily [Active]; lisinopril 2.5 mg Oral tab 1 tab once daily [Active]; metformin 1,000 mg Oral tab 1 tab 2 times per day [Active]; metoprolol tartrate 50 mg Oral tab 1 tab 2 times per day [Active]; pantoprazole 40 mg Oral TbEC 1 tab once daily [Active]; gabapentin oral oral [Active]; - PMHx: 13:32 GERD; Diabetes - NIDDM; High Cholesterol; Hypertension; Myocardial infarction; CVA; ca1 - PSHx: 13:32 Knee surgery; ca1 - Immunization history:: Pneumococcal vaccine is not up to date, Flu vaccine is not up to date. - Social history:: Smoking status: Patient reports use of chewing tobacco. Screenin:22 Abuse screen: Denies threats or abuse. Denies injuries from another. Nutritional jl7 screening: No deficits noted. Tuberculosis screening: No symptoms or risk factors identified. Fall Risk IV access (20 points). Total Pinedo Fall Scale indicates No Risk (0-24 pts). Assessment: 13:30 Reassessment: Notified Dr. Inman re pt presentation and HX. VO to call code stroke. ca1 13:50 VAN Scoring: Arm Drift: Patients demonstrates NO arm weakness. Patient is VAN Negative. jl7 T-PA (Activase) Screening: Contraindications: Rapidly improving condition or minor deficit: Yes. 13:55 The patient has not been NPO before screening. The patient is currently on the jl7 following diet: home The patient is alert, and able to follow commands. The patient does not exhibit slurred or garbled speech. The patient is not exhibiting difficulty speaking. The patient does not exhibit difficulty understanding words. The patient is able to swallow own secretions with no drooling or need for suction. Patient tolerated one teaspoon of water. No drooling, immediate coughing, gurgling, or clearing of the throat was noted. The patient tolerated 90mL of water. No drooling, immediate coughing, gurgling, or clearing of the throat was noted. The patient passed the bedside swallow screening. Oral medications may be given as ordered. Contact Physician for further diet orders. Provider notified of bedside swallow screening results: Kyle Inman MD. 14:00 General: Appears in no apparent distress. uncomfortable, Behavior is calm, cooperative, jl7 appropriate for age. Pain: Complains of pain in KAN Pain currently is 2 out of 10 on a pain scale. Neuro: Level of Consciousness is awake, alert, obeys commands, Oriented to person, place, time, situation. Cardiovascular: Patient's skin is warm and dry. Respiratory: Airway is patent Respiratory effort is even, unlabored, Respiratory pattern is regular, symmetrical. GI: No signs and/or symptoms were reported involving the gastrointestinal system. : No signs and/or symptoms were reported regarding the genitourinary system. EENT: No signs and/or symptoms were reported regarding the EENT system. Derm: Skin is pink, warm \T\ dry. Musculoskeletal: No signs and/or symptoms reported regarding the musculoskeletal system. 15:00 Reassessment: Patient appears in no apparent distress at this time. No changes from jl7 previously documented assessment. Patient and/or family updated on plan of care and expected duration. Pain level reassessed. Patient is alert, oriented x 3, equal unlabored respirations, skin warm/dry/pink. Vital Signs: 13:26 BP 162 / 101; Pulse 66; Resp 16 S; Temp 97.6(TE); Pulse Ox 98% on R/A; Weight 106.59 kg ca1 (R); Height 5 ft. 10 in. (177.80 cm) (R); Pain 2/10; 14:00 BP 167 / 104; Pulse 72; Resp 15; Pulse Ox 98% ; jl7 14:22 BP 157 / 96; Pulse 70; Resp 20; Pulse Ox 98% ; jl7 15:30 BP 157 / 105; Pulse 66; Resp 17; Pulse Ox 98% ; jl7 16:00 BP 163 / 104; Pulse 65; Resp 17; Pulse Ox 97% ; jl7 16:45 BP 154 / 103; Pulse 63; Resp 17; Pulse Ox 96% ; jl7 17:30 BP 175 / 101; Pulse 62; Resp 16; Pulse Ox 100% ; Pain 2/10; jl7 18:59 BP 177 / 99; Pulse 58; Resp 15; Pulse Ox 97% ; Pain 2/10; jl7 13:26 Body Mass Index 33.72 (106.59 kg, 177.80 cm) ca1 NIH Stroke Scale Scores: 13:50 NIHSS Score: 0 jl7 ED Course: 13:15 Patient arrived in ED. am2 13:30 Triage completed. ca1 13:32 Arm band placed on right wrist. ca1 13:40 Rajinder Zazueta RN is Primary Nurse. jl7 13:46 CT Stroke Brain w/o Contrast In Process Unspecified. EDMS 13:50 Patient has correct armband on for positive identification. Placed in gown. Bed in low jl7 position. Call light in reach. Side rails up X 1. patient monitor on. Pulse ox on. NIBP on. 13:50 Initial lab(s) drawn, by me, sent to lab. EKG done, by ED staff, reviewed by Kyle Inman MD. Inserted saline lock: 20 gauge in right antecubital area, using aseptic technique. Blood collected. 13:54 Kyle Inman MD is Attending Physician. tw4 14:51 MRI - Brain Wo Cont In Process Unspecified. EDMS 15:51 Jim Smith MD is Hospitalizing Provider. tw4 19:42 No provider procedures requiring assistance completed. Patient admitted, IV remains in mg2 place. Administered Medications: 16:18 Drug: Aspirin 81 mg Route: PO; jl7 16:18 Drug: PlaVIX (clopidogrel) 300 mg Route: PO; jl7 Point of Care Testing: Blood Glucose: 14:02 Blood Glucose: 139 mg/dL; jl7 Ranges: Outcome: 16:00 Decision to Hospitalize by Provider. tw4 19:46 Admitted to Med/surg accompanied by nurse, via wheelchair, room 214, with chart, Report mg2 called to EVELINA Tamayo 19:46 Condition: stable 19:46 Instructed on the need for admit, Demonstrated understanding of instructions. 19:47 Patient left the ED. mg2 NIH Stroke Scale - NIH Stroke Score Date: 07/21/2020 Time: 13:50 Total Score = 0 1a. Level of Consciousness (LOC) - 0(Alert) 1b. Level of Consciousness (LOC) (Year \T\ Age) - 0(Both) 1c. LOC Commands (Open \T\ Closes Eyes/Pediatric Radiologist) - 0(Both) 2. Best Gaze (Lateral Gaze Paresis) - 0(Normal) 3. Visual Field Loss - 0(No visual loss) 4. Facial Palsy - 0(Normal) 5a. Left Arm: Motor (10-second hold) - 0(No drift) 5b. Right Arm: Motor (10-second hold) - 0(No drift) 6a. Left Leg: Motor (5-second hold - always test supine) - 0(No drift) 6b. Right Leg: Motor (5-second hold - always test supine) - 0(No drift) 7. Limb Ataxia (finger/nose \T\ heel/izquierdo - test with eyes open) - 0(Absent) 8. Sensory Loss (pinprick arms/legs/face) - 0(Normal) 9. Best Language: Aphasia (description/naming/reading) - 0(No aphasia) 10. Dysarthria (speech clarity - read or repeat words) - 0(Normal) 11. Extinction and Inattention (visual/tactile/auditory/spatial/personal) - 0(No abnormality) Initials: sophia Signatures: Dispatcher [employer] Rajinder Carter RN RN jl7 Dona Gray am2 Kyle Inman MD MD tw4 Alfie Avila RN RN mg2 Mona Rojas RN RN ca1 Corrections: (The following items were deleted from the chart) 13:42 13:27 Reassessment: Notified Dr. Inman re pt presentation and HX. VO to call ca1 code stroke. ca1 13:42 13:40 Reassessment: Notified Dr. Inman re pt presentation and HX. VO to call ca1 code stroke. ca1 18:59 15:43 BP 157 / 105; Pulse 66bpm; Resp 17bpm; Pulse Ox 98%; jl7 jl7
[2020-07-21] MEDS ORDERED: ASPIRIN EC 81 MG TAB PO ONE (16:14)
[2020-07-21] MEDS ORDERED: CLOPIDOGREL 75 MG TABLET ONE (16:14)
--- NOTE | 2020-07-21 16:59 | P.HP ---
Certification for Inpatient Patient admitted to: Observation With expected LOS: <2 Midnights Practitioner: I am a practitioner with admitting privileges, knowledge of patient current condition, hospital course, and medical plan of care. Services: Services provided to patient in accordance with Admission requirements found in Title 42 Section 412.3 of the Code of Federal Regulations Patient History Date of Service: 07/21/20 Reason for admission: R Cerebellar Stroke History of Present Illness: 59yo M, PMH: CVA, CAD s/p stent, HTN, IDDM2, GERD, presents to ED after 7-8 minute episode of lightheaded/vertigo, L ear ringing, and R eye shaking earlier today at ~1130am. Patient was bending down at the time. Had difficulty with his vision. All symptoms resolved except for a R posterior KAN. Denies any nausea/vomiting/chest pain / palpitations / abdominal pain/ new weakness, difficulty swallowing / choking, SOB. In the ED, labs were unremarkable, however MRI consistent with new R cerebellar stroke. Neurology was consulted. Patient unable to receive tPa due to receiving prior tPA ~2 months ago. Allergies No Known Allergies Allergy (Unverified 05/27/20 03:07) Home Medications: Pantoprazole [Protonix Tab*] 40 mg PO DAILYAC #30 tab 01/24/16 Rosuvastatin Calcium [Crestor] 1 tab PO DAILY 03/22/16 Aspirin [Aspirin EC 81 MG] 81 mg PO DAILY 05/27/20 Calcium Carb, Citrate/Vit D3 [Citracal-D3 ER 600 mg-500 Unit] 1 tab PO DAILY 05/27/20 Empagliflozin [Jardiance] 10 mg PO DAILY 05/27/20 Flaxseed Oil [Flaxseed] 1 tab PO DAILY 05/27/20 Metoprolol Succinate [Toprol Xl] 50 mg PO DAILY 05/27/20 Multivitamin [Multiple Vitamins] 1 tab PO DAILY 05/27/20 Sitagliptin Phosphate [Januvia*] 100 mg PO DAILY 05/27/20 Metformin HCl 500 mg PO BID 05/29/20 Cholecalciferol (Vitamin D3) [Vitamin D 1000 Iu Tab*] 1,000 unit PO DAILY tab 06/07/20 Insulin Glargine Human [Lantus*] 20 units SQ DAILY WITH BREAKFAST #10 ml 06/26 Ticagrelor [Brilinta*] 90 mg PO BID #60 tablet 06/07/20 lisinopriL [Prinivil*] 20 mg PO DAILY #30 tab 06/07/20 - Past Medical/Surgical History Diabetic: Yes -: Hypertension -: Diabetes mellitus type 2 -: Hyperlipidemia -: Coronary artery disease, stents x2-RCA -: Tobacco abuse-chewing tobacco -: Left knee surgery -: Left hand surgery Psychosocial/ Personal History: He is currently . He has 2 children. 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 - Family History Mother -: Diabetes Father -: Heart disease - Social History Smoking Status: Never smoker (chews tobacco) Alcohol use: Yes CD- Drugs: No Caffeine use: No Place of Residence: Home Review of Systems 10-point ROS is otherwise unremarkable Physical Examination - Physical Exam General: Alert, In no apparent distress, Oriented x3 HEENT: Atraumatic, PERRLA, Mucous membr. moist/pink Neck: Supple, 2+ carotid pulse no bruit Respiratory: Clear to auscultation bilaterally, Normal air movement Cardiovascular: No edema, Regular rate/rhythm, Normal S1 S2 Gastrointestinal: Soft and benign, Non-distended, No tenderness Musculoskeletal: No erythema, No tenderness Integumentary: No rashes Neurological: Normal speech, Normal strength at 5/5 x4 extr (except for 4+/5 of LLE), Sensation intact, Normal affect, Other (normal [id number], rapid- alternating movements, [id number]) - Studies Laboratory Data (last 24 hrs) 07/21/20 13:56: Sodium 142, Potassium 4.3, BUN 14, Creatinine 0.99, Glucose 136 H 07/21/20 01:39: PT 10.7, INR 0.93, APTT 30.6 07/21/20 01:39: WBC 6.80, Hgb 15.1, Hct 45.4, Plt Count 258 Assessment and Plan - Advance Directives Does patient have a Living Will: No Does patient have a Durable POA for Healthcare: No Physician Review Additional Text: Problem List new R cerebellar CVA prior CVA ~2 months ago with residual LUE / LLE weakness IDDM2 HTN GERD CAD s/p stent -pt reports was taking his medications as prescribed (aspirin and brillinta) -Neurology consulted - switch to plavix -high intensity statin, folic acid -will bring patient in for obs, repeat CTA, PT consult -symptoms resolved, tylenol for headache -allow permissive hypertension -neuro checks q4h -discussed nicotine cessation (pt dips) -confirm/restart home medications as appropriate Code: full Dispo: anticipate dc home in ~24hrs, pending PT eval Time Spent Managing Pts Care (In Minutes): 60
[2020-07-21] MEDS ORDERED: GLUCAGON 1 MG/VIAL IM PRN (20:05)
[2020-07-21] MEDS ORDERED: D50W 25 GM/50 ML SYRINGE IV PRN (20:05)
[2020-07-21] MEDS ORDERED: NA CHLORIDE 0.9% 1,000 ML IV SCH (20:05)
[2020-07-21 20:17] VITALS: BMI 32.8
[2020-07-21] MEDS ORDERED: ATORVASTATIN 20 MG TAB PO SCH (21:00)
[2020-07-21] MEDS ORDERED: INSULIN -REGULAR HUMAN 50 UNIT/0.5 ML ML SQ SCH (21:00)
--- NOTE | 2020-07-21 21:05 | RAD REPORT ---
EXAM DESCRIPTION: CT - Neck Angio - 07/21/2020 8:45 pm CLINICAL HISTORY: R basilar stroke TECHNIQUE: During dynamic enhancement using nonionic IV contrast, axial 2 mm thick images of the nec k were obtained. Sagittal and axial reconstruction images were generated using MIP technique and revi ewed. All CT scans are performed using dose optimization technique as appropriate and may include automated exposure control or mA/KV adjustment according to patient size. COMPARISON: MRI brain same date FINDINGS: No aneurysm or vascular malformation identified. No carotid dissection seen. Bilateral co mmon carotid and internal carotid arteries show no significant degrees of atherosclerotic change. The re are calcified plaquing changes in the proximal left ICA. Aortic arch is 3 vessel configuration. No origins stenoses. Left vertebral artery origin is unremarkable. Left vertebral artery is the dominant vessel. Atheroscl erotic calcifications are present in the origin of the right vertebral artery. There is long segment irregular narrowing of the proximal 1/3 of the right vertebral artery. The distal 1/3 of the vertebra l artery on the right shows little identifiable blood flow. There is no blood flow seen at the verteb ral artery junction with the basilar artery. No basilar artery abnormality. IMPRESSION: Right vertebral artery prominent atherosclerotic calcifications approximately with long segment irregular narrowing involving most of the right vertebral artery. Findings are concerning for right vertebral artery dissection with occlusion or near complete occlusi on of the distal 1/3 of the basilar artery.
--- NOTE | 2020-07-21 21:09 | RAD REPORT ---
EXAM DESCRIPTION: CT - Head angio - 07/21/2020 8:41 pm CLINICAL HISTORY: new R cerebellar stroke TECHNIQUE: During dynamic enhancement using nonionic IV contrast, axial 1 millimeter thick images of the head were obtained. Sagittal and axial reconstruction images were generated using MIP technique and reviewed. All CT scans are performed using dose optimization technique as appropriate and may include automated exposure control or mA/KV adjustment according to patient size. COMPARISON: MRI brain same date, CT angio neck same date FINDINGS: Distal left vertebral artery and basilar artery are unremarkable. Absent flow in the dist al aspect of the right vertebral artery which is further detailed on the separate CT angio neck repor t. The right posteroinferior cerebellar artery is absent or significantly reduced in size which would account for the inferior cerebellum infarction. Major venous sinuses are patent. The distal internal carotid arteries show no significant stenosis. There is calcification in the cave rnous portion left internal carotid artery. The anterior and middle cerebral arteries show no signifi cant disease. IMPRESSION: Absent flow in the distal right vertebral artery with absent or significantly diminishe d flow in the right posteroinferior cerebellum artery. This would account for the inferior right cere bellum CVA.
[2020-07-21 21:24] VITALS: O2SAT 95
[2020-07-21] MEDS ORDERED: ACETAMINOPHEN 500 MG TAB PO ONE (21:28)
[2020-07-22 00:56] VITALS: BP 161/91; TEMP 97.9
--- NOTE | 2020-07-22 02:07 | P.DS ---
Admission Date: 07/21/20 Discharge Date: 07/22/20 Disposition: TRANSFER TO [facility] Discharge Condition: FAIR Reason for Admission: R Cerebellar Stroke Consultations: Neurology: Dr. Berkowitz Procedures: Brain MRI FINDINGS: Diffusion-weighted imaging shows a 7 x 3 mm focus of restricted diffusion in the medial left occipital lobe. There is corresponding diminished signal on ADC mapping. Patient has extensive restricted diffusion pattern 4-5 cm in size involving the inferior right cerebellum. There is corresponding diminished signal on ADC mapping. There is a questionable punctate focus of restricted diffusion in the anterior right medulla no other brainstem abnormality. As a baseline patient has no atrophy. Ventricles are normal. A few punctate T2/IR hyperintensities are seen in the subcortical white matter of the frontal lobes. There is no edema or shift of midline structures. No extra-axial fluid collections. Alston-matter/white matter junction is preserved. Signal voids are seen as a normal finding in the major intracranial vessels. No globe or orbital content abnormality. Mastoid air cells and paranasal sinuses are clear. IMPRESSION: No intracranial hemorrhage present. Moderately large 4-5 cm area of nonhemorrhagic acute infarction in the inferior right cerebellum. Punctate focus of nonhemorrhagic infarction in the medial superior left occipital lobe as a potential source for a visual field deficit. As a baseline patient has a few punctate areas of subcortical white matter signal abnormality likely minimal chronic ischemic injury. Brain CT without FINDINGS: No intracranial hemorrhage, mass, or cerebral edema. No acute cortical based infarction identified. No significant atrophy or significant chronic ischemic changes identifiable. No extra-axial fluid collections. Alston matter-white matter differentiation is preserved. Visualized portions of the mastoid air cells, paranasal sinuses, and orbits are unremarkable. Findings telephoned to [facility] Carroll in the emergency department 1:50 p.m. IMPRESSION: No hemorrhage is present. No acute stroke identifiable. No significant findings or changes from May 2020. Head CT with FINDINGS: Distal left vertebral artery and basilar artery are unremarkable. Absent flow in the distal aspect of the right vertebral artery which is further detailed on the separate CT angio neck report. The right posteroinferior cerebellar artery is absent or significantly reduced in size which would account for the inferior cerebellum infarction. Major venous sinuses are patent. The distal internal carotid arteries show no significant stenosis. There is calcification in the cavernous portion left internal carotid artery. The anterior and middle cerebral arteries show no significant disease. IMPRESSION: Absent flow in the distal right vertebral artery with absent or significantly diminished flow in the right posteroinferior cerebellum artery. This would account for the inferior right cerebellum CVA. Neck CT with FINDINGS: No aneurysm or vascular malformation identified. No carotid dissection seen. Bilateral common carotid and internal carotid arteries show no significant degrees of atherosclerotic change. There are calcified plaquing changes in the proximal left ICA. Aortic arch is 3 vessel configuration. No origins stenoses. Left vertebral artery origin is unremarkable. Left vertebral artery is the dominant vessel. Atherosclerotic calcifications are present in the origin of the right vertebral artery. There is long segment irregular narrowing of the proximal 1/3 of the right vertebral artery. The distal 1/3 of the vertebral artery on the right shows little identifiable blood flow. There is no blood flow seen at the vertebral artery junction with the basilar artery. No basilar artery abnormality. IMPRESSION: Right vertebral artery prominent atherosclerotic calcifications approximately with long segment irregular narrowing involving most of the right vertebral artery. 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 Patient was bending down at the time. Had difficulty with his vision. All symptoms resolved except for a R posterior KAN. Denies any nausea/vomiting/chest pain / palpitations / abdominal pain/ new weakness, difficulty swallowing / choking, SOB. In the ED, labs were unremarkable, however MRI consistent with new R cerebellar stroke. Neurology was consulted. Patient unable to receive tPa due to receiving prior tPA ~2 months ago. Hospital Course: Patient was admitted to the [facility] floor, CT head and neck angio were performed for further evaluation of cerebellar stroke. CT neck angio demonstrated findings concerning for right vertebral artery dissection with occlusion or near complete occlusion of the distal 3rd of the basilar artery, CT brain with contrast demonstrates absent flow to the distal right vertebral artery with absent or significantly diminished flow in the right posterior inferior cerebellum artery which would account for the right inferior cerebellum CVA. These findings were discussed with neurology and as patient has been previously aware of this right vertebral artery dissection in treated with DAPTA with failed medical management the recommendation was made for transfer to tertiary center for possible intra-arterial intervention/evaluation. Case was discussed with [facility] and neurology team who accept patient for further evaluation with angiogram. At time of transfer patient awake, alert, oriented x3. NIH is 0, patient complaining of mild posterior headache, vital signs stable. Vital Signs/Physical Exam: Temp Pulse Resp BP Pulse Ox 97.9 F 56 16 161/91 H 97 07/22/20 00:00 07/22/20 00:00 07/22/20 00:00 07/22/20 00:00 07/22/20 00:00 General: Alert, In no apparent distress HEENT: Atraumatic, PERRLA, EOMI Neck: Supple, JVD not distended Respiratory: Clear to auscultation bilaterally, Normal air movement Cardiovascular: Regular rate/rhythm, Normal S1 S2 Gastrointestinal: Normal bowel sounds, No tenderness Musculoskeletal: No tenderness Integumentary: No rashes Neurological: Normal speech, Normal strength at 5/5 x4 extr, Normal tone, Sensation intact, Cranial nerves 3-12 intact, Normal affect Laboratory Data at Discharge: WBC 6.80 K/uL (4.3-10.9) 07/21/20 01:39 Hgb 15.1 g/dL (13.6-17.9) 07/21/20 01:39 Hct 45.4 % (39.6-49.0) 07/21/20 01:39 Plt Count 258 K/uL (152-406) 07/21/20 01:39 PT 10.7 SECONDS (9.5-12.5) 07/21/20 01:39 INR 0.93 07/21/20 01:39 APTT 30.6 SECONDS (24.3-36.9) 07/21/20 01:39 Sodium 142 mmol/L (136-145) 07/21/20 13:56 Potassium 4.3 mmol/L (3.5-5.1) 07/21/20 13:56 BUN 14 mg/dL (7-18) 07/21/20 13:56 Creatinine 0.99 mg/dL (0.55-1.3) 07/21/20 13:56 Glucose 136 mg/dL (74-106) H 07/21/20 13:56 Physician Discharge Instructions: Please continue with additional care at [facility]. Diet: npo Activity: Ad torsten Followup: Dharmesh Nunez MD [Primary Care Provider] - Time spent managing pt's care (in minutes): 55
[2020-07-22] MEDS ORDERED: CLOPIDOGREL 75 MG TABLET PO SCH (09:00)
[2020-07-22] MEDS ORDERED: FOLIC ACID 1 MG TABLET PO SCH (09:00)
[2020-07-22] MEDS ORDERED: ASPIRIN EC 81 MG TAB PO SCH (09:00)
== END 2020-07-22 02:20 | disposition short-term general hospital (02) ==
LOC: ER 13:12 → INTOOBSV 16:30 → ERHOLD 16:30 → 2ND 19:40
PROVIDERS: ADMIT Hospitalist; ATTEND Hospitalist
DX: I63.89 Other cerebral infarction (principal); I69.354 Hemiplegia and hemiparesis following cerebral infarction affecting left non-dominant side; E11.9 Type 2 diabetes mellitus without complications; Z79.4 Long term (current) use of insulin; I10 Essential (primary) hypertension; K21.9 Gastro-esophageal reflux disease without esophagitis; Z20.822 Contact with and (suspected) exposure to COVID-19; R29.700 NIHSS score 0; I25.10 Atherosclerotic heart disease of native coronary artery without angina pectoris; Z95.5 Presence of coronary angioplasty implant and graft; E78.5 Hyperlipidemia, unspecified; F17.220 Nicotine dependence, chewing tobacco, uncomplicated
CPT/HCPCS: 93005; 85025; 80048; 36415; 85610; 82947 ×2; 85730; 70496; 70498; 70450; 70551; 99285; U0003; Q9967; J7030; G0378 ×3